=== PATIENT | female | born 1955 | race Caucasian/White ===

== ENCOUNTER → 2016-12-14 | Outpatient (CLI) | payer OTHER ==
[~2016-12-14] MED LIST: CALCARB WITH VIT D; CYROHEPTADINE; NEUR600T; OXYBUTYNIN CHLORIDE; PEPC40TA; SENNA LAX; TIZANIDINE; TRAM100T; WARFARIN
[2016-12-14 14:14] LABS: MEAN CORPUSCULAR HEMOGLOBIN 31.5 pg (27.0-33.0); MEAN CORPUSCULAR HGB CONC 33.8 g/dl (32.0-36.5); MEAN CORPUSCULAR VOLUME 93.3 fl (80.0-96.0); RED CELL DISTRIBUTION WIDTH 13.2 % (11.5-14.5); WHITE BLOOD COUNT 10.1 K/mm3 (4.0-10.0)
[2016-12-14 14:31] LABS: ANION GAP 8 MEQ/L (8-16); BLOOD UREA NITROGEN 12 MG/DL (7-18); CALCIUM LEVEL 9.4 MG/DL (8.8-10.2); CARBON DIOXIDE LEVEL 35 MEQ/L (21-32); CHLORIDE LEVEL 98 MEQ/L (98-107); CREATININE FOR GFR 0.67 MG/DL (0.55-1.02); GLOMERULAR FILTRATION RATE > 60.0 (>45); GLUCOSE, FASTING 160 MG/DL (80-110); POTASSIUM SERUM 3.9 MEQ/L (3.5-5.1); SODIUM LEVEL 141 MEQ/L (136-145)
== END ==
LOC: M LAB 13:10
PROVIDERS: ATTEND Urology
DX: N31.9 Neuromuscular dysfunction of bladder, unspecified (principal)

== ENCOUNTER → 2017-04-25 | Outpatient (CLI) | payer OTHER ==
--- NOTE | 2017-04-26 06:58 | REP ---
Clinical: Lung screening. History nicotine dependence. Comparison: none Technique: Axial low-dose noncontrast images from the thoracic inlet to the upper abdomen using lung screening technique. Findings: There are somewhat irregular soft tissue densities in the bilateral apices and periphery of the upper lung zones (right greater than left) along with a small irregular area of opacity in the posterior superior right lower lobe. No definite discrete soft tissue nodule, consolidation or mass lesion otherwise appreciated. No pleural effusion or pneumothorax. Tracheobronchial tree is patent. Further evaluation is limited due to metallic streak artifact from Myers rods extending to the cervical spine. Cardiomegaly and atherosclerotic changes to the thoracic aorta and coronary arteries noted. Impression: Lung-RADS category III/IV. No definite nodule or mass. However, irregular areas of opacification and consolidation primarily involving the apices without prior examinations for comparison. While these findings may represent chronic changes, an acute process cannot definitively be excluded. Management recommendations may include three - 6-month low-density CT follow-up or PET/CT. Signed by Zia Encinas MD 04/26/2017 06:49 A
== END ==
LOC: M RAD 12:24
PROVIDERS: ATTEND Physician Assistant
DX: Z12.2 Encounter for screening for malignant neoplasm of respiratory organs (principal); F17.210 Nicotine dependence, cigarettes, uncomplicated; R91.8 Other nonspecific abnormal finding of lung field

== ENCOUNTER → 2017-12-06 | Outpatient (REF) | payer OTHER ==
[2017-12-06 20:00] LABS: HEMATOCRIT 45.6 % (36.0-47.0); HEMOGLOBIN 14.8 g/dl (12.0-16.0); MEAN CORPUSCULAR HEMOGLOBIN 30.8 pg (27.0-33.0); MEAN CORPUSCULAR HGB CONC 32.5 g/dl (32.0-36.5); MEAN CORPUSCULAR VOLUME 94.8 fl (80.0-96.0); PLATELET COUNT, AUTOMATED 253 10^3/uL (150-450); RED BLOOD COUNT 4.81 10^6/uL (4.00-5.40); RED CELL DISTRIBUTION WIDTH 13.1 % (11.5-14.5); WHITE BLOOD COUNT 10.4 10^3/uL (4.0-10.0)
[2017-12-06 20:19] LABS: ALBUMIN 3.2 GM/DL (3.2-5.2); ALBUMIN/GLOBULIN RATIO 0.76 (1.00-1.93); ALKALINE PHOSPHATASE 111 U/L (45-117); ALT/SGPT 21 U/L (12-78); ANION GAP 2 MEQ/L (8-16); AST/SGOT 23 U/L (7-37); BILIRUBIN,TOTAL 0.3 MG/DL (0.2-1.0); BLOOD UREA NITROGEN 16 MG/DL (7-18); CALCIUM LEVEL 8.9 MG/DL (8.8-10.2); CARBON DIOXIDE LEVEL 36 MEQ/L (21-32); CHLORIDE LEVEL 99 MEQ/L (98-107); CHOLESTEROL LEVEL 167 MG/DL (<200); CHOLESTEROL RISK RATIO 2.492 (<5); CREATININE FOR GFR 0.59 MG/DL (0.55-1.02); FREE T4 1.15 NG/DL (0.76-1.46); GLOMERULAR FILTRATION RATE > 60.0 (>45); GLUCOSE, FASTING 102 MG/DL (80-110); HDL CHOLESTEROL 67 MG/DL (>40); LDL CHOLESTEROL 75.4 MG/DL (<100); NON-HDL-C 100 MG/DL; POTASSIUM SERUM 4.4 MEQ/L (3.5-5.1); SODIUM LEVEL 137 MEQ/L (136-145); TOTAL PROTEIN 7.4 GM/DL (6.4-8.2); TRIGLYCERIDES LEVEL 123 MG/DL (<150)
== END ==
LOC: M SFHCADAM 15:36
DX: G83.9 Paralytic syndrome, unspecified (principal); F17.210 Nicotine dependence, cigarettes, uncomplicated; M62.838 Other muscle spasm; Z13.220 Encounter for screening for lipoid disorders

== ENCOUNTER → 2018-01-04 | Outpatient (REF) | payer OTHER ==
[2018-01-04 19:50] LABS: HEMATOCRIT 47.9 % (36.0-47.0); HEMOGLOBIN 15.3 g/dl (12.0-16.0); MEAN CORPUSCULAR HEMOGLOBIN 30.5 pg (27.0-33.0); MEAN CORPUSCULAR HGB CONC 31.9 g/dl (32.0-36.5); MEAN CORPUSCULAR VOLUME 95.6 fl (80.0-96.0); PLATELET COUNT, AUTOMATED 330 10^3/uL (150-450); RED BLOOD COUNT 5.01 10^6/uL (4.00-5.40); RED CELL DISTRIBUTION WIDTH 13.4 % (11.5-14.5); WHITE BLOOD COUNT 12.6 10^3/uL (4.0-10.0)
[2018-01-04 19:54] LABS: ANION GAP 4 MEQ/L (8-16); BLOOD UREA NITROGEN 19 MG/DL (7-18); CALCIUM LEVEL 9.1 MG/DL (8.8-10.2); CARBON DIOXIDE LEVEL 37 MEQ/L (21-32); CHLORIDE LEVEL 101 MEQ/L (98-107); CREATININE FOR GFR 0.67 MG/DL (0.55-1.30); GLOMERULAR FILTRATION RATE > 60.0 (>45); GLUCOSE, FASTING 95 MG/DL (70-100); POTASSIUM SERUM 4.1 MEQ/L (3.5-5.1); SODIUM LEVEL 142 MEQ/L (136-145)
== END ==
LOC: M LABDRWAD 19:27
DX: N31.9 Neuromuscular dysfunction of bladder, unspecified (principal)

== ENCOUNTER → 2018-01-11 | Outpatient (REF) | payer OTHER ==
[2018-01-11 18:45] LABS: APPEARANCE, URINE CLEAR (CLEAR); BACTERIA, URINE AUTO 1+ (NEGATIVE); BILIRUBIN, URINE AUTO NEGATIVE (NEGATIVE); BLOOD, URINE BLOOD NEGATIVE (NEGATIVE); COLOR, URINE YELLOW (YELLOW); GLUCOSE, URINE (UA) AUTO NEGATIVE (NEGATIVE); KETONE, URINE AUTO NEGATIVE (NEGATIVE); LEUKOCYTE ESTERASE, URINE AUTO NEGATIVE (NEGATIVE); NITRITE, URINE AUTO NEGATIVE (NEGATIVE); PROTEIN, URINE AUTO NEGATIVE (NEGATIVE); RBC, URINE AUTO 0 /HPF (0-3); SPECIFIC GRAVITY URINE AUTO 1.006 (1.002-1.035); SQUAMOUS EPITHELIAL CELL UR AU 0 /HPF (0-6); UROBILINOGEN, URINE AUTO 0.2 mg/dL (0.0-2.0); WBC, URINE AUTO 1 /HPF (0-3)
== END ==
LOC: M SMT 17:07
DX: N31.9 Neuromuscular dysfunction of bladder, unspecified (principal)

== ENCOUNTER → 2018-10-03 | Outpatient (CLI) | payer OTHER | LOC: M RAD 13:17 | DX: M62.49 Contracture of muscle, multiple sites (principal) | CPT/HCPCS: 76775 ==

== ENCOUNTER → 2018-10-22 | Outpatient (CLI) | payer OTHER | LOC: M RAD 13:34 | DX: M62.49 Contracture of muscle, multiple sites (principal) | CPT/HCPCS: 78707 ==

== ENCOUNTER → 2018-10-29 | Outpatient (REF) | payer OTHER ==
[2018-10-29 18:00] LABS: CALCIUM LEVEL 9.6 MG/DL (8.8-10.2)
[2018-10-29 18:18] LABS: TOTAL 25(OH) VITAMIN D 49.9 NG/ML (30.0-100.0)
== END ==
LOC: M LABDRWAD 16:34
DX: M85.89 Other specified disorders of bone density and structure, multiple sites (principal)
CPT/HCPCS: 82310

== ENCOUNTER → 2018-12-04 | Outpatient (REF) | payer OTHER ==
[2018-12-04 20:13] LABS: HEMATOCRIT 49.5 % (36.0-47.0); HEMOGLOBIN 15.9 g/dl (12.0-15.5); MEAN CORPUSCULAR HEMOGLOBIN 30.8 pg (27.0-33.0); MEAN CORPUSCULAR HGB CONC 32.1 g/dl (32.0-36.5); MEAN CORPUSCULAR VOLUME 95.7 fl (80.0-96.0); PLATELET COUNT, AUTOMATED 279 10^3/uL (150-450); RED BLOOD COUNT 5.17 10^6/uL (4.00-5.40); WHITE BLOOD COUNT 10.8 10^3/uL (4.0-10.0)
[2018-12-04 20:23] LABS: ALBUMIN 3.2 GM/DL (3.2-5.2); ALT/SGPT 15 U/L (12-78); BILIRUBIN,TOTAL 0.3 MG/DL (0.2-1.0); BLOOD UREA NITROGEN 13 MG/DL (7-18); CALCIUM LEVEL 9.4 MG/DL (8.8-10.2); CARBON DIOXIDE LEVEL 35 MEQ/L (21-32); CHLORIDE LEVEL 99 MEQ/L (98-107); CHOLESTEROL LEVEL 171 MG/DL (<200); CHOLESTEROL RISK RATIO 2.552 (<5); CREATININE FOR GFR 0.62 MG/DL (0.55-1.30); FREE T4 1.29 NG/DL (0.76-1.46); GLOMERULAR FILTRATION RATE > 60.0 (>45); GLUCOSE, FASTING 60 MG/DL (70-100); HDL CHOLESTEROL 67 MG/DL (>40); LDL CHOLESTEROL 90 MG/DL (<100); NON-HDL-C 104 MG/DL; POTASSIUM SERUM 4.6 MEQ/L (3.5-5.1); SODIUM LEVEL 142 MEQ/L (136-145); TOTAL PROTEIN 7.5 GM/DL (6.4-8.2); TRIGLYCERIDES LEVEL 68 MG/DL (<150)
== END ==
LOC: M SFHCADAM 16:23
PROVIDERS: ATTEND Physician Assistant
DX: R03.0 Elevated blood-pressure reading, without diagnosis of hypertension (principal); E78.5 Hyperlipidemia, unspecified; N31.9 Neuromuscular dysfunction of bladder, unspecified; M81.0 Age-related osteoporosis without current pathological fracture

== ENCOUNTER → 2019-01-03 | Outpatient (REF) | payer OTHER ==
[2019-01-03 19:49] LABS: APPEARANCE, URINE CLEAR (CLEAR); BACTERIA, URINE AUTO NEGATIVE (NEGATIVE); BILIRUBIN, URINE AUTO NEGATIVE (NEGATIVE); BLOOD, URINE BLOOD NEGATIVE (NEGATIVE); COLOR, URINE YELLOW (YELLOW); GLUCOSE, URINE (UA) AUTO NEGATIVE (NEGATIVE); KETONE, URINE AUTO NEGATIVE (NEGATIVE); LEUKOCYTE ESTERASE, URINE AUTO NEGATIVE (NEGATIVE); MUCUS, URINE SMALL (NEGATIVE); NITRITE, URINE AUTO NEGATIVE (NEGATIVE); PROTEIN, URINE AUTO NEGATIVE (NEGATIVE); RBC, URINE AUTO 0 /HPF (0-3); SPECIFIC GRAVITY URINE AUTO 1.004 (1.002-1.035); SQUAMOUS EPITHELIAL CELL UR AU 0 /HPF (0-6); UROBILINOGEN, URINE AUTO 0.2 mg/dL (0.0-2.0); WBC, URINE AUTO 1 /HPF (0-3)
== END ==
LOC: M LAB REF 19:14
PROVIDERS: ATTEND Physician Assistant
DX: N30.00 Acute cystitis without hematuria (principal)

== ENCOUNTER → 2019-05-31 | Outpatient (REF) | payer MEDICARE ==
[2019-05-31 19:19] LABS: HEMATOCRIT 45.2 % (36.0-47.0); HEMOGLOBIN 14.7 g/dl (12.0-15.5); MEAN CORPUSCULAR HGB CONC 32.5 g/dl (32.0-36.5); MEAN CORPUSCULAR VOLUME 98.3 fl (80.0-96.0); PLATELET COUNT, AUTOMATED 275 10^3/uL (150-450); WHITE BLOOD COUNT 9.9 10^3/uL (4.0-10.0)
[2019-05-31 19:26] LABS: ALBUMIN 3.2 GM/DL (3.2-5.2); ALT/SGPT 20 U/L (12-78); BILIRUBIN,TOTAL 0.3 MG/DL (0.2-1.0); BLOOD UREA NITROGEN 21 MG/DL (7-18); CALCIUM LEVEL 8.8 MG/DL (8.8-10.2); CARBON DIOXIDE LEVEL 34 MEQ/L (21-32); CHLORIDE LEVEL 101 MEQ/L (98-107); CREATININE FOR GFR 0.58 MG/DL (0.55-1.30); GLOMERULAR FILTRATION RATE > 60.0 (>45); GLUCOSE, FASTING 84 MG/DL (70-100); POTASSIUM SERUM 4.2 MEQ/L (3.5-5.1); SODIUM LEVEL 141 MEQ/L (136-145); TOTAL PROTEIN 7.6 GM/DL (6.4-8.2)
[2019-05-31 19:30] LABS: AMORPHOUS SEDIMENT SMALL (NEGATIVE); APPEARANCE, URINE CLOUDY (CLEAR); BACTERIA, URINE AUTO 1+ (NEGATIVE); BILIRUBIN, URINE AUTO NEGATIVE (NEGATIVE); BLOOD, URINE BLOOD NEGATIVE (NEGATIVE); COLOR, URINE YELLOW (YELLOW); GLUCOSE, URINE (UA) AUTO NEGATIVE (NEGATIVE); KETONE, URINE AUTO NEGATIVE (NEGATIVE); LEUKOCYTE ESTERASE, URINE AUTO TRACE (NEGATIVE); NITRITE, URINE AUTO NEGATIVE (NEGATIVE); PROTEIN, URINE AUTO NEGATIVE (NEGATIVE); RBC, URINE AUTO 2 /HPF (0-3); SPECIFIC GRAVITY URINE AUTO 1.013 (1.002-1.035); SQUAMOUS EPITHELIAL CELL UR AU 1 /HPF (0-6); UROBILINOGEN, URINE AUTO 0.2 mg/dL (0.0-2.0); WBC, URINE AUTO 1 /HPF (0-3)
== END ==
LOC: M SFHCADAM 16:33
PROVIDERS: ATTEND Physician Assistant
DX: N30.00 Acute cystitis without hematuria (principal)

== ENCOUNTER 2019-08-15 17:46 | Inpatient (IN) | payer MEDICARE ==
[~2019-08-15] VITALS: Ht 157.5 cm; Wt 54.5 kg
[2019-08-15] MEDS ORDERED: ACETAMINOPHEN 325 MG TAB PO ONE (18:15)
--- NOTE | 2019-08-15 18:28 | REP ---
Portable chest, single AP view with the patient sitting: The only available comparison study is a low-dose lung screening chest CT dated 04/25/2017. There is chronic focal increased density medially in the apex of the right lung compatible with chronic scarring. This was present on the comparison CT. There is increased density inferiorly in the right lung as an interval change compatible with an acute infiltrate. Cardiac size is normal. The james and mediastinum are unremarkable. There are thoracic spine Myers rods and a pacemaker, unchanged. Impression: New infiltrate inferiorly in the right lung. Chronic parenchymal scarring medially in the right apex. Electronically Signed by Jose Ramon Luna MD 08/15/2019 06:20 P
[2019-08-15] MEDS ORDERED: NS 1,000 ML IV SCH ×2 (18:29→19:45)
[2019-08-15] MEDS ORDERED: AZITHROMYCIN INJ 500 MG, VIAL MATE ADAPTER 1 EACH in D5W 250 ML IV ONE (18:30)
[2019-08-15] MEDS ORDERED: cefTRIAXone SOD 1 GM in D5W MINI-BAG PLUS 50 ML IV ONE (18:30)
[2019-08-15 18:42] LABS: BASO # 0.1 10^3/uL (0.0-0.2); BASO % 0.3 % (0.0-1.0); HEMATOCRIT 43.3 % (36.0-47.0); HEMOGLOBIN 14.5 g/dl (12.0-15.5); LYMPH # 1.8 10^3/uL (1.5-5.0); LYMPH % 7.8 % (24.0-44.0); MEAN CORPUSCULAR HEMOGLOBIN 32.4 pg (27.0-33.0); MEAN CORPUSCULAR HGB CONC 33.5 g/dl (32.0-36.5); MEAN CORPUSCULAR VOLUME 96.9 fl (80.0-96.0); MONO % 10.5 % (0.0-5.0); NEUTROPHILS # 18.3 10^3/uL (1.5-8.5); NEUTROPHILS % 80.7 % (36.0-66.0); PLATELET COUNT, AUTOMATED 317 10^3/uL (150-450); RED BLOOD COUNT 4.47 10^6/uL (4.00-5.40); WHITE BLOOD COUNT 22.7 10^3/uL (4.0-10.0)
[2019-08-15 18:48] LABS: VENOUS BASE EXCESS 5.8 (-2.0-2.0); VENOUS HCO3 33.4 MEQ/L (23.0-27.0); VENOUS O2 SATURATION 54.5 % (60.0-80.0); VENOUS PARTIAL PRESSURE CO2 59.8 mmHg (38.0-50.0); VENOUS PH 7.365 UNITS (7.330-7.430); VENOUS STANDARD HCO3 28.3 MEQ/L; VENOUS TOTAL CO2 35.2 MEQ/L (24.0-28.0)
[2019-08-15] MEDS ORDERED: FAMO40TA3 PO (18:56)
[2019-08-15] MEDS ORDERED: GABA-843 PO (18:56)
[2019-08-15] MEDS ORDERED: TRAM50TA2 PO (18:56)
[2019-08-15] MEDS ORDERED: OYSCTAB3 PO (18:56)
[2019-08-15] MEDS ORDERED: CYPR4TA PO ×2 (18:56)
[2019-08-15] MEDS ORDERED: OXYB15TA PO (18:56)
[2019-08-15] MEDS ORDERED: TIZA4TAB4 PO (18:56)
[2019-08-15] MEDS ORDERED: D200CAP2 PO (18:56)
[2019-08-15 18:58] LABS: BLOOD UREA NITROGEN 35 MG/DL (7-18); CALCIUM LEVEL 9.6 MG/DL (8.8-10.2); CARBON DIOXIDE LEVEL 32 MEQ/L (21-32); CHLORIDE LEVEL 94 MEQ/L (98-107); CREATININE FOR GFR 0.86 MG/DL (0.55-1.30); GLOMERULAR FILTRATION RATE > 60.0 (>45); GLUCOSE, FASTING 114 MG/DL (70-100); POTASSIUM SERUM 3.8 MEQ/L (3.5-5.1); SODIUM LEVEL 136 MEQ/L (136-145)
[2019-08-15 18:59] LABS: MONO # 2.4 10^3/uL (0.0-0.8)
--- NOTE | 2019-08-15 19:24 | HPEPDOC ---
[facility] Medical History & Physical Date of Admission Aug 15, 2019 Date of Service: Aug 15, 2019 Primary Care Physician: KEITH FLORES PA-C Attending Physician: KEITH FLORES PA-C History and Physical TIME OF SERVICE: 7:55 PM CHIEF COMPLAINT: "Trouble breathing." HISTORY OF PRESENT ILLNESS: This is a 61-year-old female who presents with complaints of "trouble breathing" for a couple of weeks. More specifically, she has had congestion, runny nose that resolved last week, dry cough, headache, poor appetite, fevers and chills. She denies having muscle aches, denies having chest pain, and denies having palpitations. She also commented that her urine has been more red than usual. REVIEW OF SYSTEMS: 12 point review of systems negative except as listed in HPI PAST MEDICAL/ SURGICAL HISTORY: Paraplegia secondary to spinal cord injury sustained after a fall while horseback riding/ status post spinal cord surgery with neha placement Neurogenic bladder requiring intermittent straight cath. Arthritis. Sleep apnea, not compliant with CPAP Osteoporosis History of DVT/Status post IVC filter placement Status post pacemaker placement ( according to the patient's daughter this is because the patient had several episodes of cardiac arrest while hospitalized but 19 years ago) Status post hemorrhoidectomy Status post tonsillectomy History of torn rotator cuff SOCIAL HISTORY: Former smoker FAMILY HISTORY: CAD/[place] Chronic hypertension. Breast cancer ALLERGIES: Please see below. HOME MEDICATIONS: Please see below. PHYSICAL EXAMINATION: VITAL SIGNS: Please see below. GENERAL APPEARANCE: Slim build, well-developed, does not appear toxic HEENT: Normocephalic, atraumatic, mucous membranes dry, nasal cannula in place, lips acyanotic CARDIOVASCULAR: Regular rate and rhythm. No murmurs, rubs or gallops LUNGS: Has a weak cough and is coughing occasionally during the exam. There are expiratory rhonchi bilaterally ABDOMEN: Soft and nontender on palpation MUSCULOSKELETAL: . Motion is intact in upper extremities, the patient is unable to move her legs, the calf at the right lower extremity is slightly larger than the left INTEGUMENT: She is not diaphoretic and her skin is not flushed NEUROLOGICAL: Numerous 2-12 are grossly intact. Speech is not dysarthric PSYCHIATRIC: Alert and oriented to person, place and time, able to understand and follow commands LABORATORY DATA: See below. IMAGING: Chest x-ray "Impression: New infiltrate inferiorly in the right lung. Chronic parenchymal scarring medially in the right apex." MICROBIOLOGY: Please see below. ASSESSMENT: Mrs. Velasquez is a 64 old female with a past medical history of paraplegia, neurogenic bladder, arthritis, sleep apnea, and osteoporosis, who will be admitted for management of sepsis secondary to pneumonia. PLAN: 1.Sepsis secondary to right sided pneumonia SIRS criteria include temperature of 101.0, pulse of 100, respiratory rate of 24, and WBC count of 22.7. Lactic acid is within normal limits She also has Non diabetic hyperglycemia and glucose of 114 NEW2S Score equals 6 points = medium risk Chest x-ray as above Oxygen saturation is 90% on 2 L by nasal cannula VBG was remarkable for a. PCO2 of 59.8 which is high PORT/PSI Score to predict risk of mortality in pt w CAP = 73points = class III = low risk The patient confirmed that she like to remain full code and would like to be intubated if medically necessary Plan: admit to PCU / telemetry / Sepsis protocol /elevate head of bed to 30 degrees / c/w supplemental O2, ceftriaxone and azithromycin/ IVF /f/u Influenza, blood cx &sputum Cx / tessalon pearls / Acetaminophen PRN for fever 2.Paraplegia secondary to spinal injury sustained after a fall / Neurogenic bladder requiring intermittent straight cath Plan: intermittent catheterization / c/w home meds to manage spasticity and neurogenic bladder 3. Sleep apnea Plan: Okay to use home CPAP 4. Osteoporosis Plan: continued home meds DVT prophylaxis with SCDs Disposition pending clinical course Vital Signs Vital Signs Date Time Temp Pulse Resp B/P (MAP) Pulse Ox O2 Delivery O2 Flow Rate FiO2 08/15/19 19:17 100.0 89 20 126/71 (89) 94 Nasal Cannula 2.0 Laboratory Data Labs 24H Laboratory Tests 2 08/15/19 18:25: Immature Granulocyte % (Auto) 0.7, White Blood Count 22.7H, Red Blood Count 4.47, Hemoglobin 14.5, Hematocrit 43.3, Mean Corpuscular Volume 96.9H, Mean Corpuscular Hemoglobin 32.4, Mean Corpuscular Hemoglobin Concent 33.5, Red Cell Distribution Width 13.1, Platelet Count 317, Neutrophils (%) (Auto) 80.7H, Lymphocytes (%) (Auto) 7.8L, Monocytes (%) (Auto) 10.5H, Eosinophils (%) (Auto) 0.0, Basophils (%) (Auto) 0.3, Neutrophils # (Auto) 18.3H, Lymphocytes # (Auto) 1.8, Monocytes # (Auto) 2.4H, Eosinophils # (Auto) 0.0, Basophils # (Auto) 0.1, Nucleated Red Blood Cells % (auto) 0.0, Blood Gas Bicarbonate Standard 28.3, Venous Blood pH 7.365, Venous Blood Partial Pressure CO2 59.8H, Venous Blood Partial Pressure O2 31.0, Venous Blood Total Carbon Dioxide 35.2H, Venous Blood HCO3 33.4H, Venous Blood Oxygen Saturation 54.5L, Venous Blood Base Excess 5.8H, Anion Gap 10, Glomerular Filtration Rate > 60.0, Lactic Acid Level 1.9, Blood Urea Nitrogen 35H, Creatinine 0.86, Sodium Level 136, Potassium Level 3.8, Chloride Level 94L, Carbon Dioxide Level 32, Calcium Level 9.6 CBC/BMP Laboratory Tests 08/15/19 18:25 Red Blood Count 4.47, Mean Corpuscular Volume 96.9 H, Mean Corpuscular Hemoglobin 32.4, Mean Corpuscular Hemoglobin Concent 33.5, Red Cell Distribution Width 13.1, Neutrophils (%) (Auto) 80.7 H, Lymphocytes (%) (Auto) 7.8 L, Monocytes (%) (Auto) 10.5 H, Eosinophils (%) (Auto) 0.0, Basophils (%) (Auto) 0.3, Neutrophils # (Auto) 18.3 H, Lymphocytes # (Auto) 1.8, Monocytes # (Auto) 2.4 H, Eosinophils # (Auto) 0.0, Basophils # (Auto) 0.1, Calcium Level 9.6 Microbiology Microbiology 08/15/19 Blood Culture, Received Pending 08/15/19 Blood Culture, Received Pending Home Medications Scheduled Calcium Carbonate/Vitamin D3 ([place] 500-Vit D3 200 Tablet) 1 Each Tablet, 1 TAB PO BID Cholecalciferol (Vitamin D3) (Vitamin D3) 2,000 Unit Capsule, 2,000 UNIT PO QPM Cyproheptadine HCl (Cyproheptadine HCl) 4 Mg Tablet, 4 MG PO DAILY NOON Cyproheptadine HCl (Cyproheptadine HCl) 4 Mg Tablet, 8 MG PO QPM Famotidine (Famotidine) 40 Mg Tablet, 40 MG PO DAILY Gabapentin (Gabapentin) 300 Mg Capsule, 600 MG PO BID Oxybutynin Chloride (Oxybutynin Chloride ER) 15 Mg Tab.er.24, 15 MG PO DAILY Scheduled PRN Tizanidine HCl (Tizanidine HCl) 4 Mg Tablet, 8 MG PO TID PRN for MUSCLE SPASMS Tramadol HCl (Tramadol HCl) 50 Mg Tablet, 50 MG PO Q6H PRN for PAIN Allergies Coded Allergies: No Known Allergies (Unverified , 08/15/19) A-FIB/CHADSVASC A-FIB History Current/History of A-Fib/PAF?: No Current PO Anticoag Therapy: No LIUDMILA FLORES MD Aug 15, 2019 19:24
[2019-08-15] MEDS ORDERED: BENZONATATE 100 MG CAP PO PRN (19:45)
[2019-08-15] MEDS ORDERED: ACETAMINOPHEN 650MG ER TAB (TYLENOL ARTHRITIS) PO PRN (19:45)
[2019-08-15] MEDS ORDERED: traMADol 50 MG TAB PO PRN (20:30)
[2019-08-15] MEDS: VITAMIN D 1,000 INTERNATIONAL UNITS TABLET PO SCH (20:55)
[2019-08-15] MEDS: GABAPENTIN 300 MG CAP PO SCH (20:55)
[2019-08-15] MEDS: CALCIUM/VITAMIN D 500 MG TAB PO SCH (21:42)
[2019-08-15] MEDS: CYPROHEPTADINE 4 MG TAB PO SCH (21:49)
[2019-08-15 22:42] LABS: INFLUENZA A AMPLIFICATION NEGATIVE (NEGATIVE); INFLUENZA B AMPLIFICATION NEGATIVE (NEGATIVE)
[2019-08-16] VITALS: BP 151/87
--- NOTE | 2019-08-16 00:11 | ECGEPIP ---
[place] - ED Test Date: 2019-08-15 Pat Name: IVORY NGUYEN Department: Room: - Gender: Female Instrumentation And Control Technician: fareed : [id number] Requested By: ALE Chan Order Number: [id number] Reading MD: Barrie Bean Measurements Intervals [place] Rate: 105 P: 50 CA: 118 QRS: 82 QRSD: 78 T: 80 QT: 331 QTc: 438 Interpretive Statements SINUS TACHYCARDIA WITH SHORT CA INTERVAL POSSIBLE LEFT ATRIAL ENLARGEMENT INCOMPLETE RIGHT BUNDLE BRANCH BLOCK NONSPECIFIC ST & T-WAVE ABNORMALITY NO PRIORS FOR COMPARISON Electronically Signed on 08-16-2019 0:10:35 EDT by Barrie Bean
[2019-08-16 05:58] VITALS: BP 162/81
[2019-08-16 07:09] LABS: HEMATOCRIT 44.3 % (36.0-47.0); HEMOGLOBIN 14.7 g/dl (12.0-15.5); MEAN CORPUSCULAR HEMOGLOBIN 32.2 pg (27.0-33.0); MEAN CORPUSCULAR HGB CONC 33.2 g/dl (32.0-36.5); MEAN CORPUSCULAR VOLUME 97.1 fl (80.0-96.0); PLATELET COUNT, AUTOMATED 317 10^3/uL (150-450); RED BLOOD COUNT 4.56 10^6/uL (4.00-5.40)
[2019-08-16 07:29] LABS: BLOOD UREA NITROGEN 24 MG/DL (7-18); CALCIUM LEVEL 9.4 MG/DL (8.8-10.2); CARBON DIOXIDE LEVEL 34 MEQ/L (21-32); CHLORIDE LEVEL 100 MEQ/L (98-107); GLOMERULAR FILTRATION RATE > 60.0 (>45); GLUCOSE, FASTING 163 MG/DL (70-100); POTASSIUM SERUM 3.7 MEQ/L (3.5-5.1); SODIUM LEVEL 140 MEQ/L (136-145)
[2019-08-16] MEDS: oxyBUTYnin *DITROPAN XL* 5 MG TABCR PO SCH (08:54)
[2019-08-16] MEDS: GABAPENTIN 300 MG CAP PO SCH ×2 (08:54→20:28)
[2019-08-16] MEDS: FAMOTIDINE 20 MG TAB PO SCH (08:54)
[2019-08-16] MEDS: CALCIUM/VITAMIN D 500 MG TAB PO SCH ×2 (09:00→20:28)
[2019-08-16] MEDS ORDERED: ALBUTEROL SULFATE 2.5 MG/0.5 ML INH NEB SOLN INH PRN (09:30)
--- NOTE | 2019-08-16 09:42 | IPN ---
DATE: 08/16/2019 Kori was seen while on interim bed status, admitted with a right sided pneumonia. She feels better than she did upon admission, less short of breath. Her energy levels are better. She was not running any fevers at home and oxygen saturation on supplemental oxygen are satisfactory. PHYSICAL EXAMINATION: 162/81, pulse 77, respirations 18, oxygen saturation 95% on 2 liters. General appearance: Lying in bed in no distress. HEENT unremarkable. Lungs show diffuse rhonchi and wheezes. Heart regular rhythm. Abdomen soft, nontender. IMPRESSION: 1. Right sided pneumonia. She is currently on ceftriaxone and azithromycin. She has a history of cardiac arrhythmia and has a pacemaker present, so I would rather she was not on azithromycin which is arrhythmogenic. I will change her to a higher dose of Rocephin (2 gram IV daily) and change the azithromycin to doxycycline 100 mg every 12 hours Empiric Solu-Medrol 40 mg IV daily for 5 days has been ordered, which has improved outcomes with severe community acquired pneumonia. 2. Paraplegia. She is T5 paraplegic after a horse riding accident in 2002. She does self catheterization and has a bowel regimen that I have asked the nurses to help her continue. 3. Neurogenic bladder. She straight catheterizes every 4 hours. 4. Sleep apnea. Continue her CPAP.
[2019-08-16] MEDS: methylPREDNISolone INJ 125 MG/2 ML VIAL (J2930) IV SCH (10:58)
[2019-08-16] MEDS: cefTRIAXone SOD 2 GM in D5W MINI-BAG PLUS 50 ML IV SCH (10:58)
[2019-08-16] MEDS: ALBUTEROL SULFATE 2.5 MG/0.5 ML INH NEB SOLN INH SCH ×3 (11:32→18:24)
[2019-08-16] MEDS: CYPROHEPTADINE 4 MG TAB PO SCH ×2 (12:00→20:28)
[2019-08-16] MEDS: DOXYCYCLINE HYCLATE 100 MG in D5W MINI-BAG PLUS 100 ML IV SCH (13:24)
[2019-08-16] MEDS: tiZANidine 4 MG TAB PO PRN ×2 (13:46→20:28)
[2019-08-16 14:34] VITALS: BP 157/77
[2019-08-16 18:00] VITALS: BP 130/63
[2019-08-16] MEDS ORDERED: cefTRIAXone SOD 1 GM in D5W MINI-BAG PLUS 50 ML IV SCH (19:00)
[2019-08-16] MEDS ORDERED: AZITHROMYCIN INJ 500 MG, VIAL MATE ADAPTER 1 EACH in D5W 250 ML IV SCH (20:00)
[2019-08-16] MEDS: VITAMIN D 1,000 INTERNATIONAL UNITS TABLET PO SCH (20:28)
[2019-08-16 22:00] VITALS: BP 142/88
[2019-08-17] MEDS: DOXYCYCLINE HYCLATE 100 MG in D5W MINI-BAG PLUS 100 ML IV SCH ×2 (00:25→13:20)
[2019-08-17 06:00] VITALS: BP 161/85
[2019-08-17] MEDS: ALBUTEROL SULFATE 2.5 MG/0.5 ML INH NEB SOLN INH SCH ×4 (07:36→19:38)
[2019-08-17 07:45] LABS: BASO # 0.1 10^3/uL (0.0-0.2); BASO % 0.3 % (0.0-1.0); HEMATOCRIT 43.3 % (36.0-47.0); HEMOGLOBIN 14.1 g/dl (12.0-15.5); LYMPH # 1.4 10^3/uL (1.5-5.0); LYMPH % 4.9 % (24.0-44.0); MEAN CORPUSCULAR HGB CONC 32.6 g/dl (32.0-36.5); MEAN CORPUSCULAR VOLUME 98.2 fl (80.0-96.0); MONO # 1.9 10^3/uL (0.0-0.8); MONO % 6.9 % (0.0-5.0); NEUTROPHILS # 24.2 10^3/uL (1.5-8.5); NEUTROPHILS % 86.3 % (36.0-66.0); PLATELET COUNT, AUTOMATED 352 10^3/uL (150-450); RED BLOOD COUNT 4.41 10^6/uL (4.00-5.40)
[2019-08-17 08:04] LABS: BLOOD UREA NITROGEN 14 MG/DL (7-18); CALCIUM LEVEL 9.3 MG/DL (8.8-10.2); CARBON DIOXIDE LEVEL 36 MEQ/L (21-32); CHLORIDE LEVEL 102 MEQ/L (98-107); CREATININE FOR GFR 0.55 MG/DL (0.55-1.30); GLOMERULAR FILTRATION RATE > 60.0 (>45); GLUCOSE, FASTING 103 MG/DL (70-100); POTASSIUM SERUM 3.8 MEQ/L (3.5-5.1); SODIUM LEVEL 142 MEQ/L (136-145)
[2019-08-17] MEDS: methylPREDNISolone INJ 125 MG/2 ML VIAL (J2930) IV SCH (08:17)
[2019-08-17] MEDS: CALCIUM/VITAMIN D 500 MG TAB PO SCH ×2 (08:17→20:12)
[2019-08-17] MEDS: GABAPENTIN 300 MG CAP PO SCH ×2 (08:17→20:12)
[2019-08-17] MEDS: FAMOTIDINE 20 MG TAB PO SCH (08:17)
[2019-08-17] MEDS: oxyBUTYnin *DITROPAN XL* 5 MG TABCR PO SCH (08:17)
[2019-08-17] MEDS: tiZANidine 4 MG TAB PO PRN ×2 (08:40→17:06)
[2019-08-17 10:00] VITALS: BP 142/78
[2019-08-17] MEDS: cefTRIAXone SOD 2 GM in D5W MINI-BAG PLUS 50 ML IV SCH (10:54)
[2019-08-17] MEDS: CYPROHEPTADINE 4 MG TAB PO SCH ×2 (13:21→20:12)
[2019-08-17 14:00] VITALS: BP 164/86
--- NOTE | 2019-08-17 14:55 | IPNPDOC ---
Subjective Date Seen The patient was seen on 08/17/19. Subjective Chief Complaint/HPI improved cough Constitutional: Denies: Chills Eyes: Denies: Vision change Skin: Denies: Rash Pulmonary: Reports: Cough; Denies: Dyspnea Cardiovascular: Denies: Chest Pain Gastrointestinal: Denies: Nausea, Vomiting Genitourinary: Denies: Dysuria Objective Physical Examination General Exam: Positive: Alert, Cooperative ENT Exam: Positive: Atraumatic Neck Exam: Negative: JVD Chest Exam: Positive: Rales (R basilar), Diminished Heart Exam: Positive: Rate Normal Abdomen Exam: Positive: Normal bowel sounds Extremity Exam: Negative: Edema Assessment /Plan Problems (1) Pneumonia Status: Acute Response to Treatment: Improving Problem Text: D2 ceftriaxone/doxy 08/17 WBC 28 (08/15 23)-? GC effect, AF, given increasing WBC and persistent hypoxia, check CT chest 08/15 CXR RLL infiltrate 08/15 BCX2 NG (2) Paraplegia (3) DVT (deep venous thrombosis) Status: Chronic Problem Text: ho DVT sp IVC filter (4) MIGDALIA (obstructive sleep apnea) Status: Chronic Problem Text: non-compliant c CPAP Plan/VTE VTE Prophylaxis Ordered?: Yes VS, I&O, 24H, Fishbone Vital Signs/I&O Vital Signs Date Time Temp Pulse Resp B/P (MAP) Pulse Ox O2 Delivery O2 Flow Rate FiO2 08/17/19 10:00 97.8 80 17 142/78 (99) 95 2.0 08/15/19 23:22 Nasal Cannula I&O- Last 24 Hours up to 6 AM 08/17/19 06:00 Intake Total 1100 ml Output Total 4825 ml Balance -3725 ml Laboratory Data 24H LABS Laboratory Tests 2 08/17/19 07:13: Immature Granulocyte % (Auto) 1.6, White Blood Count 28.0H, Red Blood Count 4.41, Hemoglobin 14.1, Hematocrit 43.3, Mean Corpuscular Volume 98.2H, Mean Corpuscular Hemoglobin 32.0, Mean Corpuscular Hemoglobin Concent 32.6, Red Cell Distribution Width 13.0, Platelet Count 352, Neutrophils (%) (Auto) 86.3H, Lymphocytes (%) (Auto) 4.9L, Monocytes (%) (Auto) 6.9H, Eosinophils (%) (Auto) 0.0, Basophils (%) (Auto) 0.3, Neutrophils # (Auto) 24.2H, Lymphocytes # (Auto) 1.4L, Monocytes # (Auto) 1.9H, Eosinophils # (Auto) 0.0, Basophils # (Auto) 0.1, Nucleated Red Blood Cells % (auto) 0.0, Anion Gap 4L, Glomerular Filtration Rate > 60.0, Blood Urea Nitrogen 14, Creatinine 0.55, Sodium Level 142, Potassium Level 3.8, Chloride Level 102, Carbon Dioxide Level 36H, Calcium Level 9.3 08/17/19 11:25: Bedside Glucose (Misc Panel) 159H CBC/BMP Laboratory Tests 08/17/19 07:13 Red Blood Count 4.41, Mean Corpuscular Volume 98.2 H, Mean Corpuscular Hemoglobin 32.0, Mean Corpuscular Hemoglobin Concent 32.6, Red Cell Distribution Width 13.0, Neutrophils (%) (Auto) 86.3 H, Lymphocytes (%) (Auto) 4.9 L, Monocytes (%) (Auto) 6.9 H, Eosinophils (%) (Auto) 0.0, Basophils (%) (Auto) 0.3, Neutrophils # (Auto) 24.2 H, Lymphocytes # (Auto) 1.4 L, Monocytes # (Auto) 1.9 H, Eosinophils # (Auto) 0.0, Basophils # (Auto) 0.1, Calcium Level 9.3 Microbiology Microbiology 08/15/19 Blood Culture - Preliminary, Resulted No growth after 24 hours . All specim... 08/15/19 Blood Culture - Preliminary, Resulted No growth after 24 hours . All specim... Mayank Goldberg M.D. Aug 17, 2019 14:55
[2019-08-17] MEDS ORDERED: ISOVUE-370 76% 100ML VIAL (Q9967) As Ordered ONE (15:12)
[2019-08-17 18:00] VITALS: BP 200/110
[2019-08-17 19:00] VITALS: BP 158/82
[2019-08-17] MEDS: VITAMIN D 1,000 INTERNATIONAL UNITS TABLET PO SCH (20:12)
[2019-08-17 22:00] VITALS: BP 151/78
[2019-08-18] VITALS (8 sets, daily range): BP systolic 113–210; BP diastolic 72–110
[2019-08-18] MEDS: DOXYCYCLINE HYCLATE 100 MG in D5W MINI-BAG PLUS 100 ML IV SCH ×2 (00:06→12:25)
[2019-08-18] MEDS: tiZANidine 4 MG TAB PO PRN ×3 (00:06→20:06)
[2019-08-18 06:56] LABS: BASO # 0.1 10^3/uL (0.0-0.2); BASO % 0.2 % (0.0-1.0); HEMATOCRIT 41.5 % (36.0-47.0); HEMOGLOBIN 13.5 g/dl (12.0-15.5); LYMPH % 13.1 % (24.0-44.0); MEAN CORPUSCULAR HGB CONC 32.5 g/dl (32.0-36.5); MEAN CORPUSCULAR VOLUME 95.2 fl (80.0-96.0); MONO % 9.7 % (0.0-5.0); NEUTROPHILS # 16.9 10^3/uL (1.5-8.5); NEUTROPHILS % 75.3 % (36.0-66.0); PLATELET COUNT, AUTOMATED 362 10^3/uL (150-450); RED BLOOD COUNT 4.36 10^6/uL (4.00-5.40); WHITE BLOOD COUNT 22.4 10^3/uL (4.0-10.0)
[2019-08-18 07:17] LABS: BLOOD UREA NITROGEN 14 MG/DL (7-18); CALCIUM LEVEL 8.9 MG/DL (8.8-10.2); CARBON DIOXIDE LEVEL 36 MEQ/L (21-32); CHLORIDE LEVEL 103 MEQ/L (98-107); CREATININE FOR GFR 0.58 MG/DL (0.55-1.30); GLOMERULAR FILTRATION RATE > 60.0 (>45); GLUCOSE, FASTING 84 MG/DL (70-100); MONO # 2.2 10^3/uL (0.0-0.8); POTASSIUM SERUM 3.8 MEQ/L (3.5-5.1); SODIUM LEVEL 142 MEQ/L (136-145)
[2019-08-18] MEDS: ALBUTEROL SULFATE 2.5 MG/0.5 ML INH NEB SOLN INH SCH ×4 (07:21→20:02)
--- NOTE | 2019-08-18 08:00 | REP ---
CT CHEST WITH CONTRAST: 08/17/2019. Comparison: AP portable chest 08/15/2019, CT 11/16/2018. Clinical history: Left lower lobe opacity, increasing WBCs. Technique: Bolus 75 ml Isovue 370, scanning through the chest with coronal and sagittal reconstructions. Orthopedic metal artifact reduction algorithm was used for some reconstructions because of Myers rods. Findings: The lung [place] show chronic apical scarring on the left and more on the right with bronchiectatic change in the consolidated apex. This is unchanged. However, there are acute infiltrates in the deep sulcus of the left lower lobe and also in the right lower lobe. Underlying COPD and fibrosis with patchy interstitial infiltrates as well as a more consolidated deep sulcus infiltrates seen in both lower lobes. Some COPD and emphysematous changes are also noted. Heart not enlarged. Some nodes about the right hilum. No other definite adenopathy. The aorta is calcified and without gross aneurysm or dissection. Left atrium mildly prominent but the left ventricle is not enlarged. No pericardial thickening or effusion. No axillary or supraclavicular mass. The bones show degenerative disc changes without acute compression deformity. Marginal osteophytes lower thoracic spine. Some sclerotic changes in upper thoracic vertebral body, all stable compared to previous exams. Myers rods extending from the C7-T1 level through T9. An old healed sternomanubrial fracture. This is stable. In the upper abdomen, that portion of liver and spleen included were unremarkable. The abdominal aorta has no aneurysm. Upper poles of kidneys intact. Adrenal glands normal. Impression: 1. The deep sulcus of the lower lobes show infiltrates bilaterally with interstitial infiltrates, more diffusely in both lower lung zones. No effusion. 2. Apical pleuroparenchymal scarring, right greater than left and unchanged with some bronchiectatic changes in the chronic apical opacity on the right. 3. No gross cardiomegaly with left atrium mildly prominent. 4. Tortuous calcified aorta without aneurysm or dissection. 5. Myers rods in the upper thoracic spine and old healed sternomanubrial fracture stable. No acute bony finding. Electronically Signed by Nestor Elias MD 08/18/2019 09:22 A
[2019-08-18] MEDS: oxyBUTYnin *DITROPAN XL* 5 MG TABCR PO SCH (08:32)
[2019-08-18] MEDS: CALCIUM/VITAMIN D 500 MG TAB PO SCH ×2 (08:32→20:05)
[2019-08-18] MEDS: FAMOTIDINE 20 MG TAB PO SCH (08:32)
[2019-08-18] MEDS: GABAPENTIN 300 MG CAP PO SCH ×2 (08:32→20:05)
[2019-08-18] MEDS: methylPREDNISolone INJ 125 MG/2 ML VIAL (J2930) IV SCH (08:32)
[2019-08-18] MEDS: ENOXAPARIN 40 MG/0.4 ML SYRINGE (J1650) SC SCH (08:33)
[2019-08-18] MEDS: cefTRIAXone SOD 2 GM in D5W MINI-BAG PLUS 50 ML IV SCH (10:24)
[2019-08-18] MEDS: CYPROHEPTADINE 4 MG TAB PO SCH ×2 (12:25→20:04)
--- NOTE | 2019-08-18 15:44 | IPNPDOC ---
Subjective Date Seen The patient was seen on 08/18/19. Subjective Chief Complaint/HPI dyspnea close to baseline Constitutional: Denies: Chills Eyes: Denies: Pain ENT: Denies: Head Aches Skin: Denies: Lesions Pulmonary: Denies: Dyspnea, Cough Cardiovascular: Denies: Chest Pain, Palpitations Gastrointestinal: Denies: Nausea, Vomiting Objective Physical Examination General Exam: Positive: Alert, Cooperative ENT Exam: Positive: Atraumatic Neck Exam: Negative: JVD Chest Exam: Positive: Rales (R basilar), Diminished Heart Exam: Positive: Rate Normal Abdomen Exam: Positive: Normal bowel sounds Extremity Exam: Negative: Edema Assessment /Plan Problems (1) Elevated blood pressure reading Status: Acute Problem Text: no ho hypertension ? 2 GC 08/18 SBP last PM to 200; therefore, + amlo 5, this AM down to 110, MP decreased 40 to 20 (2) Pneumonia Status: Acute Response to Treatment: Improving Problem Text: D3 ceftriaxone/doxy 08/18 22.4, AF, weaned off O2, + EZ Pap to alb nebs) 08/17 WBC 28 (08/15 23)-? GC effect, AF, given increasing WBC and persistent hypoxia, check CT chest 08/18 SCX P 08/15 CXR RLL infiltrate 08/15 BCX2 NG 08/17: CT chest: 1. The deep sulcus of the lower lobes show infiltrates bilaterally with interstitial infiltrates, more diffusely in both lower lung zones. No effusion. 2. Apical pleuroparenchymal scarring, right greater than left and unchanged with some bronchiectatic changes in the chronic apical opacity on the right. 3. No gross cardiomegaly with left atrium mildly prominent. 4. Tortuous calcified aorta without aneurysm or dissection. 5. Myers rods in the upper thoracic spine and old healed sternomanubrial fracture stable. No acute bony finding. Electronically Signed by Nestor Elias MD 08/18/2019 09:22 A DD: Nestor Elias MD 08/17/19 1555 DT: MIGUEL ANGEL 08/18/19 0754 DS: GREER [id number]/18/[id number] [~ rep ct labl] 08/15 BCX2 NG (3) Paraplegia Status: Chronic (4) DVT (deep venous thrombosis) Status: Chronic Problem Text: on LMWH px ho DVT sp IVC filter (5) MIGDALIA (obstructive sleep apnea) Status: Chronic Problem Text: non-compliant c CPAP Plan/VTE VTE Prophylaxis Ordered?: Yes VS, I&O, 24H, Fishbone Vital Signs/I&O Vital Signs Date Time Temp Pulse Resp B/P (MAP) Pulse Ox O2 Delivery O2 Flow Rate FiO2 08/18/19 14:00 98.3 100 18 131/82 (98) 93 1.0 08/17/19 19:39 Nasal Cannula I&O- Last 24 Hours up to 6 AM 08/18/19 06:00 Intake Total 1000 ml Output Total 4000 ml Balance -3000 ml Laboratory Data 24H LABS Laboratory Tests 2 08/18/19 06:25: Immature Granulocyte % (Auto) 1.7, White Blood Count 22.4H, Red Blood Count 4.36, Hemoglobin 13.5, Hematocrit 41.5, Mean Corpuscular Volume 95.2, Mean Corpuscular Hemoglobin 31.0, Mean Corpuscular Hemoglobin Concent 32.5, Red Cell Distribution Width 13.2, Platelet Count 362, Neutrophils (%) (Auto) 75.3H, Lymphocytes (%) (Auto) 13.1L, Monocytes (%) (Auto) 9.7H, Eosinophils (%) (Auto) 0.0, Basophils (%) (Auto) 0.2, Neutrophils # (Auto) 16.9H, Lymphocytes # (Auto) 3.0, Monocytes # (Auto) 2.2H, Eosinophils # (Auto) 0.0, Basophils # (Auto) 0.1, Nucleated Red Blood Cells % (auto) 0.0, Anion Gap 3L, Glomerular Filtration Rate > 60.0, Blood Urea Nitrogen 14, Creatinine 0.58, Sodium Level 142, Potassium Level 3.8, Chloride Level 103, Carbon Dioxide Level 36H, Calcium Level 8.9 CBC/BMP Laboratory Tests 08/18/19 06:25 Red Blood Count 4.36, Mean Corpuscular Volume 95.2, Mean Corpuscular Hemoglobin 31.0, Mean Corpuscular Hemoglobin Concent 32.5, Red Cell Distribution Width 13.2, Neutrophils (%) (Auto) 75.3 H, Lymphocytes (%) (Auto) 13.1 L, Monocytes (%) (Auto) 9.7 H, Eosinophils (%) (Auto) 0.0, Basophils (%) (Auto) 0.2, Neutrophils # (Auto) 16.9 H, Lymphocytes # (Auto) 3.0, Monocytes # (Auto) 2.2 H, Eosinophils # (Auto) 0.0, Basophils # (Auto) 0.1, Calcium Level 8.9 Microbiology Microbiology 08/18/19 Gram Stain - Final, Resulted 08/18/19 Sputum Culture, Resulted Pending 08/15/19 Blood Culture - Preliminary, Resulted No Growth after 48 hours. All Specime... 08/15/19 Blood Culture - Preliminary, Resulted No Growth after 48 hours. All Specime... Mayank Goldberg M.D. Aug 18, 2019 15:44
[2019-08-18] MEDS: VITAMIN D 1,000 INTERNATIONAL UNITS TABLET PO SCH (20:05)
[2019-08-19] MEDS: DOXYCYCLINE HYCLATE 100 MG in D5W MINI-BAG PLUS 100 ML IV SCH ×2
[2019-08-19 05:10] VITALS: BP 194/108
[2019-08-19] MEDS ORDERED: amLODIPine 5 MG TAB PO ONE (05:15)
[2019-08-19 06:21] LABS: HEMATOCRIT 46.1 % (36.0-47.0); HEMOGLOBIN 15.1 g/dl (12.0-15.5); MEAN CORPUSCULAR HEMOGLOBIN 32.1 pg (27.0-33.0); MEAN CORPUSCULAR HGB CONC 32.8 g/dl (32.0-36.5); MEAN CORPUSCULAR VOLUME 97.9 fl (80.0-96.0); PLATELET COUNT, AUTOMATED 360 10^3/uL (150-450); RED BLOOD COUNT 4.71 10^6/uL (4.00-5.40); WHITE BLOOD COUNT 19.6 10^3/uL (4.0-10.0)
[2019-08-19 06:48] LABS: BLOOD UREA NITROGEN 15 MG/DL (7-18); CALCIUM LEVEL 9.8 MG/DL (8.8-10.2); CARBON DIOXIDE LEVEL 37 MEQ/L (21-32); CHLORIDE LEVEL 100 MEQ/L (98-107); CREATININE FOR GFR 0.54 MG/DL (0.55-1.30); GLOMERULAR FILTRATION RATE > 60.0 (>45); GLUCOSE, FASTING 67 MG/DL (70-100); POTASSIUM SERUM 3.6 MEQ/L (3.5-5.1); SODIUM LEVEL 143 MEQ/L (136-145)
[2019-08-19 06:54] LABS: ANISOCYTOSIS 1+; ATYPICAL LYMPH 4 % (0-5); EOSINOPHILS 1 % (0-3); LYMPHOCYTES 25 % (16-44); MONOCYTES 12 % (0-5); NEUTROPHILS 58 % (28-66); PLATELET ESTIMATE NORMAL (NORMAL)
[2019-08-19 07:00] VITALS: BP 166/90
[2019-08-19] MEDS: ALBUTEROL SULFATE 2.5 MG/0.5 ML INH NEB SOLN INH SCH ×2 (07:33→11:14)
[2019-08-19 08:01] VITALS: BP 166/90
[2019-08-19] MEDS ORDERED: ALBU8.5H IH (08:16)
[2019-08-19] MEDS ORDERED: DOXY100C PO (08:16)
[2019-08-19] MEDS ORDERED: PRED20TA PO (08:16)
[2019-08-19] MEDS ORDERED: CEFD1CAP8 PO (08:16)
[2019-08-19] MEDS ORDERED: BENZ-18 PO (08:16)
[2019-08-19] MEDS ORDERED: methylPREDNISolone INJ 40 MG/1 ML VIAL (J2920) IV SCH (09:00)
--- NOTE | 2019-08-19 09:19 | DSES ---
DATE OF ADMISSION: 08/15/2019 DATE OF DISCHARGE: 08/19/2019 ATTENDING PHYSICIAN: Dr. Mayank Goldberg PRIMARY CARE PROVIDER: Stacy Ahn HISTORY OF PRESENT ILLNESS: 64-year-old female who presented to [facility] Emergency Department (ED) with complaints of a few week history of difficulty breathing. The patient had admitted to nasal congestion, dry cough, headache, poor appetite, fevers and cold chills. Workup in the ED included a chest x-ray as well as chest CT. The patient was noted to have a new infiltrate inferiorly in the right lung. Chest x-ray confirmed lower lobe infiltrate bilaterally with apical pleural parenchymal scarring. Chronic obstructive pulmonary disease (COPD) and emphysematous changes were noted on CT of chest. HOSPITAL COURSE: The patient was placed on doxycycline and ceftriaxone. She was started on methylprednisolone for inflammation. The patient received IV antibiotics and steroids for three days. She has been weaned off of her oxygen and down to room air. It has been noted that the patient has had some hypertensive episodes, mostly during sleep hours. She admits that she has a C-PAP at home and has been noncompliant with its use. She was placed on amlodipine 5 mg daily and we will continue that at home. Labs on admission included a white blood cell count of 22,000. Most recent white count is improved at 19,000. Differential has shown slow improvement as well. The patient has had no signs of anemia and platelets have remained stable. The patient's electrolytes have remained stable as well as her creatinine. The patient's procalcitonin returned as 0.54. On physical exam today, vital signs are stable. Blood pressure this morning is 166/90, oxygen saturation 97% on room air. HEENT: Neck is supple, without lymphadenopathy or jugular venous distention (JVD). Cardiovascular: Heart rate and rhythm are regular. Pulmonary: Lungs are diminished bibasilar. Abdomen: Soft and nontender. Bilateral lower extremities are without any edema. Positive pedal pulses bilaterally. ASSESSMENT/DISCHARGE DIAGNOSES: 1. Bibasilar pneumonia. 2. Sepsis secondary to pneumonia. 3. Paraplegia secondary to spinal cord injury. 4. Sleep apnea. SECONDARY DIAGNOSES: 1. Osteoporosis. 2. Neurogenic bladder. PLAN: The patient will be discharged to home. She has private caregivers who will return starting tomorrow to assist her with her routine a.m. care. Diet is as tolerated. Activity is as tolerated. She will followup with her PCP within the next 5-7 days. MEDICATIONS: - albuterol sulfate HFA every 4 hours as needed for shortness of breath - benzonatate 200 mg by mouth every 6 hours as needed for cough - Cefdinir 300 mg by mouth twice a day - doxycycline hyclate 100 mg by mouth twice a day - prednisone 20 mg one daily for five days - calcium carbonate with vitamin D3 one tab by mouth twice a day - vitamin D3 2000 units by mouth every p.m. - cyproheptadine 4 mg by mouth daily - cyproheptadine 8 mg by mouth every p.m. - famotidine 40 mg by mouth daily - gabapentin 300 mg two by mouth twice a day - oxybutynin 15 mg by mouth daily - tizanidine 8 mg by mouth three times a day as needed muscle spasms - tramadol 50 mg by mouth every 6 hours as needed for pain The patient was encouraged to utilize her C-PAP given the presentation of hypertension overnight throughout her hospitalization. I did discuss the ramifications of untreated sleep apnea and expressed the importance of compliance with her C-PAP. The patient does have this service for [employer] and will contact them if there is any need for any repair with her C-PAP machine. The patient is discharged in stable and satisfactory condition with no further questions at the time of discharge MACIEL
[2019-08-19 10:00] VITALS: BP 102/68
[2019-08-19] MEDS: FAMOTIDINE 20 MG TAB PO SCH (10:17)
[2019-08-19] MEDS: CALCIUM/VITAMIN D 500 MG TAB PO SCH (10:17)
[2019-08-19] MEDS: oxyBUTYnin *DITROPAN XL* 5 MG TABCR PO SCH (10:18)
[2019-08-19] MEDS: GABAPENTIN 300 MG CAP PO SCH (10:18)
[2019-08-19] MEDS: ENOXAPARIN 40 MG/0.4 ML SYRINGE (J1650) SC SCH (10:18)
[2019-08-19] MEDS: cefTRIAXone SOD 2 GM in D5W MINI-BAG PLUS 50 ML IV SCH (10:19)
== END 2019-08-19 12:00 | disposition home or self-care (01) | DRG 871 ==
LOC: EDBD 17:46 → M ED 17:46 → M ED INP 19:42 → M MSPAV 08-16 14:39
PROVIDERS: ADMIT Internal Medicine; ATTEND Family Medicine
DX: A41.9 Sepsis, unspecified organism (principal); J18.9 Pneumonia, unspecified organism; G82.20 Paraplegia, unspecified; N31.9 Neuromuscular dysfunction of bladder, unspecified; G47.33 Obstructive sleep apnea (adult) (pediatric); M81.0 Age-related osteoporosis without current pathological fracture; Z79.899 Other long term (current) drug therapy; Z91.19 Patient's noncompliance with other medical treatment and regimen; Z86.718 Personal history of other venous thrombosis and embolism; Z95.0 Presence of cardiac pacemaker; Z87.891 Personal history of nicotine dependence

== ENCOUNTER 2020-02-07 15:05 | Inpatient (IN) | payer MEDICARE, MEDICAID ==
[~2020-02-07] VITALS: Ht 157.5 cm; Wt 46.4 kg
[~2020-02-07 15:05] MED LIST changes: +ALBU8.5H IH; +BENZ-18 PO; +CEFD1CAP8 PO; +CYPR4TA PO; +D200CAP2 PO; +DOXY100C PO; +FAMO40TA3 PO; +GABA-843 PO; +OXYB15TA14 PO; +OYSCTAB3 PO; +PRED20TA PO; +TIZA4TAB4 PO; +TRAM50TA2 PO
[2020-02-07] MEDS ORDERED: SENNA 8.6 MG TAB (SENOKOT) PO PRN (15:15)
[2020-02-07] MEDS ORDERED: traMADol 50 MG TAB PO PRN (15:15)
[2020-02-07] MEDS ORDERED: NICOTINE POLACRILEX 2 MG GUM PO PRN (15:15)
[2020-02-07] MEDS ORDERED: ALBUTEROL 90 MCG/ACT 8GM HFA INHALER INH PRN ×2 (15:15)
[2020-02-07 16:18] VITALS: BP 184/124
[2020-02-07 16:34] LABS: HEMATOCRIT 43.9 % (36.0-47.0); HEMOGLOBIN 14.1 g/dl (12.0-15.5); MEAN CORPUSCULAR HEMOGLOBIN 29.6 pg (27.0-33.0); MEAN CORPUSCULAR HGB CONC 32.1 g/dl (32.0-36.5); MEAN CORPUSCULAR VOLUME 92.2 fl (80.0-96.0); PLATELET COUNT, AUTOMATED 273 10^3/uL (150-450); RED BLOOD COUNT 4.76 10^6/uL (4.00-5.40)
[2020-02-07 16:39] LABS: ABG BASE EXCESS 2.9 (-2.0-2.0); ABG HCO3 27.4 MEQ/L (22.0-26.0); ABG O2 SATURATION 91.6 % (95.0-99.0); ABG PARTIAL PRESSURE CO2 41.2 mmHg (35.0-45.0); ABG PARTIAL PRESSURE O2 60.4 mmHg (75.0-100.0); ABG STANDARD HCO3 26.9 MEQ/L (22.0-26.0); ABG TOTAL CO2 28.6 MEQ/L (23.0-31.0)
[2020-02-07 16:56] LABS: ALBUMIN 3.1 GM/DL (3.2-5.2); ALT/SGPT 32 U/L (12-78); BILIRUBIN,TOTAL 0.8 MG/DL (0.2-1.0); BLOOD UREA NITROGEN 27 MG/DL (7-18); CALCIUM LEVEL 9.3 MG/DL (8.8-10.2); CARBON DIOXIDE LEVEL 34 MEQ/L (21-32); CHLORIDE LEVEL 100 MEQ/L (98-107); CREATININE FOR GFR 0.79 MG/DL (0.55-1.30); GLOMERULAR FILTRATION RATE > 60.0 (>45); GLUCOSE, FASTING 91 MG/DL (70-100); POTASSIUM SERUM 3.6 MEQ/L (3.5-5.1); SODIUM LEVEL 137 MEQ/L (136-145); TOTAL PROTEIN 8.2 GM/DL (6.4-8.2)
[2020-02-07 17:00] VITALS: BP 150/72
[2020-02-07] MEDS ORDERED: VITAD1000T PO (17:05)
[2020-02-07] MEDS ORDERED: PROAAER10 INH (17:05)
[2020-02-07] MEDS ORDERED: RANI150C PO (17:06)
--- NOTE | 2020-02-07 17:56 | REP ---
Clinical: Hypoxemia. Technique: AP and lateral views of the chest. Comparison: 08/15/2019. Findings: Mediastinum and cardiac silhouette are stable with single lead pacemaker and Myers rods again noted. The lung [place] demonstrate diffuse chronic interstitial changes. Subtle left lower lobe atelectasis cannot be excluded and should be correlated with auscultation. No effusion. No pneumothorax. Skeletal structures stable. Impression: 1. Diffuse chronic interstitial changes. 2. Medial left lower lobe/retrocardiac atelectasis suspected and correlation with auscultation is recommended. Electronically Signed by Zia Encinas MD 02/07/2020 05:48 P
[2020-02-07] MEDS: methylPREDNISolone INJ 125 MG/2 ML VIAL (J2930) IV SCH (18:18)
[2020-02-07] MEDS: cefTRIAXone SOD 1 GM in D5W MINI-BAG PLUS 50 ML IV SCH (18:19)
[2020-02-07] MEDS: AZITHROMYCIN INJ 500 MG, VIAL MATE ADAPTER 1 EACH in D5W 250 ML IV SCH (19:14)
[2020-02-07] MEDS: CYPROHEPTADINE 4 MG TAB PO SCH (20:39)
[2020-02-07] MEDS: GABAPENTIN 300 MG CAP PO SCH (20:39)
[2020-02-07] MEDS: ACETAMINOPHEN TAB 650MG DOSE (2X325MG) PO PRN (20:39)
[2020-02-07] MEDS: ENOXAPARIN 40 MG/0.4 ML SYRINGE (J1650) SC SCH (20:40)
[2020-02-07] MEDS: ALBUTEROL 90 MCG/ACT 8GM HFA INHALER INH SCH (20:54)
[2020-02-07] MEDS: tiZANidine 4 MG TAB PO PRN (21:23)
[2020-02-07 22:15] VITALS: BP 146/79
[2020-02-08] MEDS: methylPREDNISolone INJ 125 MG/2 ML VIAL (J2930) IV SCH ×3 (00:50→16:48)
[2020-02-08] MEDS: ALBUTEROL 90 MCG/ACT 8GM HFA INHALER INH SCH ×4 (02:00→20:26)
[2020-02-08 06:00] VITALS: BP_SYST 149; BP_DIAS 79; BP_DIAS 86
[2020-02-08 06:33] LABS: HEMATOCRIT 42.3 % (36.0-47.0); HEMOGLOBIN 13.9 g/dl (12.0-15.5); MEAN CORPUSCULAR HEMOGLOBIN 30.2 pg (27.0-33.0); MEAN CORPUSCULAR HGB CONC 32.9 g/dl (32.0-36.5); MEAN CORPUSCULAR VOLUME 91.8 fl (80.0-96.0); PLATELET COUNT, AUTOMATED 247 10^3/uL (150-450); RED BLOOD COUNT 4.61 10^6/uL (4.00-5.40); WHITE BLOOD COUNT 14.8 10^3/uL (4.0-10.0)
[2020-02-08 06:50] LABS: BLOOD UREA NITROGEN 19 MG/DL (7-18); CALCIUM LEVEL 9.2 MG/DL (8.8-10.2); CARBON DIOXIDE LEVEL 31 MEQ/L (21-32); CHLORIDE LEVEL 106 MEQ/L (98-107); GLOMERULAR FILTRATION RATE > 60.0 (>45); GLUCOSE, FASTING 166 MG/DL (70-100); SODIUM LEVEL 138 MEQ/L (136-145)
[2020-02-08] MEDS: CYPROHEPTADINE 4 MG TAB PO SCH ×3 (08:30→20:40)
[2020-02-08] MEDS: PANTOPRAZOLE 40MG TAB (PROTONIX) PO SCH (08:30)
[2020-02-08] MEDS: oxyBUTYnin *DITROPAN XL* 5 MG TABCR PO SCH (08:31)
[2020-02-08] MEDS: FAMOTIDINE 20 MG TAB PO SCH (08:31)
[2020-02-08] MEDS: GABAPENTIN 300 MG CAP PO SCH ×2 (08:31→20:40)
[2020-02-08] MEDS: MIRALAX *UNIT DOSE* 17GM PACKET PO SCH (08:31)
[2020-02-08] MEDS: tiZANidine 4 MG TAB PO PRN ×2 (08:36→20:42)
[2020-02-08 14:00] VITALS: BP 148/74
--- NOTE | 2020-02-08 14:48 | IPNPDOC ---
Subjective Date Seen The patient was seen on 02/08/20. Subjective Chief Complaint/HPI improved dyspnea Constitutional: Denies: Chills, Fever Skin: Denies: Rash Pulmonary: Reports: Dyspnea, Cough Cardiovascular: Denies: Chest Pain, Palpitations Gastrointestinal: Denies: Nausea Objective Physical Examination General Exam: Positive: Alert Eye Exam: Positive: PERRLA Neck Exam: Negative: JVD Chest Exam: Positive: Rhonchi, Diminished Heart Exam: Positive: Rate Normal Abdomen Exam: Positive: Normal bowel sounds Extremity Exam: Negative: Edema Psych Exam: Positive: Mental status NL Assessment /Plan Problems (1) COPD (chronic obstructive pulmonary disease) Status: Acute Response to Treatment: Improving Problem Text: D2 ceftriax/azithro 02/07 AF, WBC 14.8 (19), improved cough/dyspnea on MP 80 TID 02/06 CXR chronic B mod interstitial change 02/06 -JLUIS inf A/B 02/06 - MRSA screen 02/06 RP - 02/06 BCX2 P 02/06 UCX P (2) Bronchiectasis with acute exacerbation Status: Chronic Problem Text: as per COPD (3) MIGDALIA (obstructive sleep apnea) Status: Chronic Problem Text: non-compliant c CPAP (4) Respiratory failure with hypoxia Problem Text: as per COPD HD no O2 02/07 SaO2 initially low 80s on RA, requirement now down to 1L NC (5) S/P IVC filter Problem Text: no s/s recurrent VTE (6) Nicotine use disorder Problem Text: Nicorette prn-encouraged to remain off Plan/VTE VTE Prophylaxis Ordered?: Yes VS, I&O, 24H, On License Of [facility] Vital Signs/I&O Vital Signs Date Time Temp Pulse Resp B/P (MAP) Pulse Ox O2 Delivery O2 Flow Rate FiO2 02/08/20 08:00 1.0 02/08/20 07:32 Nasal Cannula 02/08/20 06:00 97.5 63 16 149/86 (107) 97 I&O- Last 24 Hours up to 6 AM 02/08/20 06:00 Intake Total 1365 ml Output Total 600 ml Balance 765 ml Laboratory Data 24H LABS Laboratory Tests 2 02/07/20 16:21: Nucleated Red Blood Cells % (auto) 0.0, Anion Gap 3L, Glomerular Filtration Rate > 60.0, Calcium Level 9.3, Total Bilirubin 0.8, Aspartate Amino Transf (AST/SGOT) 29, Alanine Aminotransferase (ALT/SGPT) 32, Alkaline Phosphatase 124H , Total Protein 8.2, Albumin 3.1L, Albumin/Globulin Ratio 0.61L 02/07/20 16:27: Blood Gas Bicarbonate Standard 26.9H, Arterial Blood pH 7.440, Arterial Blood Partial Pressure CO2 41.2, Arterial Blood Partial Pressure O2 60.4L, Arterial Blood Total CO2 28.6, Arterial Blood HCO3 27.4H, Arterial Blood Base Excess 2.9H, Arterial Blood Oxygen Saturation 91.6L 02/07/20 16:40: Methicillin-Resist S.aureus DNA PCR NOT DETECTED 02/07/20 17:08: Lactic Acid Level 1.8 02/08/20 06:10: Nucleated Red Blood Cells % (auto) 0.0, Anion Gap 1L, Glomerular Filtration Rate > 60.0, Calcium Level 9.2 CBC/BMP Laboratory Tests 02/07/20 16:21 02/08/20 06:10 Microbiology Microbiology 02/07/20 Urine Culture, Received Pending 02/07/20 Blood Culture, Received Pending 02/07/20 Respiratory Virus Panel (PCR) ([facility]ANTHI) - Final, Complete 02/07/20 Blood Culture, Received Pending Mayank Goldberg M.D. Feb 08, 2020 14:48
[2020-02-08] MEDS: cefTRIAXone SOD 1 GM in D5W MINI-BAG PLUS 50 ML IV SCH (16:48)
[2020-02-08] MEDS: AZITHROMYCIN INJ 500 MG, VIAL MATE ADAPTER 1 EACH in D5W 250 ML IV SCH (17:38)
[2020-02-08] MEDS: ENOXAPARIN 40 MG/0.4 ML SYRINGE (J1650) SC SCH ×2 (20:40→21:00)
[2020-02-08] MEDS: ACETAMINOPHEN TAB 650MG DOSE (2X325MG) PO PRN (20:42)
[2020-02-08 22:00] VITALS: BP 160/88
[2020-02-09] MEDS: methylPREDNISolone INJ 125 MG/2 ML VIAL (J2930) IV SCH ×3 (00:42→18:09)
[2020-02-09] MEDS: ALBUTEROL 90 MCG/ACT 8GM HFA INHALER INH SCH ×3 (01:41→14:45)
[2020-02-09] MEDS ORDERED: amLODIPine 5 MG TAB PO ONE (05:15)
[2020-02-09 06:00] VITALS: BP 198/100
[2020-02-09 06:43] LABS: HEMATOCRIT 44.8 % (36.0-47.0); HEMOGLOBIN 14.7 g/dl (12.0-15.5); MEAN CORPUSCULAR HEMOGLOBIN 29.9 pg (27.0-33.0); MEAN CORPUSCULAR HGB CONC 32.8 g/dl (32.0-36.5); MEAN CORPUSCULAR VOLUME 91.1 fl (80.0-96.0); PLATELET COUNT, AUTOMATED 322 10^3/uL (150-450); RED BLOOD COUNT 4.92 10^6/uL (4.00-5.40); WHITE BLOOD COUNT 24.3 10^3/uL (4.0-10.0)
[2020-02-09 06:57] LABS: BLOOD UREA NITROGEN 16 MG/DL (7-18); CALCIUM LEVEL 9.4 MG/DL (8.8-10.2); CARBON DIOXIDE LEVEL 32 MEQ/L (21-32); CHLORIDE LEVEL 108 MEQ/L (98-107); CREATININE FOR GFR 0.59 MG/DL (0.55-1.30); GLOMERULAR FILTRATION RATE > 60.0 (>45); GLUCOSE, FASTING 138 MG/DL (70-100); POTASSIUM SERUM 3.5 MEQ/L (3.5-5.1); SODIUM LEVEL 144 MEQ/L (136-145)
[2020-02-09] MEDS ORDERED: cloNIDine HCL 0.1 MG/24 HR PATCH TOP STA (06:59)
[2020-02-09] MEDS ORDERED: cloNIDine HCL 0.1 MG/24 HR PATCH TOP SCH (07:00)
[2020-02-09] MEDS: MIRALAX *UNIT DOSE* 17GM PACKET PO SCH (09:00)
[2020-02-09 09:58] VITALS: BP 150/80
[2020-02-09] MEDS: FAMOTIDINE 20 MG TAB PO SCH (09:58)
[2020-02-09] MEDS: PANTOPRAZOLE 40MG TAB (PROTONIX) PO SCH (09:58)
[2020-02-09] MEDS: CYPROHEPTADINE 4 MG TAB PO SCH ×2 (09:59→13:25)
[2020-02-09] MEDS: GABAPENTIN 300 MG CAP PO SCH (09:59)
[2020-02-09] MEDS: oxyBUTYnin *DITROPAN XL* 5 MG TABCR PO SCH (09:59)
[2020-02-09] MEDS: tiZANidine 4 MG TAB PO PRN (11:00)
[2020-02-09 13:28] VITALS: BP 103/61
--- NOTE | 2020-02-09 16:55 | IPNPDOC ---
Subjective Date Seen The patient was seen on 02/09/20. Objective Physical Examination General Exam: Positive: Alert Eye Exam: Positive: PERRLA Neck Exam: Negative: JVD Chest Exam: Positive: Rhonchi, Diminished Heart Exam: Positive: Rate Normal Abdomen Exam: Positive: Normal bowel sounds Extremity Exam: Negative: Edema Psych Exam: Positive: Mental status NL Assessment /Plan Problems (1) COPD (chronic obstructive pulmonary disease) Status: Acute Response to Treatment: Improving Problem Text: D2 ceftriax/azithro 02/07 AF, WBC 14.8 (19), improved cough/dyspnea on MP 80 TID 02/06 CXR chronic B mod interstitial change 02/06 -JLUIS inf A/B 02/06 - MRSA screen 02/06 RP - 02/06 BCX2 P 02/06 UCX P (2) Bronchiectasis with acute exacerbation Status: Chronic Problem Text: as per COPD (3) MIGDALIA (obstructive sleep apnea) Status: Chronic Problem Text: non-compliant c CPAP (4) Respiratory failure with hypoxia Problem Text: as per COPD HD no O2 02/07 SaO2 initially low 80s on RA, requirement now down to 1L NC (5) S/P IVC filter Problem Text: no s/s recurrent VTE (6) Nicotine use disorder Problem Text: Nicorette prn-encouraged to remain off Plan/VTE VTE Prophylaxis Ordered?: Yes VS, I&O, 24H, Fishbone Vital Signs/I&O Vital Signs Date Time Temp Pulse Resp B/P (MAP) Pulse Ox O2 Delivery O2 Flow Rate FiO2 02/09/20 13:28 97.6 88 18 103/61 (75) 95 Room Air 02/08/20 16:00 1.0 I&O- Last 24 Hours up to 6 AM 02/09/20 06:00 Intake Total 2420 ml Output Total 1250 ml Balance 1170 ml Laboratory Data 24H LABS Laboratory Tests 2 02/09/20 06:10: Nucleated Red Blood Cells % (auto) 0.0, Anion Gap 4L, Glomerular Filtration Rate > 60.0, Calcium Level 9.4 CBC/BMP Laboratory Tests 02/09/20 06:10 Microbiology Microbiology 02/07/20 Urine Culture, Received Pending 02/07/20 Blood Culture - Preliminary, Resulted No growth after 24 hours . All specim... 02/07/20 Respiratory Virus Panel (PCR) ([facility]ANTHI) - Final, Complete 02/07/20 Blood Culture - Preliminary, Resulted No Growth after 48 hours. All Specime... Chalo Salazar MD Feb 09, 2020 16:55
[2020-02-09] MEDS: cefTRIAXone SOD 1 GM in D5W MINI-BAG PLUS 50 ML IV SCH (18:07)
[2020-02-09] MEDS: AZITHROMYCIN INJ 500 MG, VIAL MATE ADAPTER 1 EACH in D5W 250 ML IV SCH (18:44)
[2020-02-09] MEDS ORDERED: AZIT500T5 PO (19:13)
[2020-02-09] MEDS ORDERED: PRED10TA2 PO (19:13)
[2020-02-09] MEDS ORDERED: CEFD300CAP PO (19:13)
--- NOTE | 2020-02-09 19:16 | DS.PDOC ---
Discharge Summary General Date of Admission Feb 07, 2020 at 15:58 Discharge Summary PROCEDURES PERFORMED DURING STAY: [None]. ADMITTING DIAGNOSES: 1. . DISCHARGE DIAGNOSES: 1. . COMPLICATIONS/CHIEF COMPLAINT: Copd Exacerbation. HISTORY OF PRESENT ILLNESS: . HOSPITAL COURSE: . DISCHARGE MEDICATIONS: Please see below. ALLERGIES: Please see below. PHYSICAL EXAMINATION ON DISCHARGE: VITAL SIGNS: Please see below. GENERAL: HEENT: NECK: CARDIOVASCULAR EXAMINATION: RESPIRATORY EXAMINATION: ABDOMINAL EXAMINATION: EXTREMITIES: SKIN: NEUROLOGICAL EXAMINATION: PSYCHIATRIC EXAMINATION: LABORATORY DATA: Please see below. IMAGING: PROGNOSIS: ACTIVITY: [As tolerated]. DIET: DISCHARGE PLAN: DISPOSITION: . DISCHARGE INSTRUCTIONS: 1. . ITEMS TO FOLLOWUP ON ON OUTPATIENT: 1. . DISCHARGE CONDITION: [Stable]. TIME SPENT ON DISCHARGE: Greater than minutes. Vital Signs/I&Os Vital Signs Date Time Temp Pulse Resp B/P (MAP) Pulse Ox O2 Delivery O2 Flow Rate FiO2 02/09/20 13:28 97.6 88 18 103/61 (75) 95 Room Air 02/08/20 16:00 1.0 I&O- Last 24 Hours up to 6 AM 02/09/20 06:00 Intake Total 2420 ml Output Total 1250 ml Balance 1170 ml Laboratory Data Labs 24H Laboratory Tests 2 02/09/20 06:10: Nucleated Red Blood Cells % (auto) 0.0, Anion Gap 4L, Glomerular Filtration Rate > 60.0, Calcium Level 9.4 CBC/BMP Laboratory Tests 02/09/20 06:10 Microbiology Microbiology 02/07/20 Urine Culture, Received Pending 02/07/20 Blood Culture - Preliminary, Resulted No Growth after 48 hours. All Specime... 02/07/20 Respiratory Virus Panel (PCR) ([facility]ANTHI) - Final, Complete 02/07/20 Blood Culture - Preliminary, Resulted No Growth after 48 hours. All Specime... Discharge Medications Scheduled Azithromycin (Azithromycin) 500 Mg Tablet, 500 MG PO DAILY Calcium Carbonate/Vitamin D3 ([place] 500-Vit D3 200 Tablet) 1 Each Tablet, 1 TAB PO BID, (Reported) Cefdinir (Cefdinir) 300 Mg Capsule, 300 MG PO BID Cholecalciferol (Vitamin D3) (Vitamin D3) 1,000 Unit Tablet, 2,000 UNITS PO QHS, (Reported) Cyproheptadine HCl (Cyproheptadine HCl) 4 Mg Tablet, 4 MG PO BID, (Reported) MORNING, NOON Cyproheptadine HCl (Cyproheptadine HCl) 4 Mg Tablet, 8 MG PO QHS, (Reported) Gabapentin (Gabapentin) 300 Mg Capsule, 600 MG PO BID, (Reported) Oxybutynin Chloride (Oxybutynin Chloride ER) 15 Mg Tab.er.24, 15 MG PO DAILY, (R eported) Prednisone (Prednisone) 10 Mg Tablet, 10 MG PO TAPER Take 4 tabs daily x 3 days, then 3 tabs daily x 3 days, then 2 tabs daily x 3 days, then 1 tab daily x 3 days and stop Ranitidine HCl (Ranitidine HCl) 150 Mg Capsule, 1 CAP PO DAILY, (Reported) Scheduled PRN Albuterol Sulfate (Proair Hfa) 8.5 Gm Hfa.aer.ad, 2 PUFF INH Q4H PRN for SOB/WHEEZING, (Reported) Tizanidine HCl (Tizanidine HCl) 4 Mg Tablet, 8 MG PO TID PRN for MUSCLE SPASMS, (Reported) Tramadol HCl (Tramadol HCl) 50 Mg Tablet, 100 MG PO DAILY PRN for PAIN, (Reported) Allergies Coded Allergies: No Known Allergies (Unverified , 08/15/19) Chalo Salazar MD Feb 09, 2020 19:16
== END 2020-02-09 20:33 | disposition home or self-care (01) | DRG 189 ==
LOC: M MSPAV 15:58
PROVIDERS: ADMIT Family Medicine; ATTEND Family Medicine
DX: J96.91 Respiratory failure, unspecified with hypoxia (principal); J47.1 Bronchiectasis with (acute) exacerbation; Z79.899 Other long term (current) drug therapy; Z91.19 Patient's noncompliance with other medical treatment and regimen; Z95.0 Presence of cardiac pacemaker; N31.9 Neuromuscular dysfunction of bladder, unspecified; M81.0 Age-related osteoporosis without current pathological fracture; Z20.828 Contact with and (suspected) exposure to other viral communicable diseases; Z87.891 Personal history of nicotine dependence; G47.33 Obstructive sleep apnea (adult) (pediatric)

== ENCOUNTER → 2020-05-05 | Outpatient (CLI) | payer MEDICARE ==
[~2020-05-05] MED LIST changes: +AZIT500T5 PO; +CEFD300CAP PO; +PRED10TA2 PO; +PROAAER10 INH; +RANI150C PO; +VITAD1000T PO
--- NOTE | 2020-05-05 10:50 | REP ---
RIGHT UPPER QUADRANT, LIVER SONOGRAPHY: HISTORY: Fluid retention. Swelling and peroneal the tissue. Other ascites. SONOGRAPHIC FINDINGS: Scanning through right upper quadrant of the abdomen demonstrates a normal sized thin-walled gallbladder without evidence of stone or polyp. Common bile duct is normal measuring 0.2 cm in greatest diameter. No focal liver lesion is seen. Liver is not felt to be enlarged. Limited views of the pancreas show no pancreatic abnormality. A normal caliber aorta is seen. There is no evidence of ascites or right renal abnormality. The right kidney measures 10.3 x 5.1 x 3.5 cm. Scan quality is inhibited some degree by relative patient immobility. IMPRESSION: There is no evidence of ascites. Negative right upper quadrant sonogram.
== END ==
LOC: M PLAIMG 07:57
PROVIDERS: ATTEND Physician Assistant
DX: R60.9 Edema, unspecified (principal); R22.2 Localized swelling, mass and lump, trunk

== ENCOUNTER → 2020-05-07 | Outpatient (REF) | payer MEDICARE ==
[2020-05-08 21:07] LABS: ANA (HEP2) Negative (.)
== END ==
LOC: M SFHCADAM 08:55
PROVIDERS: ATTEND Physician Assistant
DX: M19.049 Primary osteoarthritis, unspecified hand (principal)

== ENCOUNTER → 2020-06-05 | Outpatient (CLI) | payer MEDICARE ==
[~2020-06-05] MED LIST changes: +D31000TA2 PO; -VITAD1000T PO
--- NOTE | 2020-06-07 07:32 | ECHO ---
DATE OF STUDY: 06/05/2020 DATE OF : 1955 AGE: 65 PATIENT LOCATION: Outpatient REASON FOR STUDY: Abnormal EKG. 2-D MEASUREMENTS: IVS: 1.2 cm LV: 2.9 cm LVPW: 1.2 cm LA: 2.2 cm Aorta: 2.5 cm DOPPLER MEASUREMENTS: Peak velocity across the aortic valve: 1.6 m/s Peak velocity across the LVOT: 0.88 m/s Peak gradient across the aortic valve: 10 mmHg Mean gradient across the aortic valve: 5 mmHg Mitral E: 0.72 Mitral A: 0.98 Ratio: 0.7 2-D COMMENTS: 1. Technically limited study due to poor acoustic window. 2. The left ventricular size is normal and subjectively there was mildly increased left ventricular wall thickness. Left ventricular systolic function is normal, estimated at 60-65%. 3. Normal left atrium. The right heart chambers were not well visualized. 4. The atrial septum appeared to be normal in limited views. 5. Normal aortic root. 6. Trace pericardial effusion noted, no evidence of cardiac tamponade. 7. Mildly calcified aortic valve with normal leaflet excursion. Mildly calcified mitral annulus with normal anterior mitral valve leaflet motion. The tricuspid valve and the pulmonic valve were not well visualized. The proximal pulmonary artery branches also were not well visualized. 8. The inferior vena cava was not visualized. DOPPLER: No significant valvular abnormalities detected. IMPRESSION: 1. Technically limited study due to poor acoustic window. 2. Normal global left ventricular systolic function with probably mild concentric left ventricular hypertrophy. There are some features of grade 1 left ventricular diastolic dysfunction manifested by abnormal relaxation. 3. Aortic valve sclerosis without stenosis or aortic regurgitation. 4. Trace pericardial effusion, no evidence of cardiac tamponade. 5. The right heart chambers were not well visualized. 6. The study was technically limited due to poor acoustic window. [facility]
== END ==
LOC: M CARPUL 09:24
PROVIDERS: ATTEND Nurse Practitioner Family
DX: R94.31 Abnormal electrocardiogram [ECG] [EKG] (principal)

== ENCOUNTER → 2020-10-08 | Outpatient (CLI) | payer MEDICARE ==
[2020-10-08 17:28] LABS: CALCIUM LEVEL 9.4 MG/DL (8.8-10.2)
[2020-10-08 17:43] LABS: TOTAL 25(OH) VITAMIN D 58.5 NG/ML (30.0-100.0)
== END ==
LOC: M PLALAB 15:23
PROVIDERS: ATTEND Internal Medicine Endocrinology, Diabetes & Metabolism
DX: M85.89 Other specified disorders of bone density and structure, multiple sites (principal)

== ENCOUNTER → 2020-10-14 | Outpatient (CLI) | payer MEDICARE ==
--- NOTE | 2020-10-15 17:23 | REP ---
INDICATION: NICOTINE DEPENDENCE COMPARISON: 08/09/2019, 01/06/2020 TECHNIQUE: Axial noncontrast images from the thoracic inlet to the upper abdomen using low-dose lung screening technique (LDCT). FINDINGS: Evaluation by lung screening standards is limited due to significant beam hardening artifact from the patient's pacemaker as well as Myers rods spanning nearly the entire length of the chest. Biapical scarring (right greater than left) along with small scattered primarily subpleural ill-defined and ground-glass type infiltrates appear essentially unchanged. No obvious acute consolidation, nodule or mass lesion is identified. No pleural effusion. No pneumothorax. IMPRESSION: Essentially Lung-RADS category 0 due to beam hardening artifact obscuring portions of the lung [place]. However, findings appear relatively chronic and no obvious nodule is appreciated. <Electronically signed by Zia Encinas > 10/15/20 [id number]
== END ==
LOC: M RAD 14:23
PROVIDERS: ATTEND Internal Medicine Pulmonary Disease
DX: R91.8 Other nonspecific abnormal finding of lung field (principal); Z87.891 Personal history of nicotine dependence

== ENCOUNTER → 2021-08-05 | Outpatient (REF) | payer MEDICARE ==
[~2021-08-05] MED LIST changes: -DOXY100C PO; +DOXY100C3 PO; +GABA-282 PO; -GABA-843 PO
[2021-08-05 17:27] LABS: HEMATOCRIT 45.3 % (36.0-47.0); HEMOGLOBIN 14.3 g/dl (12.0-15.5); MEAN CORPUSCULAR HEMOGLOBIN 29.1 pg (27.0-33.0); MEAN CORPUSCULAR HGB CONC 31.6 g/dl (32.0-36.5); MEAN CORPUSCULAR VOLUME 92.1 fl (80.0-96.0); PLATELET COUNT, AUTOMATED 277 10^3/uL (150-450); RED BLOOD COUNT 4.92 10^6/uL (4.00-5.40); WHITE BLOOD COUNT 9.5 10^3/uL (4.0-10.0)
[2021-08-05 17:51] LABS: ALBUMIN 3.1 GM/DL (3.2-5.2); ALT/SGPT 29 U/L (12-78); BILIRUBIN,TOTAL 0.6 MG/DL (0.2-1.0); BLOOD UREA NITROGEN 14 MG/DL (7-18); CALCIUM LEVEL 9.6 MG/DL (8.8-10.2); CARBON DIOXIDE LEVEL 34 MEQ/L (21-32); CHLORIDE LEVEL 101 MEQ/L (98-107); CHOLESTEROL LEVEL 204 MG/DL (<200); CHOLESTEROL RISK RATIO 3.187 (<5); GLOMERULAR FILTRATION RATE > 60.0 (>45); GLUCOSE, FASTING 70 MG/DL (70-100); HDL CHOLESTEROL 64 MG/DL (>40); LDL CHOLESTEROL 116 MG/DL (<100); NON-HDL-C 140 MG/DL; SODIUM LEVEL 141 MEQ/L (136-145); TOTAL PROTEIN 7.4 GM/DL (6.4-8.2); TRIGLYCERIDES LEVEL 119 MG/DL (<150)
[2021-08-05 17:57] LABS: FOLATE 22.4 NG/ML; TOTAL 25(OH) VITAMIN D 61.7 NG/ML (30.0-100.0); VITAMIN B12 LEVEL 564 PG/ML
== END ==
LOC: M SFHCADAM 12:44
PROVIDERS: ATTEND Physician Assistant
DX: Z13.220 Encounter for screening for lipoid disorders (principal); R13.13 Dysphagia, pharyngeal phase; K21.9 Gastro-esophageal reflux disease without esophagitis; F17.211 Nicotine dependence, cigarettes, in remission; M81.0 Age-related osteoporosis without current pathological fracture; G83.9 Paralytic syndrome, unspecified; Z79.899 Other long term (current) drug therapy

== ENCOUNTER → 2021-09-09 | Outpatient (CLI) | payer MEDICARE ==
[~2021-09-09] MED LIST changes: +E-Z-GAS II EFFERVESCENT PACKET (SODIUM BICARB./CITRIC ACID/SIMETHICONE) As Ordered ONE; +E-Z-HD 98% w/w 340GM SUSP BTL As Ordered ONE; +E-Z-PAQUE 96% w/w SUSP 176GM BTL As Ordered ONE
--- NOTE | 2021-09-10 16:25 | REP ---
INDICATION: PHARYNGEAL DYSPHAGIA. COMPARISON: None TECHNIQUE: This procedure was performed by LYNN Singh, under the direct supervision of Dr. Eduardo. Images were reviewed with Dr. Eduardo prior to dictation. Liquid barium and gas producing crystals were given in the erect position, as well as liquid barium in the prone oblique position in order to perform a double contrast esophagram examination. FINDINGS: A single view PA chest x-ray is submitted as a structural engineering project manager film. The superior mediastinal structures are midline. The heart size is within normal limits. The lungs are clear. The oral and pharyngeal stages of deglutition were unremarkable. Esophageal transport is prompt and efficient and there is no evidence of esophagitis, stricture, or mucosal ring. There is no evidence of a hiatal hernia. Tertiary contractions are seen within the distal portion of the esophagus. This is a somewhat technically limited examination due to patient constraints. IMPRESSION: Somewhat technically limited examination due to patient constraints. Tertiary contractions are seen within the distal portion of the esophagus otherwise unremarkable examination. If patient's symptoms persist may consider evaluation with speech pathology. 0.3 minutes of fluoroscopy time was utilized for this procedure. Some fluoroscopic images are performed with last image hold technology. These images require no additional radiation. <Electronically signed by Carly Woo > 09/10/21 [id number] <Electronically signed by Jose Ramon Eduardo > 09/10/21 [id number]
== END ==
LOC: M RAD 09:25
PROVIDERS: ATTEND Physician Assistant
DX: R13.13 Dysphagia, pharyngeal phase (principal)

== ENCOUNTER 2021-10-30 15:44 | Inpatient (IN) | payer MEDICARE ==
[~2021-10-30] VITALS: Ht 157.5 cm; Wt 47.4 kg
[~2021-10-30 15:44] MED LIST changes: -E-Z-GAS II EFFERVESCENT PACKET (SODIUM BICARB./CITRIC ACID/SIMETHICONE) As Ordered ONE; -E-Z-HD 98% w/w 340GM SUSP BTL As Ordered ONE; -E-Z-PAQUE 96% w/w SUSP 176GM BTL As Ordered ONE
--- OUTSIDE RECORDS SUMMARY | 2021-10-30 16:08 | CCD ---
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 Active confirmed 53280332 Problem Neuromuscular dysfunction of bladder, unspecified N31.9 Active confirmed 801888491 Problem Muscle spasm of both lower legs M62.838 Active conf irmed 80643032 Problem Cigarette nicotine dependence without complication F17.210 Active confirmed 86804883 Problem Cigarette nicotine dependence in remission F17.211 Active confirmed 196423128 Problem S/P placement of cardiac pacemaker Z95.0 Activ e confirmed 796226259 Problem Neuromuscular dysfunction of bladder N31.9 Act starr confirmed 19488178 Problem Abnormal CT lung screening R91.8 Active confirmed 372774526 Problem 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 Active confirmed 294106301 Problem 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 breakdown of skin L97.521 Active confirmed 680146086 Problem Other and unspecified hyperlipidemia E78.5 Act starr confirmed 34573320 Problem Vitamin D deficiency, unspecified E55.9 Active con firmed 24432150 Problem Osteoporosis, unspecified os teoporosis type, unspecified pathological fracture presence M81.0 Active confirmed 24344997 Problem Osteoporosis without current pathological fracture, unspecified osteoporosis type M81.0 Active confirmed 92480209 Problem MIGDALIA (obstructive sleep apnea) G47.33 Active confirm ed 94257770 Problem Other ascites R18.8 Active confirmed 431789 000 Problem Bronchiectasis with acute exacerbation J47.1 A ctive confirmed 503934346 Problem Gastroesophageal reflux disease without esophagitis K21.9 Active confirmed 114378562 Problem Pain in right shoulder M25.511 Active confirmed 75385690 Problem Pharyngeal dysphagia R13.13 Active confirmed 84536882190189 Problem Other chronic pain G89.29 Active confirmed 8 1161069 Problem Paraplegia at T4 level G83.9 Active confirmed 41367897 Problem 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 Active confirmed 33885484820189895 Problem Hand arthritis M19.049 Active confirmed 4485 12886 Problem Irregular heart rhythm I49.9 Active confirmed 916233311 Problem LVH (left ventricular hypertrophy) I51.7 Activ e confirmed 01071813 ALLERGIES No Known Allergies ENCOUNTERS from 1955 to 2021-09-07 Encounter Location Date Provider Diagnosis [place] [id number] [place] [address] Aug, Stacy Ahn IMMUNIZATIONS Vaccine Route Administration Date Status COVID-19 dose #2 given elsewhere Unspecified Unknown Dec 18, 2020 Administered COVID-19 dose #1 given elsewhere Unspecified Unknown Nov 27, 2020 Administered Influenza 18 yrs & older Flublok IM Intramuscular Aug 29, 2019 Administered Influenza 18 yrs & older Flublok IM Intramuscular Oct 29, 2018 Administered Pneumococcal Adult 0.5mL Pneumovax 23 Unknown Nov 21 17 Administered Influenza 6mo & up Fluzone IM Intramuscular Dec 06, 2017 Admi nistered Influenza 6mo & up Fluzone Unknown Dec 16, 2015 Refus ed SOCIAL HISTORY Tobacco Use: Social History Observation Description Date Details (start date - stop date) Former Smoker Sex Assigned At : Social History Observation Description Sex Assigned At Unknown Audit Question Answer Notes Total Score: 0 Interpretation: Alcohol Education Sexual Hx: Question Answer Notes Had sex in the last 12 months (vaginal, oral, or anal)? No Have you ever had an STD? No Drug and Alcohol Question Answer Notes Total Score: 0 Interpretation: No problems reported Tobacco Use: Question Answer Notes Are you a: former smoker How long has it been since you last smoked? 1-5 years REASON FOR REFERRAL No Information VITAL SIGNS No information MEDICATIONS Medication SIG (Take, Route, Frequency, Duration) Notes Start Da te End Date Status tiZANidine HCl 4 MG TAKE TWO TABLETS BY MOUTH TH REE TIMES A DAY NEEDED for 90 Active Urinary Leg Bag Kit - as directed DX:N31.9 as directed for 30 Da ys May, Active Wheelchair - as directed Dx: Paraplegia T4 - G83.9 as directe d for 1 dose(s) Jul, Active Ranitidine HCl 150 MG TAKE ONE CAPSULE BY MOUTH AT BEDTIME for 30 Active traMADol HCl 50 MG 2 tabs daily in the evening Orally as directed MDD = 2 for 30 days Aug, Active Meloxicam 7.5 MG 1 tablet Orally Once a day for 90 day(s) Apr, Active May Have - Self propelled shower chair with commode opening DX:G83.9 as directed for 99 months Dec, Active Calcium + D 500-200 MG-UNIT 1 tablet with meals Orally Twice a day for 90 day(s) Active KP Vitamin D3 2000 UNIT 1 capsule once a day orally 30 days for 90 da ys Active Oxybutynin Chloride ER 15 MG TAKE ONE TABLET BY MOUTH EVERY DAY DIRECTED for 90 Active Garcia Catheter 2-Way - Silicone coated #16 DX:G82.2 0,N31.9 as directed for 30 day(s) May, Active Cyproheptadine HCl 4 MG TAKE 1 TABLET BY MOUTH IN TH E MORNING AND NOON,2 TABLETS IN THE EVENING for 90 Active Self-Cath Closed System - #14 [place] DX:G82.20,N31.9 as dire cted for 30 day(s) Jun, Active Famotidine 40 MG TAKE ONE TABLET BY MOUTH ONCE DAILY for 30 Active Extension Tubing/Connector - as directed DX:N31.9,G82. 20,G83.9 Daily for 30 day(s) Aug, Active Albuterol Sulfate HFA 108 (90 Base) MCG/ACT 2 puffs In halation every 4 hours as needed for shortness of breath Jul, A ctive Syringe Disposable 10 ML as directed DX CODE:N31.9,G8 2.20,83.9 Daily for 30 day(s) Aug, Active Gabapentin 300 MG TAKE TWO CAPSULES BY MOUTH TWICE A DAY for 90 Active PROCEDURES No Information RESULTS No Results REASON FOR VISIT REFILL MEDICAL (GENERAL) HISTORY Type Description Date Medical History Neurogenic Bladder CIC 4-5 x daily - straight caths every 4 hours Medical History Torn Rotator Cuff Medical History Arthritis Medical History Sleep Apnea - on CPAP - non-compliant Medical History H/O Horse back riding accide nt susteined T-spine injury, T5 JENAE A Paraplegia Medical History IVC Filter Medical History s/p Pacer - follows with cardiology in [place] Annually Medical History Osteoporosis - per Dr. Elizabeth Ga Medical History 04/2017 - Abnormal Low Dose C T chest Category III/IV - referred to Pulmonary - following with Dr. Woods Medical History Nicotine dep Medical History CT 07/2020: Bronchiectasis changes Medical History Echo 06/05/20 - Technically l imited. EF 60-65%Normal LA,mildly calcific AV without stenosis or regurg Surgical History Pacemaker placement 2002 Surgical History Spinal Cord surgery neha placement x 2 pl aces 04/2003 Surgical History cystoscopy 10/06/14 Surgical History hemorrhoidectomy 02/2017 Surgical History colonoscopy 02/2017 Hospitalization History Surgicaly related Hospitalization History pneumonia 07/2019 Goals Section No Information Health Concerns No Information MEDICAL EQUIPMENT No Information MENTAL STATUS No Information FUNCTIONAL STATUS No Information ASSESSMENTS No Information PLAN OF TREATMENT Medication Medication Name Sig Start Date Stop Date Garcia Catheter 2-Way - Silicone coated #16 DX:G82.2 0,N31.9 as directed for 30 day(s) May, Cyproheptadine HCl 4 MG TAKE 1 TABLET BY MOUTH IN TH E MORNING AND NOON,2 TABLETS IN THE EVENING for 90 Self-Cath Closed System - #14 GHANAIAN DX:G82.20,N31.9 as dire cted for 30 day(s) Jun, Oxybutynin Chloride ER 15 MG TAKE ONE TABLET BY MOUTH EVERY DAY DIRECTED for 90 Urinary Leg Bag Kit - as directed DX:N31.9 as directed for 30 Da ys May, Gabapentin 300 MG TAKE TWO CAPSULES BY MOUTH TWICE A DAY for 90 traMADol HCl 50 MG 2 tabs daily in the evening Orally as directed MDD = 2 for 30 days Aug, tiZANidine HCl 4 MG TAKE TWO TABLETS BY MOUTH TH REE TIMES A DAY NEEDED for 90 Next Appt Details Provider Name:Stacy Ahn, 2022-01 11:30:00 AM, [address], , [place], [address], Insurance Providers Payer Name Payer Address Payer Phone Insured Name Patient Relati onship to Insured Coverage Start Date Coverage End Date AETNA MEDICARE AETNA LIFE INSURANCE [employer] [address] [facility] [phone] IVORY NGUYEN self
--- OUTSIDE RECORDS SUMMARY | 2021-10-30 16:08 | CCD | Continuity of Care Document ---
Author Author Kori SANTIAGO MD Organization Unknown Address [address] [place] [address] Phone [phone] Care Team Providers Care Research Tech Name Role Phone Stacy Ahn P.A.-C. AUTM Problems Active Problems Provider Date Obstructive sleep apnea syndrome Rosemary Schwab A.N.P. Onset: 01/19/2011 Social History Type Date Description Comments Sex Unknown ETOH Use 1 A Week Tobacco Use Start: 11/20/62 End: 11/20/17 Patient is a forme r smoker 1 ppd x 40+yrs Recreational Drug Use Denies Drug Use Smoking Status Reviewed: 01/14/21 Patient is a former smoker 1 ppd x 40+yrs Allergies and adverse reactions Description No Known Drug Allergies Medications Active Medications SIG Qnty Indications Ordering Provide r Date Calcium Carbonate 1250(500Ca) mg T ablets 1 PO bid Unknown Cyproheptadine HCL 4mg Tablets 1 PO tid Unknown Gabapentin 300mg Capsules 1 by mouth two times a day Unknown Tramadol HCL 50mg Tablets 2 tabs by mouth twice daily as needed for pain Unknown 0 Tizanidine HCL 4mg Capsules 2 tabs three times daily Unknown Famotidine 40mg Tablets 1 tab by mouth every day Unknown Oxybutynin Chloride ER 15mg Tablets ER 24HR 1 tab by mouth everyday Unknown 00 Vitamin D3 2000Unit Capsules 1 by mouth twice a day every morning Unknown Miralax 3350NF Powder at bedt imes Unknown CPAP 9CM [place] Unknown Immunizations Description No Information Available Vital Signs Date Vital Result Comment 09/14/2021 11:03am Height 62 inches 5'2" Weight 115.00 lb BMI (Body Mass Index) 21.0 kg/m2 [place] Body Weight 110 lb Weight 52.164 kg BSA (Body Surface Area) 1.51 m2 01/14/2021 12:53pm BP Systolic 120 mmHg BP Diastolic 70 mmHg Heart Rate 70 /min O2 % BldC Oximetry 98 % Room Air Height 62 inches 5'2" Weight 125.00 lb stated BMI (Body Mass Index) 22.9 kg/m2 [place] Body Weight 110 lb Weight 56.700 kg BSA (Body Surface Area) 1.57 m2 Results Description No Information Available Procedures Description No Information Available Medical Devices Description No Information Available Encounters Description No Information Available Assessments Description No Information Available Plan of Treatment Future Appointment(s):* 10/19/2021 11:20 am - Dimas Santiago MD at [facility] * 10/27/2021 1:00 pm - Yousif Woods MD at [facility]acic Functional Status Description No Information Available Mental Status Description No Information Available Referrals Refer to Reason for Referral Status Appt Date Shawn Dobson M.D. PHARYNGEAL DYSPHASIA Scheduled [address] [address] [phone]
--- OUTSIDE RECORDS SUMMARY | 2021-10-30 16:08 | CCD ---
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 Active confirmed 90839102 Problem Neuromuscular dysfunction of bladder, unspecified N31.9 Active confirmed 043594222 Problem Muscle spasm of both lower legs M62.838 Active conf irmed 67041698 Problem Cigarette nicotine dependence without complication F17.210 Active confirmed 35006278 Problem Cigarette nicotine dependence in remission F17.211 Active confirmed 847473733 Problem S/P placement of cardiac pacemaker Z95.0 Activ e confirmed 202120477 Problem Neuromuscular dysfunction of bladder N31.9 Act starr confirmed 70195580 Problem Abnormal CT lung screening R91.8 Active confirmed 160938084 Problem 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 Active confirmed 866066089 Problem 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 breakdown of skin L97.521 Active confirmed 966558500 Problem Other and unspecified hyperlipidemia E78.5 Act starr confirmed 28170324 Problem Vitamin D deficiency, unspecified E55.9 Active con firmed 73350967 Problem Osteoporosis, unspecified os teoporosis type, unspecified pathological fracture presence M81.0 Active confirmed 51477319 Problem Osteoporosis without current pathological fracture, unspecified osteoporosis type M81.0 Active confirmed 47539825 Problem MIGDALIA (obstructive sleep apnea) G47.33 Active confirm ed 22877105 Problem Other ascites R18.8 Active confirmed 750102 000 Problem Bronchiectasis with acute exacerbation J47.1 A ctive confirmed 053559864 Problem Gastroesophageal reflux disease without esophagitis K21.9 Active confirmed 773805948 Problem Pain in right shoulder M25.511 Active confirmed 70769587 Problem Pharyngeal dysphagia R13.13 Active confirmed 47807203430293 Problem Other chronic pain G89.29 Active confirmed 8 2784204 Problem Paraplegia at T4 level G83.9 Active confirmed 29463230 Problem 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 Active confirmed 26951830249741007 Problem Hand arthritis M19.049 Active confirmed 4485 34579 Problem Irregular heart rhythm I49.9 Active confirmed 359591275 Problem LVH (left ventricular hypertrophy) I51.7 Activ e confirmed 30167024 ALLERGIES No Known Allergies ENCOUNTERS from 1955 to 2021-08-13 Encounter Location Date Provider Diagnosis [place] [id number] [place] [address] Jul, Stacy Ahn IMMUNIZATIONS Vaccine Route Administration Date [...] Notes Start Da te End Date Status Urinary Leg Bag Kit - as directed DX:N31.9 as directed for 30 Da ys May, Active Self-Cath Closed System - #14 ENGLISH DX:G82.20,N31.9 as dire cted for 30 day(s) Jun, Active Wheelchair - as directed Dx: Paraplegia T4 - G83.9 as directe d for 1 dose(s) Jul, Active Ranitidine HCl 150 MG TAKE ONE CAPSULE BY MOUTH AT BEDTIME for 30 Active Gabapentin 300 MG 2 capsule Orally bid for 90 days Active Calcium + D 500-200 MG-UNIT 1 tablet with meals Orally Twice a day for 90 day(s) Active May Have - Self propelled shower chair with commode opening DX:G83.9 as directed for 99 months Dec, Active Cyproheptadine HCl 4 MG 1 tablet am and noon, 2 tab s in pm as directed orally 30 day(s) orally four times daily for 90 days Active KP Vitamin D3 2000 UNIT 1 capsule once a day orally 30 days for 90 da ys Active Garcia Catheter 2-Way - Silicone coated #16 DX:G82.2 0,N31.9 as directed for 30 day(s) May, Active traMADol HCl 50 MG 2 tabs daily in the evening Orally as directed MDD = 2 for 30 days Jul, Active Meloxicam 7.5 MG 1 tablet Orally Once a day for 90 day(s) Apr, Active Extension Tubing/Connector - as directed DX:N31.9,G82. 20,G83.9 Daily for 30 day(s) Aug, Active Famotidine 40 MG TAKE ONE TABLET BY MOUTH ONCE DAILY for 30 Active tiZANidine HCl 4 MG 2 tablet as needed Orally Three times a day for 90 days Active Albuterol Sulfate HFA 108 (90 Base) MCG/ACT 2 puffs In halation every 4 hours as needed for shortness of breath Jul, A ctive Syringe Disposable 10 ML as directed DX CODE:N31.9,G8 2.20,83.9 Daily for 30 day(s) Aug, Active Oxybutynin Chloride ER 15 MG as directed once a day Or ally 30 days Orally Once a day for 30 Active PROCEDURES No Information RESULTS No Results REASON FOR VISIT [facility] MEDICAL (GENERAL) HISTORY Type Description Date Medical [...] Medication Name Sig Start Date Stop Date Self-Cath Closed System - #14 ENGLISH DX:G82.20,N31.9 as dire cted for 30 day(s) Jun, Garcia Catheter 2-Way - Silicone coated #16 DX:G82.2 0,N31.9 as directed for 30 day(s) May, Urinary Leg Bag Kit - as directed DX:N31.9 as directed for 30 Da ys May, Next Appt Details Provider Name:Stacy Ahn, 2022-01 11:30:00 AM, [address], , [place], [address], Insurance Providers Payer Name Payer Address Payer Phone Insured Name Patient Relati onship to Insured Coverage Start Date Coverage End Date AETNA MEDICARE AETNA LIFE INSURANCE [employer] [address] [facility] [phone] IVORY NGUYEN self
--- OUTSIDE RECORDS SUMMARY | 2021-10-30 16:08 | CCD ---
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 Active confirmed 68727807 Problem Neuromuscular dysfunction of bladder, unspecified N31.9 Active confirmed 922685007 Problem Muscle spasm of both lower legs M62.838 Active conf irmed 47190455 Problem Cigarette nicotine dependence without complication F17.210 Active confirmed 10677984 Problem Cigarette nicotine dependence in remission F17.211 Active confirmed 484939859 Problem S/P placement of cardiac pacemaker Z95.0 Activ e confirmed 563055699 Problem Neuromuscular dysfunction of bladder N31.9 Act starr confirmed 77923493 Problem Abnormal CT lung screening R91.8 Active confirmed 408119107 Problem 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 Active confirmed 548028361 Problem 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 breakdown of skin L97.521 Active confirmed 022732118 Problem Other and unspecified hyperlipidemia E78.5 Act starr confirmed 91636229 Problem Vitamin D deficiency, unspecified E55.9 Active con firmed 00184153 Problem Osteoporosis, unspecified os teoporosis type, unspecified pathological fracture presence M81.0 Active confirmed 47567879 Problem Osteoporosis without current pathological fracture, unspecified osteoporosis type M81.0 Active confirmed 79215208 Problem MIGDALIA (obstructive sleep apnea) G47.33 Active confirm ed 04017120 Problem Other ascites R18.8 Active confirmed 179813 000 Problem Bronchiectasis with acute exacerbation J47.1 A ctive confirmed 875259013 Problem Gastroesophageal reflux disease without esophagitis K21.9 Active confirmed 361152539 Problem Pain in right shoulder M25.511 Active confirmed 81373611 Problem Pharyngeal dysphagia R13.13 Active confirmed 72565838284932 Problem Other chronic pain G89.29 Active confirmed 8 9529531 Problem Paraplegia at T4 level G83.9 Active confirmed 89106606 Problem 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 Active confirmed 57158298539277053 Problem Hand arthritis M19.049 Active confirmed 4485 31108 Problem Irregular heart rhythm I49.9 Active confirmed 688313835 Problem LVH (left ventricular hypertrophy) I51.7 Activ e confirmed 06680814 ALLERGIES No Known Allergies ENCOUNTERS from 1955 to 2021-10-12 Encounter Location Date Provider Diagnosis [place] [id number] [place] [address] Sep, Stacy Ahn IMMUNIZATIONS Vaccine Route Administration Date Status COVID-19 dose #2 given elsewhere Unspecified Unknown Dec 18, 2020 Administered COVID-19 dose #1 given elsewhere Unspecified Unknown Nov 27, 2020 Administered Influenza 18 yrs & older Flublok IM Intramuscular Aug 29, 2019 Administered Influenza 18 yrs & older Flublok IM Intramuscular Oct 29, 2018 Administered Pneumococcal Adult 0.5mL Pneumovax 23 Unknown Nov 21 Administered Influenza 6mo & up Fluzone IM [...] directed MDD = 2 for 30 days Sep, Active Meloxicam 7.5 MG 1 tablet Orally [...] 90 Active Self-Cath Closed System - #14 [place] DX:G82.20,N31.9 as dire cted for 30 day(s) [...] Information RESULTS No Results REASON FOR VISIT refill MEDICAL (GENERAL) HISTORY Type Description Date Medical [...] for 90 Self-Cath Closed System - #14 [place] DX:G82.20,N31.9 as dire cted for 30 day(s) [...] directed MDD = 2 for 30 days Sep, tiZANidine HCl 4 MG TAKE TWO TABLETS BY MOUTH TH REE TIMES A DAY NEEDED for 90 Next Appt Details Provider Name:Stacy Ahn, 2022-01 11:30:00 AM, [address], , [place], [address], Insurance Providers Payer Name Payer Address Payer Phone Insured Name Patient Relati onship to Insured Coverage Start Date Coverage End Date AETNA MEDICARE AETNA LIFE INSURANCE [employer] [address] [facility] [phone] IVORY NGUYEN self
--- OUTSIDE RECORDS SUMMARY | 2021-10-30 16:08 | CCD ---
Author Author [facility] Organization 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 Active confirmed 61063074 Problem Neuromuscular dysfunction of bladder, unspecified N31.9 Active confirmed 892133362 Problem Muscle spasm of both lower legs M62.838 Active conf irmed 59141495 Problem Cigarette nicotine dependence without complication F17.210 Active confirmed 51501726 Problem Cigarette nicotine dependence in remission F17.211 Active confirmed 363599639 Problem S/P placement of cardiac pacemaker Z95.0 Activ e confirmed 082109416 Problem Neuromuscular dysfunction of bladder N31.9 Act starr confirmed 32286803 Problem Abnormal CT lung screening R91.8 Active confirmed 849396860 Problem 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 Active confirmed 918047102 Problem 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 breakdown of skin L97.521 Active confirmed 766679353 Problem Other and unspecified hyperlipidemia E78.5 Act starr confirmed 24321126 Problem Vitamin D deficiency, unspecified E55.9 Active con firmed 37275816 Problem Osteoporosis, unspecified os teoporosis type, unspecified pathological fracture presence M81.0 Active confirmed 84957545 Problem Osteoporosis without current pathological fracture, unspecified osteoporosis type M81.0 Active confirmed 29397243 Problem MIDGALIA (obstructive sleep apnea) G47.33 Active confirm ed 03291125 Problem Other ascites R18.8 Active confirmed 841946 000 Problem Bronchiectasis with acute exacerbation J47.1 A ctive confirmed 317179922 Problem Gastroesophageal reflux disease without esophagitis K21.9 Active confirmed 912385119 Problem Pain in right shoulder M25.511 Active confirmed 64509544 Problem Pharyngeal dysphagia R13.13 Active confirmed 53827903211109 Problem Other chronic pain G89.29 Active confirmed 8 8487286 Problem Paraplegia at T4 level G83.9 Active confirmed 18230294 Problem 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 Active confirmed 64024864451373209 Problem Hand arthritis M19.049 Active confirmed 4485 54222 Problem Irregular heart rhythm I49.9 Active confirmed 855474012 Problem LVH (left ventricular hypertrophy) I51.7 Activ e confirmed 31771333 ALLERGIES No Known Allergies ENCOUNTERS from 1955 to 2021-08-15 Encounter Location Date Provider Diagnosis [facility] [address] [place] [address] 16 Jul, 2021 Stacyjigna Chouterhator Pharyngeal dysphagia R13.13 ; Medicare a nnual wellness visit, initial Z00.00 ; Gastroesophageal reflux disease without esophagitis K21.9 ; Cigarette nicotine dependence in remission F17.211 ; Osteoporosis without current pathological fracture, unspecified osteoporosis type M81.0 ; Paraplegia at T4 level G83.9 ; Lipid screening Z13.220 ; Impacted cerumen of right ear H61.21 and Urinary retention R33.9 IMMUNIZATIONS Vaccine Route Administration Date Status COVID-19 [...] last smoked? 1-5 years REASON FOR REFERRAL from 1955 to 2021-08-15 Reason Food sticking in pharyngela phase in smoker Diagnosis 1 Pharyngeal dysphagia (R13.13 ) Referral Organization [facility] Jal[place] Referring Provider First Name Stacy Referring Provider Last Name Anabelle Referring Provider Specialty Family Medicine Referred Provider Shawn Dobson Referred Provider Specialty Otolaryngology Referral Priority Routine General Notes [facility],08/05/2021 5:24:14 PM > faxed VITAL SIGNS Weight 115 lbs Jul, Weight-kg 52.16 kg Jul, Height 5'2" in Jul, BMI 21.03 kg/m2 Jul, Heart Rate 78 /min Jul, Respiratory Rate 10 /min Jul, Temperature 97 degrees Fahrenheit Jul, Oximetry 99 Jul, Blood pressure systolic 120 mm Hg Jul, Blood pressure diastolic 82 mm Hg Jul, MEDICATIONS Medication SIG (Take, Route, Frequency, Duration) Notes Start Da te End Date Status Urinary Leg Bag Kit - as directed DX:N31.9 as directed for 30 Da ys May, Active Self-Cath Closed System - #14 SERBIAN DX:G82.20,N31.9 as dire cted for 30 day(s) [...] for 30 Active PROCEDURES No Information RESULTS Component Value Reference Range CBC - Complete Blood Count Reviewed date:08/06/2021 11:29:33 Interpretation: Performing Lab:[facility] [address] [place] [address] , ,[place] [address] WHITE BLOOD COUNT 9.5 4.0-10.0 RED BLOOD COUNT 4.92 4.00-5.40 HEMOGLOBIN 14.3 12.0-15.5 HEMATOCRIT 45.3 36.0-47.0 MEAN CORPUSCULAR VOLUME 92.1 80.0-96.0 MEAN CORPUSCULAR HEMOGLOBIN 29.1 27.0-33.0 MEAN CORPUSCULAR HGB CONC 31.6 32.0-36.5 RED CELL DISTRIBUTION WIDTH 13.5 11.5-14.5 PLATELET COUNT, AUTOMATED 277 150-450 Comprehensive Metabolic Profile (CMP) Reviewed date:08/06/2021 11:29:38 Interpretation: Performing Lab:[facility] [address] [place] [address] , ,[place] [address] GLUCOSE, FASTING 70 70-100 BLOOD UREA NITROGEN 14 7-18 CREATININE FOR GFR 0.70 0.55-1.30 GLOMERULAR FILTRATION RATE > 60.0 >45 SODIUM LEVEL 141 136-145 POTASSIUM SERUM 5.0 3.5-5.1 CHLORIDE LEVEL 101 98-107 CARBON DIOXIDE LEVEL 34 21-32 CALCIUM LEVEL 9.6 8.8-10.2 AST/SGOT 26 7-37 ALT/SGPT 29 12-78 ALKALINE PHOSPHATASE 93 45-117 BILIRUBIN,TOTAL 0.6 0.2-1.0 TOTAL PROTEIN 7.4 6.4-8.2 ALBUMIN 3.1 3.2-5.2 ALBUMIN/GLOBULIN RATIO 0.7 1.2-2.2 LIPID PANEL (CARDIAC RISK) Reviewed date:08/06/2021 11:29:47 Interpretation: Performing Lab:[facility] [address] [facility] [address] , ,[place] [address] TRIGLYCERIDES LEVEL 119 <150 CHOLESTEROL LEVEL 204 <200 HDL CHOLESTEROL 64 >40 LDL CHOLESTEROL 116 <100 NON-HDL-C 140 CHOLESTEROL RISK RATIO 3.187 <5 VITAMIN D 25-HYDROXY Reviewed date:08/06/2021 11:29:43 Interpretation: Performing Lab:[facility] [address] [facility] [address] , ,[place] [address] TOTAL 25(OH) VITAMIN D 61.7 30.0-100.0 VITB12 & FOL Reviewed date:08/06/2021 11:29:41 Interpretation: Performing Lab:[facility] [address] [facility] [address] , ,[place] [address] VITAMIN B12 LEVEL 564 FOLATE 22.4 REASON FOR VISIT medicare annual, pt c/o rt ear fullness MEDICAL (GENERAL) HISTORY Type Description Date Medical [...] No Information FUNCTIONAL STATUS No Information ASSESSMENTS Encounter Date Diagnosis Assessment Notes Treatment Notes Treatm ent Clinical Notes Jul, Pharyngeal dysphagia (ICD-10 - R13.13) symptoms seem to be occurring in pharynx - get swallowing study but if normal, will reer to ENT for direct visualization of pharynx. 16 Jul, 2021 Medicare annual wellness visit, initial (ICD-10 - Z00.00) age appropriate anticipatory guidance given, per USPSTF recommendations; immunizations up to date. discussed plans for implementing improvement in identified areas Jul, Gastroesophageal reflux dise ase without esophagitis (ICD-10 - K21.9) Jul, Cigarette nicotine dependence in remission (ICD- 10 - F17.211) Jul, Osteoporosis without current pathological fracture, unspecified osteoporosis type (ICD-10 - M81.0) Jul, Paraplegia at T4 level (ICD-10 - G83.9) Jul, Lipid screening (ICD-10 - Z13.220) Jul, Impacted cerumen of right ear (ICD-10 - H61.21) Jul, Urinary retention (ICD-10 - R33.9) She uses her catheters 4 times a day PLAN OF TREATMENT Medication Medication Name Sig Start Date Stop Date Self-Cath Closed System - #14 SERBIAN DX:G82.20,N31.9 as dire cted for 30 day(s) Jun, Garcia Catheter 2-Way - Silicone coated #16 DX:G82.2 0,N31.9 as directed for 30 day(s) May, Urinary Leg Bag Kit - as directed DX:N31.9 as directed for 30 Da ys May, Treatment Notes Assessment Notes Clinical Notes Pharyngeal dysphagia symptoms seem to be occurring in pharynx - get swallowing study but if normal, will reer to ENT for direct visualization of pharynx. Medicare annual wellness visit, initial age appropriate anticipatory guidance given, per USPSTF recommendations; immunizations up to date. discussed plans for implementing improvement in identified areas Urinary retention She uses her cathete rs 4 times a day Treatment Notes Test Name Order Date [facility] Esophagram (Barium Swallow) 2021-08-05 Referrals Referral Date Details Food sticking in pharyngela phase in smoker, Shawn Dobson Next Appt Details labs today, f/u 6 months Reason: Provider Name:Stacy Ahn, 2022-01 11:30:00 AM, [address], , [place], [address], Insurance Providers Payer Name Payer Address Payer Phone Insured Name Patient Relati onship to Insured Coverage Start Date Coverage End Date AETNA MEDICARE AETNA LIFE INSURANCE [employer] [address] [facility] [phone] IVORY NGUYEN self
--- OUTSIDE RECORDS SUMMARY | 2021-10-30 16:08 | CCD ---
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 Active confirmed 53309221 Problem Paraplegia at T4 level G83.9 Active confirmed 22743074 Problem S/P placement of cardiac pacemaker Z95.0 Activ e confirmed 384264547 Problem Osteoporosis, unspecified os teoporosis type, unspecified pathological fracture presence M81.0 Active confirmed 42655190 Problem Abnormal CT lung screening R91.8 Active confirmed 947402160 Problem Pain in right shoulder M25.511 Active confirmed 64649264 Problem 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 breakdown of skin L97.521 Active confirmed 078563331 Problem Neuromuscular dysfunction of bladder N31.9 Act starr confirmed 58898532 Problem Vitamin D deficiency, unspecified E55.9 Active con firmed 49310634 Problem 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 Active confirmed 963348962 Problem Osteoporosis without current pathological fracture, unspecified osteoporosis type M81.0 Active confirmed 31166708 Problem Other and unspecified hyperlipidemia E78.5 Act starr confirmed 36129165 Problem Cigarette nicotine dependence in remission F17.211 Active confirmed 234007825 Problem MIGDALIA (obstructive sleep apnea) G47.33 Active confirm ed 51361291 Problem Other ascites R18.8 Active confirmed 976439 000 Problem LVH (left ventricular hypertrophy) I51.7 Activ e confirmed 12803712 Problem Muscle spasm of both lower legs M62.838 Active conf irmed 65288690 Problem Gastroesophageal reflux disease without esophagitis K21.9 Active confirmed 639768314 Problem Cigarette nicotine dependence without complication F17.210 Active confirmed 80576964 Problem Other chronic pain G89.29 Active confirmed 8 0822288 Problem Bronchiectasis with acute exacerbation J47.1 A ctive confirmed 615411686 Problem 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 Active confirmed 29470588884544709 Problem Hand arthritis M19.049 Active confirmed 4485 11812 Problem Irregular heart rhythm I49.9 Active confirmed 050577457 ALLERGIES No Known Allergies ENCOUNTERS from 1955 to 2021-08-03 Encounter Location Date Provider Diagnosis [place] [id number] [place] [address] 13 Jul, 2021 Stacy Ahn IMMUNIZATIONS Vaccine Route Administration Date [...] End Date Status tiZANidine HCl 4 MG 2 tablet as needed Orally Three times a day for 90 days Active Albuterol Sulfate HFA 108 (90 Base) MCG/ACT 2 puffs In halation every 4 hours as needed for shortness of breath Jul, A ctive Gabapentin 300 MG 2 capsule Orally bid for 90 days Active Meloxicam 7.5 MG 1 tablet Orally Once a day for 90 day(s) Apr, Active traMADol HCl 50 MG 2 tabs daily in the evening Orally as directed MDD = 2 for 30 days Jul, Active Self-Cath Closed System - #14 SETSWANA DX:G82.20,N31.9 as dire cted for 30 day(s) Jun, Active Urinary Leg Bag Kit - as directed DX:N31.9 as directed for 30 Da ys May, Active Cyproheptadine HCl 4 MG 1 tablet am and noon, 2 tab s in pm as directed orally 30 day(s) orally four times daily for 90 days Active Extension Tubing/Connector - as directed DX:N31.9,G82. 20,G83.9 Daily for 30 day(s) Aug, Active Oxybutynin Chloride ER 15 MG as directed once a day Or ally 30 days Orally Once a day for 30 Active Ranitidine HCl 150 MG TAKE ONE CAPSULE BY MOUTH AT BEDTIME for 30 Active Garcia Catheter 2-Way - Silicone coated #16 DX:G82.2 0,N31.9 as directed for 30 day(s) May, Active May Have - Self propelled shower chair with commode opening DX:G83.9 as directed for 99 months Dec, Active KP Vitamin D3 2000 UNIT 1 capsule once a day orally 30 days for 90 da ys Active Wheelchair - as directed Dx: Paraplegia T4 - G83.9 as directe d for 1 dose(s) Jul, Active Syringe Disposable 10 ML as directed DX CODE:N31.9,G8 2.20,83.9 Daily for 30 day(s) Aug, Active Famotidine 40 MG TAKE ONE TABLET BY MOUTH ONCE DAILY for 30 Active Calcium + D 500-200 MG-UNIT 1 tablet with meals Orally Twice a day for 90 day(s) Active PROCEDURES No Information RESULTS No Results REASON FOR VISIT tramadol MEDICAL (GENERAL) HISTORY Type Description Date Medical [...] Medication Name Sig Start Date Stop Date Famotidine 40 MG TAKE ONE TABLET BY MOUTH ONCE DAILY for 30 Cyproheptadine HCl 4 MG 1 tablet am and noon, 2 tab s in pm as directed orally 30 day(s) orally four times daily for 90 days Oxybutynin Chloride ER 15 MG as directed once a day Or ally 30 days Orally Once a day for 30 KP Vitamin D3 2000 UNIT 1 capsule once a day orally 30 days for 90 days tiZANidine HCl 4 MG 2 tablet as needed Orally Three times a day for 90 days Calcium + D 500-200 MG-UNIT 1 tablet with meals Orally Twice a day for 90 day(s) Gabapentin 300 MG 2 capsule Orally bid for 90 days traMADol HCl 50 MG 2 tabs daily in the evening Orally as directed MDD = 2 for 30 days Jul, Next Appt Details Provider Name:Stacy Anabelle, 2021-07 11:30:00 AM, [address] , , [place], [address], Insurance Providers Payer Name Payer Address Payer Phone Insured Name Patient Relati onship to Insured Coverage Start Date Coverage End Date AETNA MEDICARE A[employer]NA [employer] [address] [facility] [phone] IVORY NGUYEN self
--- OUTSIDE RECORDS SUMMARY | 2021-10-30 16:08 | CCD ---
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 Active confirmed 39008712 Problem Neuromuscular dysfunction of bladder, unspecified N31.9 Active confirmed 044488523 Problem Muscle spasm of both lower legs M62.838 Active conf irmed 54712728 Problem Cigarette nicotine dependence without complication F17.210 Active confirmed 69549720 Problem Cigarette nicotine dependence in remission F17.211 Active confirmed 657995262 Problem S/P placement of cardiac pacemaker Z95.0 Activ e confirmed 742521771 Problem Neuromuscular dysfunction of bladder N31.9 Act starr confirmed 66369222 Problem Abnormal CT lung screening R91.8 Active confirmed 834257401 Problem 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 Active confirmed 635736442 Problem 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 breakdown of skin L97.521 Active confirmed 046180484 Problem Other and unspecified hyperlipidemia E78.5 Act starr confirmed 06414839 Problem Vitamin D deficiency, unspecified E55.9 Active con firmed 82846582 Problem Osteoporosis, unspecified os teoporosis type, unspecified pathological fracture presence M81.0 Active confirmed 77352837 Problem Osteoporosis without current pathological fracture, unspecified osteoporosis type M81.0 Active confirmed 68532519 Problem MIGDALIA (obstructive sleep apnea) G47.33 Active confirm ed 53989389 Problem Other ascites R18.8 Active confirmed 134371 000 Problem Bronchiectasis with acute exacerbation J47.1 A ctive confirmed 282382612 Problem Gastroesophageal reflux disease without esophagitis K21.9 Active confirmed 841278156 Problem Pain in right shoulder M25.511 Active confirmed 83908275 Problem Pharyngeal dysphagia R13.13 Active confirmed 10279248251859 Problem Other chronic pain G89.29 Active confirmed 8 2174316 Problem Paraplegia at T4 level G83.9 Active confirmed 61447415 Problem 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 Active confirmed 49246757369886720 Problem Hand arthritis M19.049 Active confirmed 4485 78658 Problem Irregular heart rhythm I49.9 Active confirmed 588603984 Problem LVH (left ventricular hypertrophy) I51.7 Activ e confirmed 72034749 ALLERGIES No Known Allergies ENCOUNTERS from 1955 to 2021-08-13 Encounter Location Date Provider Diagnosis [place] [id number] [place] [address] Jul, Stacy Ahn IMMUNIZATIONS Vaccine Route [...] May, Active Self-Cath Closed System - #14 BERMUDIAN DX:G82.20,N31.9 as dire cted for 30 day(s) [...] Information RESULTS No Results REASON FOR VISIT note MEDICAL (GENERAL) HISTORY Type Description Date Medical [...] Stop Date Self-Cath Closed System - #14 BERMUDIAN DX:G82.20,N31.9 as dire cted for 30 day(s) Jun, Garcia Catheter 2-Way - Silicone coated #16 DX:G82.2 0,N31.9 as directed for 30 day(s) May, Urinary Leg Bag Kit - as directed DX:N31.9 as directed for 30 Da ys May, Next Appt Details Provider Name:Stacy Ahn, 2022-01 11:30:00 AM, [address], , [place], [address], Insurance Providers Payer Name Payer Address Payer Phone Insured Name Patient Relati onship to Insured Coverage Start Date Coverage End Date AETNA MEDICARE AETNA LIFE INSURANCE [employer] [address] [facility] [phone] IVORY NGUYEN self
--- OUTSIDE RECORDS SUMMARY | 2021-10-30 16:08 | CCD | Continuity of Care Document ---
Author Author Kori SANTIAGO MD Organization Unknown Address [address] [place] [address] Phone [phone] Care Team Providers Care Manager Change Name Role Phone Stacy Ahn P.A.-C. AUTM [...] SIG Qnty Indications Ordering Provide r Date Omeprazole 40mg Capsules DR 1 by mouth every day 30caps Dimas Santiago MD 10/19/2021 Calcium Carbonate 1250(500Ca) mg T ablets 1 [...] Available Vital Signs Date Vital Result Comment 10/19/2021 11:11am Height 62 inches 5'2" Weight 115.00 lb BMI (Body Mass Index) 21.0 kg/m2 [place] Body Weight 110 lb Weight 52.164 kg BSA (Body Surface Area) 1.51 m2 09/14/2021 11:03am Height 62 inches 5'2" Weight 115.00 lb BMI (Body Mass Index) 21.0 kg/m2 [place] Body Weight 110 lb Weight 52.164 kg BSA (Body Surface Area) 1.51 m2 Results Description No Information Available Procedures Date Code Description Status 10/19/2021 52938 Office/Outpatient Established Lo w MDM 20-29 Min Completed 09/14/2021 91171 Office/Outpatient New Low MDM 30 -44 Minutes Completed 09/14/2021 17508 Laryngoscopy Flexible Fiberoptic Diagnostic Completed Medical Devices Description No Information Available Encounters Type Date Location Provider Dx Diagnosis Office Visit 10/19/2021 11:20a [facility] Dimas Santiago MD K21.9 Gastro-esophageal reflux disease without esophagitis Office Visit 09/14/2021 11:00a [facility] Dimas Santiago MD K21.9 Gastro-esophageal reflux disease without esophagitis Assessments Date Code Description Provider 10/19/2021 K21.9 Gastro-esophageal reflux disease without esophagitis Dimas Santiago MD 09/14/2021 K21.9 Gastro-esophageal reflux disease without esophagitis Dimas Santiago MD Plan of Treatment Future Appointment(s):* 12/20/2021 11:00 am - Dimas Santiago MD at [facility] * 10/27/2021 1:00 pm - Yousif Woods MD at [facility] Pul[facility]/Thoracic 10/19/2021 - Dimas Santiago MD* K21.9 Gastro-esophageal reflux disease without esophagitis * All * New Medication:* Omeprazole 40 mg - 1 by mouth every day Functional Status Description No Information Available Mental Status Description No Information Available Referrals Refer to Reason for Referral Status Appt Date Shawn Dobson M.D. PHARYNGEAL DYSPHASIA Scheduled [address] [address] [phone]
--- OUTSIDE RECORDS SUMMARY | 2021-10-30 16:08 | CCD ---
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 Active confirmed 35810930 Problem Neuromuscular dysfunction of bladder, unspecified N31.9 Active confirmed 425746271 Problem Muscle spasm of both lower legs M62.838 Active conf irmed 02667183 Problem Cigarette nicotine dependence without complication F17.210 Active confirmed 83587371 Problem Cigarette nicotine dependence in remission F17.211 Active confirmed 992872311 Problem S/P placement of cardiac pacemaker Z95.0 Activ e confirmed 308148915 Problem Neuromuscular dysfunction of bladder N31.9 Act starr confirmed 70529176 Problem Abnormal CT lung screening R91.8 Active confirmed 706197473 Problem 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 Active confirmed 778860340 Problem 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 breakdown of skin L97.521 Active confirmed 989574423 Problem Other and unspecified hyperlipidemia E78.5 Act starr confirmed 54493395 Problem Vitamin D deficiency, unspecified E55.9 Active con firmed 08947557 Problem Osteoporosis, unspecified os teoporosis type, unspecified pathological fracture presence M81.0 Active confirmed 17855308 Problem Osteoporosis without current pathological fracture, unspecified osteoporosis type M81.0 Active confirmed 20965866 Problem MIGDALIA (obstructive sleep apnea) G47.33 Active confirm ed 95520661 Problem Other ascites R18.8 Active confirmed 450416 000 Problem Bronchiectasis with acute exacerbation J47.1 A ctive confirmed 462474060 Problem Gastroesophageal reflux disease without esophagitis K21.9 Active confirmed 894485368 Problem Pain in right shoulder M25.511 Active confirmed 36063184 Problem Pharyngeal dysphagia R13.13 Active confirmed 52303137799351 Problem Other chronic pain G89.29 Active confirmed 8 8307346 Problem Paraplegia at T4 level G83.9 Active confirmed 21988006 Problem 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 Active confirmed 71944726743233933 Problem Hand arthritis M19.049 Active confirmed 4485 60054 Problem Irregular heart rhythm I49.9 Active confirmed 181039278 Problem LVH (left ventricular hypertrophy) I51.7 Activ e confirmed 06749031 ALLERGIES No Known Allergies ENCOUNTERS from 1955 to 2021-08-27 Encounter Location Date Provider Diagnosis [facility] [address] [place] [phone] 16 Jul, 2021 Stacy Ahn IMMUNIZATIONS Vaccine Route [...] May, Active Self-Cath Closed System - #14 ROMAN[place] DX:G82.20,N31.9 as dire cted for 30 day(s) [...] Information RESULTS No Results REASON FOR VISIT records MEDICAL (GENERAL) HISTORY Type Description Date Medical [...] Stop Date Self-Cath Closed System - #14 ROMAN[place] DX:G82.20,N31.9 as dire cted for 30 day(s) Jun, Garcia Catheter 2-Way - Silicone coated #16 DX:G82.2 0,N31.9 as directed for 30 day(s) May, Urinary Leg Bag Kit - as directed DX:N31.9 as directed for 30 Da ys May, Next Appt Details Provider Name:Stacy Ahn, 2022-01 11:30:00 AM, [address], , [place], [address], Insurance Providers Payer Name Payer Address Payer Phone Insured Name Patient Relati onship to Insured Coverage Start Date Coverage End Date AETNA MEDICARE A[employer]NA LIFE INSURANCE [facility] [address] [facility] [phone] IVORY NGUYEN self
--- OUTSIDE RECORDS SUMMARY | 2021-10-30 16:08 | CCD ---
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 Active confirmed 24903592 Problem Neuromuscular dysfunction of bladder, unspecified N31.9 Active confirmed 429104122 Problem Muscle spasm of both lower legs M62.838 Active conf irmed 78298990 Problem Cigarette nicotine dependence without complication F17.210 Active confirmed 95246279 Problem Cigarette nicotine dependence in remission F17.211 Active confirmed 713741159 Problem S/P placement of cardiac pacemaker Z95.0 Activ e confirmed 390394962 Problem Neuromuscular dysfunction of bladder N31.9 Act starr confirmed 69291376 Problem Abnormal CT lung screening R91.8 Active confirmed 404472821 Problem 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 Active confirmed 744284035 Problem 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 breakdown of skin L97.521 Active confirmed 672105940 Problem Other and unspecified hyperlipidemia E78.5 Act starr confirmed 04776191 Problem Vitamin D deficiency, unspecified E55.9 Active con firmed 77379535 Problem Osteoporosis, unspecified os teoporosis type, unspecified pathological fracture presence M81.0 Active confirmed 74613411 Problem Osteoporosis without current pathological fracture, unspecified osteoporosis type M81.0 Active confirmed 77713766 Problem MIGDALIA (obstructive sleep apnea) G47.33 Active confirm ed 67477870 Problem Other ascites R18.8 Active confirmed 323269 000 Problem Bronchiectasis with acute exacerbation J47.1 A ctive confirmed 801159433 Problem Gastroesophageal reflux disease without esophagitis K21.9 Active confirmed 691055899 Problem Pain in right shoulder M25.511 Active confirmed 22939430 Problem Pharyngeal dysphagia R13.13 Active confirmed 53679545403512 Problem Other chronic pain G89.29 Active confirmed 8 2772258 Problem Paraplegia at T4 level G83.9 Active confirmed 09565797 Problem 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 Active confirmed 17851020593855390 Problem Hand arthritis M19.049 Active confirmed 4485 13337 Problem Irregular heart rhythm I49.9 Active confirmed 375265036 Problem LVH (left ventricular hypertrophy) I51.7 Activ e confirmed 68973459 ALLERGIES No Known Allergies ENCOUNTERS from 1955 to 2021-09-09 Encounter Location Date Provider Diagnosis [facility] [address] [place] [phone] Aug, 2021 Stacy Ahn IMMUNIZATIONS Vaccine Route Administration [...] 90 Active Self-Cath Closed System - #14 [place] DX:G82.20,N31.9 as dire cted for 30 day(s) [...] for 90 Self-Cath Closed System - #14 [place] DX:G82.20,N31.9 as dire cted for 30 day(s) [...] Details Provider Name:Stacy Ahn, 2022-01 11:30:00 AM, [address], , [place], [address], Insurance Providers Payer Name Payer Address Payer Phone Insured Name Patient Relati onship to Insured Coverage Start Date Coverage End Date AETNA MEDICARE AETNA LIFE INSURANCE [place] [address] [facility] [phone] IVORY NGUYEN self
--- OUTSIDE RECORDS SUMMARY | 2021-10-30 16:08 | CCD | Continuity of Care Document ---
Author Author Kori SANTIAGO MD Organization Unknown Address [address] [place] [address] Phone [phone] Care Team Providers Care Beck Tender Name Role Phone Stacy Ahn P.A.-C. AUTM [phone] Problems Active Problems Provider Date Obstructive sleep [...] lb BMI (Body Mass Index) 21.0 kg/m2 [place] Body Weight 110 lb Weight 52.164 kg BSA (Body Surface Area) 1.51 m2 01/14/2021 12:53pm BP Systolic 120 mmHg BP Diastolic 70 mmHg Heart Rate 70 /min O2 % BldC Oximetry 98 % Room Air Height 62 inches 5'2" Weight 125.00 lb stated BMI (Body Mass Index) 22.9 kg/m2 [place] Body Weight 110 lb Weight 56.700 kg BSA (Body Surface Area) 1.57 m2 Results Description No Information Available Procedures Date Code Description Status 09/14/2021 98951 Office/Outpatient New Low MDM 30 -44 Minutes Completed 09/14/2021 11285 Laryngoscopy Flexible Fiberoptic Diagnostic Completed Medical Devices Description No Information Available Encounters Type Date Location Provider Dx Diagnosis Office Visit 09/14/2021 11:00a [facility] Dimas Santiago MD K21.9 Gastro-esophageal reflux disease without esophagitis Assessments Date Code Description Provider 09/14/2021 K21.9 Gastro-esophageal reflux disease without esophagitis Dimas Santiago MD Plan of Treatment Future Appointment(s):* 10/19/2021 11:20 am - Dimas Santiago MD at [facility] * 10/27/2021 1:00 pm - Yousif Woods MD at [facility] Pulmonary/Thoracic 09/14/2021 - Dimas Santiago MD* K21.9 Gastro-esophageal reflux disease without esophagitis Functional Status Description No Information Available Mental Status Description No Information Available Referrals Refer to Reason for Referral Status Appt Date Shawn Dobson M.D. PHARYNGEAL DYSPHASIA Scheduled [address] [address] [phone]
--- OUTSIDE RECORDS SUMMARY | 2021-10-30 16:09 | CCD ---
Author Author [facility] Organization [facility] Address Unknown Phone Unavailable Care Team Providers Care Technology Development Intern Name Role Phone RENNY PICKARD MD Unavailable Unavailable RENNY PICKARD MD Unavailable Unavailable RENNY PICKARD MD Unavailable Unavailable RENNY PICKARD MD Unavailable Unavailable RENNY PICKARD MD Unavailable Unavailable RENNY PICKARD MD Unavailable Unavailable RENNY PICKARD MD Unavailable Unavailable RENNY PICKARD MD Unavailable Unavailable RENNY PICKARD MD Unavailable Unavailable RENNY PICKARD MD Unavailable Unavailable RENNY PICKARD MD Unavailable Unavailable RENNY PICKARD MD Unavailable Unavailable RENNY PICKARD MD Unavailable Unavailable RENNY PICKARD MD Unavailable Unavailable RENNY PICKARD MD Unavailable Unavailable RENNY PICKARD MD Unavailable Unavailable RENNY PICKARD MD Unavailable Unavailable RENNY PICKARD MD Unavailable Unavailable RENNY PICKARD MD Unavailable Unavailable RENNY PICKARD MD Unavailable Unavailable RENNY PICKARD MD Unavailable Unavailable RENNY PICKARD MD Unavailable Unavailable SZOMBATHY, RENNY KIRKLAND Unavailable Unavailable SZOMBATHY, RENNY KIRKLAND Unavailable Unavailable SZOMBATHYRENNY MD Unavailable Unavailable SZOMBATHYRENNY MD Unavailable Unavailable SZOMBATHY, RENNY MD Unavailable Unavailable SZOMBATHY, RENNY MD Unavailable Unavailable SZOMBATHY, RENNY MD Unavailable Unavailable SZOMBATHY, RENNY MD Unavailable Unavailable SZOMBATHY, RENNY KIRKLAND Unavailable Unavailable SZOMBATHY, RENNY MD Unavailable Unavailable SZOMBATHYRENNY MD Unavailable Unavailable SZOMBATHY, RENNY MD Unavailable Unavailable SZOMBATHY, RENNY MD Unavailable Unavailable SZOMBATHY, RENNY MD Unavailable Unavailable SZOMBATHY, RENNY MD Unavailable Unavailable SZOMBATHY, RENNY MD Unavailable Unavailable SZOMBATHY, RENNY MD Unavailable Unavailable SZOMBATHY, RENNY KIRKLAND Unavailable Unavailable SZOMBATHY, RENNY MD Unavailable Unavailable SZOMBATHY, RENNY MD Unavailable Unavailable SZOMBATHY, RENNY MD Unavailable Unavailable SZOMBATHY, RENNY MD Unavailable Unavailable SZOMBATHY, RENNY MD Unavailable Unavailable SZOMBATHY, RENNY MD Unavailable Unavailable BrewsterDimas MD Unavailable Unavailable BrewsterDimas MD Unavailable Unavailable BrewsterDimas MD Unavailable Unavailable BrewsterDimas MD Unavailable Unavailable Brewster Dimas MD Unavailable Unavailable BrewsterDimas MD Unavailable Unavailable BrewsterDimas MD Unavailable Unavailable BrewsterDimas MD Unavailable Unavailable BrewsterDimas MD Unavailable Unavailable Brewster Dimas MD Unavailable Unavailable BrewsterDimas MD Unavailable Unavailable Brewster, Dimas MD Unavailable Unavailable Brewster, Dimas MD Unavailable Unavailable Brewster Dimas MD Unavailable Unavailable Brewster Dimas MD Unavailable Unavailable BrewsterDimas MD Unavailable Unavailable BrewsterDimas MD Unavailable Unavailable Brewster Dimas MD Unavailable Unavailable Brewster Dimas MD Unavailable Unavailable Brewster Dimas MD Unavailable Unavailable Brewster Dimas MD Unavailable Unavailable Brewster Dimas MD Unavailable Unavailable Brewster Dimas MD Unavailable Unavailable Brewster Dimas MD Unavailable Unavailable BrewsterDimas MD Unavailable Unavailable Brewster Dimas MD Unavailable Unavailable Brewster, Dimas MD Unavailable Unavailable Brewster, Dimas MD Unavailable Unavailable Brewster, Dimas MD Unavailable Unavailable Brewster, Dimas MD Unavailable Unavailable Brewster, Dimas MD Unavailable Unavailable Brewster, Dimas MD Unavailable Unavailable Fish, B Abida KIRKLAND Unavailable Unavailable Fish, B Abida KIRKLAND Unavailable Unavailable Fish, B Abida KIRKLAND Unavailable Unavailable Fish, B Abida KIRKLAND Unavailable Unavailable Fish, Monica Tai MD Unavailable Unavailable Fish, Monica Tai MD Unavailable Unavailable Fish, Monica Tai MD Unavailable Unavailable Fish, Monica Tai MD Unavailable Unavailable Fish, Monica Tai MD Unavailable Unavailable Fish, Monica Tai MD Unavailable Unavailable Fish, Monica Tai MD Unavailable Unavailable Fish, Monica Tai MD Unavailable Unavailable Fish, Monica Tai MD Unavailable Unavailable Fish, Monica Tai MD Unavailable Unavailable Fish, Monica Tai MD Unavailable Unavailable Fish, Monica Tai MD Unavailable Unavailable Fish, Monica Tai MD Unavailable Unavailable Fish, Monica Tai MD Unavailable Unavailable Fish, Monica Tai MD Unavailable Unavailable Fish, Monica Tai MD Unavailable Unavailable Fish, Monica Tai MD Unavailable Unavailable Fish, Monica Tai MD Unavailable Unavailable Fish, Monica Tai MD Unavailable Unavailable Fish, Monica Tai MD Unavailable Unavailable Fish, Monica Tai MD Unavailable Unavailable Fish, Monica Tai MD Unavailable Unavailable Fish, Monica Tai MD Unavailable Unavailable Fish, Monica Tia MD Unavailable Unavailable Fish, Monica Tai MD Unavailable Unavailable Fish, Monica Tai MD Unavailable Unavailable Fish, Monica Tai MD Unavailable Unavailable Fish, Monica Tai MD Unavailable Unavailable Fish, Monica Tai MD Unavailable Unavailable Fish, Monica Tai MD Unavailable Unavailable Fish, Monica Tai MD Unavailable Unavailable Fish, Monica Tai MD Unavailable Unavailable Fish, Monica Tai MD Unavailable Unavailable Fish, Monica Tai MD Unavailable Unavailable Fish, Monica Tai MD Unavailable Unavailable Fish, Monica Tai MD Unavailable Unavailable Fish, Monica Tai MD Unavailable Unavailable Fish, Monica Tai MD Unavailable Unavailable Fish, Monica Tai MD Unavailable Unavailable Fish, Monica Tai MD Unavailable Unavailable Fish, Monica Tai MD Unavailable Unavailable Fish, Monica Tai MD Unavailable Unavailable Fish, Monica Tai MD Unavailable Unavailable Fish, Monica Tai MD Unavailable Unavailable Fish, Monica Tai MD Unavailable Unavailable Fish, Monica Tai MD Unavailable Unavailable Fish, Monica Tai MD Unavailable Unavailable Fish, Monica Tai MD Unavailable Unavailable Fish, Monica Tai MD Unavailable Unavailable Fish, Moncia Tai MD Unavailable Unavailable Fish, Monica Tai MD Unavailable Unavailable Fish, Monica Tai MD Unavailable Unavailable Fish, Monica Tai MD Unavailable Unavailable Fish, Monica Tai MD Unavailable Unavailable Fish, Monica Tai MD Unavailable Unavailable Fish, Monica Tai MD Unavailable Unavailable Fish, Monica Tai MD Unavailable Unavailable Fish, Monica Tai MD Unavailable Unavailable Fish, Monica Tai MD Unavailable Unavailable Fish, Monica Tai MD Unavailable Unavailable Fish, Monica Tai MD Unavailable Unavailable Berry, Nestor Unavailable Unavailable Wetterhahn, M Stacy PA Unavailable Unavailable Wetterhahn, M Stacy PA Unavailable Unavailable Wetterhahn, M Stacy PA Unavailable Unavailable Wetterhahn, M Stacy PA Unavailable Unavailable Wetterhahn, M Stacy PA Unavailable Unavailable Wetterhahn, M Stacy PA Unavailable Unavailable Wetterhahn, M Stacy PA Unavailable Unavailable Wetterhahn, M Stacy PA Unavailable Unavailable Wetterhahn, M Stacy PA Unavailable Unavailable Wetterhahn, M Tsacy PA Unavailable Unavailable Wetterhahn, M Stacy PA Unavailable Unavailable Wetterhahn, M Stacy PA Unavailable Unavailable Wetterhahn, M Stacy PA Unavailable Unavailable Wetterhahn, M Stacy PA Unavailable Unavailable Wetterhahn, M Stacy PA Unavailable Unavailable Wetterhahn, M Stacy PA Unavailable Unavailable Wetterhahn, M Stacy PA Unavailable Unavailable Wetterhahn, M Stacy PA Unavailable Unavailable Wetterhahn, M Stacy PA Unavailable Unavailable Wetterhahn, M Stacy PA Unavailable Unavailable Wetterhahn, M Stacy PA Unavailable Unavailable Wetterhahn, M Stacy PA Unavailable Unavailable Wetterhahn, M Stacy PA Unavailable Unavailable Wetterhahn, M Stacy PA Unavailable Unavailable Wetterhahn, M Stacy PA Unavailable Unavailable Wetterhahn, M Stacy PA Unavailable Unavailable Wetterhahn, M Stacy PA Unavailable Unavailable Wetterhahn, M Stacy PA Unavailable Unavailable Wetterhahn, M Stacy PA Unavailable Unavailable Wetterhahn, M Stacy PA Unavailable Unavailable Wetterhahn, M Stacy PA Unavailable Unavailable Wetterhahn, M Stacy PA Unavailable Unavailable Wetterhahn, M Stacy PA Unavailable Unavailable Wetterhahn, M Stacy PA Unavailable Unavailable Wetterhahn, M Stacy PA Unavailable Unavailable Wetterhahn, M Stacy PA Unavailable Unavailable Wetterhahn, M Stacy PA Unavailable Unavailable Wetterhahn, M Stacy PA Unavailable Unavailable Wetterhahn, M Stacy PA Unavailable Unavailable Wetterhahn, M Stacy PA Unavailable Unavailable Wetterhahn, M Stacy PA Unavailable Unavailable Wetterhahn, M Stacy PA Unavailable Unavailable Wetterhahn, M Stacy PA Unavailable Unavailable Wetterhahn, M Stacy PA Unavailable Unavailable Wetterhahn, M Stacy PA Unavailable Unavailable Wetterhahn, M Stacy PA Unavailable Unavailable Wetterhahn, M Stacy PA Unavailable Unavailable Wetterhahn, M Stacy PA Unavailable Unavailable Wetterhahn, M Stacy PA Unavailable Unavailable Wetterhahn, M Stacy PA Unavailable Unavailable Wetterhahn, M Stacy PA Unavailable Unavailable Wetterhahn, M Stacy PA Unavailable Unavailable Wetterhahn, M Stacy PA Unavailable Unavailable Wetterhahn, M Stacy PA Unavailable Unavailable Wetterhahn, M Stacy PA Unavailable Unavailable VaneeneyalamRubio MD Unavailable Unavailable Vaneenenaam, Rubio Castellano MD Unavailable Unavailable Vaneenenaam, Rubio Castellano MD Unavailable Unavailable Vaneeneyalam, Rubio Castellano MD Unavailable Unavailable Vaneeneyalam, Rubio Castellano MD Unavailable Unavailable Vaneeneyalam, Rubio Castellano MD Unavailable Unavailable Vaneeneyalam, Rubio Castellano MD Unavailable Unavailable Vaneeneyalam, Rubio Castellano MD Unavailable Unavailable Vanryan, Rubio Castellano MD Unavailable Unavailable Vanryan, Rubio Castellano MD Unavailable Unavailable Vanryan, Rubio Castellano MD Unavailable Unavailable Vanryan, Rubio Castellano MD Unavailable Unavailable Vaneenapril, Rubio Castellano MD Unavailable Unavailable Vaneeneyalam, Rubio Castellano MD Unavailable Unavailable VaneeneyalamRubio MD Unavailable Unavailable Vanryan, Rubio Castellano MD Unavailable Unavailable VanRubio davis MD Unavailable Unavailable VanRubio davis MD Unavailable Unavailable Vanryan, Rubio Castellano MD Unavailable Unavailable VanRubio davis MD Unavailable Unavailable Vanryan, Rubio Castellano MD Unavailable Unavailable VanRubio davis MD Unavailable Unavailable VanRubio davis MD Unavailable Unavailable VanRubio davis MD Unavailable Unavailable VanRubio davis MD Unavailable Unavailable VanRubio davis MD Unavailable Unavailable VanRubio davis MD Unavailable Unavailable VanRubio davis MD Unavailable Unavailable Rubio Waters MD Unavailable Unavailable Rubio Waters MD Unavailable Unavailable Rubio Waters MD Unavailable Unavailable VanRubio davis MD Unavailable Unavailable VanRubio davis MD Unavailable Unavailable VandelilahamRubio MD Unavailable Unavailable VanRubio davis MD Unavailable Unavailable Rubio Waters MD Unavailable Unavailable VanRubio davis MD Unavailable Unavailable VanRubio davis MD Unavailable Unavailable VaneeneyalamRubio MD Unavailable Unavailable VaneenenaamRubio MD Unavailable Unavailable Vaneenenaam, D Peter MD Unavailable Unavailable Rubio Waters MD Unavailable Unavailable Rubio Waters MD Unavailable Unavailable Rubio Waters MD Unavailable Unavailable Rubio Waters MD Unavailable Unavailable Rubio Waters MD Unavailable Unavailable Rubio Waters MD Unavailable Unavailable Re-disclosure Warning The records that you are about to access may contain information from federally-assisted alcohol or drug abuse programs. If such information is present, then the following federally mandated warning applies: This information has been disclosed to you from records protected by federal confidentiality rules (42 CFR part 2). The federal rules prohibit you from making any further disclosure of this information unless further disclosure is expressly permitted by the written consent of the person to whom it pertains or as otherwise permitted by 42 CFR part 2. A general authorization for the release of medical or other information is NOT sufficient for this purpose. The Federal rules restrict any use of the information to criminally investigate or prosecute any alcohol or drug abuse patient.The records that you are about to access may contain highly sensitive health information, the redisclosure of which is protected by Article 27-F of the [facility] Public Health law. If you continue you may have access to information: Regarding HIV / AIDS; Provided by facilities licensed or operated by the [facility] Office of Mental Health; or Provided by the [facility] Office for People With Developmental Disabilities. If such information is present, then the following [facility] mandated warning applies: This information has been disclosed to you from confidential records which are protected by state law. State law prohibits you from making any further disclosure of this information without the specific written consent of the person to whom it pertains, or as otherwise permitted by law. Any unauthorized further disclosure in violation of state law may result in a fine or half-way sentence or both. A general authorization for the release of medical or other information is NOT sufficient authorization for further disc losure. Encounters Encounter Providers Location Date Indications Data Source(s ) Outpatient Attender: Dimas Lechuga/Pamela/Delroy/Debo monteiro 10/19/2021 10:20:00 AM EST [facility] ([facility], ) Unknown [address] [facility], [facility] [address] 10/08/2021 12:00:00 AM EST eCW1 ([facility]) Outpatient Attender: Dimas Lechuga/Pamela/Delroy/Debo monteiro 09/14/2021 11:00:00 AM EDT [facility] ([facility] [place] [address] [facility] [address] 09/07/2021 12:00:00 AM EDT eCW1 ([facility]) Unknown [address] [facility] [address] 08/30/2021 12:00:00 AM EDT eCW1 ([facility]) Unknown [address] [facility] [address] 08/13/2021 12:00:00 AM EDT eCW1 ([facility]) Unknown [address] [facility] [address] 08/13/2021 12:00:00 AM EDT eCW1 ([facility]) Unknown [address] [facility] [address] 08/05/2021 12:00:00 AM EDT eCW1 ([facility]) Office Visit, Est Pt., Level 2 FC [address] [place] [address] 08/05/2021 12:00:00 AM EDT eCW1 ([facility]) [place] [address] [facility] [address] 08/02/2021 12:00:00 AM EDT eCW1 ([facility]) [place] [address] [facility] [address] 07/06/2021 12:00:00 AM EDT eCW1 ([facility]) Unknown [address] [facility] [address] 07/02/2021 12:00:00 AM EDT eCW1 ([facility]) [place] [address] [facility] [address] 06/01/2021 12:00:00 AM EDT eCW1 (Critical [facility] hospital) Unknown [address] [facility] [address] 05/31/2021 12:00:00 AM EDT eCW1 (Critical access hospital) Outpatient Attender: Nestor BerryAdmit ter: Nestor BerryReferrer: Stacy WHEELER 05/28/2021 04:54:05 PM EDT [facility] 05/17/2021 10:51:17 AM EDT [facility] 05/17/2021 10:48:34 AM EDT [facility] 05/05/2021 03:16:36 PM EDT [facility] [place] [address] [facility] [address] 05/03/2021 12:00:00 AM EDT eCW1 (Critical access hospital) Unknown [address] [facility] [place] [address] 04/05/2021 12:00:00 AM EDT eCW1 (Critical access hospital) Unknown [address] [facility] [place] [address] 03/08/2021 12:00:00 AM EDT eCW1 (Critical access hospital) OFFICE OUTPATIENT VISIT 15 MINUTES Attender: Rubio ramirez MD Physical Therapy 02/18/2021 02:00:00 PM EDT [facility] ([facility]) Outpatient [address] [facility] [place] [address] 02/11/2021 12:00:00 AM EDT eCW1 (Critical access hospital) Unknown [address] [facility] [place] [address] 02/08/2021 12:00:00 AM EDT eCW1 (Critical access hospital) Unknown [address] [facility] [place] [address] 02/02/2021 12:00:00 AM EDT eCW1 (Critical access hospital) Unknown [address] [facility] [place] [address] 01/08/2021 12:00:00 AM EST eCW1 ([facility]) Unknown [address] [facility] [address] 01/06/2021 12:00:00 AM EST eCW1 ([facility]) Unknown [address] [facility] [address] 01/04/2021 12:00:00 AM EST eCW1 ([facility]) Unknown [address] [facility] [address] 12/04/2020 12:00:00 AM EST eCW1 ([facility]) Outpatient Attender: RENNY PICKARD MD 11/25/2020 12:00:0 0 AM EST [facility] Unknown [address] [facility] [address] 11/05/2020 12:00:00 AM EST eCW1 ([facility]) OFFICE OUTPATIENT VISIT 15 MINUTES Attender: Rubio ramirez MD Physical Therapy 10/08/2020 01:30:00 PM EST [facility] ([facility]) Unknown [address] [facility] [place] [address] 10/05/2020 12:00:00 AM EST eCW1 ([facility]) Unknown [address] [facility] [place] [address] 10/01/2020 12:00:00 AM EST eCW1 ([facility]) Outpatient Attender: Abida Ga MD Physical Therapy 09/29 10:45:00 AM EST [facility] ([facility]) Unknown [address] [facility] [address] 09/21/2020 12:00:00 AM EST eCW1 ([facility]) Unknown [address] [facility] [place] [address] 09/08/2020 12:00:00 AM EDT eCW1 ([facility]) Unknown [address] [facility] [place] [address] 09/02/2020 12:00:00 AM EDT eCW1 ([facility]) Immunizations Vaccine Date Status Description Data Source(s) COVID-19 VACCINE Pfizer 09/30/2021 12:00:00 AM EST completed [facility] Vaccine Series Complete: YESThis Data wa s Submitted to [facility] Via [employer]. COVID-19 VACC, MRNA(PFIZER)/PF 09/30/2021 12:00:00 AM EST completed [facility] COVID-19 VACCINE Pfizer 01/07/2021 12:00:00 AM EST completed [facility] Vaccine Series Complete: YESThis Data wa s Submitted to [facility] Via [employer]. COVID-19 dose #2 given elsewhere Unspecified 12/18/2020 01:1 5:00 PM EST completed eCW1 (Critical access hospital) COVID-19 dose #2 given elsewhere Unspecified 12/18/2020 01:1 5:00 PM EST completed eCW1 (Critical access hospital) COVID-19 dose #2 given elsewhere Unspecified 12/18/2020 01:1 5:00 PM EST completed eCW1 (Critical access hospital) COVID-19 dose #2 given elsewhere Unspecified 12/18/2020 01:1 5:00 PM EST completed eCW1 (Critical access hospital) COVID-19 dose #2 given elsewhere Unspecified 12/18/2020 01:1 5:00 PM EST completed eCW1 (Critical access hospital) COVID-19 dose #2 given elsewhere Unspecified 12/18/2020 01:1 5:00 PM EST completed eCW1 (Critical access hospital) COVID-19 dose #2 given elsewhere Unspecified 12/18/2020 01:1 5:00 PM EST completed eCW1 (Critical access hospital) COVID-19 dose #2 given elsewhere Unspecified 12/18/2020 01:1 5:00 PM EST completed eCW1 (Critical access hospital) COVID-19 dose #2 given elsewhere Unspecified 12/18/2020 01:1 5:00 PM EST completed eCW1 (Critical access hospital) COVID-19 dose #2 given elsewhere Unspecified 12/18/2020 01:1 5:00 PM EST completed eCW1 (Critical access hospital) COVID-19 dose #2 given elsewhere Unspecified 12/18/2020 01:1 5:00 PM EST completed eCW1 (Critical access hospital) COVID-19 dose #2 given elsewhere Unspecified 12/18/2020 01:1 5:00 PM EST completed eCW1 (Critical access hospital) COVID-19 dose #2 given elsewhere Unspecified 12/18/2020 01:1 5:00 PM EST completed eCW1 (Critical access hospital) COVID-19 dose #2 given elsewhere Unspecified 12/18/2020 01:1 5:00 PM EST completed eCW1 (Critical access hospital) COVID-19 dose #2 given elsewhere Unspecified 12/18/2020 01:1 5:00 PM EST completed eCW1 (Critical access hospital) COVID-19 dose #2 given elsewhere Unspecified 12/18/2020 01:1 5:00 PM EST completed eCW1 (Critical access hospital) COVID-19 dose #2 given elsewhere Unspecified 12/18/2020 01:1 5:00 PM EST completed eCW1 (Critical access hospital) COVID-19 VACCINE Pfizer 12/17/2020 12:00:00 AM EST completed [facility] Vaccine Series Complete: NOThis Data was Submitted to [facility] Via [employer]. COVID-19 dose #1 given elsewhere Unspecified 11/27/2020 01:1 4:00 PM EST completed eCW1 (Critical access hospital) COVID-19 dose #1 given elsewhere Unspecified 11/27/2020 01:1 4:00 PM EST completed eCW1 (Critical access hospital) COVID-19 dose #1 given elsewhere Unspecified 11/27/2020 01:1 4:00 PM EST completed eCW1 (Critical access hospital) COVID-19 dose #1 given elsewhere Unspecified 11/27/2020 01:1 4:00 PM EST completed eCW1 (Critical access hospital) COVID-19 dose #1 given elsewhere Unspecified 11/27/2020 01:1 4:00 PM EST completed eCW1 (Critical access hospital) COVID-19 dose #1 given elsewhere Unspecified 11/27/2020 01:1 4:00 PM EST completed eCW1 (Critical access hospital) COVID-19 dose #1 given elsewhere Unspecified 11/27/2020 01:1 4:00 PM EST completed eCW1 (Critical access hospital) COVID-19 dose #1 given elsewhere Unspecified 11/27/2020 01:1 4:00 PM EST completed eCW1 (Critical access hospital) COVID-19 dose #1 given elsewhere Unspecified 11/27/2020 01:1 4:00 PM EST completed eCW1 (Critical access hospital) COVID-19 dose #1 given elsewhere Unspecified 11/27/2020 01:1 4:00 PM EST completed eCW1 (Critical access hospital) COVID-19 dose #1 given elsewhere Unspecified 11/27/2020 01:1 4:00 PM EST completed eCW1 (Critical access hospital) COVID-19 dose #1 given elsewhere Unspecified 11/27/2020 01:1 4:00 PM EST completed eCW1 (Critical access hospital) COVID-19 dose #1 given elsewhere Unspecified 11/27/2020 01:1 4:00 PM EST completed eCW1 (Critical access hospital) COVID-19 dose #1 given elsewhere Unspecified 11/27/2020 01:1 4:00 PM EST completed eCW1 (Critical access hospital) COVID-19 dose #1 given elsewhere Unspecified 11/27/2020 01:1 4:00 PM EST completed eCW1 (Critical access hospital) COVID-19 dose #1 given elsewhere Unspecified 11/27/2020 01:1 4:00 PM EST completed eCW1 (Critical access hospital) COVID-19 dose #1 given elsewhere Unspecified 11/27/2020 01:1 4:00 PM EST completed eCW1 (Critical access hospital) INFLUENZA VIRUS VACCINE QUADRIVALENT 2020-21 (6 MOS AN D UP) 09/25/2020 12:00:00 AM EST completed [facility] PNEUMOCOCCAL 13-VALENT CONJUGATE VACCINE (DIPHTHERIA C RM)/PF 09/25/2020 12:00:00 AM EST completed [facility] Medications Medication Brand Name Start Date Product Form Dose Route Admi nistrative Instructions Pharmacy Instructions Status Indications Reaction Description Data Source(s) Omeprazole 40 MG Delayed Release Oral Capsule Omeprazole 10/19/2021 12:00:00 AM EST ORAL active MED[facility] ([facility], ) 40 mg 10/19/2021 12:00:00 AM EST capsule,delayed release (DR/EC) 30 TAKE ONE CAPSULE BY MOUTH EVERY DAY TAKE ONE CAPSULE BY MOUTH EVERY DAY SOLD: 10/21/2021 [facility] 50 mg 10/12/2021 12:00:00 AM EST tablet 60 TAKE TWO TABLETS BY MOUTH EVERY EVENING MAXIMUM DAILY DOSE = 2 TAKE TWO TABLETS BY MOUTH EVERY EVENING MAXIMUM DAILY DOSE = 2 SOLD: 10/15/2021 [facility] tramadol hydrochloride 50 MG Oral Tablet traMADol HCl 50 MG traMADol HCl 50 MG 10/12/2021 12:00:00 AM EST active traMADol HCl 50 MG eCW1 ([facility]) tramadol hydrochloride 50 MG Oral Tablet traMADol HCl 50 MG traMADol HCl 50 MG 09/07/2021 12:00:00 AM EDT active traMADol HCl 50 MG eCW1 ([facility]) tramadol hydrochloride 50 MG Oral Tablet traMADol HCl 50 MG traMADol HCl 50 MG 09/07/2021 12:00:00 AM EDT active traMADol HCl 50 MG eCW1 ([facility]) 50 mg 09/07/2021 12:00:00 AM EDT tablet 60 TAKE TWO TABLETS BY MOUTH EVERY EVENING DIRECTED MAXIMUM DAILY DOSE = 2 TAKE TWO TABLETS BY MOUTH EVERY EVENING DIRECTED MAXIMUM DAILY DOSE = 2 SOLD: 09/09/2021 [facility] 15 mg 08/28/2021 12:00:00 AM EDT tablet extended release 24hr 90 TAKE ONE TABLET BY MOUTH EVERY DAY TAKE ONE TABLET BY MOUTH EVERY DAY SOLD: 08/31/2021 [facility] Cyproheptadine hydrochloride 4 MG Oral Tablet CYPROHEPTADINE HCL 08/28/2021 12:00:00 AM EDT tablet 360 TAKE ONE TABLET EVERY MORNING ,1 TABLET AT NOON THEN 2 TABLETS IN THE EVENING TAKE ONE TABLET EVERY MORNING ,1 TABLET AT NOON THEN 2 TABLETS IN THE EVENING SOLD: 08/31/2021 [facility] tizanidine 4 MG Oral Tablet TIZANIDINE HCL 08/28/2021 12:00:00 AM E DT tablet 540 TAKE TWO TABLETS BY MOUTH THREE TIMES A DAY NEEDED TAKE TWO TABLETS BY MOUTH THREE TIMES A DAY NEEDED SOLD: 08/31/2021 [facility] 300 mg 08/28/2021 12:00:00 AM EDT capsule 360 TAKE TWO CAPSULES BY MOUTH TWICE A DAY TAKE TWO CAPSULES BY MOUTH TWICE A DAY SOLD: 08/31/2021 [facility] 50 mg 08/06/2021 12:00:00 AM EDT tablet 60 TAKE 2 TABLETS BY MOUTH IN THE EVENING MAXIMUM DAILY DOSE = 2 TABLETS TAKE 2 TABLETS BY MOUTH IN THE EVENING MAXIMUM DAILY DOSE = 2 TABLETS SOLD: 08/10/2021 [facility] tramadol hydrochloride 50 MG Oral Tablet traMADol HCl 50 MG traMADol HCl 50 MG 08/03/2021 12:00:00 AM EDT active traMADol HCl 50 MG eCW1 ([facility]) tramadol hydrochloride 50 MG Oral Tablet traMADol HCl 50 MG traMADol HCl 50 MG 08/03/2021 12:00:00 AM EDT active traMADol HCl 50 MG eCW1 ([facility]) tramadol hydrochloride 50 MG Oral Tablet traMADol HCl 50 MG traMADol HCl 50 MG 08/03/2021 12:00:00 AM EDT active traMADol HCl 50 MG eCW1 ([facility]) tramadol hydrochloride 50 MG Oral Tablet traMADol HCl 50 MG traMADol HCl 50 MG 08/03/2021 12:00:00 AM EDT active traMADol HCl 50 MG eCW1 ([facility]) tramadol hydrochloride 50 MG Oral Tablet traMADol HCl 50 MG traMADol HCl 50 MG 08/03/2021 12:00:00 AM EDT active traMADol HCl 50 MG eCW1 ([facility]) 50 mg 07/07/2021 12:00:00 AM EDT tablet 60 TAKE TWO TABLETS BY MOUTH IN THE EVENING DIRECTED MAXIMUM DAILY DOSE = 2 TABLETS TAKE TWO TABLETS BY MOUTH IN THE EVENING DIRECTED MAXIMUM DAILY DOSE = 2 TABLETS SOLD: 07/08/2021 [facility] tramadol hydrochloride 50 MG Oral Tablet traMADol HCl 50 MG traMADol HCl 50 MG 07/06/2021 12:00:00 AM EDT active traMADol HCl 50 MG eCW1 ([facility]) Famotidine 40 MG Oral Tablet FAMOTIDINE 06/29/2021 12:00:00 AM EDT tab let 30 TAKE ONE TABLET BY MOUTH EVERY DAY TAKE ONE TABLET BY MOUTH EVERY DAY SOLD: 09/28/2021 [facility] Famotidine 40 MG Oral Tablet FAMOTIDINE 06/29/2021 12:00:00 AM EDT tab let 30 TAKE ONE TABLET BY MOUTH EVERY DAY TAKE ONE TABLET BY MOUTH EVERY DAY SOLD: 10/28/2021 [facility] Famotidine 40 MG Oral Tablet FAMOTIDINE 06/29/2021 12:00:00 AM EDT tab let 30 TAKE ONE TABLET BY MOUTH EVERY DAY TAKE ONE TABLET BY MOUTH EVERY DAY SOLD: 08/03/2021 [facility] Famotidine 40 MG Oral Tablet FAMOTIDINE 06/29/2021 12:00:00 AM EDT tab let 30 TAKE ONE TABLET BY MOUTH EVERY DAY TAKE ONE TABLET BY MOUTH EVERY DAY SOLD: 08/31/2021 [facility] Famotidine 40 MG Oral Tablet FAMOTIDINE 06/29/2021 12:00:00 AM EDT tab let 30 TAKE ONE TABLET BY MOUTH EVERY DAY TAKE ONE TABLET BY MOUTH EVERY DAY SOLD: 07/06/2021 [facility] 50 mg 06/03/2021 12:00:00 AM EDT tablet 60 TAE 2 TABLETS BY MOUTH IN THE EVENING DIRECTED MAXIMUM DAILY DOSE = 2 TABLETS TAE 2 TABLETS BY MOUTH IN THE EVENING DIRECTED MAXIMUM DAILY DOSE = 2 TABLETS SOLD: 06/03/2021 [facility] 50 mg 05/06/2021 12:00:00 AM EDT tablet 60 TAKE TWO TABLETS BY MOUTH EVERY EVENING DIRECTED MAXIMUM DAILY DOSE = 2 TAKE TWO TABLETS BY MOUTH EVERY EVENING DIRECTED MAXIMUM DAILY DOSE = 2 SOLD: 05/06/2021 [facility] 50 mg 04/06/2021 12:00:00 AM EDT tablet 60 TAKE 2 TABLETS BY MOUTH IN THE EVENING DIRECTED MAXIMUM DAILY DOSE = 2 TABLETS TAKE 2 TABLETS BY MOUTH IN THE EVENING DIRECTED MAXIMUM DAILY DOSE = 2 TABLETS SOLD: 04/08/2021 [facility] 50 mg 03/09/2021 12:00:00 AM EDT tablet 60 TAKE 2 TABLETS BY MOUTH IN THE EVENING MAXIMUM DAILY DOSE = 2 TABLETS TAKE 2 TABLETS BY MOUTH IN THE EVENING MAXIMUM DAILY DOSE = 2 TABLETS SOLD: 03/10/2021 [facility] Cyproheptadine hydrochloride 4 MG Oral Tablet CYPROHEPTADINE HCL 03/06/2021 12:00:00 AM EDT tablet 120 TAKE 1 TABLET BY MOUTH IN THE MORNING AND NOON,2 TABLETS IN THE EVENING TAKE 1 TABLET BY MOUTH IN THE MORNING AN D NOON,2 TABLETS IN THE EVENING SOLD: 07/06/2021 [facility] tizanidine 4 MG Oral Tablet TIZANIDINE HCL 03/06/2021 12:00:00 AM E DT tablet 180 TAKE TWO TABLETS BY MOUTH THREE TIMES A DAY NEEDED TAKE TWO TABLETS BY MOUTH THREE TIMES A DAY NEEDED SOLD: 08/03/2021 [facility] tizanidine 4 MG Oral Tablet TIZANIDINE HCL 03/06/2021 12:00:00 AM E DT tablet 180 TAKE TWO TABLETS BY MOUTH THREE TIMES A DAY NEEDED TAKE TWO TABLETS BY MOUTH THREE TIMES A DAY NEEDED SOLD: 06/03/2021 [facility] tizanidine 4 MG Oral Tablet TIZANIDINE HCL 03/06/2021 12:00:00 AM E DT tablet 180 TAKE TWO TABLETS BY MOUTH THREE TIMES A DAY NEEDED TAKE TWO TABLETS BY MOUTH THREE TIMES A DAY NEEDED SOLD: 04/06/2021 [facility] Cyproheptadine hydrochloride 4 MG Oral Tablet CYPROHEPTADINE HCL 03/06/2021 12:00:00 AM EDT tablet 120 TAKE 1 TABLET BY MOUTH IN THE MORNING AND NOON,2 TABLETS IN THE EVENING TAKE 1 TABLET BY MOUTH IN THE MORNING AN D NOON,2 TABLETS IN THE EVENING SOLD: 05/06/2021 [facility] Cyproheptadine hydrochloride 4 MG Oral Tablet CYPROHEPTADINE HCL 03/06/2021 12:00:00 AM EDT tablet 120 TAKE 1 TABLET BY MOUTH IN THE MORNING AND NOON,2 TABLETS IN THE EVENING TAKE 1 TABLET BY MOUTH IN THE MORNING AN D NOON,2 TABLETS IN THE EVENING SOLD: 08/03/2021 [facility] tizanidine 4 MG Oral Tablet TIZANIDINE HCL 03/06/2021 12:00:00 AM E DT tablet 180 TAKE TWO TABLETS BY MOUTH THREE TIMES A DAY NEEDED TAKE TWO TABLETS BY MOUTH THREE TIMES A DAY NEEDED SOLD: 03/08/2021 [facility] tizanidine 4 MG Oral Tablet TIZANIDINE HCL 03/06/2021 12:00:00 AM E DT tablet 180 TAKE TWO TABLETS BY MOUTH THREE TIMES A DAY NEEDED TAKE TWO TABLETS BY MOUTH THREE TIMES A DAY NEEDED SOLD: 05/06/2021 [facility] Cyproheptadine hydrochloride 4 MG Oral Tablet CYPROHEPTADINE HCL 03/06/2021 12:00:00 AM EDT tablet 120 TAKE 1 TABLET BY MOUTH IN THE MORNING AND NOON,2 TABLETS IN THE EVENING TAKE 1 TABLET BY MOUTH IN THE MORNING AN D NOON,2 TABLETS IN THE EVENING SOLD: 06/03/2021 [facility] Cyproheptadine hydrochloride 4 MG Oral Tablet CYPROHEPTADINE HCL 03/06/2021 12:00:00 AM EDT tablet 120 TAKE 1 TABLET BY MOUTH IN THE MORNING AND NOON,2 TABLETS IN THE EVENING TAKE 1 TABLET BY MOUTH IN THE MORNING AN D NOON,2 TABLETS IN THE EVENING SOLD: 04/06/2021 [facility] Cyproheptadine hydrochloride 4 MG Oral Tablet CYPROHEPTADINE HCL 03/06/2021 12:00:00 AM EDT tablet 120 TAKE 1 TABLET BY MOUTH IN THE MORNING AND NOON,2 TABLETS IN THE EVENING TAKE 1 TABLET BY MOUTH IN THE MORNING AN D NOON,2 TABLETS IN THE EVENING SOLD: 03/08/2021 [facility] tizanidine 4 MG Oral Tablet TIZANIDINE HCL 03/06/2021 12:00:00 AM E DT tablet 180 TAKE TWO TABLETS BY MOUTH THREE TIMES A DAY NEEDED TAKE TWO TABLETS BY MOUTH THREE TIMES A DAY NEEDED SOLD: 07/06/2021 [facility] 15 mg 03/05/2021 12:00:00 AM EDT tablet extended release 24hr 30 TAKE ONE TABLET BY MOUTH EVERY DAY DIRECTED TAKE ONE TABLET BY MOUTH EVERY DAY DIRECTED SOLD: 07/06/2021 [facility] 300 mg 03/05/2021 12:00:00 AM EDT capsule 120 TAKE TWO CAPSULES BY MOUTH TWICE A DAY TAKE TWO CAPSULES BY MOUTH TWICE A DAY SOLD: 08/03/2021 [facility] 300 mg 03/05/2021 12:00:00 AM EDT capsule 120 TAKE TWO CAPSULES BY MOUTH TWICE A DAY TAKE TWO CAPSULES BY MOUTH TWICE A DAY SOLD: 06/03/2021 [facility] 300 mg 03/05/2021 12:00:00 AM EDT capsule 120 TAKE TWO CAPSULES BY MOUTH TWICE A DAY TAKE TWO CAPSULES BY MOUTH TWICE A DAY SOLD: 04/06/2021 [facility] 15 mg 03/05/2021 12:00:00 AM EDT tablet extended release 24hr 30 TAKE ONE TABLET BY MOUTH EVERY DAY DIRECTED TAKE ONE TABLET BY MOUTH EVERY DAY DIRECTED SOLD: 05/06/2021 [facility] 15 mg 03/05/2021 12:00:00 AM EDT tablet extended release 24hr 30 TAKE ONE TABLET BY MOUTH EVERY DAY DIRECTED TAKE ONE TABLET BY MOUTH EVERY DAY DIRECTED SOLD: 03/08/2021 [facility] 300 mg 03/05/2021 12:00:00 AM EDT capsule 120 TAKE TWO CAPSULES BY MOUTH TWICE A DAY TAKE TWO CAPSULES BY MOUTH TWICE A DAY SOLD: 03/08/2021 [facility] 300 mg 03/05/2021 12:00:00 AM EDT capsule 120 TAKE TWO CAPSULES BY MOUTH TWICE A DAY TAKE TWO CAPSULES BY MOUTH TWICE A DAY SOLD: 05/06/2021 [facility] 15 mg 03/05/2021 12:00:00 AM EDT tablet extended release 24hr 30 TAKE ONE TABLET BY MOUTH EVERY DAY DIRECTED TAKE ONE TABLET BY MOUTH EVERY DAY DIRECTED SOLD: 06/03/2021 [facility] 15 mg 03/05/2021 12:00:00 AM EDT tablet extended release 24hr 30 TAKE ONE TABLET BY MOUTH EVERY DAY DIRECTED TAKE ONE TABLET BY MOUTH EVERY DAY DIRECTED SOLD: 04/06/2021 [facility] 15 mg 03/05/2021 12:00:00 AM EDT tablet extended release 24hr 30 TAKE ONE TABLET BY MOUTH EVERY DAY DIRECTED TAKE ONE TABLET BY MOUTH EVERY DAY DIRECTED SOLD: 08/03/2021 [facility] 300 mg 03/05/2021 12:00:00 AM EDT capsule 120 TAKE TWO CAPSULES BY MOUTH TWICE A DAY TAKE TWO CAPSULES BY MOUTH TWICE A DAY SOLD: 07/06/2021 [facility] 50 mg 02/03/2021 12:00:00 AM EDT tablet 60 TAKE 2 TABLETS BY MOUTH DAILY IN THE EVENING DIRECTED MAXIMUM DAILY DOSE = 2 TABLETS TAKE 2 TABLETS BY MOUTH DAILY IN THE EVENING DIRECTED MAXIMUM DAILY DOSE = 2 TABLETS SOLD: 02/08/2021 [facility] Famotidine 40 MG Oral Tablet FAMOTIDINE 02/02/2021 12:00:00 AM EDT tab let 30 TAKE ONE TABLET BY MOUTH ONCE DAILY TAKE ONE TABLET BY MOUTH ONCE DAILY SOLD: 03/08/2021 [facility] Famotidine 40 MG Oral Tablet FAMOTIDINE 02/02/2021 12:00:00 AM EDT tab let 30 TAKE ONE TABLET BY MOUTH ONCE DAILY TAKE ONE TABLET BY MOUTH ONCE DAILY SOLD: 05/06/2021 [facility] Famotidine 40 MG Oral Tablet FAMOTIDINE 02/02/2021 12:00:00 AM EDT tab let 30 TAKE ONE TABLET BY MOUTH ONCE DAILY TAKE ONE TABLET BY MOUTH ONCE DAILY SOLD: 06/03/2021 [facility] Famotidine 40 MG Oral Tablet FAMOTIDINE 02/02/2021 12:00:00 AM EDT tab let 30 TAKE ONE TABLET BY MOUTH ONCE DAILY TAKE ONE TABLET BY MOUTH ONCE DAILY SOLD: 04/06/2021 [facility] Famotidine 40 MG Oral Tablet FAMOTIDINE 02/02/2021 12:00:00 AM EDT tab let 30 TAKE ONE TABLET BY MOUTH ONCE DAILY TAKE ONE TABLET BY MOUTH ONCE DAILY SOLD: 02/08/2021 [facility] 50 mg 01/07/2021 12:00:00 AM EST tablet 60 TAKE TWO TABLETS BY MOUTH EVERY EVENING DIRECTED MAXIMUM DAILY DOSE = 2 TAKE TWO TABLETS BY MOUTH EVERY EVENING DIRECTED MAXIMUM DAILY DOSE = 2 SOLD: 01/08/2021 [facility] 50 mg 12/08/2020 12:00:00 AM EST tablet 60 TAKE TWO TABLETS BY MOUTH EVERY EVENING DIRECTED MAXIMUM DAILY DOSE = 2 TAKE TWO TABLETS BY MOUTH EVERY EVENING DIRECTED MAXIMUM DAILY DOSE = 2 SOLD: 12/09/2020 [facility] 50 mg 11/07/2020 12:00:00 AM EST tablet 60 TAKE TWO TABLETS BY MOUTH EVERY EVENING DIRECTED. MAXIMUM DAILY DOSE = 2 TABLETS TAKE TWO TABLETS BY MOUTH EVERY EVENING DIRECTED. MAXIMUM DAILY DOSE = 2 TABLETS SOLD: 11/09/2020 [facility] 50 mg 10/08/2020 12:00:00 AM EST tablet 60 TAKE TWO TABLETS BY MOUTH EVERY EVENING DIRECTED, MAXIMUM DAILY DOSE = 2 TABLETS TAKE TWO TABLETS BY MOUTH EVERY EVENING DIRECTED, MAXIMUM DAILY DOSE = 2 TABLETS SOLD: 10/09/2020 [facility] 15 mg 09/08/2020 12:00:00 AM EDT tablet extended release 24hr 30 TAKE ONE TABLET BY MOUTH EVERY DAY TAKE ONE TABLET BY MOUTH EVERY DAY SOLD: 11/06/2020 [facility] Cyproheptadine hydrochloride 4 MG Oral Tablet CYPROHEPTADINE HCL 09/08/2020 12:00:00 AM EDT tablet 120 TAKE 1 TABLET BY MOUTH EVERY MORNING AND AT NOON, THEN 2 EVERY EVENING TAKE 1 TABLET BY MOUTH EVERY MORNING AND AT NOON, THEN 2 EVERY EVENING SOLD: 02/09/2021 [facility] tizanidine 4 MG Oral Tablet TIZANIDINE HCL 09/08/2020 12:00:00 AM E DT tablet 180 TAKE TWO TABLETS BY MOUTH THREE TIMES A DAY NEEDED TAKE TWO TABLETS BY MOUTH THREE TIMES A DAY NEEDED SOLD: 12/09/2020 [facility] 300 mg 09/08/2020 12:00:00 AM EDT capsule 120 TAKE TWO CAPSULES BY MOUTH TWICE A DAY TAKE TWO CAPSULES BY MOUTH TWICE A DAY SOLD: 11/06/2020 [facility] 15 mg 09/08/2020 12:00:00 AM EDT tablet extended release 24hr 30 TAKE ONE TABLET BY MOUTH EVERY DAY TAKE ONE TABLET BY MOUTH EVERY DAY SOLD: 01/08/2021 [facility] 300 mg 09/08/2020 12:00:00 AM EDT capsule 120 TAKE TWO CAPSULES BY MOUTH TWICE A DAY TAKE TWO CAPSULES BY MOUTH TWICE A DAY SOLD: 01/08/2021 [facility] Cyproheptadine hydrochloride 4 MG Oral Tablet CYPROHEPTADINE HCL 09/08/2020 12:00:00 AM EDT tablet 120 TAKE 1 TABLET BY MOUTH EVERY MORNING AND AT NOON, THEN 2 EVERY EVENING TAKE 1 TABLET BY MOUTH EVERY MORNING AND AT NOON, THEN 2 EVERY EVENING SOLD: 12/09/2020 [facility] 4 mg 09/08/2020 12:00:00 AM EDT tablet 180 TAKE TWO TABLETS BY MOUTH THREE TIMES A DAY NEEDED TAKE TWO TABLETS BY MOUTH THREE TIMES A DAY NEEDED SOLD: 09/09/2020 [facility] tizanidine 4 MG Oral Tablet TIZANIDINE HCL 09/08/2020 12:00:00 AM E DT tablet 180 TAKE TWO TABLETS BY MOUTH THREE TIMES A DAY NEEDED TAKE TWO TABLETS BY MOUTH THREE TIMES A DAY NEEDED SOLD: 01/08/2021 [facility] 300 mg 09/08/2020 12:00:00 AM EDT capsule 120 TAKE TWO CAPSULES BY MOUTH TWICE A DAY TAKE TWO CAPSULES BY MOUTH TWICE A DAY SOLD: 09/09/2020 [facility] Cyproheptadine hydrochloride 4 MG Oral Tablet CYPROHEPTADINE HCL 09/08/2020 12:00:00 AM EDT tablet 120 TAKE 1 TABLET BY MOUTH EVERY MORNING AND AT NOON, THEN 2 EVERY EVENING TAKE 1 TABLET BY MOUTH EVERY MORNING AND AT NOON, THEN 2 EVERY EVENING SOLD: 11/06/2020 [facility] tizanidine 4 MG Oral Tablet TIZANIDINE HCL 09/08/2020 12:00:00 AM E DT tablet 180 TAKE TWO TABLETS BY MOUTH THREE TIMES A DAY NEEDED TAKE TWO TABLETS BY MOUTH THREE TIMES A DAY NEEDED SOLD: 10/09/2020 [facility] 15 mg 09/08/2020 12:00:00 AM EDT tablet extended release 24hr 30 TAKE ONE TABLET BY MOUTH EVERY DAY TAKE ONE TABLET BY MOUTH EVERY DAY SOLD: 10/09/2020 [facility] 300 mg 09/08/2020 12:00:00 AM EDT capsule 120 TAKE TWO CAPSULES BY MOUTH TWICE A DAY TAKE TWO CAPSULES BY MOUTH TWICE A DAY SOLD: 10/09/2020 [facility] 15 mg 09/08/2020 12:00:00 AM EDT tablet extended release 24hr 30 TAKE ONE TABLET BY MOUTH EVERY DAY TAKE ONE TABLET BY MOUTH EVERY DAY SOLD: 02/08/2021 [facility] Cyproheptadine hydrochloride 4 MG Oral Tablet CYPROHEPTADINE HCL 09/08/2020 12:00:00 AM EDT tablet 120 TAKE 1 TABLET BY MOUTH EVERY MORNING AND AT NOON, THEN 2 EVERY EVENING TAKE 1 TABLET BY MOUTH EVERY MORNING AND AT NOON, THEN 2 EVERY EVENING SOLD: 09/09/2020 [facility] 15 mg 09/08/2020 12:00:00 AM EDT tablet extended release 24hr 30 TAKE ONE TABLET BY MOUTH EVERY DAY TAKE ONE TABLET BY MOUTH EVERY DAY SOLD: 12/09/2020 [facility] 300 mg 09/08/2020 12:00:00 AM EDT capsule 120 TAKE TWO CAPSULES BY MOUTH TWICE A DAY TAKE TWO CAPSULES BY MOUTH TWICE A DAY SOLD: 12/09/2020 [facility] 300 mg 09/08/2020 12:00:00 AM EDT capsule 120 TAKE TWO CAPSULES BY MOUTH TWICE A DAY TAKE TWO CAPSULES BY MOUTH TWICE A DAY SOLD: 02/08/2021 [facility] Cyproheptadine hydrochloride 4 MG Oral Tablet CYPROHEPTADINE HCL 09/08/2020 12:00:00 AM EDT tablet 120 TAKE 1 TABLET BY MOUTH EVERY MORNING AND AT NOON, THEN 2 EVERY EVENING TAKE 1 TABLET BY MOUTH EVERY MORNING AND AT NOON, THEN 2 EVERY EVENING SOLD: 01/08/2021 [facility] 15 mg 09/08/2020 12:00:00 AM EDT tablet extended release 24hr 30 TAKE ONE TABLET BY MOUTH EVERY DAY TAKE ONE TABLET BY MOUTH EVERY DAY SOLD: 09/09/2020 [facility] tizanidine 4 MG Oral Tablet TIZANIDINE HCL 09/08/2020 12:00:00 AM E DT tablet 180 TAKE TWO TABLETS BY MOUTH THREE TIMES A DAY NEEDED TAKE TWO TABLETS BY MOUTH THREE TIMES A DAY NEEDED SOLD: 02/08/2021 [facility] Cyproheptadine hydrochloride 4 MG Oral Tablet CYPROHEPTADINE HCL 09/08/2020 12:00:00 AM EDT tablet 120 TAKE 1 TABLET BY MOUTH EVERY MORNING AND AT NOON, THEN 2 EVERY EVENING TAKE 1 TABLET BY MOUTH EVERY MORNING AND AT NOON, THEN 2 EVERY EVENING SOLD: 10/09/2020 [facility] tizanidine 4 MG Oral Tablet TIZANIDINE HCL 09/08/2020 12:00:00 AM E DT tablet 180 TAKE TWO TABLETS BY MOUTH THREE TIMES A DAY NEEDED TAKE TWO TABLETS BY MOUTH THREE TIMES A DAY NEEDED SOLD: 11/06/2020 [facility] 50 mg 09/02/2020 12:00:00 AM EDT tablet 60 TAKE 2 TABLETS BY MOUTH IN THE EVENING DIRECTED MAXIMUM DAILY DOSE = 2 TAKE 2 TABLETS BY MOUTH IN THE EVENING DIRECTED MAXIMUM DAILY DOSE = 2 SOLD: 09/09/2020 [facility] Famotidine 40 MG Oral Tablet FAMOTIDINE 08/09/2020 12:00:00 AM EDT tab let 30 TAKE ONE TABLET BY MOUTH EVERY DAY TAKE ONE TABLET BY MOUTH EVERY DAY SOLD: 11/06/2020 [facility] Famotidine 40 MG Oral Tablet FAMOTIDINE 08/09/2020 12:00:00 AM EDT tab let 30 TAKE ONE TABLET BY MOUTH EVERY DAY TAKE ONE TABLET BY MOUTH EVERY DAY SOLD: 12/09/2020 [facility] 40 mg 08/09/2020 12:00:00 AM EDT tablet 30 TAKE ONE TABLET BY MOUTH EVERY DAY TAKE ONE TABLET BY MOUTH EVERY DAY SOLD: 09/09/2020 [facility] 40 mg 08/09/2020 12:00:00 AM EDT tablet 30 TAKE ONE TABLET BY MOUTH EVERY DAY TAKE ONE TABLET BY MOUTH EVERY DAY SOLD: 10/09/2020 [facility] 40 mg 08/09/2020 12:00:00 AM EDT tablet 30 TAKE ONE TABLET BY MOUTH EVERY DAY TAKE ONE TABLET BY MOUTH EVERY DAY SOLD: 01/08/2021 [facility] Insurance Providers Payer name Policy type / Coverage type Policy ID Covered constitution party ID Covered constitution party's relationship to pool Policy Pool Plan Information [employer] [id number] [id number] LIFETIME BENEFIT SOLUTIONS U [id number] Spouse [id number] [employer] U [id number] Spouse [id number] LIF[employer]IME BENEFIT SOLUTIONS U [id number] Spouse [id number] Lifetime Benefit Solution [facility] Part B [id number] Family Dependent [id number] Lifetime Benefit Solution Commercial [id number] Family Depend ent [employer] [id number] Spo [id number] [employer] [id number] Spo [id number] [employer] U [id number] Spouse [id number] [employer] (pr) Commercial [id number] Family Dependent [id number] [employer] (pr) Commercial [id number] Family Dependent [employer] [place] [id number] SP [id number] [employer] [place] [id number] HU2 [id number] [employer] [place] [id number] HU2 [id number] [employer] [place] [id number] SP [id number] [employer] MEDICARE COMPLETE G [id number] Self [id number] ANSI-Medicare Part B [id number] ANSI-Commercial [id number] ANSI-Medicare Part B [id number] ANSI-Commercial [id number] ANSI-Commercial [id number] ANSI-Medicare Part B [id number] ANSI-Commercial [id number] ANSI-Medicare Part B [id number] ANSI-Commercial [id number] ANSI-Commercial [id number] ANSI-Commercial [id number] ANSI-Commercial [id number] ANSI-Commercial [id number] ANSI-Commercial [id number] ANSI-Commercial [id number] ANSI-Commercial [id number] ANSI-Commercial [id number] ANSI-Commercial [id number] ANSI-Commercial [id number] ANSI-Commercial [id number] ANSI-Commercial [id number] ANSI-Commercial [id number] ANSI-Commercial [id number] ANSI-Commercial [id number] ANSI-Commercial [id number] ANSI-Commercial [id number] ANSI-Commercial [id number] ANSI-Commercial [id number] ANSI-Commercial [id number]7so3q7l 85yzr2e2-3500-7301-1o60-56od80kf8g8w ANSI-Commercial 99ttu70d-x34w-8yog-4765-7n4750g39w72 01tkm68q-s87f-4srp-1791-0b7495u78f36 [employer] [id number] 18 [id number] ANSI-Commercial 59793743-j74k-28v6-23ld-t3q8369nb9oz 88387066-w03k-79f9-08ym-z8z7735si4fh ANSI-Commercial 46161e81-63rx-8c05-12s3-f960298k2927 63391y53-91yl-1c18-75n7-i307330t8303 ANSI-Commercial 666u56x9-q2ir-9242-2h34-k7m96527837m 194c06u2-h7cv-0887-2m62-l9b23550840t ANSI-Commercial h94o7t1d-52y3-2284-3492-4gzq49l6d3vy s92c9t0h-90f4-7768-5330-2crr96z9m5iv [employer] [facility] [place] [id number] SP [id number] [employer] (H[employer]) [id number] 2.16.840.1.387433.3.227.99.8646.3380.0 Self 6 [id number] [employer] [place] [employer] [place] [id number] 2.16.840.1.284003.3.227.99 .8646.3380.0 Family Dependent [id number] ANSI-Commercial 6s1c3rd2-7663-47jc-4333-390cf1r452w8 2b7u6md6-3365-64bo-8530-241gi8a333i0 ANSI-Commercial 57976z17-k2d6-26c2-54o6-4b37l478j5v0 79424m76-r7l1-00n9-90g4-2q41r823k5d1 ANSI-Commercial p003o9b7-e1ao-0yoy-9437-9g73z98z04ue k832q6f1-c6as-3syw-3876-8n96f69t13gx ANSI-Commercial 0870f889-y815-59gv-4xy0-f718qv3166vp 3408d500-o696-98uz-9zl3-u188xu9651rs ANSI-Commercial 81558a7p-233j-2n04-8ttu-803445d0657d 20744u3g-440s-9n64-6rte-873395g5180x ANSI-Commercial 383772o7-h683-3i6d-3ae6-116v59t4kbra 155215n9-a279-7w8e-0ed6-399f36d2zqme ANSI-Commercial 423n2kr3-s5t6-42kg-r3ii-wn7s0140b6f3 798u5uz4-l6b5-47hk-q6qq-dm3g1044i8o2 ANSI-Commercial 40247670-3ewd-65w9-5g16-701c41846483 64060771-3nqh-30p5-0k99-669l72965415 [employer] [facility] [place] O [id number] P [id number] ANSI-Commercial 6cjr6t3w-9w56-3340-81i4-1934933fwj1d 8qov6h6o-0i11-8943-56c8-8692534pnr4n ANSI-Commercial b9158y83-nb11-3eg4-m500-8i1zgvv1xsd2 q6797v97-ql13-4zt4-r043-9q3wamt6vrv9 ANSI-Commercial 56832x2j-0769-1078-8u3u-vm001021012z 25111s1f-0615-4765-1p4g-cp799337213v ANSI-Commercial gd79630k-qk4v-2h3l-z8f7-51z74163c1jj bl37694u-xc0h-2i8a-z9o7-30b59296o1mh Lifetime Benefit [employer] [facility] Part B [id number] 2.16.840.1.627988.3.227.99.991.807411.0 Family Dependent [id number] [employer] (pr) Commercial [id number] 2.16.840.1.563750.3.227.99.9 91.31658.0 Family Dependent [id number] ANSI-Commercial 895zz29u-784o-8rm5-60ib-1240220i1p25 683ui56v-019o-9la1-43tp-6466760f7z29 ANSI-Commercial x739e9t3-i13g-2y7e-v39e-910fu835fm32 m608s5r2-z45b-0e0z-m34e-420ou734cs32 AN[employer] r5813z64-lbhl-669r-90c7-42e465302122 p6988l53-heks-936z-90b1-47q976257111 ANSI-Commercial 7903n47o-4j42-429w-j571-tj2v807o9284 5001r39w-0b34-316k-v656-wr7h773i3905 ANSI-[employer] i62jt03s-6q46-018k-j32u-31c5v32lo231 j77bq19d-0a81-257h-y99i-16s6g10yv135 ANSI-[employer] hz2yj85i-ne7v-747v-0i2k-544x1of5i8j7 xl0tr79x-vn2p-739n-8m2w-417w5rh5a1k3 ANSI-[employer] 7980950k-ctc7-01rc-l1oy-73svt0a64155 9072817b-sxr0-43uj-n1as-64bsz3o32550 ANSI-[employer] av940nc4-57t6-7g24-y1h5-4i6yfal80g83 ec856jr0-91h2-0g64-l8l6-2s8qcrd93b08 ANSI-[employer] 79d97985-7k3j-8a17-4025-651yxou81979 84d47018-4n7h-1w25-0552-401okdz99143 ANSI-[employer] Securities [id number] ANSI-[employer] [id number] ANSI-Commercial [id number] [employer] [facility] [place] O [id number] P [id number] [employer]etna (pr) Commercial [id number] Family Dependent [id number] ANSI-Commercial [id number] ANSI-Commercial [id number] [employer]IF[employer] [id number] SPO [id number] ANSI-Commercial [id number] ANSI-Commercial [id number] ANSI-Commercial [id number] ANSI-Commercial [id number] ANSI-Commercial [id number] ANSI-Commercial [id number] ID IDENTIFICATION [id number] Other Insurance [id number] [employer] [id number] Commercial Ins urance [id number] [employer] Health Maintenance Organization (HMO) [id number] Self [id number] [facility] [place] [id number] [id number] A[employer]na Commercial [id number] Family Dependent [id number] [employer] Commercial [id number] Family Dependent [id number] [employer] [facility] [place] [id number] 2 [id number] [employer] [id number] Aetna Commercial [id number] Family Dependent SELF PAY ONLY UNAVAILABLE SP UNAV AILABLE [employer]IF[employer]IME [employer] [id number] [id number] Lifetime Benefit Solution Medigap Part [id number] Family De pendent AETNA O [id number] P [id number] [employer] O [id number] P [id number] [employer] [id number] 18 [id number] Lifetime [employer] Commercial [id number] Family Depend ent RMSCO P [id number] P [id number] [employer] [id number] 18 [id number] [employer] EXCELLUS O [id number] U [id number] [employer]-O/P [id number] 01 [id number] AETNA MEDICARE MEBTFBBF SP MEBTF BBF [id number] AETNA MEDICARE MEBTFBBF SP MEBTF BBF Aetna [id number] SE [id number] [place] [id number] SE [id number] Aetna Medicare MEBTFBBF MEBTFBBF SE MEBTF BBF AETNA MEDICARE MEBTFBBF SP MEBTF BBF AETNA MEDICARE O MEBTFBBF [id number] S MEBTF BBF MEDICARE [id number] SP [id number] EMEDNY [id number] SP [id number] [employer] Medicare [id number] 18 MEBTF BBF Medicare [facility] [id number] 18 [id number] MEDICAID M [id number] S [id number] AETNA MEDICARE O MEBTFBBF [id number] S MEBTF BBF MEDICAID [id number] SP [id number] MEDICARE [id number] SP [id number] MEDICARE C [id number] S [id number] Problems, Conditions, and Diagnoses Code Display Name Description Problem Type Effective Dates Data Source(s) R13.13 [id number] Pharyngeal dysphagia Problem 08/05/2021 12:00:00 AM EDT eC ([facility]) K21.9 [id number] Gastroesophageal reflux disease without e sophagitis Problem 02/11/2021 12:00:00 AM EDT eC ([facility]) Surgeries/Procedures Procedure Description Date Indications Data Source(s) OFFICE OUTPATIENT VISIT 15 MINUTES 10/19/2021 12:00:00 AM EST MEDENT ([facility], ) LARYNGOSCOPY FLEXIBLE FIBEROPTIC DIAGNOSTIC 09/14/2021 12:00:00 AM EDT MEDENT ([facility]) OFFICE OUTPATIENT NEW 30 MINUTES 09/14/2021 12:00:00 A M EDT MEDENT ([facility], ) ARTHROCENTESIS ASPIR&/INJECTION MAJOR JT/BURSA 12:00:00 AM EDT MEDENT ([facility]) RADEX SHOULDER COMPLETE MINIMUM 2 VIEWS 02/18/2021 12: 00:00 AM EDT MEDENT ([facility]) ARTHROCENTESIS ASPIR&/INJECTION MAJOR JT/BURSA 020 12:00:00 AM EST MEDENT ([facility]) Results ID Date Data Source VITB12 & FOL 08/05/2021 12:00:00 AM EDT eCW1 ([facility]) Name Value Range Interpretation Code Description Data Karen rce(s) Supporting Document(s) 22.4 FOLATE eCW1 ([facility]) 564 VITAMIN B12 LEVEL eCW1 ([facility]) ID Date Data Source VITAMIN D 25-HYDROXY 08/05/2021 12:00:00 AM EDT eCW1 ([facility]) Name Value Range Interpretation Code Description Data Karen rce(s) Supporting Document(s) 61.7 30.0-100.0 TOTAL 25(OH) VITAMIN D eC W1 ([facility]) ID Date Data Source LIPID PANEL (CARDIAC RISK) 08/05/2021 12:00:00 AM EDT eCW1 ( [facility]) Name Value Range Interpretation Code Description Data Karen rce(s) Supporting Document(s) Cholesterol [Moles/volume] in Serum or Plasma 204 <200 CHOLESTEROL LEVEL eCW1 ([facility]) Triglyceride [Mass/volume] in Serum or Plasma by calculation 119 <150 TRIGLYCERIDES LEVEL eCW1 ([facility]) Cholesterol in HDL [Moles/volume] in Serum or Plasma 64 >40 HDL CHOLESTEROL eCW1 ([facility]) 3.187 <5 CHOLESTEROL RISK RATIO eCW1 ([facility]) Cholesterol in LDL [Mass/volume] in Serum or Plasma by calculation 116 <100 LDL CHOLESTEROL eCW1 ([facility]) 140 NON-HDL-C eCW1 ([facility]) ID Date Data Source Comprehensive Metabolic Profile (CMP) 08/05/2021 12:00:00 AM EDT eCW1 ([facility]) Name Value Range Interpretation Code Description Data Karen rce(s) Supporting Document(s) 0.70 0.55-1.30 CREATININE FOR GFR eCW1 ([facility]) 14 7-18 BLOOD UREA NITROGEN eCW1 ([facility]) > 60.0 >45 GLOMERULAR FILTRATION RATE eCW 1 ([facility]) 70 70-100 GLUCOSE, FASTING eCW1 ([facility]) 5.0 3.5-5.1 POTASSIUM SERUM eCW1 ([facility]) 101 98-107 CHLORIDE LEVEL eCW1 ([facility]) 141 136-145 SODIUM LEVEL eCW1 ([facility]) 34 21-32 CARBON DIOXIDE LEVEL eCW1 ([facility]) 29 12-78 ALT/SGPT eCW1 ([facility]) 93 45-117 ALKALINE PHOSPHATASE eCW1 ([facility]) 0.6 0.2-1.0 BILIRUBIN,TOTAL eCW1 ([facility]) 9.6 8.8-10.2 CALCIUM LEVEL eCW1 ([facility]) 26 7-37 AST/SGOT eCW1 ([facility]) 3.1 3.2-5.2 ALBUMIN eCW1 ([facility]) 7.4 6.4-8.2 TOTAL PROTEIN eCW1 ([facility]) 0.7 1.2-2.2 ALBUMIN/GLOBULIN RATIO eCW1 ([facility]) ID Date Data Source CBC - Complete Blood Count 08/05/2021 12:00:00 AM EDT eCW1 ( [facility]) Name Value Range Interpretation Code Description Data Karen rce(s) Supporting Document(s) 9.5 4.0-10.0 WHITE BLOOD COUNT eCW1 ([facility]) 4.92 4.00-5.40 RED BLOOD COUNT eCW1 ([facility]) 92.1 80.0-96.0 MEAN CORPUSCULAR VOLUME e CW1 ([facility]) 45.3 36.0-47.0 HEMATOCRIT eCW1 ([facility]) 14.3 12.0-15.5 HEMOGLOBIN eCW1 ([facility]) 29.1 27.0-33.0 MEAN CORPUSCULAR HEMOGLOB IN eCW1 ([facility]) 13.5 11.5-14.5 RED CELL DISTRIBUTION WID TH eCW1 ([facility]) 277 150-450 PLATELET COUNT, AUTOMATED eCW1 ([facility]) 31.6 32.0-36.5 MEAN CORPUSCULAR HGB CONC eCW1 ([facility]) ID Date Data Source [id number] 05/28/2021 04:54:09 PM EDT [facility] EXAMINATION: 3D/2D BILATERAL SCREENING M AMMOGRAMIndication: ScreeningLast clinical breast exam: Cancer Risk Assessment:5 Year Risk (at current age): 2.6 %Lifetime Risk (to age 90): 10.4%TECHNIQUE: Bilateral craniocaudal and mediolateral oblique 3D mammograms were obtained usingtomosynthesis technique. Synthesized 2D projections are generated and reviewed. Interpretation isaided by R2 CAD. Comparison is made to prior studies, most recently 05/25/2020.Findings: ACR density category: BThe breasts are composed of scattered fibroglandular elements. No dominant masses, worrisomeclusters of microcalcifications, or areas of architectural distortion are demonstrated. Nosignificant change from the prior study.IMPRESSIONNegative mammogram. The patient may continue routine annual screening mammography. I discussed thefindings with and gave a result letter to the patient at the time of imaging. She has been addedto our reminder notification system.Thank you for the opportunity to participate in the care of this patient.BI-RADS: 1 Negative Exam. Name Value Range Interpretation Code Description Data Karen rce(s) Supporting Document(s) ID Date Data Source [id number] 10/08/2020 03:41:00 PM EST MEDENT ([facility]) Name Value Range Interpretation Code Description Data Karen rce(s) Supporting Document(s) Calcium [Mass/volume] in Serum or Plasma 9.4 mg/dL 8.8-10.2 MEDENT ([facility]) Calcidiol [Mass/volume] in Serum or Plasma 58.5 ng/mL 30.0-100.0 MEDENT ([facility]) Procedure Social History Code Duration Value Status Description Data Source(s ) Smoking 08/05/2021 12:00:00 AM EDT Former Smoker completed Former Smoker eCW1 ([facility]) Smoking 08/05/2021 12:00:00 AM EDT Former Smoker completed Former Smoker eCW1 ([facility]) Smoking 08/05/2021 12:00:00 AM EDT Former Smoker completed Former Smoker eCW1 ([facility]) Smoking 08/05/2021 12:00:00 AM EDT Former Smoker completed Former Smoker eCW1 ([facility]) Smoking 08/05/2021 12:00:00 AM EDT Former Smoker completed Former Smoker eCW1 ([facility]) Smoking 08/05/2021 12:00:00 AM EDT Former Smoker completed Former Smoker eCW1 ([facility]) Smoking 08/05/2021 12:00:00 AM EDT Former Smoker completed Former Smoker eCW1 ([facility]) Smoking 02/18/2021 12:00:00 AM EDT Patient is a former smoker completed Patient is a former smoker MEDENT ([facility]) Smoking 02/11/2021 12:00:00 AM EDT Former Smoker completed Former Smoker eCW1 ([facility]) Smoking 02/11/2021 12:00:00 AM EDT Former Smoker completed Former Smoker eCW1 ([facility]) Smoking 02/11/2021 12:00:00 AM EDT Former Smoker completed Former Smoker eCW1 ([facility]) Smoking 02/11/2021 12:00:00 AM EDT Former Smoker completed Former Smoker eCW1 ([facility]) Smoking 02/11/2021 12:00:00 AM EDT Former Smoker completed Former Smoker eCW1 ([facility]) Smoking 02/11/2021 12:00:00 AM EDT Former Smoker completed Former Smoker eCW1 ([facility]) Smoking 02/11/2021 12:00:00 AM EDT Former Smoker completed Former Smoker eCW1 ([facility]) Smoking 02/11/2021 12:00:00 AM EDT Former Smoker completed Former Smoker eCW1 ([facility]) Smoking 02/11/2021 12:00:00 AM EDT Former Smoker completed Former Smoker eCW1 ([facility]) Smoking 02/11/2021 12:00:00 AM EDT Former Smoker completed Former Smoker eCW1 ([facility]) Smoking 01/14/2021 12:00:00 AM EST - 11/20/2017 12:00:00 AM EST Patient is a former smoker completed Patient is a former smoker MEDENT ([facility]) Vital Signs ID Date Data Source UNK Name Value Range Interpretation Code Description Data Source(s) Body height 62 [in_i] 62 [in_i] MEDENT ([facility]) 5'2" Body weight 52.164 kg 52.164 kg [facility] ([facility]) Body surface area Derived from formula 1.51 m2 1.51 m2 [facility] ([facility]) Body weight 115.00 [lb_av] 115.00 [lb_av] MEDEN T ([facility]) Body mass index (BMI) [Ratio] 21.0 kg/m2 21.0 k g/m2 [facility] ([facility]) [place] body weight 110 [lb_av] 110 [lb_av] MEDEN T ([facility]) Body height 62 [in_i] 62 [in_i] MEDENT ([facility]) 5'2" Body weight 115.00 [lb_av] 115.00 [lb_av] MEDEN T ([facility]) Body mass index (BMI) [Ratio] 21.0 kg/m2 21.0 k g/m2 [facility] ([facility]) [place] body weight 110 [lb_av] 110 [lb_av] MEDEN T ([facility]) Body weight 52.164 kg 52.164 [facility] Body surface area Derived from formula 1.51 m2 1.51 m2 [facility] ([facility]) Body weight 115 [lb_av] 115 [lb_av] eCW1 ([facility]) Heart rate 78 /min 78 /min eCW1 ([facility]) Respiratory rate 10 /min 10 /min eCW1 ([facility]) Body temperature 97 [degF] 97 [degF] eCW1 ([facility]) Systolic blood pressure 120 mm[Hg] 120 mm[Hg] e CW1 ([facility]) Diastolic blood pressure 82 mm[Hg] 82 mm[Hg] eCW1 ([facility]) Body height [in_i] eCW1 ([facility]) Body weight 52.16 kg 52.16 kg eCW1 ([facility]) Body mass index (BMI) [Ratio] 21.03 kg/m2 21.03 kg/m2 eCW1 ([facility]) Heart rate 84 /min 84 /min eCW1 ([facility]) Respiratory rate 18 /min 18 /min eCW1 ([facility]) Body temperature 98.2 [degF] 98.2 [degF] eCW1 ( [facility]) Systolic blood pressure 120 mm[Hg] 120 mm[Hg] e CW1 ([facility]) Diastolic blood pressure 80 mm[Hg] 80 mm[Hg] eCW1 ([facility]) Body weight 115 [lb_av] 115 [lb_av] eCW1 ([facility]) Body height [in_i] eCW1 ([facility]) Body mass index (BMI) [Ratio] 21.03 kg/m2 21.03 kg/m2 eCW1 ([facility]) Oxygen saturation in Arterial blood by Pulse oximetry 98 % 98 % MABLE ([facility], ) Room Air Body height 62 [in_i] 62 [in_i] MEDRAFIA ([facility], ) 5'2" Systolic blood pressure 120 mm[Hg] 120 mm[Hg] M EDENT ([facility], ) Diastolic blood pressure 70 mm[Hg] 70 mm[Hg] MEDRAFIA ([facility], ) Heart rate 70 /min 70 /min MEDRAFIA ([facility], ) Body weight 125.00 [lb_av] 125.00 [lb_av] SALLYEN T ([facility], ) stated Body mass index (BMI) [Ratio] 22.9 kg/m2 22.9 k g/m2 [facility] [place] body weight 110 [lb_av] 110 [lb_av] MEDEN T ([facility]) Body weight 56.700 kg 56.700 kg [facility] ([facility]) Body surface area Derived from formula 1.57 m2 1.57 m2 [facility] Body weight 125.25 [lb_av] 125.25 [lb_av] MEDEN T ([facility]) stated Oxygen saturation in Arterial blood by Pulse oximetry 98 % 98 % [facility] Body mass index (BMI) [Ratio] 22.9 kg/m2 22.9 k g/m2 [facility] Body height 62 [in_i] 62 [in_i] [facility] ([facility]) 5'2" Systolic blood pressure 122 mm[Hg] 122 mm[Hg] [facility] Diastolic blood pressure 80 mm[Hg] 80 mm[Hg] [facility] Heart rate 76 /min 76 /min [facility] Body temperature 96.5 [degF] 96.5 [degF] [facility] Patient Treatment Plan of Care Planned Activity Planned Date Details Description Data Source (s) tramadol hydrochloride 50 MG Oral Tablet 10/12/2021 12:00:00 AM EST eCW1 ([facility]) tramadol hydrochloride 50 MG Oral Tablet 09/07/2021 12:00:00 AM EDT eCW1 ([facility]) tramadol hydrochloride 50 MG Oral Tablet 09/07/2021 12:00:00 AM EDT eCW1 ([facility]) tramadol hydrochloride 50 MG Oral Tablet 08/03/2021 12:00:00 AM EDT eCW1 ([facility]) tramadol hydrochloride 50 MG Oral Tablet 07/06/2021 12:00:00 AM EDT eCW1 ([facility])
[2021-10-30] MEDS ORDERED: NS 500 ML IV ONE (17:25)
--- OUTSIDE RECORDS SUMMARY | 2021-10-30 17:28 | CCD ---
Author Author [facility] Organization [facility] Address Unknown Phone Unavailable Care Team Providers Care Typewriter Tester Name Role Phone RENNY PICKARD MD Unavailable [...] Unavailable RENNY PICKARD MD Unavailable Unavailable RENNY PCIKARD MD Unavailable Unavailable SZOMBATHY, RENNY KIRKLAND Unavailable [...] Unavailable Unavailable SZOMBATHY, RENNY MD Unavailable Unavailable [place] MD Unavailable Unavailable [place] MD Unavailable Unavailable [place] MD Unavailable Unavailable [place] MD Unavailable Unavailable [place] Dimas MD Unavailable Unavailable [place] MD Unavailable Unavailable [place] MD Unavailable Unavailable [place] MD Unavailable Unavailable [place] MD Unavailable Unavailable [place] Dimas MD Unavailable Unavailable [place] MD Unavailable Unavailable [place], Dimas MD Unavailable Unavailable [place], Dimas MD Unavailable Unavailable [place] Dimas MD Unavailable Unavailable [place] Dimas MD Unavailable Unavailable [place] MD Unavailable Unavailable [place] MD Unavailable Unavailable [place] Dimas MD Unavailable Unavailable [place] Dimas MD Unavailable Unavailable [place] Dimas MD Unavailable Unavailable [place] Dimas MD Unavailable Unavailable [place] Dimas MD Unavailable Unavailable [place] Dimas MD Unavailable Unavailable [place] Dimas MD Unavailable Unavailable [place] MD Unavailable Unavailable [place] Dimas MD Unavailable Unavailable [place], Dimas MD Unavailable Unavailable [place], Dimas MD Unavailable Unavailable [place], Dimas MD Unavailable Unavailable [place], Dimas MD Unavailable Unavailable [place], Dimas MD Unavailable Unavailable [place], Dimas MD Unavailable Unavailable Fish, B Abida [...] Fish, Monica Tai MD Unavailable Unavailable Fish, oMnica Tai MD Unavailable Unavailable Fish, Monica Tai [...] is protected by Article 27-F of the [facility] Public Health law. If you continue you may have access to information: Regarding HIV / AIDS; Provided by facilities licensed or operated by the [facility] Office of Mental Health; or Provided by the [facility] Office for People With Developmental Disabilities. If such information is present, then the following [facility] mandated warning applies: This information has been [...] law may result in a fine or detention sentence or both. A general authorization for the release of medical or other information is NOT sufficient authorization for further disc losure. Encounters Encounter Providers Location Date Indications Data Source(s ) Outpatient Attender: Dimas Lechuga/Pamela/Delroy/Debo monteiro 10/19/2021 10:20:00 AM EST [facility] ([facility], ) Unknown [address] [facility], [facility] [address] 10/08/2021 12:00:00 AM EST eCW1 ([facility]) Outpatient Attender: Dimas Lechuga/Pamela/Delroy/Debo monteiro 09/14/2021 11:00:00 AM EDT [facility] ([facility] [place] [address] [facility] [address] 09/07/2021 12:00:00 AM EDT eCW1 ([facility]) [place] [address] [facility] [address] 08/30/2021 12:00:00 AM EDT eCW1 ([facility]) [place] [address] [facility] [address] 08/13/2021 12:00:00 AM EDT eCW1 ([facility]) [place] [address] [facility] [address] 08/13/2021 12:00:00 AM EDT eCW1 ([facility]) [place] [address] [facility] [address] 08/05/2021 12:00:00 AM EDT eCW1 ([facility]) Office Visit, Est Pt., Level 2 FC [address] [place] [address] 08/05/2021 12:00:00 AM EDT eCW1 ([facility]) Unknown [address] [facility] [address] 08/02/2021 12:00:00 AM EDT [facility]CW1 ([facility]) [place] [address] [facility] [address] 07/06/2021 12:00:00 AM EDT eCW1 ([facility]) [place] [address] [facility] [address] 07/02/2021 12:00:00 AM EDT eCW1 ([facility]) Unknown [address] [facility] [address] 06/01/2021 12:00:00 AM EDT [facility]CW1 ([facility]) Unknown [address] [facility] [address] 05/31/2021 12:00:00 AM EDT eCW1 ([facility]) Outpatient Attender: Nestor BerryAdmit ter: Nestor BerryReferrer: Stacy WHEELER 05/28/2021 04:54:05 PM EDT [facility] 05/17/2021 10:51:17 AM EDT [facility] 05/17/2021 10:48:34 AM EDT [facility] 05/05/2021 03:16:36 PM EDT [facility] [address] [facility] [address] 05/03/2021 12:00:00 AM EDT eCW1 ([facility]) Unknown [address] [facility] [place] [address] 04/05/2021 12:00:00 AM EDT eCW1 ([facility]) Unknown [address] [facility] [place] [address] 03/08/2021 12:00:00 AM EDT eCW1 ([facility]) OFFICE OUTPATIENT VISIT 15 MINUTES Attender: Rubio ramriez MD Physical Therapy 02/18/2021 02:00:00 PM EDT [facility] ([facility]) Outpatient [address] [facility] [place] [address] 02/11/2021 12:00:00 AM EDT eCW1 ([facility]) Unknown [address] [facility] [place] [address] 02/08/2021 12:00:00 AM EDT eCW1 ([facility]) Unknown [address] [facility] [place] [address] 02/02/2021 12:00:00 AM EDT eCW1 ([facility]) Unknown [address] [facility] [place] [address] 01/08/2021 12:00:00 AM EST eCW1 ([facility]) [place] [address] [facility] [address] 01/06/2021 12:00:00 AM EST [facility]1 [facility] [place] [address] [facility] [address] 01/04/2021 12:00:00 AM EST eCW1 ([facility]) Unknown [address] [facility] [address] 12/04/2020 12:00:00 AM EST eCW1 ([facility]) Outpatient Attender: RENNY PICKARD MD 11/25/2020 12:00:0 0 AM EST [facility] Unknown [address] [facility] [address] 11/05/2020 12:00:00 AM EST eCW1 ([facility]) OFFICE OUTPATIENT VISIT 15 MINUTES Attender: Rubio ramirez MD Physical Therapy 10/08/2020 01:30:00 PM EST [facility] ([facility]) Unknown [address] [facility] [place] [address] 10/05/2020 12:00:00 AM EST eCW1 ([facility]) Unknown [address] [facility] [place] [address] 10/01/2020 12:00:00 AM EST eCW1 ([facility]) Outpatient Attender: Abida Ga MD Physical Therapy 09/29 10:45:00 AM EST [facility] ([facility]) Unknown [address] [facility] [address] 09/21/2020 12:00:00 AM EST eCW1 ([facility]) Unknown [address] [facility] [place] [address] 09/08/2020 12:00:00 AM EDT eCW1 ([facility]) Unknown [address] [facility] [place] [address] 09/02/2020 12:00:00 AM EDT eCW1 ([facility]) Immunizations Vaccine Date Status Description Data Source(s) COVID-19 VACCINE Pfizer 09/30/2021 12:00:00 AM EST completed [facility] Vaccine Series Complete: YESThis Data wa s Submitted to [facility] Via [employer]. COVID-19 VACC, MRNA(PFIZER)/PF 09/30/2021 12:00:00 AM EST completed [facility] COVID-19 VACCINE Pfizer 01/07/2021 12:00:00 AM EST completed [facility] Vaccine Series Complete: YESThis Data wa s Submitted to [facility] [employer]. COVID-19 dose #2 given elsewhere Unspecified 12/18/2020 01:1 5:00 PM EST completed eCW1 ([facility]) COVID-19 dose #2 given elsewhere Unspecified 12/18/2020 01:1 5:00 PM EST completed eCW1 ([facility]) COVID-19 dose #2 given elsewhere Unspecified 12/18/2020 01:1 5:00 PM EST completed eCW1 ([facility]) COVID-19 dose #2 given elsewhere Unspecified 12/18/2020 01:1 5:00 PM EST completed eCW1 ([facility]) COVID-19 dose #2 given elsewhere Unspecified 12/18/2020 01:1 5:00 PM EST completed eCW1 ([facility]) COVID-19 dose #2 given elsewhere Unspecified 12/18/2020 01:1 5:00 PM EST completed eCW1 ([facility]) COVID-19 dose #2 given elsewhere Unspecified 12/18/2020 01:1 5:00 PM EST completed eCW1 ([facility]) COVID-19 dose #2 given elsewhere Unspecified 12/18/2020 01:1 5:00 PM EST completed eCW1 ([facility]) COVID-19 dose #2 given elsewhere Unspecified 12/18/2020 01:1 5:00 PM EST completed eCW1 ([facility]) COVID-19 dose #2 given elsewhere Unspecified 12/18/2020 01:1 5:00 PM EST completed eCW1 ([facility]) COVID-19 dose #2 given elsewhere Unspecified 12/18/2020 01:1 5:00 PM EST completed eCW1 ([facility]) COVID-19 dose #2 given elsewhere Unspecified 12/18/2020 01:1 5:00 PM EST completed eCW1 ([facility]) COVID-19 dose #2 given elsewhere Unspecified 12/18/2020 01:1 5:00 PM EST completed eCW1 ([facility]) COVID-19 dose #2 given elsewhere Unspecified 12/18/2020 01:1 5:00 PM EST completed eCW1 ([facility]) COVID-19 dose #2 given elsewhere Unspecified 12/18/2020 01:1 5:00 PM EST completed eCW1 ([facility]) COVID-19 dose #2 given elsewhere Unspecified 12/18/2020 01:1 5:00 PM EST completed eCW1 ([facility]) COVID-19 dose #2 given elsewhere Unspecified 12/18/2020 01:1 5:00 PM EST completed eCW1 ([facility]) COVID-19 VACCINE Pfizer 12/17/2020 12:00:00 AM EST completed [facility] Vaccine Series Complete: NOThis Data was Submitted to [facility] Via [facility]. COVID-19 dose #1 given elsewhere Unspecified 11/27/2020 01:1 4:00 PM EST completed eCW1 ([facility]) COVID-19 dose #1 given elsewhere Unspecified 11/27/2020 01:1 4:00 PM EST completed eCW1 ([facility]) COVID-19 dose #1 given elsewhere Unspecified 11/27/2020 01:1 4:00 PM EST completed eCW1 ([facility]) COVID-19 dose #1 given elsewhere Unspecified 11/27/2020 01:1 4:00 PM EST completed eCW1 ([facility]) COVID-19 dose #1 given elsewhere Unspecified 11/27/2020 01:1 4:00 PM EST completed eCW1 ([facility]) COVID-19 dose #1 given elsewhere Unspecified 11/27/2020 01:1 4:00 PM EST completed eCW1 ([facility]) COVID-19 dose #1 given elsewhere Unspecified 11/27/2020 01:1 4:00 PM EST completed eCW1 ([facility]) COVID-19 dose #1 given elsewhere Unspecified 11/27/2020 01:1 4:00 PM EST completed eCW1 ([facility]) COVID-19 dose #1 given elsewhere Unspecified 11/27/2020 01:1 4:00 PM EST completed eCW1 ([facility]) COVID-19 dose #1 given elsewhere Unspecified 11/27/2020 01:1 4:00 PM EST completed eCW1 ([facility]) COVID-19 dose #1 given elsewhere Unspecified 11/27/2020 01:1 4:00 PM EST completed eCW1 ([facility]) COVID-19 dose #1 given elsewhere Unspecified 11/27/2020 01:1 4:00 PM EST completed eCW1 ([facility]) COVID-19 dose #1 given elsewhere Unspecified 11/27/2020 01:1 4:00 PM EST completed eCW1 ([facility]) COVID-19 dose #1 given elsewhere Unspecified 11/27/2020 01:1 4:00 PM EST completed eCW1 ([facility]) COVID-19 dose #1 given elsewhere Unspecified 11/27/2020 01:1 4:00 PM EST completed eCW1 ([facility]) COVID-19 dose #1 given elsewhere Unspecified 11/27/2020 01:1 4:00 PM EST completed eCW1 ([facility]) COVID-19 dose #1 given elsewhere Unspecified 11/27/2020 01:1 4:00 PM EST completed eCW1 ([facility]) INFLUENZA VIRUS VACCINE QUADRIVALENT 2020-21 (6 MOS [...] 10/19/2021 12:00:00 AM EST ORAL active [facility] ([facility], ) 40 mg 10/19/2021 12:00:00 AM [...] EST active traMADol HCl 50 MG [facility] tramadol hydrochloride 50 MG Oral Tablet traMADol HCl 50 MG traMADol HCl 50 MG 09/07/2021 12:00:00 AM EDT active traMADol HCl 50 MG [facility] tramadol hydrochloride 50 MG Oral Tablet traMADol HCl 50 MG traMADol HCl 50 MG 09/07/2021 12:00:00 AM EDT active traMADol HCl 50 MG [facility]) 50 mg 09/07/2021 12:00:00 AM EDT [...] 2 TABLETS IN THE EVENING SOLD: 08/31/2021 [facility] tizanidine 4 MG Oral Tablet TIZANIDINE HCL 08/28/2021 12:00:00 AM E DT tablet 540 TAKE TWO TABLETS BY MOUTH THREE TIMES A DAY NEEDED TAKE TWO TABLETS BY MOUTH THREE TIMES A DAY NEEDED SOLD: 08/31/2021 [facility] 300 mg 08/28/2021 12:00:00 AM EDT capsule 360 TAKE TWO CAPSULES BY MOUTH TWICE A DAY TAKE TWO CAPSULES BY MOUTH TWICE A DAY SOLD: 08/31/2021 [facility] 50 mg 08/06/2021 12:00:00 AM EDT tablet 60 TAKE 2 TABLETS BY MOUTH IN THE EVENING MAXIMUM DAILY DOSE = 2 TABLETS TAKE 2 TABLETS BY MOUTH IN THE EVENING MAXIMUM DAILY DOSE = 2 TABLETS SOLD: 08/10/2021 [facility] tramadol hydrochloride 50 MG Oral Tablet traMADol HCl 50 MG traMADol HCl 50 MG 08/03/2021 12:00:00 AM EDT active traMADol HCl 50 MG [facility] tramadol hydrochloride 50 MG Oral Tablet traMADol HCl 50 MG traMADol HCl 50 MG 08/03/2021 12:00:00 AM EDT active traMADol HCl 50 MG [facility]CW[facility]) tramadol hydrochloride 50 MG Oral Tablet traMADol HCl 50 MG traMADol HCl 50 MG 08/03/2021 12:00:00 AM EDT active traMADol HCl 50 MG [facility] tramadol hydrochloride 50 MG Oral Tablet traMADol HCl 50 MG traMADol HCl 50 MG 08/03/2021 12:00:00 AM EDT active traMADol HCl 50 MG [facility]CW[facility]) tramadol hydrochloride 50 MG Oral Tablet traMADol HCl 50 MG traMADol HCl 50 MG 08/03/2021 12:00:00 AM EDT active traMADol HCl 50 MG [facility]CW[facility]) 50 mg 07/07/2021 12:00:00 AM EDT [...] EDT active traMADol HCl 50 MG eCW1 ([facility]) Famotidine 40 MG Oral Tablet FAMOTIDINE [...] TABLET BY MOUTH EVERY DAY SOLD: 08/03/2021 [facility] Famotidine 40 MG Oral Tablet [...] type / Coverage type Policy ID Covered libertarian ID Covered libertarian's relationship to pool Policy Pool Plan Information [employer] CLAIM[employer] [id number] LIFETIME BENEFIT SOLUTIONS U [id number] Spouse [id number] [employer] U [id number] Spouse [id number] LIFETIME BENEFIT SOLUTIONS U [id number] Spouse [id number] Lifetime Benefit Solution [facility] Part B [id number] Family Dependent [id number] Lifetime Benefit Solution Commercial [id number] Family Depend ent [employer] [id number] Spo [id number] [employer] [id number] Spo [id number] [employer] U [id number] Spouse [id number] [employer] (pr) Commercial [id number] Family Dependent [id number] [employer] (pr) Commercial [id number] Family Dependent [employer] [facility] [id number] SP [id number] [employer] [facility] [place] [id number] [id number] [employer] [facility] [place] [id number] HU2 [id number] [employer] [place] [id number] SP [id number] [employer]NA MEDICARE COMPLETE G [id number] Self [id number] ANSI-Medicare Part B [id number] ANSI-Commercial [id number]-774g-[id number] ANSI-Medicare Part B [id number] ANSI-Commercial [id number]-9ryz-6674-y7m3-g6i22g83fnju 9a28b01o-8cfm-9797-u7k6-p4c32p73kcmw ANSI-Commercial [id number]-[id number]-[id number] u0024223-n3mg-1m76-0tx9-zo99v1319x1t ANSI-Medicare Part B [id number] ANSI-Commercial [id number]-[id number] y0n1w694-8305-51fk-[id number] ANSI-Medicare Part B [id number] ANSI-Commercial [id number]-[id number]-[id number] 6b22tp7o-q535-0229-70ku-5w7j23374070 ANSI-Commercial [id number]-1b21-4ta8-2kdw4xj44c3e h93r1822-771f-5m78-4uv4-5rut9jt46l0i ANSI-Commercial a3673v8k-y979-47nm-az81-330n30c045xt f3695p1q-f079-97el-va40-190m57j965yf ANSI-Commercial 31f72680-6d9p-7w11-hyb3-071j6977g65c 51a31761-6b7j-6u22-wtj3-544s9466s59t ANSI-Commercial z2774d32-3x09-3979-9bd3-250d09b7r9kl q3686z03-0u61-6670-2vn4-401e47f8r3si ANSI-Commercial t99l4448-5404-84g8-5n4g-[id number] f85x7297-2726-98t0-6g0m-7gt813736861 ANSI-Commercial 8e84y80u-b720-08f4-u4d3-6a4065ip7698 0r93t13j-l122-48a3-e3f0-7p6258jh7759 ANSI-Commercial 6kc7w98o-1s19-304t-n056-3zz57j5w6k81 3jm0g58c-5w68-937h-v521-3am94g3j1h47 ANSI-Commercial i5dk0782-2i46-247c-l748-rxc750nm737v d2xa9266-2c80-562b-x929-qsx270nv560s ANSI-Commercial 1173331p-5089-47ch-0534-a6200qp75v32 4916165n-0574-29as-8239-h7505af59i87 ANSI-Commercial 889b71iu-b3yc-7gbi-gc91-94m887464p90 766v92ba-x4oj-2wrs-tq31-56k038128h50 ANSI-Commercial x285753r-181t-7o78-xq84-08e8557sqt2t z427267k-562z-2v04-nb19-76l0172kho7y ANSI-Commercial ev1l5cxf-tjb9-8puh-858j-ea0k04709vsg qm9w1jqq-qly3-9nwu-442r-td5d37246cpv ANSI-Commercial 39gofmby-606e-0w889k74-1262-a11817if9uo2 78eyavjh-301f-7r835y80-2644-a80034uz8jz2 ANSI-Commercial 2ru710v2-3ro9-9e96-516x-o8934ua39k33 9kt392w4-9my5-4h15-598h-f1586be27n36 ANSI-Commercial u5k13xcz-8045-619m-p8b2-84nmxhjel025 t6h22ghz-0741-700c-d4o7-44zpphuzk514 ANSI-Commercial 75w50175-1b47-1vr0-5ko5-i8r303u7lhc3 42p71770-9a17-9aa4-3gf8-t8f077u9msg5 ANSI-Commercial 37ulrjda-7uja-93e170b3-89d1-e7y10usocjvw 53ruldjr-2kol-59q337w4-17s7-v0u62rjxryut ANSI-Commercial 8039j53s-w315-3mnv-zz2e-169292n1of88 9194u30r-g685-6vlh-yv3p-021866v9rk09 ANSI-Commercial j344rm05-1x0w-99s4-p7i4-186m4180omi4 m143vc51-6r4g-11l6-y3r9-462t1336vlo8 ANSI-Commercial 76duj2y0-7833-0045-3m82-86vf94dk3i4a 02yzx7m9-3894-3214-1n27-61er55rf1p3t ANSI-Commercial 21grt07a-u10p-8ozu-6183-9k1395e02q30 58uxy01o-h04o-4thb-3499-8o4438n77k23 [employer]na [id number] ANSI-Commercial 78302925-d14q-22l0-61ci-a1w5882je8jh 51379072-t44a-01w1-57fp-x9e0650ss1sl ANSI-Commercial 12464i36-27iw-4b25-50a4-r080657y2600 54504e23-45qb-5q03-73m5-s230621f6187 ANSI-Commercial 196t46h7-o9rs-0883-5j81-j4j83003927k 561j91l3-d8ba-0194-9a19-h5m10287877n ANSI-Commercial c81j4g6g-38y5-6521-5496-2yuv05n7f0or x89v9w4t-54o7-8688-6828-2oan03i1p7ym [employer]ETNA [facility] [place] [id number] SP [id number] [employer] Health Maintenance Organization (HMO) [id number] Self [id number] [employer] Med[employer] Part B [id number] Family Dependent [id number] ANSI-Commercial 3q5d1if1-3738-86jf-8610-135zt1a906v1 5l0u4te3-9012-85wl-6756-101wy7d206j5 ANSI-Commercial 29569u53-w4o1-40w2-94d1-6b24v024l3e1 52802k34-z6c8-98r2-80b9-2w40e317k5g8 ANSI-Commercial j899h9c5-d4xy-1ann-4319-3m91d97c61fr c127z3v1-p7en-1gpe-7283-5u27c65i62jg ANSI-Commercial 7227q604-r085-28vg-4md4-b185vn6371qc 2409r512-k599-44xr-4ll2-a097rl9169cx ANSI-Commercial 28173t1q-756j-8a51-7nhj-601602g6326c 99790d3p-107x-7g75-7vhv-490917b3678u ANSI-Commercial 188653p1-p869-2n0s-1eg4-422g11j0jcsm 420464f1-r666-3y8u-7eb1-147c77o6wavr ANSI-Commercial 186r0mv8-a2p8-31jf-h7vn-tk8o7548u0z5 425i3oq3-u6x9-25je-w9tr-gb8g7754w2x1 ANSI-Commercial 04519223-3pby-80r0-7f36-436z33712418 12172363-3xvk-63n9-8n77-044c64789822 [employer] [facility] [place] O [id number] P [id number] ANSI-Commercial 7kti7y6o-4c09-5688-59i4-5854416dnt4v 3vwu1h6a-3y25-5381-03d0-6134348pjp5u ANSI-Commercial u6140w35-xs01-8kx7-g035-2s6uwtw5hvz1 d5179j64-ty67-2ec8-y523-6h4mkfc7hvm2 ANSI-Commercial 18157i4p-2557-0796-3a2h-ra690278296b 42928r2b-8009-6886-9c0q-yx537924367k ANSI-Commercial uu60250t-tz8s-0u1s-n5u4-13c21320w7zr xf21782q-aw3e-1k6h-u5k5-05y22712d4mk Lifetime Benefit Solution [facility] Part B [id number] Family Dependent [id number] [employer] (pr) Commercial [id number] Family Dependent [id number] ANSI-Commercial 640do93c-494k-1jw7-99qp-6529983v2m26 382ei14b-858v-2is3-64ap-7709138r1v47 ANSI-Commercial p511b7a8-s88m-2x4m-f70d-102xx334mm82 q382e5r0-j91j-4y0j-o51j-290ed140bl90 ANSI-SeeOn z3452z75-hyyy-432s-[id number] l1170s79-eeog-360u-78y7-46w975741564 ANSI-Commercial 3666d41d-0s20-885k-r500-ul3g655q5413 0195q19e-7c81-493r-d069-qe1t713y5269 ANSI-SeeOn c78dc64v-0p75-435m-f10k-37f0f91ds346 c49pi57v-2w08-082q-n02j-93i7z69zt583 ANSI-SeeOn gk1lg35c-yy3p-672s-8j6m-560q6as4o7q5 bn7kv80o-jq1z-665e-9i0h-020u0af6m1f4 ANSI-SeeOn 1862937i-xjd8-54fm-r1bo-38iyi7k51203 0504645k-vnm6-80dz-n0vu-54zsm3c91583 ANSI-SeeOn cd347yv7-78p9-7i18-n7q3-6p3apnv07d50 hl401iu4-92k1-6a38-j3t6-0t0tdem31x17 ANSI-SeeOn 20m57361-0l6s-4z61-4291-048ueua02618 86u48350-7w5o-1t44-8201-853hcoj38550 ANSI-SeeOn 64445bk8-0c1c-2t8x-l85d-64460396i05v 00584ps3-2q3m-6r8r-f53g-36053368n81z ANSI-SeeOn j1n31335-w231-83f0-p63s-991jhf7t9coi q9r56129-c176-01m1-u01h-512awu5e1zuf ANSI-Commercial 6vf5c69t-8238-99i5-h5kv-92mig5a889sw 9rq4i46m-0884-79u6-c7dn-56xjx2y629xy [employer] [facility] [place] O [id number] P [id number] [employer] (pr) Commercial [id number] 2.16.840.1.972243.3.227.99.9 91.89272.0 Family Dependent [id number] ANSI-Commercial [id number]-[id number] x9ns1281-10g9-1115-341w-62j8d272m735 ANSI-Commercial 2b20t588-z422-04hh-x96o-80p4h8414c77 5w78f688-j586-56gi-e84z-64r0m5013m09 [employer] [id number] SPO [id number] ANSI-Commercial 131u33c4-n02x-1ipv-jp22-4j18722j2471 424z15o1-v87p-0cca-ca69-0o15456e5135 ANSI-Commercial a03fi422-nvt0-7vv2-9197-42b4xuzt8683 v18iv958-aas5-5xe1-9756-94g0cufp8102 ANSI-Commercial 859995td-81v4-63o8-4us1-5a104y5ni320 254593aj-99f4-56y0-0jv8-4b964j2lh383 ANSI-Commercial 71mi62ik-8cq6-1un1-8m7n-o793f911zp55 31up76ph-8id7-2sm3-5q0k-b361l074fo10 ANSI-Commercial 5i6gv6k7-6p06-536f-o77y-pm9454684t40 5m5zm4x5-4v54-473x-z66m-eg7667704r22 ANSI-Commercial gie2y2m9-7940-8062-8840-bwo69240v33f moo4e7l9-1217-3926-1018-dof93129f07z ID IDENTIFICATION 2.16.840.1.406692.3.929 2.16.840.1.1 74343.3.929 Other Insurance 2.16.840.1.464846.3.929 [employer] [id number] Commercial Ins urance [id number] [employer] (HMO) [id number] 2.16.840.1.836751.3.227.99.8646.3380.0 Self 6 [id number] [employer] [facility] [place] [id number] [id number] [employer] Commercial [id number] 2.16.840.1.469820.3.227.99.1 77.52065.0 Family Dependent [id number] [employer] Commercial [id number] 2.16.840.1.390838.3.227.99.1 77.66628.0 Family Dependent [id number] [employer] [facility] [place] [id number] 2 [id number] [employer] [id number] 18 [id number] [employer] Commercial 2.16.840.1.432050.3.227.99.683.347794.0 Family Dependent SELF PAY ONLY UNAVAILABLE SP UNAV AILABLE [employer] [id number] HU2 [id number] Lifetime Benefit Solution Medigap Part B 198152 Family De pendent [employer]ETNA O [id number] P [id number] 2 [employer] O [id number] P [id number] [employer] [id number] 18 [id number] Lifetime [employer] Commercial [id number] Family Depend ent RMSCO P [id number] P [id number] RMSCO [id number] 18 [id number] [employer] EXCELLUS O [id number] U 83730 2000 [employer]-O/P [id number] 01 [id number] [employer] MEDICARE MEBTFBBF SP MEBTF BBF [id number] [employer] MEDICARE MEBTFBBF SP MEBTF BBF [employer] [id number] SE [id number] [place] [id number] SE [id number] [employer] Medicare MEBTFBBF MEBTFBBF SE MEBTF BBF [employer] MEDICARE MEBTFBBF SP MEBTF BBF [employer] MEDICARE O MEBTFBBF [id number] S MEBTF BBF MEDICARE [id number] SP [id number] [place] [id number] SP [id number] [employer] Medicare [id number] 18 MEBTF BBF Medicare [facility] [id number] 18 [id number] MEDICAID M [id number] S [id number] [employer] MEDICARE O MEBTFBBF [id number] S MEBTF BBF MEDICAID [id number] SP [id number] MEDICARE [id number] SP [id number] MEDICARE C [id number] S [id number] Problems, Conditions, and Diagnoses Code Display Name Description Problem Type Effective Dates Data Source(s) R13.13 [id number] Pharyngeal dysphagia Problem 08/05/2021 12:00:00 AM EDT [facility] K21.9 [id number] Gastroesophageal reflux disease without e sophagitis Problem 02/11/2021 12:00:00 AM EDT [facility] Surgeries/Procedures Procedure Description Date Indications Data Source(s) OFFICE OUTPATIENT VISIT 15 MINUTES 10/19/2021 12:00:00 AM EST MEDENT ([facility], ) LARYNGOSCOPY FLEXIBLE FIBEROPTIC DIAGNOSTIC 09/14/2021 12:00:00 AM EDT MEDENT ([facility]) OFFICE OUTPATIENT NEW 30 MINUTES 09/14/2021 12:00:00 A M EDT MEDENT ([facility], ) ARTHROCENTESIS ASPIR&/INJECTION MAJOR JT/BURSA 12:00:00 AM EDT MEDENT ([facility]) RADEX SHOULDER COMPLETE MINIMUM 2 VIEWS 02/18/2021 12: 00:00 AM EDT MEDENT ([facility]) ARTHROCENTESIS ASPIR&/INJECTION MAJOR JT/BURSA 020 12:00:00 AM EST MEDENT ([facility]) Results ID Date Data Source VITB12 & FOL 08/05/2021 12:00:00 AM EDT eCW1 ([facility]) Name Value Range Interpretation Code Description Data Karen rce(s) Supporting Document(s) 22.4 FOLATE eCW1 ([facility]) 564 VITAMIN B12 LEVEL eCW1 ([facility]) ID Date Data Source VITAMIN D 25-HYDROXY 08/05/2021 12:00:00 AM EDT eCW1 ([facility]) Name Value Range Interpretation Code Description Data Karen rce(s) Supporting Document(s) 61.7 30.0-100.0 TOTAL 25(OH) VITAMIN D eC W1 [facility]) ID Date Data Source LIPID PANEL (CARDIAC RISK) 08/05/2021 12:00:00 AM EDT eCW[facility] ( [facility] Name Value Range Interpretation Code Description Data Karen rce(s) Supporting Document(s) Cholesterol [Moles/volume] in Serum or Plasma 204 <200 CHOLESTEROL LEVEL eCW1 ([facility]) Triglyceride [Mass/volume] in Serum or Plasma by calculation 119 <150 TRIGLYCERIDES LEVEL eCW1 ([facility]) Cholesterol in HDL [Moles/volume] in Serum or Plasma 64 >40 HDL CHOLESTEROL eCW1 ([facility]) 3.187 <5 CHOLESTEROL RISK RATIO eCW1 ([facility]) Cholesterol in LDL [Mass/volume] in Serum or Plasma by calculation 116 <100 LDL CHOLESTEROL eCW1 ([facility]) 140 NON-HDL-C eCW1 ([facility]) ID Date Data Source Comprehensive Metabolic Profile (CMP) 08/05/2021 12:00:00 AM EDT eCW1 [facility]) Name Value Range Interpretation Code Description Data Karen rce(s) Supporting Document(s) 0.70 0.55-1.30 CREATININE FOR GFR eCW1 ([facility]) 14 7-18 BLOOD UREA NITROGEN eCW1 ([facility]) > 60.0 >45 GLOMERULAR FILTRATION RATE eCW 1 ([facility]) 70 70-100 GLUCOSE, FASTING eCW1 ([facility]) 5.0 3.5-5.1 POTASSIUM SERUM eCW1 ([facility]) 101 98-107 CHLORIDE LEVEL eCW1 ([facility]) 141 136-145 SODIUM LEVEL eCW1 ([facility]) 34 21-32 CARBON DIOXIDE LEVEL eCW1 ([facility]) 29 12-78 ALT/SGPT eCW1 ([facility]) 93 45-117 ALKALINE PHOSPHATASE eCW1 ([facility]) 0.6 0.2-1.0 BILIRUBIN,TOTAL eCW1 ([facility]) 9.6 8.8-10.2 CALCIUM LEVEL eCW1 ([facility]) 26 7-37 AST/SGOT eCW1 ([facility]) 3.1 3.2-5.2 ALBUMIN eCW1 ([facility]) 7.4 6.4-8.2 TOTAL PROTEIN eCW1 ([facility]) 0.7 1.2-2.2 ALBUMIN/GLOBULIN RATIO eCW1 ([facility]) ID Date Data Source CBC - Complete Blood Count 08/05/2021 12:00:00 AM EDT eCW1 ( [facility] Name Value Range Interpretation Code Description Data Karen rce(s) Supporting Document(s) 9.5 4.0-10.0 WHITE BLOOD COUNT eCW1 ([facility]) 4.92 4.00-5.40 RED BLOOD COUNT eCW1 ([facility]) 92.1 80.0-96.0 MEAN CORPUSCULAR VOLUME e CW1 ([facility]) 45.3 36.0-47.0 HEMATOCRIT eCW1 ([facility]) 14.3 12.0-15.5 HEMOGLOBIN eCW1 ([facility]) 29.1 27.0-33.0 MEAN CORPUSCULAR HEMOGLOB IN eCW1 ([facility]) 13.5 11.5-14.5 RED CELL DISTRIBUTION WID TH eCW1 ([facility]) 277 150-450 PLATELET COUNT, AUTOMATED eCW1 ([facility]) 31.6 32.0-36.5 MEAN CORPUSCULAR HGB CONC eCW1 ([facility]) ID Date Data Source [id number] 05/28/2021 04:54:09 PM EDT [facility] EXAMINATION: 3D/2D BILATERAL SCREENING [...] rce(s) Supporting Document(s) ID Date Data Source [id number] 10/08/2020 03:41:00 PM EST MEDENT ([facility]) Name Value Range Interpretation Code Description Data Karen rce(s) Supporting Document(s) Calcium [Mass/volume] in Serum or Plasma 9.4 mg/dL 8.8-10.2 MEDENT ([facility]) Calcidiol [Mass/volume] in Serum or Plasma 58.5 ng/mL 30.0-100.0 MEDENT ([facility]) Procedure Social History Code Duration Value Status Description Data Source(s ) Smoking 08/05/2021 12:00:00 AM EDT Former Smoker completed Former Smoker eCW1 ([facility]) Smoking 08/05/2021 12:00:00 AM EDT Former Smoker completed Former Smoker eCW1 ([facility]) Smoking 08/05/2021 12:00:00 AM EDT Former Smoker completed Former Smoker eCW1 ([facility]) Smoking 08/05/2021 12:00:00 AM EDT Former Smoker completed Former Smoker eCW1 ([facility]) Smoking 08/05/2021 12:00:00 AM EDT Former Smoker completed Former Smoker eCW1 ([facility]) Smoking 08/05/2021 12:00:00 AM EDT Former Smoker completed Former Smoker eCW1 ([facility]) Smoking 08/05/2021 12:00:00 AM EDT Former Smoker completed Former Smoker eCW1 ([facility]) Smoking 02/18/2021 12:00:00 AM EDT Patient is a former smoker completed Patient is a former smoker MEDENT ([facility]) Smoking 02/11/2021 12:00:00 AM EDT Former Smoker completed Former Smoker eCW1 ([facility]) Smoking 02/11/2021 12:00:00 AM EDT Former Smoker completed Former Smoker eCW1 ([facility]) Smoking 02/11/2021 12:00:00 AM EDT Former Smoker completed Former Smoker eCW1 ([facility]) Smoking 02/11/2021 12:00:00 AM EDT Former Smoker completed Former Smoker eCW1 ([facility]) Smoking 02/11/2021 12:00:00 AM EDT Former Smoker completed Former Smoker eCW1 ([facility]) Smoking 02/11/2021 12:00:00 AM EDT Former Smoker completed Former Smoker eCW1 ([facility]) Smoking 02/11/2021 12:00:00 AM EDT Former Smoker completed Former Smoker eCW1 ([facility]) Smoking 02/11/2021 12:00:00 AM EDT Former Smoker completed Former Smoker eCW1 ([facility]) Smoking 02/11/2021 12:00:00 AM EDT Former Smoker completed Former Smoker eCW1 ([facility]) Smoking 02/11/2021 12:00:00 AM EDT Former Smoker completed Former Smoker eCW1 ([facility]) Smoking 01/14/2021 12:00:00 AM EST - 11/20/2017 12:00:00 AM EST Patient is a former smoker completed Patient is a former smoker MEDENT ([facility]) Vital Signs ID Date Data Source UNK Name Value Range Interpretation Code Description Data Source(s) Body height 62 [in_i] 62 [in_i] MEDENT ([facility]) 5'2" Body weight 52.164 kg 52.164 kg [facility] ([facility]) Body surface area Derived from formula 1.51 m2 1.51 m2 [facility] ([facility]) Body weight 115.00 [lb_av] 115.00 [lb_av] MEDEN T ([facility]) Body mass index (BMI) [Ratio] 21.0 kg/m2 21.0 k g/m2 [facility] ([facility]) [place] body weight 110 [lb_av] 110 [lb_av] MEDEN T ([facility]) Body height 62 [in_i] 62 [in_i] MEDENT ([facility]) 5'2" Body weight 115.00 [lb_av] 115.00 [lb_av] MEDEN T ([facility]) Body mass index (BMI) [Ratio] 21.0 kg/m2 21.0 k g/m2 [facility] ([facility]) [place] body weight 110 [lb_av] 110 [lb_av] MEDEN T ([facility]) Body weight 52.164 kg 52.164 kg [facility] ([facility]) Body surface area Derived from formula 1.51 m2 1.51 m2 [facility] ([facility]) Body weight 115 [lb_av] 115 [lb_av] eCW1 ([facility]) Body weight 52.16 kg 52.16 kg eCW1 ([facility]) Body height [in_i] eCW1 ([facility]) Respiratory rate 10 /min 10 /min eCW1 ([facility]) Body mass index (BMI) [Ratio] 21.03 kg/m2 21.03 kg/m2 [facility] Body temperature 97 [degF] 97 [degF] eCW1 ([facility]) Systolic blood pressure 120 mm[Hg] 120 mm[Hg] e CW1 ([facility]) Heart rate 78 /min 78 /min eCW1 ([facility]) Diastolic blood pressure 82 mm[Hg] 82 mm[Hg] eCW1 [facility] Heart rate 84 /min 84 /min eCW1 ([facility]) Respiratory rate 18 /min 18 /min eCW1 ([facility]) Body temperature 98.2 [degF] 98.2 [degF] eCW1 ( [facility] Systolic blood pressure 120 mm[Hg] 120 mm[Hg] e CW1 ([facility]) Diastolic blood pressure 80 mm[Hg] 80 mm[Hg] eCW1 ([facility]) Body weight 115 [lb_av] 115 [lb_av] eCW1 ([facility]) Body height [in_i] eCW1 ([facility]) Body mass index (BMI) [Ratio] 21.03 kg/m2 21.03 kg/m2 eCW1 ([facility]) Oxygen saturation in Arterial blood by Pulse oximetry 98 % 98 % MEDRAFIA ([facility] ) Room Air Body height 62 [in_i] 62 [in_i] MEDENT ([facility], ) 5'2" Systolic blood pressure 120 mm[Hg] 120 mm[Hg] M EDENT ([facility], ) Diastolic blood pressure 70 mm[Hg] 70 mm[Hg] MEDENT ([facility] ) Heart rate 70 /min 70 /min MEDENT ([facility], ) Body weight 125.00 [lb_av] 125.00 [lb_av] MEDEN T ([facility], ) stated Body mass index (BMI) [Ratio] 22.9 kg/m2 22.9 k g/m2 [facility] ([facility]) [place] body weight 110 [lb_av] 110 [lb_av] MEDEN T ([facility]) Body weight 56.700 kg 56.700 kg [facility] ([facility]) Body surface area Derived from formula 1.57 m2 1.57 m2 [facility] ([facility]) Body weight 125.25 [lb_av] 125.25 [lb_av] MEDEN T ([facility]) stated Body mass index (BMI) [Ratio] 22.9 kg/m2 22.9 k g/m2 [facility] ([facility]) Oxygen saturation in Arterial blood by Pulse oximetry 98 % 98 % [facility] ([facility]) Body height 62 [in_i] 62 [in_i] [facility] ([facility]) 5'2" Systolic blood pressure 122 mm[Hg] 122 mm[Hg] M [facility]) Diastolic blood pressure 80 mm[Hg] 80 mm[Hg] [facility] ([facility]) Heart rate 76 /min 76 /min [facility] ([facility]) Body temperature 96.5 [degF] 96.5 [degF] [facility] ([facility]) Patient Treatment Plan of Care Planned Activity Planned Date Details Description Data Source (s) tramadol hydrochloride 50 MG Oral Tablet 10/12/2021 12:00:00 AM EST [facility] tramadol hydrochloride 50 MG Oral Tablet 09/07/2021 12:00:00 AM EDT eCW1 ([facility] tramadol hydrochloride 50 MG Oral Tablet 09/07/2021 12:00:00 AM EDT eCW1 ([facility]) tramadol hydrochloride 50 MG Oral Tablet 08/03/2021 12:00:00 AM EDT eCW1 ([facility] tramadol hydrochloride 50 MG Oral Tablet 07/06/2021 12:00:00 AM EDT eCW1 ([facility])
--- NOTE | 2021-10-30 17:54 | REPVR ---
PROCEDURE INFORMATION: Exam: CT Head Without Contrast Exam date and time: 10/30/2021 5:30 PM Age: 66 years old Clinical indication: Other: Headache syncope TECHNIQUE: Imaging protocol: Computed tomography of the head without contrast. Radiation optimization: All CT scans at this facility use at least one of these dose optimization techniques: automated exposure control; mA and/or kV adjustment per patient size (includes targeted exams where dose is matched to clinical indication); or iterative reconstruction. COMPARISON: XA Esophagram Barium Swallow 09/09/2021 9:33 AM FINDINGS: Brain: No intracranial mass, mass effect or midline shift. No acute intracranial hemorrhage. No CT evidence of acute cortical infarct. Right frontal brain parenchymal volume loss, consistent with chronic encephalomalacia Ventricles, cisterns, and sulci are normal in size for age. Paranasal sinuses: Imaged paranasal sinuses are normally aerated. Mastoid air cells: Mastoid air cells and middle ear structures are normally aerated. Orbital cavity: Imaged orbits are unremarkable. Bones/joints: No calvarial fracture or destructive process. Soft tissues: No focal extracranial soft tissue swelling. IMPRESSION: 1. No acute or concerning focal intracranial abnormality. 2. Chronic inferior right frontal lobe encephalomalacia Electronically signed by: Storm Etienne On 10/30/2021 17:53:31 PM
[2021-10-30 18:02] LABS: BASO % 0.4 % (0.0-1.0); EOS # 0.1 10^3/uL (0.0-0.5); EOS % 0.9 % (0.0-3.0); HEMATOCRIT 44.1 % (36.0-47.0); HEMOGLOBIN 14.1 g/dl (12.0-15.5); LYMPH % 9.7 % (24.0-44.0); MEAN CORPUSCULAR VOLUME 90.6 fl (80.0-96.0); MONO # 0.8 10^3/uL (0.0-0.8); MONO % 7.9 % (2.0-8.0); NEUTROPHILS # 8.3 10^3/uL (1.5-8.5); NEUTROPHILS % 80.8 % (36.0-66.0); PLATELET COUNT, AUTOMATED 255 10^3/uL (150-450); RED BLOOD COUNT 4.87 10^6/uL (4.00-5.40); WHITE BLOOD COUNT 10.2 10^3/uL (4.0-10.0)
--- NOTE | 2021-10-30 18:20 | REP ---
INDICATION: syncope. COMPARISON: AP and lateral chest, 02/07/2020. TECHNIQUE: AP and lateral views of the chest were obtained. FINDINGS: There is scarring in the right lung apex. The lungs are otherwise clear. The heart borders are normal. There is calcific vascular disease of the thoracic aorta. There is a single lead pacemaker. There are Myers rods extending from T1-T10. IMPRESSION: No evidence of acute cardiopulmonary pathology. Other findings as noted. <Electronically signed by Bhavik Chiu > 10/30/21 [id number]
[2021-10-30 18:44] LABS: ALBUMIN 3.3 GM/DL (3.2-5.2); ALT/SGPT 19 U/L (12-78); BILIRUBIN,DIRECT < 0.1 MG/DL (0.0-0.2); BILIRUBIN,TOTAL 0.4 MG/DL (0.2-1.0); BLOOD UREA NITROGEN 18 MG/DL (7-18); CALCIUM LEVEL 9.9 MG/DL (8.8-10.2); CARBON DIOXIDE LEVEL 34 MEQ/L (21-32); CHLORIDE LEVEL 103 MEQ/L (98-107); CREATININE FOR GFR 0.92 MG/DL (0.55-1.30); GLOMERULAR FILTRATION RATE > 60.0 (>45); GLUCOSE, FASTING 89 MG/DL (70-100); POTASSIUM SERUM 4.6 MEQ/L (3.5-5.1); SODIUM LEVEL 141 MEQ/L (136-145); TOTAL PROTEIN 7.9 GM/DL (6.4-8.2)
[2021-10-30 18:46] LABS: RSV AMPLIFICATION NEGATIVE (NEGATIVE)
[2021-10-30] MEDS ORDERED: FAMO40TA3 PO (19:21)
[2021-10-30] MEDS ORDERED: OMEP-221 PO (19:21)
[2021-10-30] MEDS ORDERED: HOME MED LIST COMPLETE! XX SCH (19:25)
[2021-10-30] MEDS ORDERED: traMADol 50 MG TAB PO PRN (20:45)
[2021-10-30] MEDS ORDERED: ACETAMINOPHEN TAB 650MG DOSE (2X325MG) PO PRN (20:45)
[2021-10-30] MEDS ORDERED: tiZANidine 4 MG TAB PO PRN (20:45)
[2021-10-30] MEDS: CYPROHEPTADINE 4 MG TAB PO SCH (21:00)
[2021-10-30 21:06] LABS: MAGNESIUM LEVEL 1.9 MG/DL (1.8-2.4)
--- OUTSIDE RECORDS SUMMARY | 2021-10-30 21:07 | CCD ---
Author Author [facility] Organization [facility] Address Unknown Phone Unavailable Care Team Providers Care Mine Engineering Supervisor Name Role Phone RENNY PICKARD MD Unavailable [...] RENNY PICKARD MD Unavailable Unavailable SZOMBATHY, RENNY MD Unavailable [...] Unavailable Unavailable SZOMBATHY, RENNY MD Unavailable Unavailable [place]Dimas MD Unavailable Unavailable [place] MD Unavailable Unavailable [place] MD Unavailable Unavailable [place] MD Unavailable Unavailable [place] Dimas MD Unavailable Unavailable [place] MD Unavailable Unavailable [place] Dimas MD Unavailable Unavailable [place] Dimas MD Unavailable Unavailable [place] Dimas MD Unavailable Unavailable [place], Dimas MD Unavailable Unavailable [place], Dimas MD Unavailable Unavailable [place], Dimas MD Unavailable Unavailable [place], Dimas MD Unavailable Unavailable [place], Dimas MD Unavailable Unavailable [place], Dimas MD Unavailable Unavailable [place] Dimas MD Unavailable Unavailable [place] Dimas MD Unavailable Unavailable [place] Dimas MD Unavailable Unavailable [place] Dimas MD Unavailable Unavailable [place] Dimas MD Unavailable Unavailable [place] Dimas MD Unavailable Unavailable [place] Dimas MD Unavailable Unavailable [place] Dimas MD Unavailable Unavailable [place] Dimas MD Unavailable Unavailable [place] Dimas MD Unavailable Unavailable [place] Dimas MD Unavailable Unavailable [place], Dimas MD Unavailable Unavailable [place], Dimas MD Unavailable Unavailable [place], Dimas MD Unavailable Unavailable [place], Dimas MD Unavailable Unavailable [place], Dimas MD Unavailable Unavailable [place], Dimas MD Unavailable Unavailable Fish, B Abida KIRKLAND Unavailable Unavailable Fish, B Abida KIRKLAND Unavailable Unavailable Fish, B Abida KIRKLAND Unavailable Unavailable Fish, B Abida KIRKLAND Unavailable Unavailable Fish, B Abida MD Unavailable Unavailable Fish, Monica Tai MD Unavailable Unavailable Fish, Monica Tai MD Unavailable Unavailable Fish, Monica Tai MD Unavailable Unavailable Fish, Monica Tai MD Unavailable Unavailable Fish, Monica Tai MD Unavailable Unavailable Fish, Monica Tai MD Unavailable Unavailable Fish, Monica Tai MD Unavailable Unavailable Fish, Monica Tai MD Unavailable Unavailable Fish, Monica Tai MD Unavailable Unavailable Fish, B Abida KIRKLAND Unavailable Unavailable Fish, Monica Tai MD Unavailable Unavailable Fish, B Abida KIRKLAND Unavailable Unavailable Fish, B Abida KIRKLAND Unavailable Unavailable Fish, Monica Tai MD Unavailable Unavailable Fish, Monica Tai MD Unavailable Unavailable Fish, Monica Tai MD Unavailable Unavailable Fish, B Abida KIRKLAND Unavailable Unavailable Fish, B Abida KIRKLAND Unavailable Unavailable Fish, B Abida KIRKLAND Unavailable Unavailable Fish, B Abida KIRKLAND Unavailable Unavailable Fish, B Abida KIRKLAND Unavailable Unavailable Fish, Monica Tai MD Unavailable Unavailable Fish, Monica Tai MD Unavailable Unavailable Fish, Monica Tai MD Unavailable Unavailable Fish, B Abida KIRKLAND [...] Monica Tai MD Unavailable Unavailable Fish, Monica aTi MD Unavailable Unavailable Fish, Monica Tai MD Unavailable Unavailable Fish, Monica Tai MD Unavailable Unavailable Fish, Monica Tai MD Unavailable Unavailable Fish, Monica Tai MD Unavailable Unavailable Nestor Berry Unavailable Unavailable Wetterhahn, M Stacy PA Unavailable [...] Unavailable Wetterhahn, M Stacy PA Unavailable Unavailable VaneenRubio chen MD Unavailable Unavailable VaneeneyalamRubio MD Unavailable Unavailable Vaneenenaam, Rubio Castellano MD Unavailable Unavailable VaneenRubio chen MD Unavailable Unavailable Vanryan, Rubio Castellano MD Unavailable Unavailable VanRubio davis MD Unavailable Unavailable Vandelilaham, Rubio Castellano MD Unavailable Unavailable VanRubio davis MD Unavailable Unavailable Vanryan, Rubio Castellano MD Unavailable Unavailable Rubio Waters MD Unavailable [...] MD Unavailable Unavailable VandelilahamRubio MD Unavailable Unavailable VaneenenaamRubio MD Unavailable Unavailable VaneenenaamRubio MD Unavailable Unavailable VaneenenaamRubio MD Unavailable Unavailable VaneenenaamRubio MD Unavailable Unavailable VaneenenaamRubio MD Unavailable Unavailable VaneenenaamRubio MD Unavailable Unavailable VaneenenaamRubio MD Unavailable Unavailable Re-disclosure Warning The records [...] is protected by Article 27-F of the [facility] Public Health law. If you continue you may have access to information: Regarding HIV / AIDS; Provided by facilities licensed or operated by the [facility] Office of Mental Health; or Provided by the [facility] Office for People With Developmental Disabilities. If such information is present, then the following [facility] mandated warning applies: This information has [...] law may result in a fine or skilled nursing sentence or both. A general authorization for the release of medical or other information is NOT sufficient authorization for further disc losure. Encounters Encounter Providers Location Date Indications Data Source(s ) Outpatient Attender: Dimas Lechuga/Pamela/Delroy/Debo monteiro 10/19/2021 10:20:00 AM EST MEDENT ([facility], ) Unknown [address] [facility] [facility], [facility] [address] 10/08/2021 12:00:00 AM EST eCW1 ([facility]) Outpatient Attender: Dimas Lechuga/Pamela/Delroy/Debo monteiro 09/14/2021 11:00:00 AM EDT [facility] ([facility] [place] [address] [facility] [facility] [address] 09/07/2021 12:00:00 AM EDT eCW1 ([facility]) [place] [address] [facility] [facility] [address] 08/30/2021 12:00:00 AM EDT eCW1 [facility] Unknown [address] [facility] [place] [address] 08/13/2021 12:00:00 AM EDT eCW1 ([facility]) Unknown [address] [facility] [address] 08/13/2021 12:00:00 AM EDT eCW1 ([facility]) [place] [address] [facility] [facility] [address] 08/05/2021 12:00:00 AM EDT eCW1 ([facility]) Office Visit, Est Pt., Level 2 FC [address] [place] [address] 08/05/2021 12:00:00 AM EDT eCW1 ([facility]) [place] [address] [facility] [facility] [address] 08/02/2021 12:00:00 AM EDT eCW1 [facility] [place] [address] [facility] [facility] [address] 07/06/2021 12:00:00 AM EDT eCW1 ([facility]) Unknown [address] [facility] [place] [address] 07/02/2021 12:00:00 AM EDT eCW1 ([facility]) Unknown [address] [facility] [place] [address] 06/01/2021 12:00:00 AM EDT eCW1 ([facility]) Unknown [address] [facility] [address] 05/31/2021 12:00:00 AM EDT eCW1 ([facility]) Outpatient Attender: Nestor BerryAdmit ter: Nestor BerryReferrer: Stacy WHEELER 05/28/2021 04:54:05 PM EDT [facility] 05/17/2021 10:51:17 AM EDT [facility] 05/17/2021 10:48:34 AM EDT [facility] 05/05/2021 03:16:36 PM EDT [facility] Unknown [address] [facility] [place] [address] 05/03/2021 12:00:00 AM EDT eCW1 ([facility]) Unknown [address] [facility] [place] [address] 04/05/2021 12:00:00 AM EDT eCW1 ([facility]) Unknown [address] [facility] [place] [address] 03/08/2021 12:00:00 AM EDT eCW1 ([facility]) OFFICE OUTPATIENT VISIT 15 MINUTES Attender: Rubio ramirez MD Physical Therapy 02/18/2021 02:00:00 PM EDT MEDENT ([facility]) Outpatient [address] [facility] [place] [address] 02/11/2021 12:00:00 AM EDT eCW1 ([facility]) Unknown [address] [facility] [place] [address] 02/08/2021 12:00:00 AM EDT eCW1 ([facility]) Unknown [address] [facility] [place] [address] 02/02/2021 12:00:00 AM EDT eCW1 ([facility]) Unknown [address] [facility] [place] [address] 01/08/2021 12:00:00 AM EST eCW1 ([facility]) Unknown [address] [facility] [address] 01/06/2021 12:00:00 AM EST eCW1 [facility] Unknown [address] [facility] [address] 01/04/2021 12:00:00 AM EST eCW1 ([facility]) Unknown [address] [facility] [place] [address] 12/04/2020 12:00:00 AM EST eCW1 ([facility]) Outpatient Attender: RENNY PICKARD MD 11/25/2020 12:00:0 0 AM EST [facility] Unknown [address] [facility] [facility], [place] [address] 11/05/2020 12:00:00 AM EST eCW1 ([facility]) OFFICE OUTPATIENT VISIT 15 MINUTES Attender: Rubio ramirez MD Physical Therapy 10/08/2020 01:30:00 PM EST [facility] ([facility]) Unknown [address] [facility], [place] [address] 10/05/2020 12:00:00 AM EST eCW1 ([facility]) Unknown [address] [facility], [place] [address] 10/01/2020 12:00:00 AM EST eCW1 ([facility]) Outpatient Attender: Abida Ga MD Physical Therapy 09/29 10:45:00 AM EST [facility] ([facility]) Unknown [address] [facility], [place] [address] 09/21/2020 12:00:00 AM EST eCW1 ([facility]) Unknown [address] [facility] [place] [address] 09/08/2020 12:00:00 AM EDT eCW1 ([facility]) Unknown [address] [facility] [place] [address] 09/02/2020 12:00:00 AM EDT eCW1 ([facility]) Immunizations Vaccine Date Status Description Data Source(s) COVID-19 VACCINE Pfizer 09/30/2021 12:00:00 AM EST completed [facility] Vaccine Series Complete: YESThis Data wa s Submitted to [facility] Via [employer]. COVID-19 VACC, MRNA([facility])/PF 09/30/2021 12:00:00 AM EST completed [facility] COVID-19 VACCINE Pfizer 01/07/2021 12:00:00 AM EST completed [facility] Vaccine Series Complete: YESThis Data wa s Submitted to [facility] Via [employer]. COVID-19 dose #2 given elsewhere Unspecified 12/18/2020 01:1 5:00 PM EST completed eCW1 ([facility]) COVID-19 dose #2 given elsewhere Unspecified 12/18/2020 01:1 5:00 PM EST completed eCW1 ([facility]) COVID-19 dose #2 given elsewhere Unspecified 12/18/2020 01:1 5:00 PM EST completed eCW1 ([facility]) COVID-19 dose #2 given elsewhere Unspecified 12/18/2020 01:1 5:00 PM EST completed eCW1 ([facility]) COVID-19 dose #2 given elsewhere Unspecified 12/18/2020 01:1 5:00 PM EST completed eCW1 ([facility]) COVID-19 dose #2 given elsewhere Unspecified 12/18/2020 01:1 5:00 PM EST completed eCW1 ([facility]) COVID-19 dose #2 given elsewhere Unspecified 12/18/2020 01:1 5:00 PM EST completed eCW1 ([facility]) COVID-19 dose #2 given elsewhere Unspecified 12/18/2020 01:1 5:00 PM EST completed eCW1 ([facility]) COVID-19 dose #2 given elsewhere Unspecified 12/18/2020 01:1 5:00 PM EST completed eCW1 ([facility]) COVID-19 dose #2 given elsewhere Unspecified 12/18/2020 01:1 5:00 PM EST completed eCW1 ([facility]) COVID-19 dose #2 given elsewhere Unspecified 12/18/2020 01:1 5:00 PM EST completed eCW1 ([facility]) COVID-19 dose #2 given elsewhere Unspecified 12/18/2020 01:1 5:00 PM EST completed eCW1 ([facility]) COVID-19 dose #2 given elsewhere Unspecified 12/18/2020 01:1 5:00 PM EST completed eCW1 ([facility]) COVID-19 dose #2 given elsewhere Unspecified 12/18/2020 01:1 5:00 PM EST completed eCW1 ([facility]) COVID-19 dose #2 given elsewhere Unspecified 12/18/2020 01:1 5:00 PM EST completed eCW1 ([facility]) COVID-19 dose #2 given elsewhere Unspecified 12/18/2020 01:1 5:00 PM EST completed eCW1 ([facility]) COVID-19 dose #2 given elsewhere Unspecified 12/18/2020 01:1 5:00 PM EST completed eCW1 ([facility]) COVID-19 VACCINE Pfizer 12/17/2020 12:00:00 AM EST completed [facility] Vaccine Series Complete: NOThis Data was Submitted to [facility] Via [facility]. COVID-19 dose #1 given elsewhere Unspecified 11/27/2020 01:1 4:00 PM EST completed eCW1 ([facility]) COVID-19 dose #1 given elsewhere Unspecified 11/27/2020 01:1 4:00 PM EST completed eCW1 ([facility]) COVID-19 dose #1 given elsewhere Unspecified 11/27/2020 01:1 4:00 PM EST completed eCW1 ([facility]) COVID-19 dose #1 given elsewhere Unspecified 11/27/2020 01:1 4:00 PM EST completed eCW1 ([facility]) COVID-19 dose #1 given elsewhere Unspecified 11/27/2020 01:1 4:00 PM EST completed eCW1 ([facility]) COVID-19 dose #1 given elsewhere Unspecified 11/27/2020 01:1 4:00 PM EST completed eCW1 ([facility]) COVID-19 dose #1 given elsewhere Unspecified 11/27/2020 01:1 4:00 PM EST completed eCW1 ([facility]) COVID-19 dose #1 given elsewhere Unspecified 11/27/2020 01:1 4:00 PM EST completed eCW1 ([facility]) COVID-19 dose #1 given elsewhere Unspecified 11/27/2020 01:1 4:00 PM EST completed eCW1 ([facility]) COVID-19 dose #1 given elsewhere Unspecified 11/27/2020 01:1 4:00 PM EST completed eCW1 ([facility]) COVID-19 dose #1 given elsewhere Unspecified 11/27/2020 01:1 4:00 PM EST completed eCW1 ([facility]) COVID-19 dose #1 given elsewhere Unspecified 11/27/2020 01:1 4:00 PM EST completed eCW1 ([facility]) COVID-19 dose #1 given elsewhere Unspecified 11/27/2020 01:1 4:00 PM EST completed eCW1 ([facility]) COVID-19 dose #1 given elsewhere Unspecified 11/27/2020 01:1 4:00 PM EST completed eCW1 ([facility]) COVID-19 dose #1 given elsewhere Unspecified 11/27/2020 01:1 4:00 PM EST completed eCW1 ([facility]) COVID-19 dose #1 given elsewhere Unspecified 11/27/2020 01:1 4:00 PM EST completed eCW1 ([facility]) COVID-19 dose #1 given elsewhere Unspecified 11/27/2020 01:1 4:00 PM EST completed eCW1 ([facility]) INFLUENZA VIRUS VACCINE QUADRIVALENT 2020-21 (6 MOS AN D UP) 09/25/2020 12:00:00 AM EST completed [facility] PNEUMOCOCCAL 13-VALENT CONJUGATE VACCINE (DIPHTHERIA C RM)/PF 09/25/2020 12:00:00 AM EST completed [facility] Medications Medication Brand Name Start Date Product Form Dose Route Admi nistrative Instructions Pharmacy Instructions Status Indications Reaction Description Data Source(s) Omeprazole 40 MG Delayed Release Oral Capsule Omeprazole 10/19/2021 12:00:00 AM EST ORAL active MED[facility] ([facility], ) 40 mg 10/19/2021 12:00:00 AM EST [...] EST active traMADol HCl 50 MG eCW1 ([facility]) tramadol hydrochloride 50 MG Oral Tablet traMADol HCl 50 MG traMADol HCl 50 MG 09/07/2021 12:00:00 AM EDT active traMADol HCl 50 MG eCW1 ([facility]) tramadol hydrochloride 50 MG Oral Tablet traMADol HCl 50 MG traMADol HCl 50 MG 09/07/2021 12:00:00 AM EDT active traMADol HCl 50 MG eCW1 ([facility]) 50 mg 09/07/2021 12:00:00 AM EDT tablet [...] 2 TABLETS IN THE EVENING SOLD: 08/31/2021 [facility] tizanidine 4 MG Oral Tablet TIZANIDINE HCL 08/28/2021 12:00:00 AM E DT tablet 540 TAKE TWO TABLETS BY MOUTH THREE TIMES A DAY NEEDED TAKE TWO TABLETS BY MOUTH THREE TIMES A DAY NEEDED SOLD: 08/31/2021 [facility] 300 mg 08/28/2021 12:00:00 AM EDT capsule 360 TAKE TWO CAPSULES BY MOUTH TWICE A DAY TAKE TWO CAPSULES BY MOUTH TWICE A DAY SOLD: 08/31/2021 [facility] 50 mg 08/06/2021 12:00:00 AM EDT tablet 60 TAKE 2 TABLETS BY MOUTH IN THE EVENING MAXIMUM DAILY DOSE = 2 TABLETS TAKE 2 TABLETS BY MOUTH IN THE EVENING MAXIMUM DAILY DOSE = 2 TABLETS SOLD: 08/10/2021 [facility] tramadol hydrochloride 50 MG Oral Tablet traMADol HCl 50 MG traMADol HCl 50 MG 08/03/2021 12:00:00 AM EDT active traMADol HCl 50 MG eCW1 ([facility]) tramadol hydrochloride 50 MG Oral Tablet traMADol HCl 50 MG traMADol HCl 50 MG 08/03/2021 12:00:00 AM EDT active traMADol HCl 50 MG eCW1 ([facility]) tramadol hydrochloride 50 MG Oral Tablet traMADol HCl 50 MG traMADol HCl 50 MG 08/03/2021 12:00:00 AM EDT active traMADol HCl 50 MG eCW1 ([facility]) tramadol hydrochloride 50 MG Oral Tablet traMADol HCl 50 MG traMADol HCl 50 MG 08/03/2021 12:00:00 AM EDT active traMADol HCl 50 MG eCW1 ([facility]) tramadol hydrochloride 50 MG Oral Tablet traMADol HCl 50 MG traMADol HCl 50 MG 08/03/2021 12:00:00 AM EDT active traMADol HCl 50 MG eCW1 ([facility]) 50 mg 07/07/2021 12:00:00 AM EDT tablet 60 TAKE TWO TABLETS BY MOUTH IN THE EVENING DIRECTED MAXIMUM DAILY DOSE = 2 TABLETS TAKE TWO TABLETS BY MOUTH IN THE EVENING DIRECTED MAXIMUM DAILY DOSE = 2 TABLETS SOLD: 07/08/2021 [facility] tramadol hydrochloride 50 MG Oral Tablet traMADol HCl 50 MG traM[facility] HCl 50 MG 07/06/2021 12:00:00 AM EDT active traMADol HCl 50 MG eCW1 ([facility]) Famotidine 40 MG Oral Tablet FAMOTIDINE 06/29/2021 [...] MAXIMUM DAILY DOSE = 2 SOLD: 05/06/2021 [facility] 50 mg 04/06/2021 12:00:00 AM EDT [...] BY MOUTH TWICE A DAY SOLD: 11/06/2020 [facility] 15 mg 09/08/2020 12:00:00 AM EDT tablet extended release 24hr 30 TAKE ONE TABLET BY MOUTH EVERY DAY TAKE ONE TABLET BY MOUTH EVERY DAY SOLD: 01/08/2021 [facility] 300 mg 09/08/2020 [...] BY MOUTH TWICE A DAY SOLD: 09/09/2020 [facility] Cyproheptadine hydrochloride 4 MG Oral Tablet [...] THREE TIMES A DAY NEEDED SOLD: 10/09/2020 [facility] 15 mg 09/08/2020 [...] MOUTH EVERY DAY SOLD: 12/09/2020 [facility] 300 mg 09/08/2020 12:00:00 AM [...] type / Coverage type Policy ID Covered alliance party ID Covered alliance party's relationship to pool Policy Pool Plan Information [employer] [id number] HU2 [id number] LIF[employer]IME BENEFIT SOLUTIONS U [id number] Spouse [id number] [employer] U [id number] Spouse [id number] [employer] U [id number] Spouse [id number] Lifetime Benefit Solution [facility] Part B [id number] Family Dependent [id number] Lifetime Benefit Solution Commercial [id number] Family Depend ent [employer] [id number] Spo [id number] [employer] [id number] Spo [id number] [employer] U [id number] Spouse [id number] [employer] (pr) Commercial [id number] Family Dependent [id number] [employer] (pr) Commercial [id number] Family Dependent [employer] [place] [id number] [place] [id number] [employer] [place] [id number] HU2 [id number] [employer] [place] [id number] HU2 [id number] [employer] [place] [id number] SP [id number] AETNA MEDICARE COMPLETE G [id number] Self [id number] ANSI-Medicare Part B [id number] ANSI-Commercial [id number] ANSI-Medicare Part B [id number] ANSI-Commercial [id number] ANSI-Commercial [id number] ANSI-Medicare Part B [id number] ANSI-Commercial [id number] ANSI-Medicare Part B [id number] ANSI-Commercial [id number] ANSI-Commercial [id number] ANSI-Commercial [id number] ANSI-Commercial [id number] ANSI-Commercial [id number] ANSI-Commercial [id number] ANSI-Commercial [id number] ANSI-Commercial [id number] ANSI-Commercial [id number]-[id number] ANSI-Commercial [id number] ANSI-Commercial [id number]-[id number] ANSI-Commercial [id number] ANSI-Commercial [id number]-[id number]-zkc2-3usl-[id number] ANSI-Commercial [id number]-[id number] ANSI-Commercial [id number] ANSI-Commercial [id number] ANSI-Commercial [id number] ANSI-Commercial 43exbumu-[id number] [id number]-7wsn-[id number] ANSI-Commercial [id number]-[id number] ANSI-Commercial [id number] ANSI-Commercial [id number] ANSI-Commercial [id number]-[id number]-[id number] [employer] [id number] ANSI-Commercial [id number] ANSI-Commercial [id number] ANSI-Commercial [id number]-[id number] ANSI-Commercial [id number]-[id number] [employer] [place] [id number] SP [id number] [employer] (HMO) [id number] Self [id number] [employer] Part B [id number] Family Dependent [id number] ANSI-Commercial [id number] ANSI-Commercial [id number] ANSI-Commercial [id number] ANSI-Commercial [id number] ANSI-Commercial [id number] ANSI-Commercial [id number] [id number]-[id number]-[id number] ANSI-Commercial [id number]-[id number] 574j1qa8-x8v5-74pp-k8nc-[id number] ANSI-Commercial [id number] [employer] [place] O [id number] P [id number] ANSI-Commercial [id number] ANSI-Commercial [id number]-bn33-5uw2-[id number] ANSI-Commercial [id number] ANSI-Commercial [id number] [id number]-[id number]-[id number] Lifetime Benefit Solution Medimcintosh Part B [id number] Family Dependent [id number] [employer] (pr) Commercial [id number] Family Dependent [id number] ANSI-Commercial [id number]-[id number] ANSI-Commercial [id number]-[id number]-w09w-[id number] ANSI-Commercial [id number] ANSI-Commercial [id number] ANSI-StyleTread b16mi26t-6t39-600p-z47h-32e7h69qe260 p49ow17z-9j13-284g-w94n-[id number] ANSI-StyleTread ef1tz62b-rh3c-372i-8n1e-191d3ga5u6y0 at7hd61n-lz1v-248z-7h2a-057w0dv0k2p9 ANSI-StyleTread [id number]-[id number] ANSI-StyleTread ir088xg9-37o9-1z01-x4p6-5l5exww31x41 xy404yn3-48y3-5q55-f5z2-0f1ptir85l81 ANSI-StyleTread [id number]-[id number] ANSI-Commercial [id number]-l79q-[id number]-[id number] ANSI-Commercial [id number]-r76h-881thr5d3sku ANSI-Commercial [id number]-[id number]-b9qd-65oug9y616zf [id number]-[id number]-[id number] [facility] [place] O [id number] P [id number] [employer] (pr) Commercial [id number] Family Dependent [id number] ANSI-Commercial [id number] ANSI-Commercial [id number] LIFETIME BENEFIT SOLUTIONS [id number] SPO [id number] ANSI-Commercial [id number]-[id number] ANSI-Commercial [id number]-[id number] ANSI-Commercial [id number]-[id number] ANSI-Commercial [id number]-4gd9-8xo7-7g6u-[id number]-o684b212jf11 ANSI-Commercial [id number]-[id number] ANSI-Commercial [id number] ID IDENTIFICATION [id number] Other Insurance [id number] [employer] [place] [id number] Commercial Ins urance [id number] [employer] Health Maintenance Organization (HMO) [id number] Self 6 [id number] [facility] [place] [id number] [employer]na Commercial [id number] Family Dependent [id number] [employer] Commercial [id number] Family Dependent [id number] [facility] [place] [id number] 2 [id number] Lifetime Benefit Solutions [id number] [employer]na Commercial [id number] Family Dependent SELF PAY ONLY UNAVAILABLE SP UNAV AILABLE LIF[employer]IME BENEF[employer] SOLUT[employer] [id number] Lifetime Benefit Solution Medigap Part B [id number] Family De pendent AETNA O [id number] P [id number] LIFETIME BENEFIT SOLUTIO O [id number] P [id number] Lifetime Benefit Solutions [id number] Lifetime Benefit Solution Commercial [id number] Family Depend ent RMSCO P [id number] P [id number] RMSCO [id number] 18 [id number] [employer] EXCELLUS O [id number] U [id number] RMSCO-O/P [id number] 01 [id number] AETNA MEDICARE MEBTFBBF SP MEBTF BBF [id number] AETNA MEDICARE MEBTFBBF SP MEBTF BBF Aetna [id number] SE [id number] [place] [id number] SE [id number] Aetna Medicare MEBTFBBF MEBTFBBF SE MEBTF BBF AETNA MEDICARE MEBTFBBF SP MEBTF BBF AETNA MEDICARE O MEBTFBBF [id number] S MEBTF BBF MEDICARE [id number] SP [id number] EMEDNY [id number] SP [id number] A[employer] Medicare [id number] 18 MEBTF BBF Medicare [place] [id number] 18 [id number] MEDICAID M [id number] S [id number] AETNA MEDICARE O MEBTFBBF [id number] S MEBTF BBF MEDICAID [id number] SP [id number] MEDICARE [id number] SP [id number] MEDICARE C [id number] S [id number] Problems, Conditions, and Diagnoses Code Display Name Description Problem Type Effective Dates Data Source(s) R13.13 [id number] Pharyngeal dysphagia Problem 08/05/2021 12:00:00 AM EDT eCW1 ([facility]) K21.9 [id number] Gastroesophageal reflux disease without e sophagitis Problem 02/11/2021 12:00:00 AM EDT eCW1 ([facility]) Surgeries/Procedures Procedure Description Date Indications Data Source(s) OFFICE OUTPATIENT VISIT 15 MINUTES 10/19/2021 12:00:00 AM EST MEDENT ([facility], ) LARYNGOSCOPY FLEXIBLE FIBEROPTIC DIAGNOSTIC 09/14/2021 12:00:00 AM EDT MEDENT ([facility], ) OFFICE OUTPATIENT NEW 30 MINUTES 09/14/2021 12:00:00 A M EDT MEDENT ([facility], ) ARTHROCENTESIS ASPIR&/INJECTION MAJOR JT/BURSA 021 12:00:00 AM EDT MEDENT ([facility]) RADEX SHOULDER COMPLETE MINIMUM 2 VIEWS 02/18/2021 12: 00:00 AM EDT MEDENT ([facility]) ARTHROCENTESIS ASPIR&/INJECTION MAJOR JT/BURSA 020 12:00:00 AM EST MEDENT ([facility]) Results ID Date Data Source VITB12 & FOL 08/05/2021 12:00:00 AM EDT eCW1 ([facility]) Name Value Range Interpretation Code Description Data Karen rce(s) Supporting Document(s) 22.4 FOLATE eCW1 ([facility]) 564 VITAMIN B12 LEVEL eCW1 ([facility]) ID Date Data Source VITAMIN D 25-HYDROXY 08/05/2021 12:00:00 AM EDT eCW1 ([facility]) Name Value Range Interpretation Code Description Data Karen rce(s) Supporting Document(s) 61.7 30.0-100.0 TOTAL 25(OH) VITAMIN D eC W1 ([facility]) ID Date Data Source LIPID PANEL (CARDIAC RISK) 08/05/2021 12:00:00 AM EDT eCW1 ( [facility]) Name Value Range Interpretation Code Description Data Karen rce(s) Supporting Document(s) Cholesterol [Moles/volume] in Serum or Plasma 204 <200 CHOLESTEROL LEVEL eCW1 ([facility]) Triglyceride [Mass/volume] in Serum or Plasma by calculation 119 <150 TRIGLYCERIDES LEVEL eCW1 ([facility]) Cholesterol in HDL [Moles/volume] in Serum or Plasma 64 >40 HDL CHOLESTEROL eCW1 ([facility]) 3.187 <5 CHOLESTEROL RISK RATIO eCW1 ([facility]) Cholesterol in LDL [Mass/volume] in Serum or Plasma by calculation 116 <100 LDL CHOLESTEROL eCW1 ([facility]) 140 NON-HDL-C eCW1 ([facility]) ID Date Data Source Comprehensive Metabolic Profile (CMP) 08/05/2021 12:00:00 AM EDT eCW1 ([facility]) Name Value Range Interpretation Code Description Data Karen rce(s) Supporting Document(s) 0.70 0.55-1.30 CREATININE FOR GFR eCW1 ([facility]) 14 7-18 BLOOD UREA NITROGEN eCW1 ([facility]) > 60.0 >45 GLOMERULAR FILTRATION RATE eCW 1 ([facility]) 70 70-100 GLUCOSE, FASTING eCW1 ([facility]) 5.0 3.5-5.1 POTASSIUM SERUM eCW1 ([facility]) 101 98-107 CHLORIDE LEVEL eCW1 ([facility]) 141 136-145 SODIUM LEVEL eCW1 ([facility]) 34 21-32 CARBON DIOXIDE LEVEL eCW1 ([facility]) 29 12-78 ALT/SGPT eCW1 ([facility]) 93 45-117 ALKALINE PHOSPHATASE eCW1 ([facility]) 0.6 0.2-1.0 BILIRUBIN,TOTAL eCW1 ([facility]) 9.6 8.8-10.2 CALCIUM LEVEL eCW1 ([facility]) 26 7-37 AST/SGOT eCW1 ([facility]) 3.1 3.2-5.2 ALBUMIN eCW1 ([facility]) 7.4 6.4-8.2 TOTAL PROTEIN eCW1 ([facility]) 0.7 1.2-2.2 ALBUMIN/GLOBULIN RATIO eCW1 ([facility]) ID Date Data Source CBC - Complete Blood Count 08/05/2021 12:00:00 AM EDT eCW1 ( [facility]) Name Value Range Interpretation Code Description Data Karen rce(s) Supporting Document(s) 9.5 4.0-10.0 WHITE BLOOD COUNT eCW1 ([facility]) 4.92 4.00-5.40 RED BLOOD COUNT eCW1 ([facility]) 92.1 80.0-96.0 MEAN CORPUSCULAR VOLUME e CW1 ([facility]) 45.3 36.0-47.0 HEMATOCRIT eCW1 ([facility]) 14.3 12.0-15.5 HEMOGLOBIN eCW1 ([facility]) 29.1 27.0-33.0 MEAN CORPUSCULAR HEMOGLOB IN eCW1 ([facility]) 13.5 11.5-14.5 RED CELL DISTRIBUTION WID TH eCW1 ([facility]) 277 150-450 PLATELET COUNT, AUTOMATED eCW1 ([facility]) 31.6 32.0-36.5 MEAN CORPUSCULAR HGB CONC eCW1 ([facility]) ID Date Data Source [id number] 05/28/2021 04:54:09 PM EDT [facility] EXAMINATION: 3D/2D BILATERAL SCREENING M AMMOGRAMIndication: ScreeningLast clinical breast exam: 2019Bre Cancer Risk Assessment:5 Year Risk (at current [...] rce(s) Supporting Document(s) ID Date Data Source [id number] 10/08/2020 03:41:00 PM EST MEDENT ([facility]) Name Value Range Interpretation Code Description Data Karen rce(s) Supporting Document(s) Calcium [Mass/volume] in Serum or Plasma 9.4 mg/dL 8.8-10.2 MEDENT ([facility]) Calcidiol [Mass/volume] in Serum or Plasma 58.5 ng/mL 30.0-100.0 MEDENT ([facility]) Procedure Social History Code Duration Value Status Description Data Source(s ) Smoking 08/05/2021 12:00:00 AM EDT Former Smoker completed Former Smoker eCW1 ([facility]) Smoking 08/05/2021 12:00:00 AM EDT Former Smoker completed Former Smoker eCW1 ([facility]) Smoking 08/05/2021 12:00:00 AM EDT Former Smoker completed Former Smoker eCW1 ([facility]) Smoking 08/05/2021 12:00:00 AM EDT Former Smoker completed Former Smoker eCW1 ([facility]) Smoking 08/05/2021 12:00:00 AM EDT Former Smoker completed Former Smoker eCW1 ([facility]) Smoking 08/05/2021 12:00:00 AM EDT Former Smoker completed Former Smoker eCW1 ([facility]) Smoking 08/05/2021 12:00:00 AM EDT Former Smoker completed Former Smoker eCW1 ([facility]) Smoking 02/18/2021 12:00:00 AM EDT Patient is a former smoker completed Patient is a former smoker MEDENT ([facility]) Smoking 02/11/2021 12:00:00 AM EDT Former Smoker completed Former Smoker eCW1 ([facility]) Smoking 02/11/2021 12:00:00 AM EDT Former Smoker completed Former Smoker eCW1 ([facility]) Smoking 02/11/2021 12:00:00 AM EDT Former Smoker completed Former Smoker eCW1 ([facility]) Smoking 02/11/2021 12:00:00 AM EDT Former Smoker completed Former Smoker eCW1 ([facility]) Smoking 02/11/2021 12:00:00 AM EDT Former Smoker completed Former Smoker eCW1 ([facility]) Smoking 02/11/2021 12:00:00 AM EDT Former Smoker completed Former Smoker eCW1 ([facility]) Smoking 02/11/2021 12:00:00 AM EDT Former Smoker completed Former Smoker eCW1 ([facility]) Smoking 02/11/2021 12:00:00 AM EDT Former Smoker completed Former Smoker eCW1 ([facility]) Smoking 02/11/2021 12:00:00 AM EDT Former Smoker completed Former Smoker eCW1 ([facility]) Smoking 02/11/2021 12:00:00 AM EDT Former Smoker completed Former Smoker eCW1 ([facility]) Smoking 01/14/2021 12:00:00 AM EST - 11/20/2017 12:00:00 AM EST Patient is a former smoker completed Patient is a former smoker [facility] ([facility]) Vital Signs ID Date Data Source UNK Name Value Range Interpretation Code Description Data Source(s) Body weight 52.164 kg 52.164 kg [facility] ([facility]) Body height 62 [in_i] 62 [in_i] MEDENT ([facility]) 5'2" Body surface area Derived from formula 1.51 m2 1.51 m2 [facility] ([facility]) Body weight 115.00 [lb_av] 115.00 [lb_av] MEDEN T ([facility]) Body mass index (BMI) [Ratio] 21.0 kg/m2 21.0 k g/m2 [facility] ([facility]) [place] body weight 110 [lb_av] 110 [lb_av] MEDEN T ([facility]) Body height 62 [in_i] 62 [in_i] [facility] ([facility]) 5'2" Body weight 115.00 [lb_av] 115.00 [lb_av] MEDEN T ([facility]) Body mass index (BMI) [Ratio] 21.0 kg/m2 21.0 k g/m2 [facility] ([facility]) [place] body weight 110 [lb_av] 110 [lb_av] MEDEN T ([facility]) Body weight 52.164 kg 52.164 kg [facility] ([facility]) Body surface area Derived from formula 1.51 m2 1.51 m2 [facility] ([facility]) Body weight 115 [lb_av] 115 [lb_av] eCW1 ([facility]) Body height [in_i] eCW1 ([facility]) Body weight 52.16 kg 52.16 kg eCW1 ([facility]) Body mass index (BMI) [Ratio] 21.03 kg/m2 21.03 kg/m2 eCW1 ([facility]) Body temperature 97 [degF] 97 [degF] eCW1 ([facility]) Respiratory rate 10 /min 10 /min eCW1 ([facility]) Diastolic blood pressure 82 mm[Hg] 82 mm[Hg] eCW1 ([facility]) Heart rate 78 /min 78 /min eCW1 ([facility]) Systolic blood pressure 120 mm[Hg] 120 mm[Hg] e CW1 ([facility]) Heart rate 84 /min 84 /min eCW1 ([facility]) Body weight 115 [lb_av] 115 [lb_av] eCW1 ([facility]) Respiratory rate 18 /min 18 /min eCW1 ([facility]) Body height [in_i] eCW1 ([facility]) Body mass index (BMI) [Ratio] 21.03 kg/m2 21.03 kg/m2 eCW1 ([facility]) Body temperature 98.2 [degF] 98.2 [degF] eCW1 ( [facility]) Systolic blood pressure 120 mm[Hg] 120 mm[Hg] e CW1 ([facility]) Diastolic blood pressure 80 mm[Hg] 80 mm[Hg] eCW1 ([facility]) Oxygen saturation in Arterial blood by Pulse oximetry 98 % 98 % MEDRAFIA ([facility], ) Room Air Body height 62 [in_i] 62 [in_i] MEDENT ([facility], ) 5'2" Systolic blood pressure 120 mm[Hg] 120 mm[Hg] M EDENT ([facility], ) Diastolic blood pressure 70 mm[Hg] 70 mm[Hg] MEDENT ([facility], ) Heart rate 70 /min 70 /min MEDENT ([facility], ) Body weight 125.00 [lb_av] 125.00 [lb_av] MEDEN T ([facility], ) stated Body mass index (BMI) [Ratio] 22.9 kg/m2 22.9 k g/m2 MEDENT ([facility]) [place] body weight 110 [lb_av] 110 [lb_av] MEDEN T ([facility]) Body weight 56.700 kg 56.700 kg [facility] ([facility]) Body surface area Derived from formula 1.57 m2 1.57 m2 [facility] ([facility]) Body mass index (BMI) [Ratio] 22.9 kg/m2 22.9 k g/m2 [facility] ([facility]) Body weight 125.25 [lb_av] 125.25 [lb_av] MEDEN T ([facility]) stated Oxygen saturation in Arterial blood by Pulse oximetry 98 % 98 % [facility] ([facility]) Body height 62 [in_i] 62 [in_i] [facility] ([facility]) 5'2" Systolic blood pressure 122 mm[Hg] 122 mm[Hg] [facility] Diastolic blood pressure 80 mm[Hg] 80 mm[Hg] MEDENT ([facility]) Heart rate 76 /min 76 /min [facility] ([facility]) Body temperature 96.5 [degF] 96.5 [degF] [facility] ([facility]) Patient Treatment Plan of Care Planned Activity Planned Date Details Description Data Source (s) tramadol hydrochloride 50 MG Oral Tablet 10/12/2021 12:00:00 AM EST eCW1 ([facility]) tramadol hydrochloride 50 MG Oral Tablet 09/07/2021 12:00:00 AM EDT eCW1 ([facility]) tramadol hydrochloride 50 MG Oral Tablet 09/07/2021 12:00:00 AM EDT eCW1 ([facility]) tramadol hydrochloride 50 MG Oral Tablet 08/03/2021 12:00:00 AM EDT eCW1 ([facility]) tramadol hydrochloride 50 MG Oral Tablet 07/06/2021 12:00:00 AM EDT eCW1 ([facility])
--- NOTE | 2021-10-30 21:35 | HPEPDOC ---
[facility] Medical History & Physical Date of Admission Oct 30, 2021 Date of Service: Oct 30, 2021 Primary Care Physician: KEITH FLORES PA-C Attending Physician: JABIER TRAVIS MD History and Physical striaCHIEF COMPLAINT: syncope HISTORY OF PRESENT ILLNESS: Patient is a 66-year-old female who presents after a syncopal event around 1400 this afternoon. The patient reports that she feels like she may be just dozed off and then was woken up by a customer who was con cerned and then proceeded to call the patient's daughter. She denies any recent medication changes, but does think she has been eating a little bit less in the last 24 to 36 hours. Denies any history of seizures or strokes in the past. The patient's daughter proceeded to bring her to the emergency department around 1500 and on arrival her blood pressure was in the 90s systolic so she was given a 500 cc bolus of normal saline which improved her blood pressure substantially. Her work-up in the emergency department showed a normal CBC, BMP, cardiac marker, chest x-ray, with no acute findings on head CT. On speaking with her daughter on the phone, Madeleine stated that the customer reported the patient was disoriented and her speech was slurred and by the time she got there things were about the same. She was putting things away where they were meant to go. The daughter reports last time this happened the patient had pneumonia and was hypoxic. On arrival to the ED, it was difficult to say if things had improved as the patient was stating she felt perfectly fine. The hospitalist service was contacted for work up of the patient's syncope. PAST MEDICAL HISTORY: Neurogenic bladder 2/2 T5 spinal injury-chronic gomez catheter Arthritis MIGDALIA noncompliant with CPAP Hx horseback riding accident with T-spine injury, T5 paraplegia Hx DVT IVC filter S/p pacemaker Osteoporosis Hx nicotine use disorder History of muscle spasms of both lower legs PAST SURGICAL HISTORY: Pacemaker placement 2002 Spinal cord surgery with neha placement x2 2002 Cystoscopy 09/2014 Hemorrhoidectomy 02/2017 Colonoscopy 02/2017 SOCIAL HISTORY: Former smokerquit 2 years ago, 43-wtsb-njyw history Denies recreational drug use Denies alcohol use Uses a wheelchair for mobility FAMILY HISTORY: Father at 42 years old from [place] Mother with history of hypertension Maternal aunt with breast cancer ALLERGIES: Please see below. REVIEW OF SYSTEMS: Constitutional: Denies fevers, chills, night sweats, or recent unexpected weight change HEENT: Denies headaches, head trauma, no visual changes or eye pain, denies nosebleeds or difficulty swallowing. Cardiovascular: Denies chest pain, palpitations, or orthopnea. Respiratory: Denies cough, wheezing, or shortness of breath GI: Denies nausea, vomiting, abdominal pain, diarrhea, or constipation : Has no feeling below her waist so is unsure if she has any burning with urination, she self caths Musculoskeletal: Denies joint pain or swelling Neuro/psych: Denies new muscle weakness or sensory loss Skin: Denies skin rashes HOME MEDICATIONS: Please see below. PHYSICAL EXAMINATION: VITAL SIGNS: See below GENERAL APPEARANCE: Cold-appearing female laying comfortably in bed in no acute distress HEENT: NC, AT, EOMI, no scleral icterus, moist mucous membranes, no pharyngeal erythema. CARDIOVASCULAR: RRR, normal S1-S2. No murmurs, gallops, rubs. LUNGS: CTAB with full breath sounds, no wheezes, crackles, or rhonchi. ABDOMEN: Soft, nontender, nondistended, bowel sounds normoactive EXTREMITIES: No swelling, edema, or rashes, gomez catheter bag on leg shows clear, yellow urine NEUROLOGICAL: No focal or sensory deficits in bilateral upper extremities. CN I I-XII intact. A/Ox4 PSYCHIATRIC: Normal mood and affect LABORATORY DATA: See below. IMAGIN10/30/2021 chest x-ray: "IMPRESSION: No evidence of acute cardiopulmonary pathology. Other findings as noted." 10/30/[address] "IMPRESSION: 1. No acute or concerning focal intracranial abnormality. 2. Chronic inferior right frontal lobe encephalomalacia " MICROBIOLOGY: Please see below. Assessment/Plan: #. Syncopeof unclear etiology History of slurred speech and disorientation could be consistent with a seizure, EEG ordered S/p 500 cc bolus in ED with improvement of blood pressure, supine/upright orthostats ordered, low clinical suspicion for this being the etiology Cardiac markers and EKG normal, TTE and telemetry ordered, Q4 hours neuro checks #. Hx of neurogenic bladder Continue oxybutynin #. Hx of muscle spasms Continue home cyproheptadine, tramadol, gabapentin, tizanidine #. GERD Continue home famotidine, omeprazole #. Chronic inferior frontal encephalomalacia Daughter informed of finding, low clinical suspicion this is anything to do with this event, advised neurology follow-up outpatient DVT prophylaxis: Lovenox Disposition: Inpatient, expect at least 2 midnights CODE STATUS: Full code Vital Signs Vital Signs Date Time Temp Pulse Resp B/P (MAP) Pulse Ox O2 Delivery O2 Flow Rate FiO2 10/30/21 18:19 69 18 164/96 (118) 97 Room Air 10/30/21 15:53 97.9 Laboratory Data Labs 24H Laboratory Tests 2 10/30/21 17:49: Immature Granulocyte % (Auto) 0.3, Neutrophils (%) (Auto) 80.8H, Lymphocytes (%) (Auto) 9.7L, Monocytes (%) (Auto) 7.9, Eosinophils (%) (Auto) 0.9, Basophils (%) (Auto) 0.4, Neutrophils # (Auto) 8.3, Lymphocytes # (Auto) 1.0L, Monocytes # (Auto) 0.8, Eosinophils # (Auto) 0.1, Basophils # (Auto) 0.0, Nucleated Red Bl ood Cells % (auto) 0.0, Anion Gap 4L, Glomerular Filtration Rate > 60.0, Calcium Level 9.9, Total Bilirubin 0.4, Direct Bilirubin < 0.1, Aspartate Amino Transf (AST/SGOT) 25, Alanine Aminotransferase (ALT/SGPT) 19, Alkaline Phosphatase 99, Total Creatine Kinase 50, Creatine Kinase MB 1.0, Creatine Kinase MB Relative Index 2.00, Troponin I High Sensitivity 17.0, Total Protein 7.9, Albumin 3.3, Albumin/Globulin Ratio 0.7L, Thyroid Stimulating Hormone (TSH) 1.160, Coronavirus (COVID-19)(PCR) NEGATIVE, Influenza Type A (RT-PCR) NEGATIVE, Influenza Type B (RT-PCR) NEGATIVE, Respiratory Syncytial Virus (PCR) NEGATIVE CBC/BMP Laboratory Tests 10/30/21 17:49 Home Medications Scheduled Calcium Carbonate/Vitamin D3 (Oysco 500-Vit D3 200 Tablet) 1 Each Tablet, 1 TAB PO BID Cyproheptadine HCl (Cyproheptadine HCl) 4 Mg Tablet, 4 MG PO BID MORNING, NOON Cyproheptadine HCl (Cyproheptadine HCl) 4 Mg Tablet, 8 MG PO QHS Famotidine (Famotidine) 40 Mg Tablet, 40 MG PO DAILY Gabapentin (Gabapentin) 300 Mg Capsule, 600 MG PO BID Omeprazole (Omeprazole) 40 Mg Capsule.dr, 40 MG PO DAILY Oxybutynin Chloride (Oxybutynin Chloride ER) 15 Mg Tab.er.24, 15 MG PO DAILY Scheduled PRN Tizanidine HCl (Tizanidine HCl) 4 Mg Tablet, 8 MG PO TID PRN for MUSCLE SPASMS Tramadol HCl (Tramadol HCl) 50 Mg Tablet, 100 MG PO DAILY PRN for PAIN Allergies Coded Allergies: No Known Allergies (Unverified , 08/15/19) GME ATTESTATION GME ATTESTATION My faculty preceptor for this patient encounter was physically present during the encounter and was fully available. All aspects of the patient interview, examination, medical decision making process, and medical care plan development were reviewed and approved by the faculty preceptor. The faculty preceptor is aware and concurs with the plan as stated in the body of this note and will attest to such by his/her cosignature. BECKY FALLON DO Oct 30, 2021 21:35
[2021-10-30 23:20] VITALS: BP 191/106
[2021-10-30 23:35] VITALS: BP_SYST 186; BP_SYST 188; BP_DIAS 104
[2021-10-30] MEDS: GABAPENTIN 300 MG CAP PO SCH (23:36)
[2021-10-30 23:44] VITALS: BP 186/104
[2021-10-30 23:56] VITALS: BP_SYST 186; BP_SYST 188; BP_DIAS 104
[2021-10-31] MEDS ORDERED: **hydrALAZINE HCL** 25 MG TAB PO ONE
[2021-10-31 00:25] VITALS: BP 146/78
[2021-10-31 00:33] VITALS: BP 160/93
[2021-10-31] MEDS ORDERED: cefTRIAXone SOD 1 GM in D5W MINI-BAG PLUS 50 ML IV SCH (05:00)
--- NOTE | 2021-10-31 05:31 | ECGEPIP ---
[facility] - ED Test Date: 2021-10-30 Pat Name: IVORY NGUYEN Department: Room: - Gender: Female Preparation Operator: ALEN : [id number] Requested By: ALE Chan Order Number: [id number] Reading MD: Barrie Bean Measurements Intervals Homer Rate: 67 P: 60 AR: 156 QRS: 66 QRSD: 66 T: 104 QT: 408 QTc: 431 Interpretive Statements Normal sinus rhythm Possible Left atrial enlargement POOR R WAVE PROGRESSION Left ventricular hypertrophy with repolarization abnormality ( [place]Solis ) SIMILAR TO 08/15/19 Electronically Signed on 10-31-2021 5:31:09 EST by Barrie Bean
[2021-10-31 06:00] VITALS: BP 155/87
[2021-10-31 06:26] LABS: HEMATOCRIT 41.4 % (36.0-47.0); HEMOGLOBIN 13.4 g/dl (12.0-15.5); MEAN CORPUSCULAR HEMOGLOBIN 29.1 pg (27.0-33.0); MEAN CORPUSCULAR HGB CONC 32.4 g/dl (32.0-36.5); MEAN CORPUSCULAR VOLUME 89.8 fl (80.0-96.0); PLATELET COUNT, AUTOMATED 223 10^3/uL (150-450); RED BLOOD COUNT 4.61 10^6/uL (4.00-5.40); WHITE BLOOD COUNT 11.7 10^3/uL (4.0-10.0)
[2021-10-31 06:53] LABS: BLOOD UREA NITROGEN 13 MG/DL (7-18); CALCIUM LEVEL 8.8 MG/DL (8.8-10.2); CARBON DIOXIDE LEVEL 30 MEQ/L (21-32); CHLORIDE LEVEL 103 MEQ/L (98-107); CREATININE FOR GFR 0.75 MG/DL (0.55-1.30); GLOMERULAR FILTRATION RATE > 60.0 (>45); GLUCOSE, FASTING 80 MG/DL (70-100); SODIUM LEVEL 139 MEQ/L (136-145)
[2021-10-31] MEDS: oxyBUTYnin *DITROPAN XL* 5 MG TABCR PO SCH (08:29)
[2021-10-31] MEDS: OMEPRAZOLE 20 MG CAP PO SCH (08:29)
[2021-10-31] MEDS: FAMOTIDINE 20 MG TAB PO SCH (08:30)
[2021-10-31] MEDS: ENOXAPARIN 40MG/0.4ML SYRINGE (J1650 PER 10MG) SC SCH ×2 (08:30→08:36)
[2021-10-31] MEDS: CYPROHEPTADINE 4 MG TAB PO SCH ×3 (08:30→22:29)
[2021-10-31] MEDS: GABAPENTIN 300 MG CAP PO SCH ×2 (08:30→22:29)
[2021-10-31] MEDS ORDERED: CEPH500C PO (12:49)
[2021-10-31] MEDS: CEPHALEXIN 500 MG CAP PO SCH ×2 (13:04→17:35)
[2021-10-31 14:00] VITALS: BP 131/74
--- NOTE | 2021-10-31 17:10 | IPNPDOC ---
Text Note Date of Service The patient was seen on 10/31/21. NOTE Subjective: Patient is a 66-year-old female presented after syncopal event that happened around 1400 yesterday afternoon. Patient states she is feeling much better today. Patient was unable to get echocardiogram and EEG done today. Patient may have had a seizure based on the history that was received by the admitting provider. 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 Patient thinks she is dozed off. Patient says that she is feeling much better today. Review of systems: General: Patient denies fevers HEENT: Patient denies headaches Cardiovascular: Patient denies chest pain Respiratory: Patient denies shortness of breath, cough GI: Patient denies abdominal pain, nausea, vomiting, diarrhea : Patient states she usually either straight caths or wears a leg bag. Extremities: Patient denies swelling or pain in extremities Neurological: Patient denies numbness or tingling in legs Physical exam: Vitals: See below General: Alert and oriented female patient who was sitting up in bed when I walked in. Patient did not appear to be in any acute distress. HEENT: Normocephalic, atraumatic, moist mucous membranes. Neck: No lymphadenopathy or thyromegaly Cardiac: Regular rate and rhythm, no murmurs, normal S1, normal S2 Pulm: Clear to auscultation bilaterally. 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 Syncope of unclear etiology. She had a history of slurred speech and disorientation that can be consistent with seizure. EEG has been ordered but is not been performed. Echocardiogram is also been ordered not been performed. EKG has been normal and other laboratory studies have been within normal range. 2. History of neurogenic bladder. Continue oxybutynin and either intermittent cathing or indwelling catheter as she does at home. 3. History of muscle spasm. Continue home medications. 4. GERD. Continue home famotidine. 5. Chronic inferior frontal encephalomalacia. Low clinical suspicion that this has anything to the event. Advised neurology follow-up outpatient. 6. Urinary tract infection. Patient has a urinary tract infection based on urinary analysis. Ceftriaxone was given yesterday. Patient will be switched to p.o. Keflex. DVT Prophylaxis: Lovenox Disposition: Pending echocardiogram and EEG VS,Fishbone, I+O VS, Fishbone, I+O Laboratory Tests 10/30/21 17:49 10/31/21 05:27 Vital Signs Date Time Temp Pulse Resp B/P (MAP) Pulse Ox O2 Delivery O2 Flow Rate FiO2 10/31/21 14:00 97.9 118 22 131/74 (93) 97 Room Air I&O- Last 24 Hours up to 6 AM 10/31/21 06:00 Intake Total 670 ml Output Total 250 ml Balance 420 ml JENIFFER MARTINEZ DO Oct 31, 2021 17:10
[2021-10-31] MEDS ORDERED: CEPHALEXIN 500 MG CAP PO SCH (21:00)
[2021-10-31 22:32] VITALS: BP 136/68
[2021-11-01] MEDS: cefTRIAXone SOD 1 GM in D5W MINI-BAG PLUS 50 ML IV SCH (04:01)
[2021-11-01 06:00] VITALS: BP 141/85
[2021-11-01 06:50] LABS: HEMATOCRIT 42.5 % (36.0-47.0); HEMOGLOBIN 13.8 g/dl (12.0-15.5); MEAN CORPUSCULAR HEMOGLOBIN 28.9 pg (27.0-33.0); MEAN CORPUSCULAR HGB CONC 32.5 g/dl (32.0-36.5); MEAN CORPUSCULAR VOLUME 89.1 fl (80.0-96.0); PLATELET COUNT, AUTOMATED 195 10^3/uL (150-450); RED BLOOD COUNT 4.77 10^6/uL (4.00-5.40); WHITE BLOOD COUNT 16.2 10^3/uL (4.0-10.0)
[2021-11-01 07:14] LABS: BLOOD UREA NITROGEN 12 MG/DL (7-18); CALCIUM LEVEL 8.8 MG/DL (8.8-10.2); CARBON DIOXIDE LEVEL 30 MEQ/L (21-32); CHLORIDE LEVEL 104 MEQ/L (98-107); CREATININE FOR GFR 0.53 MG/DL (0.55-1.30); GLOMERULAR FILTRATION RATE > 60.0 (>45); GLUCOSE, FASTING 82 MG/DL (70-100); POTASSIUM SERUM 3.2 MEQ/L (3.5-5.1); SODIUM LEVEL 142 MEQ/L (136-145)
[2021-11-01] MEDS: ENOXAPARIN 40MG/0.4ML SYRINGE (J1650 PER 10MG) SC SCH (09:00)
[2021-11-01] MEDS: OMEPRAZOLE 20 MG CAP PO SCH (09:30)
[2021-11-01] MEDS: GABAPENTIN 300 MG CAP PO SCH ×2 (09:30→20:38)
[2021-11-01] MEDS: CYPROHEPTADINE 4 MG TAB PO SCH ×3 (09:30→20:38)
[2021-11-01] MEDS: FAMOTIDINE 20 MG TAB PO SCH (09:30)
[2021-11-01] MEDS: oxyBUTYnin *DITROPAN XL* 5 MG TABCR PO SCH (09:30)
--- NOTE | 2021-11-01 13:06 | IPNPDOC ---
Text Note Date of Service The patient was seen on 11/01/21. 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 As of today patient reports feeling much better, just as well as yesterday and expresses desire to go home. She notes no sensation of palpitation or light-headedness. During rounding patient was getting an echo performed and currently we are waiting on urine cultures to determine best course of action. Currently urine collection shows clear slightly yellow coloration. Patients daughter has been contacted regarding the UTI being a barrier to discharge as well as the pending results of EEG, echo, and urine cultures. ROS: General: patient denies chills/fever HEENT: Patient denies dizziness, light headedness, headache, or vision changes Cardio: Denies chest pressure/pain Respiratory: Denies cough and SOB GI: Denies diarrhea, constipation, notes no bowel movements since admission : Reports grayish urine the day of admission but now notes its clear, no increased frequency or hematuria Extremities: patient denies edema in legs Neurological: Patient remarks on T5 spinal injury and the inability to feel or move her lower body Objective: Vitals: See below General: A well appearing 66 year old female who looks her state age and is in no acute distress. HEENT: NC/AT, EOMI, mucous membranes moist Cardio: Murmur noted with pacemaker implanted, RRR with no gallops Respiratory: Rhonchi appreciated in right lower lobe, otherwise clear to auscultation with no rales or wheezing Abdominal: Nondistened, no sensation in this region due to T5 injury, bowel sounds are normoactive Extremities: No edema bilaterally in LE Imaging: - Awaiting echo report. Assesment: Kori Velasquez is a 66 year old female who presented to the ED after a syncopal event where she lost consciousness in her daughters store in her wheelchair with no associated fall. #. Syncope of unknown etiology - Customer in store remarked on slurred speech/ disorientation after awakening that suggests post-ictal state and may be seizure related. #. Hx neurogenic bladder - continue straight cath as done at home or intermittent cathing - continue oxybutynin #. Hx muscle spasm - continue home meds #. GERD - continue famotidine #. Chronic inferior frontal encephalomalacia - likely unrelated to this syncopal event - advised to follow up outpatient w/ neurology #. UTI - Initial UA suggests UTI - patient switched back to IV ceftriaxone from keflex - current leukocytosis - Urine culture showing 2 different gram (-) rods and 2 different gram 9+) cocci all with >100,000 CFU's, information of sensitivities will be available tomorrow morning. Since the patient had a fever last night, patient was switched back to IV ceftriaxone which will be continued until culture sensitivities can be available. Because of this, I do not believe that the patient can be discharged home at this time. DVT Prophylaxis: Lovenox Disposition: Pending EEG, echo, and urine culture VS,Fishbone, I+O VS, Fishbone, I+O Laboratory Tests 11/01/21 05:39 Vital Signs Date Time Temp Pulse Resp B/P (MAP) Pulse Ox O2 Delivery O2 Flow Rate FiO2 11/01/21 06:00 99.1 78 18 141/85 (103) 94 Room Air I&O- Last 24 Hours up to 6 AM 11/01/21 06:00 Intake Total 460 ml Output Total 1275 ml Balance -815 ml GME ATTESTATION GME ATTESTATION My faculty preceptor for this patient encounter was physically present during the encounter and was fully available. All aspects of the patient interview, examination, medical decision making process, and medical care plan development were reviewed and approved by the faculty preceptor. The faculty preceptor is aware and concurs with the plan as stated in the body of this note and will attest to such by his/her cosignature. ATTENDING NOTE I, Chapin Martinez DO, have independently examined this patient and performed my own physical exam, as well as reviewed the documentation and edited where necessary. I have discussed in detail with the student the findings and plan of treatment as documented by the student and edited their note. I agree with their findings and treatment plan and have edited their documentation. I will continue to follow the patient during this hospital stay. HARPREET PAT OMS-3 Nov 01, 2021 13:06 CHAPIN MARTINEZ DO Nov 01, 2021 18:34
[2021-11-01 14:10] LABS: BASO % 0.2 % (0.0-1.0); EOS % 0.2 % (0.0-3.0); LYMPH % 12.4 % (24.0-44.0); MONO # 1.9 10^3/uL (0.0-0.8); NEUTROPHILS % 74.9 % (36.0-66.0)
[2021-11-01 15:47] VITALS: BP 144/87
[2021-11-01 22:00] VITALS: BP 155/85
[2021-11-02] MEDS: cefTRIAXone SOD 1 GM in D5W MINI-BAG PLUS 50 ML IV SCH (04:43)
[2021-11-02 06:20] VITALS: BP 147/81
[2021-11-02 08:05] LABS: BASO % 0.2 % (0.0-1.0); EOS # 0.2 10^3/uL (0.0-0.5); EOS % 1.7 % (0.0-3.0); HEMATOCRIT 41.2 % (36.0-47.0); HEMOGLOBIN 13.3 g/dl (12.0-15.5); LYMPH # 1.7 10^3/uL (1.5-5.0); LYMPH % 14.1 % (24.0-44.0); MEAN CORPUSCULAR HEMOGLOBIN 28.9 pg (27.0-33.0); MEAN CORPUSCULAR HGB CONC 32.3 g/dl (32.0-36.5); MEAN CORPUSCULAR VOLUME 89.4 fl (80.0-96.0); MONO # 1.2 10^3/uL (0.0-0.8); MONO % 9.6 % (2.0-8.0); NEUTROPHILS # 8.9 10^3/uL (1.5-8.5); PLATELET COUNT, AUTOMATED 188 10^3/uL (150-450); RED BLOOD COUNT 4.61 10^6/uL (4.00-5.40)
--- NOTE | 2021-11-02 08:05 | EEG ---
ELECTROENCEPHALOGRAM DATE: 11/01/2021 REFERRING PHYSICIAN: JABIER TRAVIS MD DIAGNOSIS: Syncope versus seizure. EEG#: [id number] HISTORY: The patient is a 66-year-old woman who was admitted at [facility] due to episode of passing out. The patient stated that she did not fall asleep and was just woken up by a customer when she dozed off. This EEG was done to rule out epileptic potential. She is currently taking ceftriaxone, cyproheptadine, omeprazole, Pepcid, oxybutynin, cephalexin, Gabapentin, tizanidine, Tramadol, etc. TECHNICAL DESCRIPTION: This digital electroencephalogram (EEG) was recorded by 21 scalp, ear, and two electrocardiogram (EKG) electrodes and was reviewed in bipolar and referential montages following reformatting in 10-20 international electrode placement system. INTERPRETATION: The patient was noted to be in awake and drowsy states during this EEG. Resting and awake background rhythm consisted of well-formed posterior dominant rhythm with anterior/posterior gradient comprising of 9 Hz alpha activity measuring 15-40 microvolts in amplitude which was symmetric and reactive to eye opening. Attenuation of posterior dominant rhythm was seen during transition to drowsiness. Stage I and II sleep were reviewed and were symmetric bilaterally. Hyperventilation could not be performed. Photic stimulation remained unremarkable. EKG revealed normal sinus rhythm. No focal, lateralizing, or epileptiform abnormalities were seen. No relevant clinical activity was noted. CONCLUSION: This EEG in awake, drowsy states, stage I and II sleep is within normal limits.
[2021-11-02 08:17] LABS: BLOOD UREA NITROGEN 10 MG/DL (7-18); CALCIUM LEVEL 8.5 MG/DL (8.8-10.2); CARBON DIOXIDE LEVEL 29 MEQ/L (21-32); CHLORIDE LEVEL 107 MEQ/L (98-107); CREATININE FOR GFR 0.57 MG/DL (0.55-1.30); GLOMERULAR FILTRATION RATE > 60.0 (>45); GLUCOSE, FASTING 89 MG/DL (70-100); MAGNESIUM LEVEL 2.1 MG/DL (1.8-2.4); POTASSIUM SERUM 3.2 MEQ/L (3.5-5.1); SODIUM LEVEL 141 MEQ/L (136-145)
[2021-11-02] MEDS ORDERED: POTASSIUM CHLORIDE 10MEQ SR TABLET PO ONE ×2 (08:25→10:40)
[2021-11-02] MEDS ORDERED: CEFD300C PO (08:54)
[2021-11-02] MEDS: ENOXAPARIN 40MG/0.4ML SYRINGE (J1650 PER 10MG) SC SCH (09:00)
[2021-11-02] MEDS: FAMOTIDINE 20 MG TAB PO SCH (09:41)
[2021-11-02] MEDS: GABAPENTIN 300 MG CAP PO SCH (09:41)
[2021-11-02] MEDS: CYPROHEPTADINE 4 MG TAB PO SCH (09:41)
[2021-11-02] MEDS: OMEPRAZOLE 20 MG CAP PO SCH (09:41)
[2021-11-02] MEDS: oxyBUTYnin *DITROPAN XL* 5 MG TABCR PO SCH (09:42)
--- NOTE | 2021-11-02 12:46 | DS.PDOC ---
Discharge Summary General Date of Admission Oct 30, 2021 at 20:44 Date of Discharge 11/02/21 Attending Physician: ANNEL SMITH MD Discharge Summary PROCEDURES PERFORMED DURING STAY: None. ADMITTING DIAGNOSES: #. Neurogenic bladder 2/2 T5 spinal injury, paraplegia, due to horse riding accident, chronic gomez catheter #. Arthritis #. Osteoporosis #. Hx DVT #. MIGDALIA noncompliant w/CPAP #. IVC filter #. Pacemaker #. Hx nicotine use disorder 3. Hx muscle spasms bilateral LE DISCHARGE DIAGNOSES: #. Syncope of unknown etiology #. Complicated UTI #. Neurogenic bladder 2/2 T5 spinal injury, paraplegia, due to horse riding accident, chronic gomez catheter #. Arthritis #. Osteoporosis #. Hx DVT #. MIGDALIA noncompliant w/CPAP #. IVC filter #. Pacemaker #. Hx nicotine use disorder 3. Hx muscle spasms bilateral LE COMPLICATIONS/CHIEF COMPLAINT: Hypotension, Syncope. 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 A customer found her unconscious in her wheelchair and upon awakening reported to her daughter that she was slurring words and confused. Patient denied any past history of seizure/stroke, however daughter noted that this has happened before during that episode patient was hypoxic with pneumonia. A multi-etiology workup for seizure has been performed and during the hospital stay patient was found to have a complicated UTI and was on antibiotics during the stay. On day of discharge patient reports feeling much better and happy, with an emphasized desire to go home. HOSPITAL COURSE: Patient was brought to the ED by her daughter after the syncopal event. In the ED her systolic BP was in the 90's so they administered a 500 cc bolus of NS that improved her pressures. Ed workup involved a CBC, BMP, CXR, cardiac marker, and a head CT that showed no acute findings. During stay patient was kept on telemetry with Q4H neuro checks, an EEG, EKG, and echo all ordered for syncopal workup. During stay UA and elevated WBC count indicated a UTI and so patient was given rocephin, then keflex, then back to rocephin to treat. patient was noted to be mildly hypokalemic and oral repletion was ordered. Echo was performed but report is still pending. EEG came back with no substantial findings. Head CT noted chronic frontal encephalomalacia with low clinical suspicion that this was relevant to the syncope. Urine cultures returned with 2 types of E.coli and Staph Aureus so patient will be discharged on Cefdinir. Elevated WBC is downtrending. Patient was maintained on most home meds for chronic medical problems as well as lovenox for DVT prophylaxis during the hodpital course. DISCHARGE MEDICATIONS: Please see below. ALLERGIES: Please see below. PHYSICAL EXAMINATION ON DISCHARGE: VITAL SIGNS: Please see below. GENERAL: Patient is a well appearing 66 year old who looks her age and is in no acute distress. HEENT: NC/AT, PERRLA, EOMI with moist mucous membranes. CARDIOVASCULAR EXAMINATION: Murmur auscultated s/p pacemaker with RRR and no gallops RESPIRATORY EXAMINATION: CTAB with end expiratory wheezes in lung bases bilaterally. ABDOMINAL EXAMINATION: Patient cannot feel below level of T5 but denies constipation or diarrhea and is nondistended. EXTREMITIES: No edema appreciated. SKIN: Good skin turgor PSYCHIATRIC EXAMINATION: Mood and affect appropriate. LABORATORY DATA: Please see below. IMAGING: #. 10/30/21 CXR: - FINDINGS: There is scarring in the right lung apex. The lungs are otherwise clear. The heart borders are normal. There is calcific vascular disease of the thoracic aorta. There is a single lead pacemaker. There are Myers rods extending from T1-T10. - IMPRESSION: No evidence of acute cardiopulmonary pathology. Other findings as noted. #. 10/30/[address]: IMPRESSION: - No acute or concerning focal intracranial abnormality. - Chronic inferior right frontal lobe encephalomalacia #. 11/02/21 EEG: CONCLUSION: - This EEG in awake, drowsy states, stage I and II sleep is within normal limits. PROGNOSIS: Good. ACTIVITY: As tolerated. DIET: As tolerated. DISCHARGE PLAN: Home. DISPOSITION: 01 Home, Self-Care. DISCHARGE INSTRUCTIONS: - Please comply with treatment plan and medications and return to the ER if you experience any problems. - Follow-up with PCP within 5 to 7 days of discharge. please call to confirm/ schedule appointment. ITEMS TO FOLLOWUP ON ON OUTPATIENT: - Complicated UTI - Neurogenic bladder - Pulmonary X-ray with Dr. Woods - Syncope DISCHARGE CONDITION: Stable. TIME SPENT ON DISCHARGE: 37 minutes. Vital Signs/I&Os Vital Signs Date Time Temp Pulse Resp B/P (MAP) Pulse Ox O2 Delivery O2 Flow Rate FiO2 11/02/21 06:20 98.7 79 18 147/81 (103) 95 Room Air I&O- Last 24 Hours up to 6 AM 11/02/21 06:00 Intake Total 1860 ml Output Total 1500 ml Balance 360 ml Laboratory Data Labs 24H Laboratory Tests 2 11/02/21 07:39: Immature Granulocyte % (Auto) 0.4, Neutrophils (%) (Auto) 74.0H, Lymphocytes (%) (Auto) 14.1L, Monocytes (%) (Auto) 9.6H, Eosinophils (%) (Auto) 1.7, Basophils (%) (Auto) 0.2, Neutrophils # (Auto) 8.9H, Lymphocytes # (Auto) 1.7, Monocytes # (Auto) 1.2H, Eosinophils # (Auto) 0.2, Basophils # (Auto) 0.0, Nucleated Red Blood Cells % (auto) 0.0, Anion Gap 5L, Glomerular Filtration Rate > 60.0, Calcium Level 8.5L, Magnesium Level 2.1 CBC/BMP Laboratory Tests 11/02/21 07:39 Microbiology Microbiology 10/31/21 Blood Culture - Preliminary, Resulted No Growth after 48 hours. All Specime... 10/31/21 Blood Culture - Preliminary, Resulted No Growth after 48 hours. All Specime... 10/31/21 Urine Culture - Preliminary, Resulted Escherichia Coli Escherichia Coli#2 Staphylococcus Aureus Discharge Medications Scheduled Calcium Carbonate/Vitamin D3 (Oysco 500-Vit D3 200 Tablet) 1 Each Tablet, 1 TAB PO BID, (Reported) Cefdinir (Cefdinir) 300 Mg Capsule, 300 MG PO BID Cyproheptadine HCl (Cyproheptadine HCl) 4 Mg Tablet, 4 MG PO BID, (Reported) MORNING, NOON Cyproheptadine HCl (Cyproheptadine HCl) 4 Mg Tablet, 8 MG PO QHS, (Reported) Famotidine (Famotidine) 40 Mg Tablet, 40 MG PO DAILY, (Reported) Gabapentin (Gabapentin) 300 Mg Capsule, 600 MG PO BID, (Reported) Omeprazole (Omeprazole) 40 Mg Capsule.dr, 40 MG PO DAILY, (Reported) Oxybutynin Chloride (Oxybutynin Chloride ER) 15 Mg Tab.er.24, 15 MG PO DAILY, (Reported) Scheduled PRN Tizanidine HCl (Tizanidine HCl) 4 Mg Tablet, 8 MG PO TID PRN for MUSCLE SPASMS, (Reported) Tramadol HCl (Tramadol HCl) 50 Mg Tablet, 100 MG PO DAILY PRN for PAIN, (Reported) Allergies Coded Allergies: No Known Allergies (Unverified , 08/15/19) GME ATTESTATION GME ATTESTATION My faculty preceptor for this patient encounter was physically present during the encounter and was fully available. All aspects of the patient interview, examination, medical decision making process, and medical care plan development were reviewed and approved by the faculty preceptor. The faculty preceptor is aware and concurs with the plan as stated in the body of this note and will attest to such by his/her cosignature. ATTENDING NOTE I, Annel Smith, have independently examined this patient and performed my own physical exam, as well as reviewed the documentation and edited where necessary with the resident. For medical students we have performed the physical exam together and discussed medical decision making and I have verified the history. I have discussed in detail with the resident / student the findings and plan of treatment as documented by the resident / student and edited their note. I agree with their findings and treatment plan and have edited their documentation. I will continue to follow the patient during this hospital stay. Time spent on discharge 35 minutes HARPREET PAT OMS-3 Nov 02, 2021 12:46 ANNEL SMITH MD Nov 02, 2021 13:39
--- NOTE | 2021-11-02 15:46 | ECHO ---
ECHOCARDIOGRAM DATE OF PROCEDURE: 11/01/2021 Age: Gender: Height: 158 cm Weight: 57 kg REFERRING PHYSICIAN: Dr. Jose Finley INDICATION: Syncope. MEASUREMENTS: IVS 1.1 LV 2.8 LVPW 1.2 LA 2.5 Aorta 2.7 IVC 1.4 Mitral E-wave velocity 93, A wave 114 E prime septal 5.3 E prime lateral 4.9 FINDINGS: The study is of rather poor technical quality with very difficult visualization. Underlying sinus rhythm. Left ventricle is normal size. Mild left ventricular hypertrophy is noted. Overall probably normal LV systolic function based on relatively poor quality visualization. I do not appreciate any distant segmental wall motion abnormalities. Right ventricle also appears grossly normal. Both atria appear normal. Aortic and mitral valve were reasonably well seen and appear normal. Tricuspid valve was poorly visualized. Pulmonic valve was not seen at all. No pericardial effusion is noted. Inferior vena cava is normal size and appropriately collapses with inspiration, indicative of normal central venous pressure. Aortic root is normal. Aortic arch was not seen. Abdominal aorta was poorly visualized but grossly appears normal. There is an echo artifact in right-sided heart chambers, most likely representing pacemaker electrode. Doppler interrogation reveals no aortic stenosis of insufficiency. There is also functionally competent mitral and tricuspid valve. Mitral inflow pattern and tissue Doppler imaging of mitral annulus revealed grade 1 diastolic dysfunction. CONCLUSIONS: 1. Study is of relatively poor technical quality. Underlying sinus rhythm. 2. Normal LV size with mild LVH and overall preserved LV systolic function. Grade 1 diastolic dysfunction. 3. Poorly visualized right ventricle that functionally appears to have normal contractility. 4. No significant valvular disease. 5. Normal central venous pressure. 6. Unable to estimate pulmonary artery pressure.
== END 2021-11-02 11:00 | disposition home or self-care (01) | DRG 690 ==
LOC: M ED 15:44 → M ED INP 20:44 → M MSPAV 23:04
PROVIDERS: ADMIT Family Medicine; ATTEND Internal Medicine
DX: N39.0 Urinary tract infection, site not specified (principal); G82.20 Paraplegia, unspecified; R55 Syncope and collapse; M19.90 Unspecified osteoarthritis, unspecified site; G47.33 Obstructive sleep apnea (adult) (pediatric); Z91.19 Patient's noncompliance with other medical treatment and regimen; M81.0 Age-related osteoporosis without current pathological fracture; Z86.718 Personal history of other venous thrombosis and embolism; Z95.0 Presence of cardiac pacemaker; N31.9 Neuromuscular dysfunction of bladder, unspecified

== ENCOUNTER → 2021-11-03 | Outpatient (CLI) | payer MEDICARE ==
[~2021-11-03] MED LIST changes: +CEFD300C PO; +CEPH500C PO; +OMEP-221 PO
--- NOTE | 2021-11-03 12:05 | REP ---
INDICATION: SMOKER. COMPARISON: Multiple the latest 10/14/2020 also low-dose screening CT of the lungs TECHNIQUE: Axial noncontrast images from the thoracic inlet to the upper abdomen using low-dose lung screening technique (LDCT). Once again, as per the protocol only lung window images were sent to the read station for interpretation. FINDINGS: Once again, there is beam hardening artifact decreasing the sensitivity of the examination secondary to a left-sided subcutaneously implanted pacemaker generator. In addition, there is further beam hardening artifact secondary to a thoracic spine fixators. There is biapical pleuroparenchymal scarring which appears stable. There are new reticulonodular densities and patchy densities in the lower lobe bilaterally left greater than right. Grossly, the mediastinum and pulmonary james are unchanged. Grossly, the imaged upper abdomen and imaged osseous structures are unchanged. IMPRESSION: 1. Exam limitations as described above. 2. There are new abnormal lung field opacities as described above. Etiology uncertain. Infectious versus neoplastic. Due to its significant appearance in a relatively short time interval infectious etiology is favored. Consider follow-up with diagnostic contrast-enhanced chest CT. <Electronically signed by Brian Blanca > 11/03/21 [id number]
== END ==
LOC: M RAD 10:56
PROVIDERS: ATTEND Internal Medicine Pulmonary Disease
DX: Z12.2 Encounter for screening for malignant neoplasm of respiratory organs (principal); Z87.891 Personal history of nicotine dependence

== ENCOUNTER → 2021-11-11 | Outpatient (REF) | payer MEDICARE ==
[2021-11-11 18:09] LABS: BASO # 0.1 10^3/uL (0.0-0.2); BASO % 0.5 % (0.0-1.0); EOS # 0.5 10^3/uL (0.0-0.5); HEMATOCRIT 40.5 % (36.0-47.0); HEMOGLOBIN 12.7 g/dl (12.0-15.5); LYMPH # 2.9 10^3/uL (1.5-5.0); LYMPH % 25.3 % (24.0-44.0); MEAN CORPUSCULAR HEMOGLOBIN 28.7 pg (27.0-33.0); MEAN CORPUSCULAR HGB CONC 31.4 g/dl (32.0-36.5); MEAN CORPUSCULAR VOLUME 91.4 fl (80.0-96.0); MONO # 0.9 10^3/uL (0.0-0.8); NEUTROPHILS # 7.2 10^3/uL (1.5-8.5); NEUTROPHILS % 61.7 % (36.0-66.0); PLATELET COUNT, AUTOMATED 357 10^3/uL (150-450); RED BLOOD COUNT 4.43 10^6/uL (4.00-5.40); WHITE BLOOD COUNT 11.6 10^3/uL (4.0-10.0)
[2021-11-11 18:28] LABS: BLOOD UREA NITROGEN 15 MG/DL (7-18); CARBON DIOXIDE LEVEL 34 MEQ/L (21-32); CHLORIDE LEVEL 106 MEQ/L (98-107); CREATININE FOR GFR 0.64 MG/DL (0.55-1.30); GLOMERULAR FILTRATION RATE > 60.0 (>45); GLUCOSE, FASTING 90 MG/DL (70-100); POTASSIUM SERUM 4.1 MEQ/L (3.5-5.1); SODIUM LEVEL 143 MEQ/L (136-145)
== END ==
LOC: M SFHCADAM 15:19
PROVIDERS: ATTEND Physician Assistant Medical
DX: E87.6 Hypokalemia (principal); D72.829 Elevated white blood cell count, unspecified

== ENCOUNTER → 2021-12-27 | Outpatient (CLI) | payer MEDICARE ==
[~2021-12-27] MED LIST changes: -CEFD1CAP8 PO; +CEFD300C41 PO; -OMEP-221 PO; +OMEP40CA5 PO; +TIZA10TA PO; -TIZA4TAB4 PO
== END ==
LOC: M RAD 13:01
PROVIDERS: ATTEND Internal Medicine Pulmonary Disease
DX: R91.8 Other nonspecific abnormal finding of lung field (principal)

== ENCOUNTER → 2022-01-27 | Outpatient (CLI) | payer MEDICARE ==
[~2022-01-27] MED LIST changes: -D31000TA2 PO; +VITA100093 PO
[2022-01-27 13:26] LABS: BASO # 0.1 10^3/uL (0.0-0.2); BASO % 0.6 % (0.0-1.0); EOS # 0.4 10^3/uL (0.0-0.5); EOS % 3.8 % (0.0-3.0); HEMATOCRIT 45.7 % (36.0-47.0); HEMOGLOBIN 14.4 g/dl (12.0-15.5); LYMPH # 2.1 10^3/uL (1.5-5.0); LYMPH % 21.9 % (24.0-44.0); MEAN CORPUSCULAR HEMOGLOBIN 28.2 pg (27.0-33.0); MEAN CORPUSCULAR HGB CONC 31.5 g/dl (32.0-36.5); MEAN CORPUSCULAR VOLUME 89.4 fl (80.0-96.0); MONO % 10.3 % (2.0-8.0); NEUTROPHILS # 5.9 10^3/uL (1.5-8.5); PLATELET COUNT, AUTOMATED 253 10^3/uL (150-450); RED BLOOD COUNT 5.11 10^6/uL (4.00-5.40); WHITE BLOOD COUNT 9.4 10^3/uL (4.0-10.0)
[2022-01-27 14:02] LABS: ERYTHROCYTE SEDIMENTATION RATE 12 mm/hr (0-30)
[2022-01-27 14:10] LABS: ALBUMIN 3.3 GM/DL (3.2-5.2); ALT/SGPT 21 U/L (12-78); BILIRUBIN,TOTAL 0.5 MG/DL (0.2-1.0); BLOOD UREA NITROGEN 15 MG/DL (7-18); CALCIUM LEVEL 9.7 MG/DL (8.8-10.2); CARBON DIOXIDE LEVEL 35 MEQ/L (21-32); CHLORIDE LEVEL 102 MEQ/L (98-107); CREATININE FOR GFR 0.71 MG/DL (0.55-1.30); GLOMERULAR FILTRATION RATE > 60.0 (>45); GLUCOSE, FASTING 72 MG/DL (70-100); POTASSIUM SERUM 4.4 MEQ/L (3.5-5.1); RHEUMATOID FACTOR QUANT < 10.0 IU/ML (<15.0); SODIUM LEVEL 139 MEQ/L (136-145); TOTAL PROTEIN 7.5 GM/DL (6.4-8.2)
[2022-01-27 14:15] LABS: VITAMIN B12 LEVEL 420 PG/ML
[2022-01-27 14:16] LABS: FOLATE 23.5 NG/ML
[2022-01-27 14:49] LABS: HEMOGLOBIN A1c 5.3 %
== END ==
LOC: M ADAMS 09:09
PROVIDERS: ATTEND Psychiatry & Neurology Neurology
DX: G31.84 Mild cognitive impairment of uncertain or unknown etiology (principal); Z79.899 Other long term (current) drug therapy

== ENCOUNTER → 2022-05-24 | Outpatient (CLI) | payer MEDICARE ==
[2022-05-24 13:02] LABS: BASO # 0.1 10^3/uL (0.0-0.2); BASO % 0.5 % (0.0-1.0); EOS # 0.4 10^3/uL (0.0-0.5); EOS % 3.5 % (0.0-3.0); HEMATOCRIT 46.2 % (36.0-47.0); HEMOGLOBIN 14.9 g/dl (12.0-15.5); LYMPH # 1.7 10^3/uL (1.5-5.0); LYMPH % 15.6 % (24.0-44.0); MEAN CORPUSCULAR HEMOGLOBIN 28.7 pg (27.0-33.0); MEAN CORPUSCULAR HGB CONC 32.3 g/dl (32.0-36.5); MONO # 0.9 10^3/uL (0.0-0.8); MONO % 8.7 % (2.0-8.0); NEUTROPHILS # 7.7 10^3/uL (1.5-8.5); NEUTROPHILS % 71.3 % (36.0-66.0); PLATELET COUNT, AUTOMATED 323 10^3/uL (150-450); RED BLOOD COUNT 5.19 10^6/uL (4.00-5.40); WHITE BLOOD COUNT 10.7 10^3/uL (4.0-10.0)
[2022-05-24 13:32] LABS: ERYTHROCYTE SEDIMENTATION RATE 31 mm/hr (0-30)
[2022-05-24 13:37] LABS: BLOOD UREA NITROGEN 16 MG/DL (7-18); C REACTIVE PROTEIN QUANTITATIV 2.19 MG/DL (0.00-0.30); CALCIUM LEVEL 9.8 MG/DL (8.8-10.2); CARBON DIOXIDE LEVEL 34 MEQ/L (21-32); CHLORIDE LEVEL 102 MEQ/L (98-107); GLOMERULAR FILTRATION RATE > 60.0 (>45); GLUCOSE, FASTING 73 MG/DL (70-100); POTASSIUM SERUM 4.1 MEQ/L (3.5-5.1); RHEUMATOID FACTOR QUANT < 10.0 IU/ML (<15.0); SODIUM LEVEL 141 MEQ/L (136-145); URIC ACID 6.8 MG/DL (2.6-6.0)
[2022-05-25 20:08] LABS: ANA (HEP2) Negative (.)
== END ==
LOC: M ADAMS 09:36
PROVIDERS: ATTEND Physician Assistant
DX: M19.042 Primary osteoarthritis, left hand (principal); M65.9 Synovitis and tenosynovitis, unspecified; M25.532 Pain in left wrist

== ENCOUNTER 2022-08-09 20:18 | Inpatient (IN) | payer MEDICARE ==
[~2022-08-09] VITALS: Ht 157.5 cm; Wt 50.8 kg
[2022-08-09 21:49] LABS: BASO % 0.3 % (0.0-1.0); EOS # 0.2 10^3/uL (0.0-0.5); HEMATOCRIT 37.6 % (36.0-47.0); LYMPH % 26.9 % (24.0-44.0); MEAN CORPUSCULAR HEMOGLOBIN 28.5 pg (27.0-33.0); MEAN CORPUSCULAR HGB CONC 31.9 g/dl (32.0-36.5); MEAN CORPUSCULAR VOLUME 89.3 fl (80.0-96.0); MONO # 0.9 10^3/uL (0.0-0.8); MONO % 8.2 % (2.0-8.0); NEUTROPHILS % 62.2 % (36.0-66.0); PLATELET COUNT, AUTOMATED 276 10^3/uL (150-450); RED BLOOD COUNT 4.21 10^6/uL (4.00-5.40); WHITE BLOOD COUNT 11.2 10^3/uL (4.0-10.0)
[2022-08-09 21:50] LABS: ALT/SGPT 16 U/L (12-78); BILIRUBIN,DIRECT < 0.1 MG/DL (0.0-0.2); BILIRUBIN,TOTAL 0.2 MG/DL (0.2-1.0); BLOOD UREA NITROGEN 15 MG/DL (7-18); CALCIUM LEVEL 9.1 MG/DL (8.8-10.2); CARBON DIOXIDE LEVEL 33 MEQ/L (21-32); CHLORIDE LEVEL 101 MEQ/L (98-107); CREATININE FOR GFR 0.68 MG/DL (0.55-1.30); GLOMERULAR FILTRATION RATE > 60.0 (>45); GLUCOSE, FASTING 89 MG/DL (70-100); LIPASE 54 U/L (73-393); POTASSIUM SERUM 3.9 MEQ/L (3.5-5.1); SODIUM LEVEL 135 MEQ/L (136-145)
[2022-08-09] MEDS ORDERED: NS 1,000 ML IV SCH (22:20)
[2022-08-09] MEDS ORDERED: ISOVUE-370 76% 100ML VIAL As Ordered ONE (22:26)
[2022-08-09 23:23] LABS: RSV AMPLIFICATION NEGATIVE (NEGATIVE)
[2022-08-10] MEDS ORDERED: LIDOCAINE 2% 5ML JELLY UROJET TOP ONE
[2022-08-10 00:35] LABS: CK-MB VALUE MASS 1.1 NG/ML (<3.6); MB/CK RELATIVE INDEX 2.44 (< OR =4)
[2022-08-10] MEDS ORDERED: HOME MED LIST COMPLETE! XX SCH (00:55)
[2022-08-10] MEDS ORDERED: hydrALAZINE 20MG/ML 1ML VIAL (J0360 PER 20MG) IV PRN (01:20)
[2022-08-10] MEDS ORDERED: SODIUM CHLORIDE 0.9% 1000ML IV SCH (01:20)
[2022-08-10 01:44] LABS: CK-MB VALUE MASS 1.2 NG/ML (<3.6); MB/CK RELATIVE INDEX 3.16 (< OR =4)
[2022-08-10 05:24] VITALS: BP 150/78
[2022-08-10] MEDS: NS 1,000 ML IV SCH ×2 (05:58→11:20)
[2022-08-10 06:09] LABS: HEMATOCRIT 34.5 % (36.0-47.0)
[2022-08-10] MEDS: PANTOPRAZOLE 40MG VIAL IV SCH (08:32)
[2022-08-10 12:01] LABS: HEMATOCRIT 34.8 % (36.0-47.0); HEMOGLOBIN 11.2 g/dl (12.0-15.5)
[2022-08-10] MEDS ORDERED: GLUCAGON INJ 1MG VIAL SC PRN (13:40)
[2022-08-10] MEDS ORDERED: DEXTROSE 50% 50 ML SYRINGE IV PRN (13:40)
[2022-08-10] MEDS ORDERED: GLUCOSE 4GM CHEW TABLET PO PRN (13:40)
[2022-08-10] MEDS ORDERED: tiZANidine 4 MG TAB PO PRN (13:40)
[2022-08-10] MEDS ORDERED: amLODIPine 5 MG TAB PO ONE (14:00)
[2022-08-10] MEDS: oxyBUTYnin *DITROPAN XL* 5 MG TABCR PO SCH (14:07)
[2022-08-10] MEDS: DOCUSATE SODIUM 100MG CAPSULE PO SCH (14:07)
[2022-08-10] MEDS: D5W/0.45% SODIUM CHLORIDE 1,000 ML IV SCH ×2 (14:10→23:53)
[2022-08-10] MEDS ORDERED: VALSARTAN 40MG TABLET (DIOVAN) PO ONE (17:10)
[2022-08-10 17:55] LABS: HEMATOCRIT 35.1 % (36.0-47.0); HEMOGLOBIN 11.2 g/dl (12.0-15.5)
[2022-08-10] MEDS ORDERED: BISACODYL 5 MG TAB PO ONE (20:00)
[2022-08-10] MEDS ORDERED: MAGNESIUM CITRATE 300 ML BTL PO ONE (20:00)
[2022-08-10] MEDS: GABAPENTIN 300 MG CAP PO SCH (20:20)
[2022-08-10 22:00] VITALS: BP 133/79
[2022-08-11 00:37] LABS: HEMATOCRIT 35.6 % (36.0-47.0); HEMOGLOBIN 11.5 g/dl (12.0-15.5)
[2022-08-11 06:00] VITALS: BP 150/95
[2022-08-11] MEDS ORDERED: BISACODYL 5 MG TAB PO ONE (06:00)
[2022-08-11] MEDS ORDERED: MAGNESIUM CITRATE 300 ML BTL PO ONE (06:00)
[2022-08-11] MEDS ORDERED: FAMOTIDINE 20 MG TAB PO SCH (09:00)
[2022-08-11] MEDS: PANTOPRAZOLE 40MG VIAL IV SCH (09:31)
[2022-08-11] MEDS: DOCUSATE SODIUM 100MG CAPSULE PO SCH (09:31)
[2022-08-11] MEDS: amLODIPine 5 MG TAB PO SCH (09:32)
[2022-08-11] MEDS: VALSARTAN 40MG TABLET (DIOVAN) PO SCH (09:32)
[2022-08-11] MEDS: GABAPENTIN 300 MG CAP PO SCH ×2 (09:32→21:11)
[2022-08-11] MEDS: oxyBUTYnin *DITROPAN XL* 5 MG TABCR PO SCH (09:32)
[2022-08-11] MEDS: D5W/0.45% SODIUM CHLORIDE 1,000 ML IV SCH ×2 (10:12→21:22)
[2022-08-11] MEDS ORDERED: FLEET OIL RETENTION ENEMA PR ONE (11:00)
[2022-08-11] MEDS ORDERED: LIDOCAINE 2% 100MG/5ML SDV (FOR ANES.) As Ordered ONE (14:29)
[2022-08-11] MEDS ORDERED: propofoL 200 MG/20 ML VIAL As Ordered ONE (14:29)
[2022-08-11] MEDS ORDERED: PHENYLephrine 500MCG 5ML (100MCG/ML) SYRINGE As Ordered ONE ×2 (14:48→15:31)
[2022-08-11 16:30] VITALS: BP 101/74
[2022-08-11 18:00] VITALS: BP 109/56
[2022-08-11 21:44] VITALS: BP 110/58
[2022-08-12 06:14] VITALS: BP 128/71
[2022-08-12] MEDS: D5W/0.45% SODIUM CHLORIDE 1,000 ML IV SCH ×2 (07:32→08:38)
[2022-08-12 08:30] LABS: HEMATOCRIT 32.9 % (36.0-47.0); HEMOGLOBIN 10.1 g/dl (12.0-15.5); MEAN CORPUSCULAR HEMOGLOBIN 28.2 pg (27.0-33.0); MEAN CORPUSCULAR HGB CONC 30.7 g/dl (32.0-36.5); MEAN CORPUSCULAR VOLUME 91.9 fl (80.0-96.0); PLATELET COUNT, AUTOMATED 250 10^3/uL (150-450); RED BLOOD COUNT 3.58 10^6/uL (4.00-5.40); WHITE BLOOD COUNT 9.4 10^3/uL (4.0-10.0)
[2022-08-12] MEDS: oxyBUTYnin *DITROPAN XL* 5 MG TABCR PO SCH (08:34)
[2022-08-12] MEDS: PANTOPRAZOLE 40MG VIAL IV SCH (08:34)
[2022-08-12] MEDS: VALSARTAN 40MG TABLET (DIOVAN) PO SCH (08:35)
[2022-08-12] MEDS: GABAPENTIN 300 MG CAP PO SCH (08:36)
[2022-08-12] MEDS: DOCUSATE SODIUM 100MG CAPSULE PO SCH (08:36)
[2022-08-12 08:37] VITALS: BP 119/66
[2022-08-12] MEDS: amLODIPine 5 MG TAB PO SCH (08:37)
[2022-08-12 09:06] LABS: BLOOD UREA NITROGEN 7 MG/DL (7-18); CALCIUM LEVEL 8.4 MG/DL (8.8-10.2); CARBON DIOXIDE LEVEL 31 MEQ/L (21-32); CHLORIDE LEVEL 108 MEQ/L (98-107); CREATININE FOR GFR 0.76 MG/DL (0.55-1.30); GLOMERULAR FILTRATION RATE > 60.0 (>45); GLUCOSE, FASTING 114 MG/DL (70-100); SODIUM LEVEL 141 MEQ/L (136-145)
[2022-08-12] MEDS ORDERED: DIOV40TA PO (11:09)
[2022-08-12] MEDS ORDERED: AMLO1TAB24 PO (11:09)
[2022-08-12] MEDS ORDERED: COLA100C5 PO (11:09)
[2022-08-12 13:00] LABS: FERRITIN 48 NG/ML (8-252); IRON (FE) 29 UG/DL (50-170); PERCENT SATURATION 13.4 % (13.2-45.0); TOTAL IRON BINDING CAPACITY 217 UG/DL (250-450)
[2022-08-12 13:29] LABS: VITAMIN B12 LEVEL 405 PG/ML (247-911)
[2022-08-13] MEDS ORDERED: FERR325T3 PO (22:56)
== END 2022-08-12 14:15 | disposition home or self-care (01) | DRG 378 ==
LOC: M ED 20:18 → M ED INP 08-10 03:42 → ENRESERV 08-10 04:11 → M MS5PR 08-10 05:05
PROVIDERS: ADMIT Internal Medicine; ATTEND Internal Medicine
PROC: 0DJ08ZZ Inspection of Upper Intestinal Tract, Via Natural or Artificial Opening Endoscopic (ICD-10-PCS; 2022-08-11)
PROC: 0DBP8ZX Excision of Rectum, Via Natural or Artificial Opening Endoscopic, Diagnostic (ICD-10-PCS; principal; 2022-08-11 14:00)
DX: K62.5 Hemorrhage of anus and rectum (principal); G82.20 Paraplegia, unspecified; K55.1 Chronic vascular disorders of intestine; J44.9 Chronic obstructive pulmonary disease, unspecified; I10 Essential (primary) hypertension; G47.33 Obstructive sleep apnea (adult) (pediatric); Z95.0 Presence of cardiac pacemaker; K59.00 Constipation, unspecified; I86.8 Varicose veins of other specified sites; D64.9 Anemia, unspecified; K44.9 Diaphragmatic hernia without obstruction or gangrene; N31.9 Neuromuscular dysfunction of bladder, unspecified; Z79.899 Other long term (current) drug therapy; Z87.891 Personal history of nicotine dependence

== ENCOUNTER → 2022-09-27 | Outpatient (REF) | payer MEDICARE ==
[~2022-09-27] MED LIST changes: +AMLO1TAB24 PO; +COLA100C5 PO; +DIOV40TA PO; +FERR325T3 PO
[2022-09-27 14:24] LABS: BASO % 0.5 % (0.0-1.0); EOS # 0.2 10^3/uL (0.0-0.5); EOS % 1.9 % (0.0-3.0); HEMATOCRIT 43.7 % (36.0-47.0); HEMOGLOBIN 13.1 g/dl (12.0-15.5); LYMPH # 1.7 10^3/uL (1.5-5.0); LYMPH % 20.3 % (24.0-44.0); MEAN CORPUSCULAR HEMOGLOBIN 26.9 pg (27.0-33.0); MEAN CORPUSCULAR VOLUME 89.7 fl (80.0-96.0); MONO # 0.9 10^3/uL (0.0-0.8); MONO % 10.6 % (2.0-8.0); NEUTROPHILS # 5.6 10^3/uL (1.5-8.5); NEUTROPHILS % 66.5 % (36.0-66.0); PLATELET COUNT, AUTOMATED 343 10^3/uL (150-450); RED BLOOD COUNT 4.87 10^6/uL (4.00-5.40); WHITE BLOOD COUNT 8.4 10^3/uL (4.0-10.0)
[2022-09-27 15:42] LABS: ALBUMIN 3.2 GM/DL (3.2-5.2); ALT/SGPT 21 U/L (12-78); BILIRUBIN,TOTAL 0.3 MG/DL (0.2-1.0); BLOOD UREA NITROGEN 15 MG/DL (7-18); CALCIUM LEVEL 9.5 MG/DL (8.8-10.2); CARBON DIOXIDE LEVEL 32 MEQ/L (21-32); CHLORIDE LEVEL 102 MEQ/L (98-107); CREATININE FOR GFR 0.69 MG/DL (0.55-1.30); GLOMERULAR FILTRATION RATE > 60.0 (>45); GLUCOSE, FASTING 107 MG/DL (70-100); POTASSIUM SERUM 4.2 MEQ/L (3.5-5.1); SODIUM LEVEL 141 MEQ/L (136-145); TOTAL PROTEIN 7.5 GM/DL (6.4-8.2)
== END ==
LOC: M SFHCADAM 11:09
PROVIDERS: ATTEND Physician Assistant
DX: Z01.818 Encounter for other preprocedural examination (principal)

== ENCOUNTER → 2022-09-27 | Outpatient (CLI) | payer MEDICARE ==
[~2022-09-27] MED LIST changes: +ANAS1TAB2 PO; +FAMO40TA3
== END ==
LOC: M ADAMS 11:12
PROVIDERS: ATTEND Physician Assistant
DX: Z01.818 Encounter for other preprocedural examination (principal)

== ENCOUNTER → 2022-09-29 | Outpatient (CLI) | payer MEDICARE | LOC: M LABSMTC 11:17 | PROVIDERS: ATTEND Anesthesiology | DX: Z01.812 Encounter for preprocedural laboratory examination (principal); Z11.52 Encounter for screening for COVID-19 ==

== ENCOUNTER 2022-10-04 06:12 | Day surgery (SDC) | payer MEDICARE ==
[~2022-10-04] VITALS: Ht 157.5 cm; Wt 49.9 kg
[~2022-10-04 06:12] MED LIST changes: +HEPARIN SOD (PORCINE) 5000UNITS/ML 1ML VIAL/SYRINGE SQ ONE; +ceFAZolin SOD 2 GM in IV 1 EA IV ONE
[2022-10-04] MEDS ORDERED: LR 1,000 ML IV SCH ×2 (06:30→09:30)
[2022-10-04] MEDS ORDERED: LIDOCAINE 1% SDV 30ML VIAL As Ordered ONE (07:10)
[2022-10-04] MEDS ORDERED: BUPIVACAINE HCL 0.25% 30ML VIAL As Ordered ONE (07:10)
[2022-10-04] MEDS ORDERED: ONDANSETRON 4MG 2ML VIAL As Ordered ONE (07:12)
[2022-10-04] MEDS ORDERED: propofoL 200 MG/20 ML VIAL As Ordered ONE (07:12)
[2022-10-04] MEDS ORDERED: fentaNYL 100 MCG/2 ML INJECTION As Ordered ONE (07:12)
[2022-10-04] MEDS ORDERED: MIDAZOLAM INJ 2MG/2ML VIAL (J2250 PER 1MG) As Ordered ONE (07:13)
[2022-10-04] MEDS ORDERED: LIDOCAINE 2% 100MG/5ML SDV (FOR ANES.) As Ordered ONE (07:49)
[2022-10-04] MEDS ORDERED: ePHEDrine SULFATE 25 MG/5 ML(5MG/ML) SYRINGE As Ordered ONE (08:09)
[2022-10-04] MEDS ORDERED: PHENYLEPHRINE 10MG/ML 1ML VIAL As Ordered ONE (08:09)
[2022-10-04] MEDS ORDERED: GLYCOPYRROLATE INJ 0.2 MG/ML 2 ML VIAL As Ordered ONE (08:18)
[2022-10-04] MEDS ORDERED: ONDANSETRON 4MG 2ML VIAL IV PRN (09:30)
[2022-10-04] MEDS ORDERED: fentaNYL 100 MCG/2 ML INJECTION IV PRN (09:30)
[2022-10-04] MEDS ORDERED: oxyCODONE 5MG TAB PO PRN (09:30)
[2022-10-04] MEDS ORDERED: METOCLOPRAMIDE INJ 10MG/2ML VIAL (J2765 PER 1) IV PRN (09:30)
[2022-10-04] MEDS ORDERED: HYDROMORPHONE HCL 0.5 MG/ 0.5 ML SYRINGE (J1170 PER 1) IV PRN (09:30)
[2022-10-04] MEDS ORDERED: TRAM50TA2 PO (09:35)
[2022-10-04 11:51] VITALS: BP 127/87
== END 2022-10-04 11:53 | disposition home or self-care (01) ==
LOC: M SDC 06:12
PROVIDERS: ATTEND Surgery
DX: N60.91 Unspecified benign mammary dysplasia of right breast (principal); R92.8 Other abnormal and inconclusive findings on diagnostic imaging of breast; K57.92 Diverticulitis of intestine, part unspecified, without perforation or abscess without bleeding; N31.9 Neuromuscular dysfunction of bladder, unspecified; Z95.0 Presence of cardiac pacemaker; Z87.891 Personal history of nicotine dependence; Z79.899 Other long term (current) drug therapy; Z99.3 Dependence on wheelchair; Z80.9 Family history of malignant neoplasm, unspecified; G82.20 Paraplegia, unspecified
CPT/HCPCS: 19125; 36415; 76942; 86850; 86900; 86901; 88307; A4648; J0690; J1644; J2250; J2370; J2405; J3010

== ENCOUNTER → 2022-10-24 | Outpatient (CLI) | payer MEDICARE ==
[~2022-10-24] MED LIST changes: -HEPARIN SOD (PORCINE) 5000UNITS/ML 1ML VIAL/SYRINGE SQ ONE; -ceFAZolin SOD 2 GM in IV 1 EA IV ONE
== END ==
LOC: M WHC 12:36
PROVIDERS: ATTEND Internal Medicine Endocrinology, Diabetes & Metabolism
DX: Z13.820 Encounter for screening for osteoporosis (principal); M85.89 Other specified disorders of bone density and structure, multiple sites; E55.9 Vitamin D deficiency, unspecified; F17.200 Nicotine dependence, unspecified, uncomplicated

== ENCOUNTER → 2023-03-08 | Outpatient (CLI) | payer MEDICARE | LOC: M RAD 11:01 | PROVIDERS: ATTEND Internal Medicine Pulmonary Disease | DX: Z87.891 Personal history of nicotine dependence (principal); R91.8 Other nonspecific abnormal finding of lung field ==

== ENCOUNTER → 2023-05-03 | Outpatient (REF) | payer MEDICARE ==
[2023-05-03 16:41] LABS: CHOLESTEROL RISK RATIO 3.23 (<5); HDL CHOLESTEROL 55.4 MG/DL (>40); NON-HDL-C 123.6 MG/DL
[2023-05-03 17:27] LABS: HEMOGLOBIN A1c 5.5 % (4.0-6.0)
== END ==
LOC: M SFHCADAM 12:49
PROVIDERS: ATTEND Physician Assistant
DX: F17.211 Nicotine dependence, cigarettes, in remission (principal); E78.00 Pure hypercholesterolemia, unspecified; Z13.1 Encounter for screening for diabetes mellitus; K21.9 Gastro-esophageal reflux disease without esophagitis; Z79.899 Other long term (current) drug therapy

== ENCOUNTER → 2023-06-30 | Outpatient (CLI) | payer MEDICARE | LOC: M RAD 12:40 | PROVIDERS: ATTEND Internal Medicine Pulmonary Disease | DX: R91.8 Other nonspecific abnormal finding of lung field (principal) ==

== ENCOUNTER → 2023-07-11 | Outpatient (CLI) | payer MEDICARE | LOC: M WHC 13:12 | PROVIDERS: ATTEND Nurse Practitioner Women's Health | DX: N60.91 Unspecified benign mammary dysplasia of right breast (principal) | CPT/HCPCS: 77066; G0279 ==

== ENCOUNTER → 2023-08-24 | Outpatient (CLI) | payer MEDICARE ==
[~2023-08-24] MED LIST changes: -CEFD300C41 PO; +CEFD300C42 PO
== END ==
LOC: M RAD 12:58
PROVIDERS: ATTEND Emergency Medicine
DX: R22.42 Localized swelling, mass and lump, left lower limb (principal); G82.20 Paraplegia, unspecified

== ENCOUNTER → 2023-09-19 | Outpatient (REF) | payer MEDICARE ==
[2023-09-19 14:29] LABS: APPEARANCE, URINE CLEAR (CLEAR); BACTERIA, URINE AUTO 1+ (NEGATIVE); BILIRUBIN, URINE AUTO NEGATIVE (NEGATIVE); BLOOD, URINE BLOOD 2+ (NEGATIVE); COLOR, URINE YELLOW (YELLOW); GLUCOSE, URINE (UA) AUTO NEGATIVE (NEGATIVE); KETONE, URINE AUTO NEGATIVE (NEGATIVE); LEUKOCYTE ESTERASE, URINE AUTO 1+ (NEGATIVE); MUCUS, URINE SMALL (NEGATIVE); NITRITE, URINE AUTO NEGATIVE (NEGATIVE); PROTEIN, URINE AUTO 1+ mg/dL (NEGATIVE); RBC, URINE AUTO 4 /HPF (0-3); SPECIFIC GRAVITY URINE AUTO 1.014 (1.002-1.035); SQUAMOUS EPITHELIAL CELL UR AU 0 /HPF (0-6); UROBILINOGEN, URINE AUTO 0.2 mg/dL (0.0-2.0); WBC, URINE AUTO 19 /HPF (0-3)
== END ==
LOC: M SFHCADAM 12:50
PROVIDERS: ATTEND Physician Assistant
DX: R82.90 Unspecified abnormal findings in urine (principal)

== ENCOUNTER → 2023-09-22 | Outpatient (CLI) | payer MEDICARE ==
[~2023-09-22] MED LIST changes: +ISOVUE-370 76% 100ML VIAL ONE
== END ==
LOC: M PLAIMG 10:30
PROVIDERS: ATTEND Psychiatry & Neurology Neurology
DX: R41.3 Other amnesia (principal); G93.89 Other specified disorders of brain
CPT/HCPCS: 70470; Q9967

== ENCOUNTER → 2023-12-29 | Outpatient (CLI) | payer MEDICARE ==
[~2023-12-29] MED LIST changes: +CEFD1CAP9 PO; -CEFD300C42 PO; -ISOVUE-370 76% 100ML VIAL ONE
== END ==
LOC: M PLAIMG 12:57
PROVIDERS: ATTEND Internal Medicine Pulmonary Disease
DX: R91.1 Solitary pulmonary nodule (principal)

== ENCOUNTER 2024-03-18 18:33 | Emergency (ER) | payer MEDICARE ==
[~2024-03-18] VITALS: Ht 157.5 cm; Wt 52.3 kg
[2024-03-18 18:33] VITALS: BP 147/76; TEMP 97.3; O2SAT 96
[2024-03-18 20:29] LABS: BASO # 0.1 10^3/uL (0.0-0.2); BASO % 0.5 % (0.0-1.0); EOS # 0.4 10^3/uL (0.0-0.5); EOS % 4.2 % (0.0-3.0); HEMATOCRIT 39.2 % (36.0-47.0); HEMOGLOBIN 12.5 g/dl (12.0-15.5); LYMPH % 20.1 % (24.0-44.0); MEAN CORPUSCULAR HGB CONC 31.9 g/dl (32.0-36.5); MEAN CORPUSCULAR VOLUME 84.7 fl (80.0-96.0); MONO # 1.4 10^3/uL (0.0-0.8); MONO % 14.3 % (2.0-8.0); NEUTROPHILS # 6.1 10^3/uL (1.5-8.5); NEUTROPHILS % 60.3 % (36.0-66.0); PLATELET COUNT, AUTOMATED 278 10^3/uL (150-450); RED BLOOD COUNT 4.63 10^6/uL (4.00-5.40); WHITE BLOOD COUNT 10.1 10^3/uL (4.0-10.0)
[2024-03-18 20:45] LABS: INR 1.05; PARTIAL THROMBOPLASTIN TIME 29.1 SECONDS (24.8-34.2); PROTHROMBIN TIME 13.4 SECONDS (12.5-14.5)
[2024-03-18] MEDS ORDERED: ELIQ5TAB PO (21:10)
[2024-03-18] MEDS: APIXABAN 5 MG TAB (ELIQUIS) PO ONE (21:29)
== END 2024-03-18 21:37 | disposition home or self-care (01) ==
LOC: M ED 18:33
DX: I82.412 Acute embolism and thrombosis of left femoral vein (principal); G47.33 Obstructive sleep apnea (adult) (pediatric); G82.20 Paraplegia, unspecified; F17.200 Nicotine dependence, unspecified, uncomplicated; F10.10 Alcohol abuse, uncomplicated; Z95.0 Presence of cardiac pacemaker; Z79.02 Long term (current) use of antithrombotics/antiplatelets; Z79.811 Long term (current) use of aromatase inhibitors; Z79.891 Long term (current) use of opiate analgesic; Z79.899 Other long term (current) drug therapy

== ENCOUNTER → 2024-07-12 | Outpatient (CLI) | payer MEDICARE ==
[~2024-07-12] MED LIST changes: +ELIQ5TAB PO
== END ==
LOC: M WHC 12:56
PROVIDERS: ATTEND Nurse Practitioner Women's Health
DX: Z12.31 Encounter for screening mammogram for malignant neoplasm of breast (principal)

== ENCOUNTER → 2024-07-18 | Outpatient (REF) | payer MEDICARE ==
[2024-07-18 13:11] LABS: BASO % 0.4 % (0.0-1.0); EOS # 0.3 10^3/uL (0.0-0.5); EOS % 2.6 % (0.0-3.0); HEMATOCRIT 45.6 % (36.0-47.0); LYMPH # 2.1 10^3/uL (1.5-5.0); LYMPH % 21.4 % (24.0-44.0); MEAN CORPUSCULAR HEMOGLOBIN 26.8 pg (27.0-33.0); MEAN CORPUSCULAR HGB CONC 30.7 g/dl (32.0-36.5); MEAN CORPUSCULAR VOLUME 87.2 fl (80.0-96.0); MONO # 0.9 10^3/uL (0.0-0.8); MONO % 9.4 % (2.0-8.0); NEUTROPHILS # 6.2 10^3/uL (1.5-8.5); NEUTROPHILS % 64.3 % (36.0-66.0); PLATELET COUNT, AUTOMATED 302 10^3/uL (150-450); RED BLOOD COUNT 5.23 10^6/uL (4.00-5.40); WHITE BLOOD COUNT 9.6 10^3/uL (4.0-10.0)
[2024-07-18 13:33] LABS: HEMOGLOBIN A1c 5.3 % (4.0-6.0)
[2024-07-18 13:38] LABS: ALKALINE PHOSPHATASE 103 U/L (46-116); ALT/SGPT 16 U/L (7.0-40); AST/SGOT 18 U/L (<34); BILIRUBIN,TOTAL 0.5 MG/DL (0.3-1.2); BLOOD UREA NITROGEN 17 MG/DL (9-23); CALCIUM LEVEL 8.9 MG/DL (8.3-10.6); CARBON DIOXIDE LEVEL 34 MMOL/L (20-31); CHLORIDE LEVEL 103 MMOL/L (98-107); CHOLESTEROL LEVEL 180 MG/DL (<200); CHOLESTEROL RISK RATIO 3.42 (<5); CREATININE FOR GFR 0.62 MG/DL (0.55-1.30); GLOMERULAR FILTRATION RATE > 60.0 (>45); GLUCOSE, FASTING 50 MG/DL (74-106); HDL CHOLESTEROL 52.6 MG/DL (>40); LDL CHOLESTEROL 113.6 MG/DL (<100); NON-HDL-C 127.4 MG/DL; POTASSIUM SERUM 4.6 MMOL/L (3.5-5.1); SODIUM LEVEL 139 MMOL/L (136-145); TOTAL PROTEIN 7.5 G/DL (5.7-8.2); TRIGLYCERIDES LEVEL 69 MG/DL (<150)
[2024-07-18 13:39] LABS: THYROID STIMULATING HORMONE 3.292 uIU/ML (0.55-4.78)
[2024-07-18 13:40] LABS: TOTAL 25(OH) VITAMIN D 108.3 NG/ML (20.0-100.0)
== END ==
LOC: M LABDRWAD 12:39
PROVIDERS: ATTEND Physical Therapist
DX: J44.9 Chronic obstructive pulmonary disease, unspecified (principal); E78.5 Hyperlipidemia, unspecified; E55.9 Vitamin D deficiency, unspecified; Z79.899 Other long term (current) drug therapy

== ENCOUNTER → 2024-07-30 | Outpatient (CLI) | payer MEDICARE | LOC: M RAD 15:07 | PROVIDERS: ATTEND Family Medicine | DX: R91.8 Other nonspecific abnormal finding of lung field (principal); R91.1 Solitary pulmonary nodule ==

== ENCOUNTER → 2024-09-06 | Outpatient (REF) | payer MEDICARE ==
[~2024-09-06] MED LIST changes: +GABA-1172 PO; -GABA-282 PO
[2024-09-06 19:53] LABS: BASO % 0.3 % (0.0-1.0); EOS # 0.2 10^3/uL (0.0-0.5); EOS % 2.2 % (0.0-3.0); HEMATOCRIT 44.2 % (36.0-47.0); HEMOGLOBIN 13.6 g/dl (12.0-15.5); LYMPH # 1.8 10^3/uL (1.5-5.0); LYMPH % 16.5 % (24.0-44.0); MEAN CORPUSCULAR HEMOGLOBIN 27.1 pg (27.0-33.0); MEAN CORPUSCULAR HGB CONC 30.8 g/dl (32.0-36.5); MONO # 0.9 10^3/uL (0.0-0.8); MONO % 8.5 % (2.0-8.0); NEUTROPHILS # 7.8 10^3/uL (1.5-8.5); NEUTROPHILS % 72.2 % (36.0-66.0); PLATELET COUNT, AUTOMATED 285 10^3/uL (150-450); RED BLOOD COUNT 5.02 10^6/uL (4.00-5.40); WHITE BLOOD COUNT 10.8 10^3/uL (4.0-10.0)
[2024-09-06 20:18] LABS: ALBUMIN 2.7 G/DL (3.2-5.2); ALKALINE PHOSPHATASE 86 U/L (46-116); ALT/SGPT 14 U/L (7.0-40); AST/SGOT 15 U/L (<34); BILIRUBIN,DIRECT 0.1 MG/DL (<0.4); BILIRUBIN,TOTAL 0.4 MG/DL (0.3-1.2); CALCIUM LEVEL 8.6 MG/DL (8.3-10.6); CREATININE FOR GFR 0.64 MG/DL (0.55-1.30); GLOMERULAR FILTRATION RATE > 60.0 (>45); TOTAL PROTEIN 7.2 G/DL (5.7-8.2)
[2024-09-09 18:02] LABS: ANGIOTENSIN 1 CONVERTING ENZYM 54 U/L (9-67)
[2024-09-10 17:08] LABS: CRYTPOCOCCUS SOURCE Serum
== END ==
LOC: M LAB REF 17:11
PROVIDERS: ATTEND Internal Medicine Pulmonary Disease
DX: R91.8 Other nonspecific abnormal finding of lung field (principal)

== ENCOUNTER 2024-09-28 09:41 | Inpatient (IN) | payer MEDICARE ==
[~2024-09-28] VITALS: Ht 157.5 cm; Wt 50.5 kg
[2024-09-28] VITALS (9 sets, daily range): BP systolic 115–158; BP diastolic 58–78; TEMP 96.9–98.5; O2SAT 90–97
[2024-09-28] MEDS: APIXABAN 5 MG TAB (ELIQUIS) PO SCH (09:00)
[~2024-09-28 09:41] MED LIST changes: -CYPR4TA PO; +CYPR4TAB36 PO
[2024-09-28] MEDS: IPRATROPIUM 0.5MG/ALBUTEROL 2.5MG INH SOL UD 3ML (DUONEB) NEB ONE (10:50)
[2024-09-28] MEDS: ACETAMINOPHEN 325 MG TAB PO ONE (10:54)
[2024-09-28] MEDS: NS 1,000 ML IV ONE (10:55)
[2024-09-28 11:17] LABS: ABG O2 SATURATION 94.6 % (95.0-99.0); ABG PARTIAL PRESSURE CO2 37.3 mmHg (35.0-45.0); ABG PARTIAL PRESSURE O2 70.3 mmHg (75.0-100.0); ABG STANDARD HCO3 24.4 MMOL/L. (22.0-26.0); ABG TOTAL CO2 25.2 MMOL/L (23.0-31.0); ABG pH (ARTERIAL) 7.427 UNITS (7.350-7.450)
[2024-09-28 11:19] LABS: BASO # 0.1 10^3/uL (0.0-0.2); BASO % 0.2 % (0.0-1.0); EOS % 0.1 % (0.0-3.0); HEMATOCRIT 40.4 % (36.0-47.0); HEMOGLOBIN 12.6 g/dl (12.0-15.5); LYMPH # 1.1 10^3/uL (1.5-5.0); LYMPH % 3.5 % (24.0-44.0); MEAN CORPUSCULAR HEMOGLOBIN 27.1 pg (27.0-33.0); MEAN CORPUSCULAR HGB CONC 31.2 g/dl (32.0-36.5); MEAN CORPUSCULAR VOLUME 86.9 fl (80.0-96.0); MONO # 1.5 10^3/uL (0.0-0.8); MONO % 4.8 % (2.0-8.0); NEUTROPHILS # 27.4 10^3/uL (1.5-8.5); NEUTROPHILS % 90.1 % (36.0-66.0); PLATELET COUNT, AUTOMATED 392 10^3/uL (150-450); RED BLOOD COUNT 4.65 10^6/uL (4.00-5.40)
[2024-09-28 11:22] LABS: WHITE BLOOD COUNT 30.4 10^3/uL (4.0-10.0)
[2024-09-28 11:47] LABS: ALBUMIN 2.3 G/DL (3.2-5.2); ALKALINE PHOSPHATASE 88 U/L (35-104); ALT/SGPT 14 U/L (7.0-40); AST/SGOT 25 U/L (<34); BILIRUBIN,DIRECT 0.2 MG/DL (<0.4); BILIRUBIN,TOTAL 0.5 MG/DL (0.3-1.2); BLOOD UREA NITROGEN 19 MG/DL (9-23); CALCIUM LEVEL 8.7 MG/DL (8.3-10.6); CARBON DIOXIDE LEVEL 30 MMOL/L (20-31); CHLORIDE LEVEL 101 MMOL/L (98-107); CREATININE FOR GFR 0.76 MG/DL (0.55-1.30); GLOMERULAR FILTRATION RATE > 60.0 (>45); GLUCOSE, FASTING 89 MG/DL (74-106); POTASSIUM SERUM 4.2 MMOL/L (3.5-5.1); SODIUM LEVEL 138 MMOL/L (136-145); TOTAL PROTEIN 7.7 G/DL (5.7-8.2)
[2024-09-28] MEDS: cefTRIAXone SOD 2 GM in DEXTROSE 5% (D5W) ADV/MINI-BAG 50 ML IV ONE (12:06)
[2024-09-28] MEDS ORDERED: ANAS1TAB2 PO (12:17)
[2024-09-28] MEDS ORDERED: ELIQ5TAB PO (12:17)
[2024-09-28] MEDS ORDERED: HOME MED LIST COMPLETE! XX SCH (12:20)
[2024-09-28] MEDS: AZITHROMYCIN INJ 500 MG, VIAL MATE ADAPTER 1 EACH in NS 250 ML IV ONE (12:49)
[2024-09-28] MEDS: NS 500 ML IV ONE (13:08)
[2024-09-28] MEDS ORDERED: traMADol 50 MG TAB PO PRN (13:10)
[2024-09-28 13:28] LABS: PROCALCITONIN 22.87 ng/ml
[2024-09-28] MEDS: IPRATROPIUM 0.5MG/ALBUTEROL 2.5MG INH SOL UD 3ML (DUONEB) NEB SCH (14:00)
[2024-09-28] MEDS: CYPROHEPTADINE 4 MG TAB PO SCH ×2 (14:43→20:42)
[2024-09-28] MEDS: GABAPENTIN 300 MG CAP PO SCH (20:42)
[2024-09-28] MEDS: UNRESOLVED PATIENT OWN MED ORDER XX SCH (20:43)
[2024-09-29] VITALS (24 sets, daily range): BP systolic 102–190; BP diastolic 51–100; TEMP 97.2–98.6; O2SAT 76–100
[2024-09-29 06:36] LABS: HEMOGLOBIN 11.2 g/dl (12.0-15.5); MEAN CORPUSCULAR HEMOGLOBIN 27.2 pg (27.0-33.0); MEAN CORPUSCULAR HGB CONC 31.1 g/dl (32.0-36.5); MEAN CORPUSCULAR VOLUME 87.4 fl (80.0-96.0); PLATELET COUNT, AUTOMATED 334 10^3/uL (150-450); RED BLOOD COUNT 4.12 10^6/uL (4.00-5.40); WHITE BLOOD COUNT 25.6 10^3/uL (4.0-10.0)
[2024-09-29 07:17] LABS: BLOOD UREA NITROGEN 16 MG/DL (9-23); CALCIUM LEVEL 8.2 MG/DL (8.3-10.6); CARBON DIOXIDE LEVEL 28 MMOL/L (20-31); CHLORIDE LEVEL 110 MMOL/L (98-107); GLOMERULAR FILTRATION RATE > 60.0 (>45); GLUCOSE, FASTING 87 MG/DL (74-106); POTASSIUM SERUM 3.9 MMOL/L (3.5-5.1); SODIUM LEVEL 143 MMOL/L (136-145)
[2024-09-29] MEDS: hydrALAZINE 20MG/ML 1ML VIAL IV PRN (08:57)
[2024-09-29] MEDS: AZITHROMYCIN 250MG TABLET PO SCH (08:58)
[2024-09-29] MEDS: amLODIPine 5 MG TAB PO SCH (11:56)
[2024-09-29] MEDS: cefTRIAXone SOD 2 GM in DEXTROSE 5% (D5W) ADV/MINI-BAG 50 ML IV SCH (12:12)
[2024-09-29] MEDS: ANASTROZOLE 1MG TABLET (PATIENT'S OWN MED) PO SCH (17:03)
[2024-09-30] VITALS (16 sets, daily range): BP systolic 90–153; BP diastolic 50–80; TEMP 98.2–101.1; O2SAT 86–95
[2024-09-30 05:47] LABS: BASO # 0.1 10^3/uL (0.0-0.2); BASO % 0.4 % (0.0-1.0); EOS # 0.1 10^3/uL (0.0-0.5); EOS % 0.5 % (0.0-3.0); HEMATOCRIT 35.4 % (36.0-47.0); LYMPH # 1.3 10^3/uL (1.5-5.0); LYMPH % 6.2 % (24.0-44.0); MEAN CORPUSCULAR HEMOGLOBIN 27.2 pg (27.0-33.0); MEAN CORPUSCULAR HGB CONC 31.1 g/dl (32.0-36.5); MEAN CORPUSCULAR VOLUME 87.4 fl (80.0-96.0); MONO # 1.5 10^3/uL (0.0-0.8); MONO % 7.6 % (2.0-8.0); NEUTROPHILS # 16.8 10^3/uL (1.5-8.5); NEUTROPHILS % 84.1 % (36.0-66.0); PLATELET COUNT, AUTOMATED 352 10^3/uL (150-450); RED BLOOD COUNT 4.05 10^6/uL (4.00-5.40)
[2024-09-30 06:10] LABS: BLOOD UREA NITROGEN 11 MG/DL (9-23); CALCIUM LEVEL 8.2 MG/DL (8.3-10.6); CARBON DIOXIDE LEVEL 34 MMOL/L (20-31); CHLORIDE LEVEL 107 MMOL/L (98-107); CREATININE FOR GFR 0.47 MG/DL (0.55-1.30); GLOMERULAR FILTRATION RATE > 60.0 (>45); GLUCOSE, FASTING 93 MG/DL (74-106); POTASSIUM SERUM 3.7 MMOL/L (3.5-5.1); SODIUM LEVEL 143 MMOL/L (136-145)
[2024-09-30] MEDS: MAG SULF 1GM/100ML (MAG RUN) 1 GM in IV 1 EA IV SCH ×2 (13:00→18:42)
[2024-10-01] VITALS (7 sets, daily range): BP systolic 126–162; BP diastolic 63–78; TEMP 97.6–99; O2SAT 87–92
[2024-10-01 06:11] LABS: BASO # 0.1 10^3/uL (0.0-0.2); BASO % 0.3 % (0.0-1.0); EOS # 0.1 10^3/uL (0.0-0.5); EOS % 0.8 % (0.0-3.0); HEMATOCRIT 34.4 % (36.0-47.0); HEMOGLOBIN 10.8 g/dl (12.0-15.5); LYMPH # 1.3 10^3/uL (1.5-5.0); LYMPH % 8.4 % (24.0-44.0); MEAN CORPUSCULAR HGB CONC 31.4 g/dl (32.0-36.5); MONO # 1.4 10^3/uL (0.0-0.8); NEUTROPHILS # 12.7 10^3/uL (1.5-8.5); NEUTROPHILS % 79.8 % (36.0-66.0); PLATELET COUNT, AUTOMATED 358 10^3/uL (150-450); WHITE BLOOD COUNT 15.9 10^3/uL (4.0-10.0)
[2024-10-01 06:29] LABS: BLOOD UREA NITROGEN 8 MG/DL (9-23); CALCIUM LEVEL 8.3 MG/DL (8.3-10.6); CARBON DIOXIDE LEVEL 33 MMOL/L (20-31); CHLORIDE LEVEL 105 MMOL/L (98-107); GLOMERULAR FILTRATION RATE > 60.0 (>45); GLUCOSE, FASTING 100 MG/DL (74-106); MAGNESIUM LEVEL 2.2 MG/DL (1.8-2.4); POTASSIUM SERUM 3.4 MMOL/L (3.5-5.1); SODIUM LEVEL 142 MMOL/L (136-145)
[2024-10-01 08:02] LABS: PROCALCITONIN 3.24 ng/ml
[2024-10-01] MEDS: POTASSIUM CHLORIDE 10% LIQ 20MEQ/15ML UDC PO ONE (08:14)
[2024-10-01] MEDS: MAGNESIUM OXIDE 400MG TAB (MAG-OX) PO SCH (12:08)
[2024-10-02] VITALS (7 sets, daily range): BP systolic 119–157; BP diastolic 66–107; TEMP 97.5–98.1; O2SAT 83–95
[2024-10-02 05:27] LABS: HEMOGLOBIN 11.3 g/dl (12.0-15.5); MEAN CORPUSCULAR HGB CONC 31.4 g/dl (32.0-36.5); MEAN CORPUSCULAR VOLUME 86.1 fl (80.0-96.0); PLATELET COUNT, AUTOMATED 378 10^3/uL (150-450); RED BLOOD COUNT 4.18 10^6/uL (4.00-5.40)
[2024-10-02 06:03] LABS: ALBUMIN 1.7 G/DL (3.2-5.2); ALKALINE PHOSPHATASE 84 U/L (35-104); ALT/SGPT 41 U/L (7.0-40); AST/SGOT 64 U/L (<34); BILIRUBIN,TOTAL 0.3 MG/DL (0.3-1.2); BLOOD UREA NITROGEN 8 MG/DL (9-23); CALCIUM LEVEL 8.8 MG/DL (8.3-10.6); CARBON DIOXIDE LEVEL 32 MMOL/L (20-31); CHLORIDE LEVEL 105 MMOL/L (98-107); CREATININE FOR GFR 0.49 MG/DL (0.55-1.30); GLOMERULAR FILTRATION RATE > 60.0 (>45); GLUCOSE, FASTING 90 MG/DL (74-106); POTASSIUM SERUM 4.5 MMOL/L (3.5-5.1); SODIUM LEVEL 142 MMOL/L (136-145); TOTAL PROTEIN 6.8 G/DL (5.7-8.2)
[2024-10-02] MEDS: FLUBLOK(EGGFREE) TRIVAL(24-25) VACCINE PF 0.5ML SYRINGE 18YRS & OLDER IM.IMMUN ONE (09:38)
[2024-10-02] MEDS ORDERED: MAGN400T2 PO (19:20)
[2024-10-02] MEDS ORDERED: LEVO75TAB PO (19:20)
[2024-10-02] MEDS ORDERED: AMLO1TAB24 PO (19:20)
[2024-10-03 04:00] VITALS: BP 151/85; TEMP 97.5; O2SAT 96
[2024-10-03] MEDS: LevoFLOXacin 750 MG TABLET PO SCH (05:50)
[2024-10-03 06:21] LABS: HEMATOCRIT 36.1 % (36.0-47.0); HEMOGLOBIN 11.2 g/dl (12.0-15.5); MEAN CORPUSCULAR HEMOGLOBIN 26.7 pg (27.0-33.0); MEAN CORPUSCULAR VOLUME 86.2 fl (80.0-96.0); PLATELET COUNT, AUTOMATED 367 10^3/uL (150-450); RED BLOOD COUNT 4.19 10^6/uL (4.00-5.40); WHITE BLOOD COUNT 16.8 10^3/uL (4.0-10.0)
[2024-10-03 07:06] LABS: ALBUMIN 1.6 G/DL (3.2-5.2); ALKALINE PHOSPHATASE 87 U/L (35-104); ALT/SGPT 52 U/L (7.0-40); AST/SGOT 70 U/L (<34); BILIRUBIN,TOTAL 0.2 MG/DL (0.3-1.2); BLOOD UREA NITROGEN 16 MG/DL (9-23); CARBON DIOXIDE LEVEL 33 MMOL/L (20-31); CHLORIDE LEVEL 102 MMOL/L (98-107); CREATININE FOR GFR 0.57 MG/DL (0.55-1.30); GLOMERULAR FILTRATION RATE > 60.0 (>45); GLUCOSE, FASTING 91 MG/DL (74-106); POTASSIUM SERUM 4.6 MMOL/L (3.5-5.1); SODIUM LEVEL 139 MMOL/L (136-145); TOTAL PROTEIN 6.9 G/DL (5.7-8.2)
[2024-10-03 08:26] VITALS: BP 92/44
[2024-10-03 09:18] VITALS: O2SAT 92
[2024-10-03 10:29] VITALS: BP 110/60
[2024-10-03 12:00] VITALS: BP 124/68; TEMP 97.5; O2SAT 94
[2024-10-03] MEDS ORDERED: PREVNAR-20 VACCINE 0.5ML SYRINGE IM.IMMUN ONE (16:50)
[2024-10-03] MEDS ORDERED: FLUBLOK(EGGFREE) TRIVAL(24-25) VACCINE PF 0.5ML SYRINGE 18YRS & OLDER IM.IMMUN ONE (16:50)
[2024-10-03] MEDS: FLUBLOK(EGGFREE) TRIVAL(24-25) VACCINE PF 0.5ML SYRINGE 18YRS & OLDER IM.IMMUN ONE (18:32)
[2024-10-03] MEDS: PREVNAR-20 VACCINE 0.5ML SYRINGE IM.IMMUN ONE (18:39)
[2024-10-03 20:00] VITALS: BP 116/66; TEMP 97.7; O2SAT 91
[2024-10-03 22:53] LABS: URINE STREP PNEUMONIAE ANTIGEN DETECTED (NOT DETECT)
[2024-10-04 04:00] VITALS: BP 129/72; TEMP 97.3; O2SAT 92
[2024-10-04 06:17] LABS: HEMATOCRIT 38.3 % (36.0-47.0); HEMOGLOBIN 11.7 g/dl (12.0-15.5); MEAN CORPUSCULAR HEMOGLOBIN 26.5 pg (27.0-33.0); MEAN CORPUSCULAR HGB CONC 30.5 g/dl (32.0-36.5); MEAN CORPUSCULAR VOLUME 86.7 fl (80.0-96.0); PLATELET COUNT, AUTOMATED 434 10^3/uL (150-450); RED BLOOD COUNT 4.42 10^6/uL (4.00-5.40); WHITE BLOOD COUNT 14.3 10^3/uL (4.0-10.0)
[2024-10-04 06:57] LABS: ALBUMIN 1.8 G/DL (3.2-5.2); ALKALINE PHOSPHATASE 82 U/L (35-104); ALT/SGPT 59 U/L (7.0-40); AST/SGOT 67 U/L (<34); BILIRUBIN,TOTAL 0.2 MG/DL (0.3-1.2); BLOOD UREA NITROGEN 17 MG/DL (9-23); CALCIUM LEVEL 9.3 MG/DL (8.3-10.6); CARBON DIOXIDE LEVEL 34 MMOL/L (20-31); CHLORIDE LEVEL 102 MMOL/L (98-107); CREATININE FOR GFR 0.63 MG/DL (0.55-1.30); GLOMERULAR FILTRATION RATE > 60.0 (>45); GLUCOSE, FASTING 92 MG/DL (74-106); POTASSIUM SERUM 4.7 MMOL/L (3.5-5.1); SODIUM LEVEL 139 MMOL/L (136-145); TOTAL PROTEIN 7.3 G/DL (5.7-8.2)
[2024-10-04 08:20] VITALS: BP 93/55
[2024-10-04 12:00] VITALS: BP 94/55; TEMP 97.9; O2SAT 93
== END 2024-10-04 12:58 | disposition home health service (06) | DRG 871 ==
LOC: M ED 09:41 → M ED INP 12:44 → M PCU 14:14 → M MSPAV 10-01 17:30
PROVIDERS: ADMIT Internal Medicine; ATTEND Internal Medicine
DX: A41.9 Sepsis, unspecified organism (principal); J96.01 Acute respiratory failure with hypoxia; J12.9 Viral pneumonia, unspecified; J13 Pneumonia due to Streptococcus pneumoniae; G82.20 Paraplegia, unspecified; I44.2 Atrioventricular block, complete; N39.0 Urinary tract infection, site not specified; J44.9 Chronic obstructive pulmonary disease, unspecified; G47.33 Obstructive sleep apnea (adult) (pediatric); J98.4 Other disorders of lung; Z95.0 Presence of cardiac pacemaker; N31.9 Neuromuscular dysfunction of bladder, unspecified; I10 Essential (primary) hypertension; E87.6 Hypokalemia; E83.42 Hypomagnesemia; N60.91 Unspecified benign mammary dysplasia of right breast; Z79.01 Long term (current) use of anticoagulants; Z86.718 Personal history of other venous thrombosis and embolism; Z79.899 Other long term (current) drug therapy

== ENCOUNTER → 2024-11-01 | Outpatient (CLI) | payer MEDICARE ==
[~2024-11-01] MED LIST changes: +LEVO75TAB PO; +MAGN400T2 PO
== END ==
LOC: M SLEEP 20:00
PROVIDERS: ATTEND Internal Medicine Pulmonary Disease
DX: G47.33 Obstructive sleep apnea (adult) (pediatric) (principal)

== ENCOUNTER → 2024-12-06 | Outpatient (CLI) | payer MEDICARE | LOC: M PLAIMG 12:48 | PROVIDERS: ATTEND Internal Medicine Pulmonary Disease | DX: R91.8 Other nonspecific abnormal finding of lung field (principal) ==

== ENCOUNTER → 2024-12-18 | Outpatient (REF) | payer MEDICARE ==
[2024-12-18 17:43] LABS: BASO # 0.1 10^3/uL (0.0-0.2); BASO % 0.6 % (0.0-1.0); EOS # 0.2 10^3/uL (0.0-0.5); EOS % 2.3 % (0.0-3.0); HEMATOCRIT 36.6 % (36.0-47.0); HEMOGLOBIN 10.8 g/dl (12.0-15.5); LYMPH # 1.7 10^3/uL (1.5-5.0); LYMPH % 19.9 % (24.0-44.0); MEAN CORPUSCULAR HEMOGLOBIN 25.5 pg (27.0-33.0); MEAN CORPUSCULAR HGB CONC 29.5 g/dl (32.0-36.5); MEAN CORPUSCULAR VOLUME 86.5 fl (80.0-96.0); MONO # 0.7 10^3/uL (0.0-0.8); MONO % 8.2 % (2.0-8.0); NEUTROPHILS # 5.9 10^3/uL (1.5-8.5); NEUTROPHILS % 68.7 % (36.0-66.0); PLATELET COUNT, AUTOMATED 442 10^3/uL (150-450); RED BLOOD COUNT 4.23 10^6/uL (4.00-5.40); WHITE BLOOD COUNT 8.6 10^3/uL (4.0-10.0)
[2024-12-18 17:49] LABS: ALBUMIN 2.6 G/DL (3.2-5.2); ALKALINE PHOSPHATASE 96 U/L (35-104); ALT/SGPT 13 U/L (7.0-40); AST/SGOT 19 U/L (<34); BILIRUBIN,TOTAL 0.3 MG/DL (0.3-1.2); BLOOD UREA NITROGEN 14 MG/DL (9-23); CALCIUM LEVEL 9.3 MG/DL (8.3-10.6); CARBON DIOXIDE LEVEL 32 MMOL/L (20-31); CHLORIDE LEVEL 104 MMOL/L (98-107); CREATININE FOR GFR 0.62 MG/DL (0.55-1.30); GLOMERULAR FILTRATION RATE > 60.0 (>45); GLUCOSE, FASTING 143 MG/DL (74-106); POTASSIUM SERUM 3.5 MMOL/L (3.5-5.1); SODIUM LEVEL 142 MMOL/L (136-145); TOTAL PROTEIN 7.2 G/DL (5.7-8.2)
[2024-12-19 14:18] LABS: IMMUNOGLOBULIN G 2678 MG/DL (650-1600)
== END ==
LOC: M LABDRWAD 17:11
PROVIDERS: ATTEND Specialist
DX: C50.919 Malignant neoplasm of unspecified site of unspecified female breast (principal)

== ENCOUNTER → 2024-12-26 | Outpatient (CLI) | payer MEDICARE | LOC: M WHC 09:32 | DX: Z13.820 Encounter for screening for osteoporosis (principal); Z79.83 Long term (current) use of bisphosphonates ==

== ENCOUNTER → 2025-01-28 | Outpatient (REF) | payer MEDICARE ==
[2025-01-28 19:51] LABS: BASO % 0.4 % (0.0-1.0); EOS # 0.2 10^3/uL (0.0-0.5); EOS % 2.1 % (0.0-3.0); HEMATOCRIT 33.8 % (36.0-47.0); HEMOGLOBIN 9.8 g/dl (12.0-15.5); LYMPH # 1.4 10^3/uL (1.5-5.0); LYMPH % 15.2 % (24.0-44.0); MEAN CORPUSCULAR HEMOGLOBIN 21.8 pg (27.0-33.0); MEAN CORPUSCULAR VOLUME 75.3 fl (80.0-96.0); MONO # 1.1 10^3/uL (0.0-0.8); MONO % 11.8 % (2.0-8.0); NEUTROPHILS # 6.4 10^3/uL (1.5-8.5); NEUTROPHILS % 70.2 % (36.0-66.0); PLATELET COUNT, AUTOMATED 304 10^3/uL (150-450); RED BLOOD COUNT 4.49 10^6/uL (4.00-5.40); WHITE BLOOD COUNT 9.2 10^3/uL (4.0-10.0)
[2025-01-28 20:06] LABS: ERYTHROCYTE SEDIMENTATION RATE 49 mm/hr (0-30)
[2025-01-28 20:15] LABS: IMMUNOGLOBULIN A 71.7 MG/DL (40-350)
[2025-01-28 20:16] LABS: C REACTIVE PROTEIN QUANTITATIV 0.92 MG/DL (<1.0); IMMUNOGLOBULIN G 2895 MG/DL (650-1600); IMMUNOGLOBULIN M 42.6 MG/DL (50-300)
[2025-01-28 20:21] LABS: ALBUMIN 3.1 G/DL (3.2-5.2); ALKALINE PHOSPHATASE 118 U/L (35-104); ALT/SGPT 21 U/L (7.0-40); AST/SGOT 22 U/L (<34); BILIRUBIN,TOTAL 0.3 MG/DL (0.3-1.2); BLOOD UREA NITROGEN 14 MG/DL (9-23); CALCIUM LEVEL 8.2 MG/DL (8.3-10.6); CARBON DIOXIDE LEVEL 31 MMOL/L (20-31); CHLORIDE LEVEL 104 MMOL/L (98-107); CREATININE FOR GFR 0.59 MG/DL (0.55-1.30); GLOMERULAR FILTRATION RATE > 60.0 (>45); GLUCOSE, FASTING 108 MG/DL (74-106); POTASSIUM SERUM 3.9 MMOL/L (3.5-5.1); SODIUM LEVEL 143 MMOL/L (136-145); TOTAL PROTEIN 7.8 G/DL (5.7-8.2)
== END ==
LOC: M SFHCPLAZ 13:05
PROVIDERS: ATTEND Internal Medicine Infectious Disease
DX: A31.0 Pulmonary mycobacterial infection (principal)

== ENCOUNTER → 2025-06-11 | Outpatient (CLI) | payer MEDICARE, MEDICAID | LOC: M RAD 09:32 | PROVIDERS: ATTEND Nurse Practitioner Family | DX: N31.9 Neuromuscular dysfunction of bladder, unspecified (principal) ==

== ENCOUNTER → 2025-06-19 | Outpatient (REF) | payer MEDICARE, MEDICAID ==
[~2025-06-19] MED LIST changes: +LABE300T28; +PANT40TA29; +WARF4TAB52 PO
== END ==
LOC: M SFHCPLAZ 12:31
PROVIDERS: ATTEND Internal Medicine Infectious Disease
DX: A31.0 Pulmonary mycobacterial infection (principal)

== ENCOUNTER → 2025-06-26 | Outpatient (REF) | payer MEDICARE, MEDICAID ==
[2025-06-26 12:11] LABS: BASO # 0.0 10^3/uL (0.0-0.2); BASO % 0.4 % (0.0-1.0); EOS # 0.4 10^3/uL (0.0-0.5); EOS % 5.9 % (0.0-3.0); LYMPH # 1.4 10^3/uL (1.5-5.0); LYMPH % 19.7 % (24.0-44.0); MONO # 0.7 10^3/uL (0.0-0.8); MONO % 9.5 % (2.0-8.0); NEUTROPHILS # 4.5 10^3/uL (1.5-8.5); NEUTROPHILS % 64.2 % (36.0-66.0); PLATELET COUNT, AUTOMATED 284 10^3/uL (150-450)
[2025-06-26 12:27] LABS: ERYTHROCYTE SEDIMENTATION RATE 126 mm/hr (0-30)
[2025-06-26 12:56] LABS: C REACTIVE PROTEIN QUANTITATIV 5.16 MG/DL (<1.0); IRON (FE) 96 UG/DL (50-170); PERCENT SATURATION 42.3 % (13.2-45.0)
[2025-06-26 13:01] LABS: ALT/SGPT < 9 U/L (7.0-40); AST/SGOT 15 U/L (<34); CALCIUM LEVEL 9.3 MG/DL (8.3-10.6); CARBON DIOXIDE LEVEL 30 MMOL/L (20-31); CHLORIDE LEVEL 105 MMOL/L (98-107); CREATININE FOR GFR 1.28 MG/DL (0.55-1.30); GLOMERULAR FILTRATION RATE 45.4 (>45); POTASSIUM SERUM 4.5 MMOL/L (3.5-5.1); SODIUM LEVEL 147 MMOL/L (136-145)
== END ==
LOC: M LAB REF 10:14
PROVIDERS: ATTEND Internal Medicine Infectious Disease
DX: D50.9 Iron deficiency anemia, unspecified (principal); A31.0 Pulmonary mycobacterial infection; N39.0 Urinary tract infection, site not specified

== ENCOUNTER → 2025-06-26 | Outpatient (REF) | payer MEDICARE, MEDICAID ==
[2025-06-26 10:29] LABS: INR 1.77
== END ==
LOC: M LAB REF 10:13
PROVIDERS: ATTEND Physical Therapist
DX: I82.402 Acute embolism and thrombosis of unspecified deep veins of left lower extremity (principal)

== ENCOUNTER → 2025-06-26 | Outpatient (REF) | payer MEDICARE, MEDICAID ==
[2025-06-26 15:20] LABS: CALCIUM LEVEL 9.2 MG/DL (8.3-10.6); CARBON DIOXIDE LEVEL 28.0 MMOL/L (20-31); CHLORIDE LEVEL 105.0 MMOL/L (98-107); CREATININE FOR GFR 1.27 MG/DL (0.55-1.30); GLOMERULAR FILTRATION RATE 45.8 (>45); POTASSIUM SERUM 4.4 MMOL/L (3.5-5.1); SODIUM LEVEL 145.0 MMOL/L (136-145)
== END ==
LOC: M LAB REF 10:16
PROVIDERS: ATTEND Nurse Practitioner Family
DX: N39.0 Urinary tract infection, site not specified (principal)

== ENCOUNTER → 2025-07-03 | Outpatient (REF) | payer MEDICARE, MEDICAID ==
[2025-07-03 10:58] LABS: INR 1.17
== END ==
LOC: M LAB REF 10:37
PROVIDERS: ATTEND Physical Therapist
DX: I82.402 Acute embolism and thrombosis of unspecified deep veins of left lower extremity (principal)

== ENCOUNTER → 2025-07-11 | Outpatient (REF) | payer MEDICARE, MEDICAID | LOC: M LAB REF 09:08 | PROVIDERS: ATTEND Internal Medicine Infectious Disease | DX: A31.0 Pulmonary mycobacterial infection (principal); I82.402 Acute embolism and thrombosis of unspecified deep veins of left lower extremity ==

== ENCOUNTER → 2025-07-11 | Outpatient (REF) | payer MEDICARE, MEDICAID ==
[2025-07-11 10:01] LABS: INR 1.34
== END ==
LOC: M LAB REF 09:09
PROVIDERS: ATTEND Physical Therapist
DX: I82.402 Acute embolism and thrombosis of unspecified deep veins of left lower extremity (principal)

== ENCOUNTER → 2025-07-14 | Outpatient (CLI) | payer MEDICARE, MEDICAID | LOC: M WHC 13:36 | PROVIDERS: ATTEND Specialist | DX: Z12.31 Encounter for screening mammogram for malignant neoplasm of breast (principal); R92.323 Mammographic fibroglandular density, bilateral breasts ==

== ENCOUNTER → 2025-07-31 | Outpatient (REF) | payer MEDICARE, MEDICAID ==
[2025-08-01 14:32] LABS: APPEARANCE, URINE HAZY (CLEAR); BACTERIA, URINE AUTO 1+ (NEGATIVE); BILIRUBIN, URINE AUTO NEGATIVE (NEGATIVE); BLOOD, URINE BLOOD 2+ (NEGATIVE); GLUCOSE, URINE (UA) AUTO NEGATIVE (NEGATIVE); KETONE, URINE AUTO NEGATIVE (NEGATIVE); LEUKOCYTE ESTERASE, URINE AUTO 3+ (NEGATIVE); MUCUS, URINE SMALL (NEGATIVE); NITRITE, URINE AUTO NEGATIVE (NEGATIVE); PROTEIN, URINE AUTO NEGATIVE (NEGATIVE); RBC, URINE AUTO 18 /HPF (0-3); SPECIFIC GRAVITY URINE AUTO 1.005 (1.002-1.035); SQUAMOUS EPITHELIAL CELL UR AU 0 /HPF (0-6); TRANSITIONAL EPITHELIAL AUTO 2 /HPF; UROBILINOGEN, URINE AUTO 0.2 mg/dL (0.0-2.0); WBC, URINE AUTO 124 /HPF (0-3)
== END ==
LOC: M SMT 13:15
PROVIDERS: ATTEND Nurse Practitioner Family
DX: R33.9 Retention of urine, unspecified (principal)

== ENCOUNTER → 2025-08-01 | Outpatient (REF) | payer MEDICARE, MEDICAID ==
[2025-08-01 11:42] LABS: BASO # 0.0 10^3/uL (0.0-0.2); BASO % 0.5 % (0.0-1.0); EOS # 0.4 10^3/uL (0.0-0.5); EOS % 5.5 % (0.0-3.0); LYMPH # 1.8 10^3/uL (1.5-5.0); LYMPH % 22.0 % (24.0-44.0); MONO # 0.7 10^3/uL (0.0-0.8); MONO % 8.5 % (2.0-8.0); NEUTROPHILS # 5.1 10^3/uL (1.5-8.5); NEUTROPHILS % 63.1 % (36.0-66.0); PLATELET COUNT, AUTOMATED 248 10^3/uL (150-450)
[2025-08-01 11:53] LABS: ERYTHROCYTE SEDIMENTATION RATE 60 mm/hr (0-30)
[2025-08-01 12:12] LABS: C REACTIVE PROTEIN QUANTITATIV 0.57 MG/DL (<1.0); IRON (FE) 58.0 UG/DL (50-170); PERCENT SATURATION 25.3 % (13.2-45.0)
[2025-08-01 12:13] LABS: ALT/SGPT 14.0 U/L (7.0-40); AST/SGOT 17.0 U/L (<34); CALCIUM LEVEL 9.0 MG/DL (8.3-10.6); CARBON DIOXIDE LEVEL 30.0 MMOL/L (20-31); CHLORIDE LEVEL 106.0 MMOL/L (98-107); CREATININE FOR GFR 0.92 MG/DL (0.55-1.30); GLOMERULAR FILTRATION RATE 67.4 (>45); POTASSIUM SERUM 4.2 MMOL/L (3.5-5.1); SODIUM LEVEL 144.0 MMOL/L (136-145)
== END ==
LOC: M LAB REF 09:53
PROVIDERS: ATTEND Internal Medicine Infectious Disease
DX: A31.0 Pulmonary mycobacterial infection (principal); D50.9 Iron deficiency anemia, unspecified

== ENCOUNTER → 2025-08-07 | Outpatient (REF) | payer MEDICARE, MEDICAID | LOC: M SFHCPLAZ 17:58 → M SHH 17:58 | PROVIDERS: ATTEND Internal Medicine Infectious Disease | DX: A31.0 Pulmonary mycobacterial infection (principal) ==

== ENCOUNTER → 2025-08-11 | Outpatient (CLI) | payer MEDICARE, MEDICAID | LOC: M PLAIMG 10:55 | PROVIDERS: ATTEND Psychiatry & Neurology Neurology | DX: R41.3 Other amnesia (principal); G93.89 Other specified disorders of brain; G31.9 Degenerative disease of nervous system, unspecified ==

== ENCOUNTER 2025-08-21 12:24 | Emergency (ER) | payer MEDICARE, MEDICAID ==
[~2025-08-21] VITALS: Ht 157.5 cm; Wt 53.4 kg
[2025-08-21 13:06] LABS: BASO # 0.0 10^3/uL (0.0-0.2); BASO % 0.4 % (0.0-1.0); EOS # 0.4 10^3/uL (0.0-0.5); EOS % 4.4 % (0.0-3.0); LYMPH # 1.4 10^3/uL (1.5-5.0); LYMPH % 15.5 % (24.0-44.0); MONO # 0.9 10^3/uL (0.0-0.8); MONO % 9.9 % (2.0-8.0); NEUTROPHILS # 6.3 10^3/uL (1.5-8.5); NEUTROPHILS % 69.6 % (36.0-66.0); PLATELET COUNT, AUTOMATED 233 10^3/uL (150-450)
[2025-08-21 13:18] LABS: INR 1.13
[2025-08-21 13:40] VITALS: TEMP 98.4
[2025-08-21 14:05] LABS: ALT/SGPT 13.0 U/L (7.0-40); AST/SGOT 15.0 U/L (<34); CALCIUM LEVEL 8.9 MG/DL (8.3-10.6); CARBON DIOXIDE LEVEL 29.0 MMOL/L (20-31); CHLORIDE LEVEL 103.0 MMOL/L (98-107); CREATININE FOR GFR 1.18 MG/DL (0.55-1.30); FREE T4 1.17 NG/DL (0.89-1.76); GLOMERULAR FILTRATION RATE 50.0 (>45); MAGNESIUM LEVEL 1.8 MG/DL (1.8-2.4); POTASSIUM SERUM 4.1 MMOL/L (3.5-5.1); SODIUM LEVEL 140.0 MMOL/L (136-145)
[2025-08-21] MEDS: NS 500 ML IV ONE (14:39)
[2025-08-21 15:15] VITALS: O2SAT 98
[2025-08-21 15:17] VITALS: BP 142/73
== END 2025-08-21 15:29 | disposition left against medical advice (07) ==
LOC: EDBD 12:24 → M ED 12:24
DX: R55 Syncope and collapse (principal); I10 Essential (primary) hypertension; G47.33 Obstructive sleep apnea (adult) (pediatric); F17.200 Nicotine dependence, unspecified, uncomplicated; K21.9 Gastro-esophageal reflux disease without esophagitis; G82.20 Paraplegia, unspecified; Z95.0 Presence of cardiac pacemaker; Z86.718 Personal history of other venous thrombosis and embolism; Z79.899 Other long term (current) drug therapy; Z79.01 Long term (current) use of anticoagulants; Z53.9 Procedure and treatment not carried out, unspecified reason

== ENCOUNTER → 2025-09-04 | Outpatient (REF) | payer MEDICARE, MEDICAID | LOC: M SFHCPLAZ 12:08 | PROVIDERS: ATTEND Internal Medicine Infectious Disease | DX: A31.0 Pulmonary mycobacterial infection (principal) ==

== ENCOUNTER 2025-09-14 09:58 | Emergency (ER) | payer MEDICARE, MEDICAID ==
[~2025-09-14] VITALS: Ht 157.5 cm; Wt 52.3 kg
[2025-09-14] MEDS ORDERED: ZITHTAB PO (10:07)
[2025-09-14] MEDS ORDERED: ACET-683 PO (10:07)
[2025-09-14 11:36] LABS: KETONE, URINE AUTO RFX NEGATIVE (NEGATIVE); LEUKOCYTE ESTERASE UR AUTO RFX 3+ (NEGATIVE); MUCUS, URINE RFX SMALL (NEGATIVE); NITRITE, URINE AUTO RFX POSITIVE (NEGATIVE); RBC, URINE AUTO RFX 31 /HPF (0-3); SQUAM EPITHELIAL CELL UR AURFX 0 /HPF (0-6); WBC, URINE AUTO RFX 140 /HPF (0-3)
[2025-09-14 11:54] LABS: CALCIUM LEVEL 8.4 MG/DL (8.3-10.6); CARBON DIOXIDE LEVEL 24.0 MMOL/L (20-31); CHLORIDE LEVEL 107.0 MMOL/L (98-107); CREATININE FOR GFR 1.18 MG/DL (0.55-1.30); GLOMERULAR FILTRATION RATE 50.0 (>45); POTASSIUM SERUM 4.2 MMOL/L (3.5-5.1); SODIUM LEVEL 143.0 MMOL/L (136-145)
[2025-09-14 13:08] LABS: BASO # 0.1 10^3/uL (0.0-0.2); BASO % 0.3 % (0.0-1.0); EOS # 0.4 10^3/uL (0.0-0.5); EOS % 2.4 % (0.0-3.0); LYMPH # 1.2 10^3/uL (1.5-5.0); LYMPH % 7.6 % (24.0-44.0); MONO # 1.5 10^3/uL (0.0-0.8); MONO % 9.5 % (2.0-8.0); NEUTROPHILS # 12.7 10^3/uL (1.5-8.5); NEUTROPHILS % 79.6 % (36.0-66.0); PLATELET COUNT, AUTOMATED 180 10^3/uL (150-450)
[2025-09-14 13:42] LABS: ALT/SGPT 12.0 U/L (7.0-40); AST/SGOT 17.0 U/L (<34)
[2025-09-14] MEDS ORDERED: ISOVUE-370 76% 100 ML VIAL As Ordered ONE (14:06)
[2025-09-14] MEDS: ACETAMINOPHEN *IV* 1,000 MG in IV 1 EA IV ONE (14:48)
[2025-09-14] MEDS: cefTRIAXone SOD 1 GM in DEXTROSE 5% (D5W) ADV/MINI-BAG 50 ML IV ONE (15:10)
[2025-09-14] MEDS: NS (Normal Saline) 0.9% 1,000 ML IV ONE (16:16)
[2025-09-14 16:32] LABS: BASO # 0.0 10^3/uL (0.0-0.2); BASO % 0.2 % (0.0-1.0); EOS # 0.3 10^3/uL (0.0-0.5); EOS % 2.0 % (0.0-3.0); LYMPH # 0.7 10^3/uL (1.5-5.0); LYMPH % 5.1 % (24.0-44.0); MONO # 1.3 10^3/uL (0.0-0.8); MONO % 10.1 % (2.0-8.0); NEUTROPHILS # 10.4 10^3/uL (1.5-8.5); NEUTROPHILS % 82.1 % (36.0-66.0); PLATELET COUNT, AUTOMATED 159 10^3/uL (150-450)
[2025-09-14 17:30] VITALS: BP 125/60
[2025-09-14] MEDS ORDERED: CEPH500C PO (17:30)
[2025-09-14 17:31] VITALS: O2SAT 96
[2025-09-14 17:52] VITALS: TEMP 97.6
== END 2025-09-14 18:13 | disposition home or self-care (01) ==
LOC: M ED 09:58
DX: N30.00 Acute cystitis without hematuria (principal); J44.9 Chronic obstructive pulmonary disease, unspecified; K57.30 Diverticulosis of large intestine without perforation or abscess without bleeding; R91.8 Other nonspecific abnormal finding of lung field; M85.80 Other specified disorders of bone density and structure, unspecified site; M16.0 Bilateral primary osteoarthritis of hip; Z79.1 Long term (current) use of non-steroidal anti-inflammatories (NSAID); Z79.2 Long term (current) use of antibiotics; Z79.899 Other long term (current) drug therapy; Z79.01 Long term (current) use of anticoagulants; Z95.0 Presence of cardiac pacemaker
CPT/HCPCS: 71045; 74177; 80048; 80076; 81001; 83605; 83690; 84145; 85025; 87040; 87077; 87088; 87154; 87186; 96365; 99285; J0131; J0696; Q9967

== ENCOUNTER → 2025-09-24 | Outpatient (CLI) | payer MEDICARE, MEDICAID ==
[~2025-09-24] MED LIST changes: +ACET-683 PO; +ZITHTAB PO
== END ==
LOC: M PLAIMG 12:16
PROVIDERS: ATTEND Internal Medicine Infectious Disease
DX: A31.0 Pulmonary mycobacterial infection (principal)

== ENCOUNTER → 2025-11-17 | Outpatient (REF) | payer MEDICARE, MEDICAID ==
[2025-11-17 18:55] LABS: APPEARANCE, URINE CLEAR (CLEAR); BACTERIA, URINE AUTO 1+ (NEGATIVE); BILIRUBIN, URINE AUTO NEGATIVE (NEGATIVE); BLOOD, URINE BLOOD 2+ (NEGATIVE); GLUCOSE, URINE (UA) AUTO NEGATIVE (NEGATIVE); KETONE, URINE AUTO NEGATIVE (NEGATIVE); LEUKOCYTE ESTERASE, URINE AUTO 2+ (NEGATIVE); NITRITE, URINE AUTO NEGATIVE (NEGATIVE); PROTEIN, URINE AUTO NEGATIVE (NEGATIVE); RBC, URINE AUTO 79 /HPF (0-3); SPECIFIC GRAVITY URINE AUTO 1.009 (1.002-1.035); SQUAMOUS EPITHELIAL CELL UR AU 1 /HPF (0-6); TRANSITIONAL EPITHELIAL AUTO <1 /HPF; UROBILINOGEN, URINE AUTO 0.2 mg/dL (0.0-2.0); WBC, URINE AUTO 39 /HPF (0-3)
== END ==
LOC: M SMT 17:07
PROVIDERS: ATTEND Nurse Practitioner Family
DX: N39.0 Urinary tract infection, site not specified (principal)